=== PATIENT | female | born 1965 | race Caucasian/White ===

== ENCOUNTER 2023-11-13 17:59 | Emergency (ER) | payer BC, SELFPAY ==
[2023-11-13 18:06] VITALS: BP 172/100
[2023-11-13 20:20] VITALS: BP 166/78
--- NOTE | 2023-11-13 20:30 | ED.GENMED ---
History of Present Illness
General
Chief Complaint: Abdominal Pain
Source: patient
Exam Limitations: none
Time Seen by Provider: 11/13/23 20:21
Travel History
Have you had any contact with someone who has COVID-19?: No
Do you have any symptoms of coronavirus? Fever > 100 degrees, chills, cough, shortness of breath, sore throat, loss of taste or smell, muscle aches, or headache?: No
History of Present Illness
History of Present Illness:
See MDM
Past History
Past History
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
ED Past Surgical History: Other (PD catheter)
Social History
Tobacco: Non-smoker
Alcohol: None
Personal: Single (engaged)
Living: with family
Phy Exam
Physical Exam
Physical Exam:
See MDM
Course
Orders/Labs/Results
Orders:
Orders
11/13/23 20:30
CT Abd/pel (oral only)-[facility] Only Urgent
Comment:
Reason For Exam: RLQ, peritoneal dialysis
Iohexol [Omnipaque] See Protocol PO NOW STA
11/13/23 20:44
CMP [Comprehensive Metabolic Panel] Urgent
Complete Blood Count/With Diff Urgent
Abnormal Lab Results
11/13/23
20:44
RBC 4.03 L 10^6/uL
(4.20-5.40)
MPV 10.8 H fL
(7.4-10.4)
Absolute Monos (auto) 0.7 H 10^3/uL
(0.1-0.6)
BUN 72 H mg/dl
(7-17)
Creatinine 11.7 H* mg/dL
(0.6-1.0)
Glucose 118 H mg/dl
(70-99)
Total Protein 5.7 L g/dl
(6.3-8.2)
Albumin 3.4 L g/dl
(3.5-5.0)
11/13/23 20:44
11/13/23 20:44
Vital Signs
Initial and Last Documented VS:
Initial Vital Signs
Temp Pulse Resp BP Pulse Ox
97.6 F 94 18 172/100 97
11/13/23 18:06 11/13/23 18:06 11/13/23 18:06 11/13/23 18:06 11/13/23 18:06
Last Documented Vital Signs
Temp Pulse Resp BP Pulse Ox
97.6 F 84 18 151/70 99
11/13/23 18:06 11/13/23 22:02 11/13/23 22:02 11/13/23 22:02 11/13/23 22:02
MDM/Problems Addressed
Differential Diagnosis Includes:
HPI and MDM Narrative:
58-year-old female presenting for evaluation of right lower quadrant pain. This has been ongoing for the past 2 days. She went to urgent care and was sent to the emergency department to rule out acute appendicitis. Patient is on peritoneal
dialysis. She denies fevers or urinary symptoms. Urinalysis performed at urgent care and shows no signs of infection. Will have patient drink for CT
Physical exam
General: Well appearing and non-toxic
HEENT: protecting airway
Neck: appears supple
CV: No evidence of cyanosis
Resp: No accessory muscle use
Abd: Non-distended. Point tenderness to right lower quadrant
Extremities: No deformities
Neuro: alert
Psych: Normal affect
Skin: Intact
Problems Addressed including Acute and Chronic Conditions affecting care:
1. Abdominal pain
Acuity: acute
Prognosis: stable
Details: Will obtain CT with oral contrast to rule out acute appendicitis
Updates
11:30 PM I discussed with patient that the CT is otherwise negative. It references the possibility of early appendicitis but mentions that this is likely related to peritoneal dialysis fluid rather than acute appendicitis. Regardless, she has a
normal white blood cell count and looks well. We discussed return precautions and repeat CT if symptoms persist. Patient given printout of blood work and CT report and discussed with PCP
Differential Diagnosis (but not limited to): Acute appendicitis, colitis, kidney stone
Testing considered: CT with IV and oral contrast but will IV contrast given renal failure
Drug therapy (if applicable): OTC meds, please see d/c instruction regarding Rx drugs
Amount and/or Complexity of Data Reviewed
Clinical info obtained from: Patient
External data reviewed: N/A
Labs I independently reviewed (but not limited to): White blood cell count normal
Radiology: The CT scan was personally and independently reviewed. In addition, official CT report reviewed.
Pulse Ox: not hypoxic
EKG independently reviewed: N/A
Bond Underwriter: N/A
Critical Care: N/A
Risk of Complication:
Social Determinants of health: Good social support
Discussed with other providers: N/A
Escalation of Care includes Admit/Obs: After being observed in the Emergency Department, pt stable for discharge.
Occasional wrong word or 'sound a like' substitutions may have occurred due to the inherent limitations of voice recognition software. Read the chart carefully and recognize, using context, where substitutions have occurred.
*Critical Care Note
Total Time (30-74mins, 75-104mins- exclusive of procedures): Not Applicable
ED Attending Note
-
Portions of this chart may have been created with voice recognition software.� Occasional wrong word or��sound alike� substitutions may have occurred due to the inherent limitations of voice recognition software.
Discharge Plan
Departure
Patient Disposition: Home (Routine Discharge)
Date of Disposition: 11/13/23
Time of Disposition: 23:30
Patient with high blood pressure during this ER visit?: Yes
Discharge Problem:
Abdominal pain
Instructions: Abdominal Pain, BLOOD PRESSURE
Prescriptions:
No Action
levothyroxine 112 MCG tablet
112 mcg PO DAILY
rosuvastatin 20 MG tablet
20 mg PO HS
warfarin [Jantoven] 4 MG tablet
4 mg PO QPM 30 Days Qty: 30 0RF
losartan 50 mg tablet
50 mg PO DAILY
furosemide 40 mg tablet
40 mg PO DAILY
Rx Instructions:
taken w/ 80mg = 120mg
ropinirole 1 mg tablet
2 mg PO HS
furosemide 80 mg tablet
80 mg PO DAILY
Rx Instructions:
Taken w/ 40mg = 120mg
calcitriol 0.5 mcg Capsule
0.5 mcg PO MOWEFR
gabapentin 100 mg capsule
100 mg PO HS
cinacalcet 30 mg Tablet
30 mg PO MOWEFR
lanthanum 1,000 mg tablet,chewable
1,000 mg PO MEALS
docusate sodium [Colace] 100 mg Capsule
200 mg PO DAILY
Patient Comments:
per patient
insulin aspart U-100 [Novolog FlexPen U-100 Insulin] 100 unit/mL (3 mL) Insulin Pen
15 unit SC AC Qty: 5 0RF
Rx Instructions:
E11.65
(DME) pen needle, diabetic [BD Ultra-Fine Wendie Pen Needle] 32 gauge x 5/32' Needle
Qty: 200 0RF
Rx Instructions:
E11.65As Directed
(DME) Contour Next Test Strips Strip
Qty: 200 0RF
Rx Instructions:
Test before each meal and HS As Directed E 11.65
(DME) lancets [Color Lancets] 21 gauge Misc
Qty: 200 0RF
Rx Instructions:
Test glucose before each meal and HS As Directed Insulin requiring
E11.65
sodium bicarbonate 650 mg Tablet
650 mg PO TID Qty: 90 0RF
cephalexin 500 mg Capsule
500 mg PO Q12H Qty: 14 0RF
insulin lispro [Humalog KwikPen Insulin] 100 unit/mL Insulin Pen
15 unit SC AC Qty: 5 0RF
insulin degludec [Tresiba FlexTouch U-100] 100 unit/mL (3 mL) Insulin Pen
20 unit SC DAILY Qty: 5 0RF
benzonatate 150 mg capsule
150 mg PO BID PRN (Reason: Cough) Qty: 14 0RF
(DME) App[employer]uch Verio test strips Strip
Qty: 120 0RF
Rx Instructions:
testing 4 times a day
(DME) blood-glucose meter [[employer]Touch Verio Flex meter] Misc
Qty: 1 0RF
Rx Instructions:
PT TESTING 4 TIMES A DAY
(DME) lancets [[employer] Delica Safety Lancet] 30 gauge Misc
Qty: 120 0RF
Rx Instructions:
PT TESTING 4 TIMES A DAY
Referrals:
NONE,* [Family Provider] -
Activity Restrictions/Additional Instructions:
As we discussed, there is no clear reason for your belly pain
Please return for any worsening symptoms.
You may return at any time if you have further concerns.
Please follow up with your doctor at the first available appointment, preferably this week. Please bring a printout of your blood work and CT report. If symptoms persist or worsen, you may need another CT scan.
Thank you for choosing [facility].
Interventions
Interventions:
*Risk Screen - Suicide Last Done: 11/13/23 18:08
*General Assessment Last Done: 11/13/23 18:06
*Neglect/Abuse Screening Last Done: 11/13/23 18:06
ED- Fall Risk Assessment Last Done: 11/13/23 20:19
*ED COVID-19 Vaccine History Last Done: 11/13/23 20:19
HK-Xjujlm-Vwtxbamplk Assessment Last Done: 11/13/23 20:19
[2023-11-13] MEDS: OMNIPAQUE 50 ML PO (20:44)
[2023-11-13 20:58] LABS: % Basophils 0.6 % (0-2); % Immature Granulocytes 0.4 % (0-0.5); % Lymphocytes 21.7 % (20.5-51.1); % Monocytes 7.4 % (1.7-9.3); % Neutrophils 67.9 % (42.2-75.2); Absolute Basophils 0.1 10^3/uL (0-0.2); Absolute Eosinophils 0.2 10^3/uL (0-0.7); Absolute Monocytes 0.7 10^3/uL (0.1-0.6); Absolute Neutrophils 6.3 10^3/uL (1.4-6.5); Hematocrit 37.1 % (37.0-47.0); Hemoglobin 12.4 g/dL (12.0-16.0); Mean Corp Hgb Conc. 33.4 g/dL (33.0-37.0); Mean Corpuscular Hgb 30.8 pg (27.0-31.0); Mean Corpuscular Volume 92.1 fL (81.0-99.0); Mean Platelet Volume 10.8 fL (7.4-10.4); Nucleated Red Blood Cells % 0 %; Platelet Count 283 10^3/uL (130-400); Red Blood Cell Count 4.03 10^6/uL (4.20-5.40); Red Cell Dist. Width 12.9 % (11.5-14.5); White Blood Cell Count 9.4 10^3/uL (4.8-10.8)
[2023-11-13 21:18] LABS: ALT (SGPT) 11 U/L (0-35); AST (SGOT) 16 U/L (14-36); Albumin 3.4 g/dl (3.5-5.0); Alkaline Phosphatase 86 U/L (38-126); Blood Urea Nitrogen 72 mg/dl (7-17); Carbon Dioxide 23 mmol/L (22-30); Potassium 4.7 mmol/L (3.5-5.1); Sodium 135 mmol/L (135-145); Total Bilirubin 0.5 mg/dl (0.2-1.3); Total Protein 5.7 g/dl (6.3-8.2); eGFR 3.41
[2023-11-13 21:31] LABS: Calcium 9.9 mg/dl (8.4-10.2); Chloride 102 mmol/L (98-107); Glucose 118 mg/dl (70-99)
[2023-11-13 22:02] VITALS: BP 151/70
[2023-11-13 23:45] VITALS: BP 147/74
== END 2023-11-13 23:45 | disposition home or self-care (01) ==
LOC: EMR 17:59
PROVIDERS: Emergency Medicine; EMERGENCY PHYSICIAN Student in an Organized Health Care Education/Training Program
DX: R10.31 Right lower quadrant pain (principal); I12.0 Hypertensive chronic kidney disease with stage 5 chronic kidney disease or end stage renal disease; N18.6 End stage renal disease; Z99.2 Dependence on renal dialysis; Z88.1 Allergy status to other antibiotic agents; Z88.2 Allergy status to sulfonamides; Z88.8 Allergy status to other drugs, medicaments and biological substances
CPT/HCPCS: 99284; 74176; 80053; 85025

== ENCOUNTER → 2024-01-25 18:45 | Outpatient (REF) | payer MEDICARE, BC, SELFPAY | LOC: WDC 18:45 | PROVIDERS: ATTENDING PHYSICIAN Nurse Practitioner Family | DX: Z12.31 Encounter for screening mammogram for malignant neoplasm of breast (principal) | CPT/HCPCS: 77063; 77067 ==

== ENCOUNTER → 2024-08-17 09:43 | Outpatient (REF) | payer MEDICARE, BC, SELFPAY | LOC: RAD 09:43 | PROVIDERS: ATTENDING PHYSICIAN Nurse Practitioner Family; FAMILY PHYSICIAN Nurse Practitioner Family | DX: R10.32 Left lower quadrant pain (principal) | CPT/HCPCS: 72192; 76882 ==

== ENCOUNTER 2024-09-06 16:07 | Emergency (ER) | payer BC, MEDICARE, SELFPAY ==
--- NOTE | 2024-09-06 16:10 | ED.GENMED ---
ED Provider Triage
<Seng Hung PA-C - Last Filed: 09/06/24 16:12>
-
Patient seen by provider in Triage?: Seen in Triage
Attestation: A medical screening examination has been initiated by a qualified medical provider. Based on the assessment performed at this time, it has been determined that an emergent medical condition may exist and the patient has been informed
that further medical evaluation and possible additional diagnostic testing may be needed.
HPI: 59 year old female with right buttock pain radiating to right thigh. Increasingly worse, now difficulty ambulating 2/2 pain. Attempted muscle relaxer without relief. Saw ortho for previous pubic rami fx on left and given vicoden without relief.
Had CT scan done on August 17 around that time here. No new injuries since. Patient stable for waiting room.
GENERAL: Alert , in no apparent distress
EYE: No visual abnormalities.
NECK: Trachea midline
ENT: No visible abnormalities.
LUNGS: No acute respiratory distress
NEUROLOGICAL: Alert and oriented
SKIN: Skin intact. No visible changes.
MUSCULOSKELETAL: Moving extremities normally
PSYCH: Normal and appropriate interaction.
This is a medical evaluation conducted in person to initiate diagnostic evaluation and provide initial therapeutics. Please see further documentation by the treating clinician.
History of Present Illness
<Seng Hung PA-C - Last Filed: 09/06/24 16:12>
General
Chief Complaint: Musculo-Skeletal Complaint
Time Seen by Provider: 09/06/24 18:00
<SUZANNE Long - Last Filed: 09/06/24 20:53>
General
Source: patient
Exam Limitations: none
History of Present Illness
History of Present Illness:
This is a 59 year old female that come sin with c/o right hip/buttocks pain. State that they recently found that she has a nondisplaced pelvic fracture on the left. States that there was no injury or falls. States that now she has pain on the right
side that is in her buttocks and goes down her right leg States that the pain has gotten worse and know she can't walk or put pressure on the right leg. States that they tried Muscle relaxers and this did not help. State that she went to [facility] and
saw orthopedics. States that she was given Vicodin and this doesn't help except maker her feel that she is out of her body. State that the last 10 days the pain is worse. States that she has done 2 rounds o prednisone and at first this helped but
then it stopped. Denies any fever, chills, chest pain, SOB, abd pain, nausea, vomiting, diarrhea, headache, dizziness, urinary burning.
Past History
<Seng Hung PA-C - Last Filed: 09/06/24 16:12>
Past History
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
ED Past Surgical History: Other (PD catheter)
Social History
Tobacco: Non-smoker
Alcohol: None
Personal: Single (engaged)
Living: with family
<SUZANNE Long - Last Filed: 09/06/24 20:53>
Past History
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
ED Past Surgical History: Gynecological (Tubal, ) and Tonsilectomy
Social History
Alcohol: Occasional
Review of Systems
<SUZANNE Long - Last Filed: 09/06/24 20:53>
Review of Systems
All Other Systems: ROS reviewed and negative except as documented in HPI and ROS
Constitutional: Reports no symptoms; Denies fever or chills
EENT: Reports no symptoms
Respiratory: Reports no symptoms; Denies cough or trouble breathing
Cardiac: Reports no symptoms; Denies chest pain
ABD/GI: Reports no symptoms; Denies abdominal pain, nausea, vomiting or diarrhea
: Reports no symptoms
Musculoskeletal: Reports other (Pain right buttocks into right leg)
Skin: Reports no symptoms
Neurological: Reports no symptoms; Denies dizzy or headache
Psychiatric: Reports no symptoms
Phy Exam
<SUZANNE Long - Last Filed: 09/06/24 20:53>
General Physical Exam
General Presentation: no apparent distress
General age: appears stated age
General Skin: warm and dry
General Habitus: elderly
General Mental: alert
General Hydration: appears well hydrated
ENT Exam
ENT Exam: TM's normal, pharynx normal and neck supple
Eye Exam
Eye Exam: EOMI
Cardiovascular Exam
Cardiovascular Exam: regular rate/rhythm and normal peripheral pulses
Pulmonary Exam
Pulmonary Exam: lungs clear, no respiratory distress, no rales, chest non tender, no crackles, no rhonchi, no wheezing and no cough
Gastrointestinal Exam
Gastrointestinal Exam: normal bowel sounds, non tender, soft, no organomegaly, no pulsatile mass, non distended and other (Left lower abd peritoneal dialysis catheter)
Musculoskeletal Exam
Musculoskeletal Exam: edema (+1 pitting edema lower legs) and other (Pain with palpation right buttocks into right leg, limited ROM due to pain)
Skin Exam
Skin Exam: normal color, warm/dry, no rash and no petechia
Psychiatric Exam
Psychiatric Exam: normal mood/affect
Course
<Seng Hung PA-C - Last Filed: 09/06/24 16:12>
Orders/Labs/Results
Orders:
Orders
09/06/24 18:35
CT Lower Ext W/o Iv Cont Rt Urgent
Comment: Recent pelvic fracture on right without injury.
Reason For Exam: Right hip/buttocks pain
09/06/24 18:42
Acetaminophen [Tylenol] 1,000 mg PO NOW STA
Dexamethasone Sod Phosphate [Decadron] 20 mg IV NOW STA
Oxycodone [Roxicodone] 5 mg PO NOW STA
09/06/24 18:48
Complete Blood Count/With Diff Urgent
Comprehensive Metabolic Panel Urgent
Prothrombin Time Urgent
Abnormal Lab Results
09/06/24
18:48
WBC 11.6 H 10^3/uL
(4.8-10.8)
RBC 3.49 L 10^6/uL
(4.20-5.40)
Hgb 10.7 L g/dL
(12.0-16.0)
Hct 32.0 L %
(37.0-47.0)
Abs Immat Gran (auto) 0.2 H 10^3/uL
(0-0.05)
Absolute Neuts (auto) 9.9 H 10^3/uL
(1.4-6.5)
Absolute Lymphs (auto) 0.9 L 10^3/uL
(1.2-3.4)
Immature Gran % 1.9 H %
(0-0.5)
Neutrophils % 85.3 H %
(42.2-75.2)
Lymphocytes % 7.8 L %
(20.5-51.1)
Carbon Dioxide 19 L mmol/L
(22-30)
BUN 97 H mg/dl
(7-17)
Creatinine 12.5 H* mg/dL
(0.6-1.0)
Glucose 301 H mg/dl
(70-99)
Total Protein 5.7 L g/dl
(6.3-8.2)
09/06/24 18:48
09/06/24 18:48
Vital Signs
Initial and Last Documented VS:
Initial Vital Signs
Temp Pulse Resp BP Pulse Ox
97.6 F 86 18 163/77 99
09/06/24 16:11 09/06/24 16:11 09/06/24 16:11 09/06/24 16:11 09/06/24 16:11
Last Documented Vital Signs
Temp Pulse Resp BP Pulse Ox
97.6 F 72 20 163/77 20
09/06/24 16:11 09/06/24 19:00 09/06/24 19:00 09/06/24 16:11 09/06/24 19:00
<SUZANNE Long - Last Filed: 09/06/24 20:53>
Orders/Labs/Results
Orders:
Orders
09/06/24 18:35
CT Lower Ext W/o Iv Cont Rt Urgent
Comment: Recent pelvic fracture on right without injury.
Reason For Exam: Right hip/buttocks pain
09/06/24 18:42
Acetaminophen [Tylenol] 1,000 mg PO NOW STA
Dexamethasone Sod Phosphate [Decadron] 20 mg IV NOW STA
Oxycodone [Roxicodone] 5 mg PO NOW STA
09/06/24 18:48
Complete Blood Count/With Diff Urgent
Comprehensive Metabolic Panel Urgent
Prothrombin Time Urgent
Abnormal Lab Results
09/06/24
18:48
WBC 11.6 H 10^3/uL
(4.8-10.8)
RBC 3.49 L 10^6/uL
(4.20-5.40)
Hgb 10.7 L g/dL
(12.0-16.0)
Hct 32.0 L %
(37.0-47.0)
Abs Immat Gran (auto) 0.2 H 10^3/uL
(0-0.05)
Absolute Neuts (auto) 9.9 H 10^3/uL
(1.4-6.5)
Absolute Lymphs (auto) 0.9 L 10^3/uL
(1.2-3.4)
Immature Gran % 1.9 H %
(0-0.5)
Neutrophils % 85.3 H %
(42.2-75.2)
Lymphocytes % 7.8 L %
(20.5-51.1)
Carbon Dioxide 19 L mmol/L
(22-30)
BUN 97 H mg/dl
(7-17)
Creatinine 12.5 H* mg/dL
(0.6-1.0)
Glucose 301 H mg/dl
(70-99)
Total Protein 5.7 L g/dl
(6.3-8.2)
09/06/24 18:48
09/06/24 18:48
WBC very slightly elevated. H/H low but higher then some prior labs, Chronic renal failure, Hyperglycemia. Total protein low. PT 14.6 with INR 1.09
Vital Signs
Initial and Last Documented VS:
Initial Vital Signs
Temp Pulse Resp BP Pulse Ox
97.6 F 86 18 163/77 99
09/06/24 16:11 09/06/24 16:11 09/06/24 16:11 09/06/24 16:11 09/06/24 16:11
Last Documented Vital Signs
Temp Pulse Resp BP Pulse Ox
97.6 F 72 20 163/77 20
09/06/24 16:11 09/06/24 19:00 09/06/24 19:00 09/06/24 16:11 09/06/24 19:00
<SUZANNE Long - Last Filed: 09/06/24 20:53>
MDM/Problems Addressed
Differential Diagnosis Includes:
sciatic pain, Pelvic fracture,
MDM/Problems Addressed:
This is a 59 year old female that comes in with c/o right buttocks/hip pain. State that she recently was diagnosed with a left pelvic fracture that was without injury. Know she has right buttock pain that goes into the right leg. States that in the
past 10 days this pain has gotten worse and she can't walk on the right leg.
Well check labs, CT right lower extremity. Give a dose of steroids and pain medication.
back into see patient. Explained that the CT is negative for any new fractures. The Prior fracture is healing. Offered patient admission as she states that her pain is still a 8/10. States that she would rather go home and call [facility] tomorrow for
further evaluation. Patient has a disc of the CT. Will Place patient on Oxycodone and have patient use Tylenol 1000mg every ever 6 hours for pain. Explained that her INR is low and patient states that her PCP had reduced her Coumadin due to a
medication that she was taking. Patient has not had a Coumadin tonight and will take when she gets home. Patient to also notify her PCP of the INR level as she may wish to increase her dosage. Patient to return with any concerns.
Chronic conditions affecting care: Kidney disease
Acute Exacerbation and/or Progression of Chronic Illness:
NA
<SUZANNE Long - Last Filed: 09/06/24 20:53>
*Radiology
Radiology exam reviewed: radiology read reviewed (CT right lower extremity-NO acute fracture identified. Subacute healing left pubic bone fracture. Polycystic kidney disease. Stable. Diverticulosis. Stable. )
*Pulse Oximetry
Patient hypoxic: no
*EKG
Interpreted by ED Provider?: NA
Rate: EKG- N/A
*[employer] Interpretation
Rate: [employer]- N/A
*Critical Care Note
Total Time (30-74mins, 75-104mins- exclusive of procedures): Not Applicable
ED Attending Note
<Seng Hung PA-C - Last Filed: 09/06/24 16:12>
-
Portions of this chart may have been created with voice recognition software.� Occasional wrong word or��sound alike� substitutions may have occurred due to the inherent limitations of voice recognition software.
Discharge Plan
Departure
Patient Disposition: Home (Routine Discharge)
Date of Disposition: 09/06/24
Time of Disposition: 20:45
Patient with high blood pressure during this ER visit?: Yes
Condition: Good
Covid-19: Not Applicable
Discharge Problem:
Right sciatic nerve pain
Instructions: Sciatica (DC), BLOOD PRESSURE
Prescriptions:
New
oxycodone 10 mg tablet
10 mg PO Q6H PRN (Reason: Pain) Qty: 20 0RF
No Action
levothyroxine 112 MCG tablet
112 mcg PO DAILY
rosuvastatin 20 MG tablet
20 mg PO HS
warfarin [Jantoven] 4 MG tablet
4 mg PO QPM 30 Days Qty: 30 0RF
losartan 50 mg tablet
50 mg PO DAILY
furosemide 40 mg tablet
40 mg PO DAILY
Rx Instructions:
taken w/ 80mg = 120mg
ropinirole 1 mg tablet
2 mg PO HS
furosemide 80 mg tablet
80 mg PO DAILY
Rx Instructions:
Taken w/ 40mg = 120mg
calcitriol 0.5 mcg Capsule
0.5 mcg PO MOWEFR
gabapentin 100 mg capsule
100 mg PO HS
cinacalcet 30 mg Tablet
30 mg PO MOWEFR
lanthanum 1,000 mg tablet,chewable
1,000 mg PO MEALS
docusate sodium [Colace] 100 mg Capsule
200 mg PO DAILY
Patient Comments:
per patient
insulin aspart U-100 [Novolog FlexPen U-100 Insulin] 100 unit/mL (3 mL) Insulin Pen
15 unit SC AC Qty: 5 0RF
Rx Instructions:
E11.65
(DME) pen needle, diabetic [BD Ultra-Fine Wendie Pen Needle] 32 gauge x 5/32' Needle
Qty: 200 0RF
Rx Instructions:
E11.65As Directed
(DME) Contour Next Test Strips Strip
Qty: 200 0RF
Rx Instructions:
Test before each meal and HS As Directed E 11.65
(DME) lancets [Color Lancets] 21 gauge Misc
Qty: 200 0RF
Rx Instructions:
Test glucose before each meal and HS As Directed Insulin requiring
E11.65
sodium bicarbonate 650 mg Tablet
650 mg PO TID Qty: 90 0RF
cephalexin 500 mg Capsule
500 mg PO Q12H Qty: 14 0RF
insulin lispro [Humalog KwikPen Insulin] 100 unit/mL Insulin Pen
15 unit SC AC Qty: 5 0RF
insulin degludec [Tresiba FlexTouch U-100] 100 unit/mL (3 mL) Insulin Pen
20 unit SC DAILY Qty: 5 0RF
benzonatate 150 mg capsule
150 mg PO BID PRN (Reason: Cough) Qty: 14 0RF
(DME) OneTouch Verio test strips Strip
Qty: 120 0RF
Rx Instructions:
testing 4 times a day
(DME) blood-glucose meter [OneTouch Verio Flex meter] Misc
Qty: 1 0RF
Rx Instructions:
PT TESTING 4 TIMES A DAY
(DME) lancets [[employer] Safety Lancet] 30 gauge Misc
Qty: 120 0RF
Rx Instructions:
PT TESTING 4 TIMES A DAY
Referrals:
Solange De Santiago CRNP [Family Provider] -
Activity Restrictions/Additional Instructions:
As discussed,your blood work shows that your INR is low at 1.09. Your blood sugar is also elevated. This can be due to the steroids. Your CT scan is negative for any new fractures that the prior fracture is healing. You have had a prescription for
Oxycodone sent to your pharmacy. The dose was increased since the 5mg did not seem to help much. Please use Tylenol 1000mg every 6 hours and alternate with the Narcotic pain medication. Please call [facility] tomorrow for an appointment and further
evaluation. IF YOU HAVE ANY OTHER CONCERNS PLEASE RETURN TO THE EMERGENCY ROOM.
Interventions
Interventions:
*Risk Screen - Suicide Last Done: 09/06/24 19:00
*General Assessment Last Done: 09/06/24 16:16
*Neglect/Abuse Screening Last Done: 09/06/24 19:00
*ED COVID-19 Vaccine History Last Done: 09/06/24 19:00
ED-Musculoskeletal Assessment Last Done: 09/06/24 19:26
Discharge Date and Time
Print Language: ROMANIAN
[2024-09-06 16:11] VITALS: BP 163/77
[2024-09-06] MEDS: DECADRON 20 MG IV (18:59)
[2024-09-06] MEDS: ROXICODONE 5 MG PO (18:59)
[2024-09-06] MEDS: TYLENOL 1000 MG PO (18:59)
[2024-09-06 19:02] LABS: % Basophils 0.2 % (0-2); % Immature Granulocytes 1.9 % (0-0.5); % Lymphocytes 7.8 % (20.5-51.1); % Monocytes 4.8 % (1.7-9.3); % Neutrophils 85.3 % (42.2-75.2); Absolute Immature Granulocytes 0.2 10^3/uL (0-0.05); Absolute Lymphocytes 0.9 10^3/uL (1.2-3.4); Absolute Monocytes 0.6 10^3/uL (0.1-0.6); Absolute Neutrophils 9.9 10^3/uL (1.4-6.5); Hemoglobin 10.7 g/dL (12.0-16.0); Mean Corp Hgb Conc. 33.4 g/dL (33.0-37.0); Mean Corpuscular Hgb 30.7 pg (27.0-31.0); Mean Corpuscular Volume 91.7 fL (81.0-99.0); Mean Platelet Volume 10.4 fL (7.4-10.4); Nucleated Red Blood Cells % 0 %; Platelet Count 239 10^3/uL (130-400); Red Blood Cell Count 3.49 10^6/uL (4.20-5.40); Red Cell Dist. Width 13.5 % (11.5-14.5); White Blood Cell Count 11.6 10^3/uL (4.8-10.8)
[2024-09-06 19:13] LABS: INR 1.09; PT 14.6 Sec (11.4-14.6)
[2024-09-06 19:17] LABS: ALT (SGPT) 20 U/L (0-35); AST (SGOT) 17 U/L (14-36); Albumin 3.6 g/dl (3.5-5.0); Alkaline Phosphatase 90 U/L (38-126); Blood Urea Nitrogen 97 mg/dl (7-17); Calcium 9.3 mg/dl (8.4-10.2); Carbon Dioxide 19 mmol/L (22-30); Chloride 99 mmol/L (98-107); Glucose 301 mg/dl (70-99); Sodium 137 mmol/L (135-145); Total Protein 5.7 g/dl (6.3-8.2)
[2024-09-06 19:28] LABS: eGFR 3.13
[2024-09-06 21:02] VITALS: BP 143/71
== END 2024-09-06 21:06 | disposition home or self-care (01) ==
LOC: EMR 16:07
PROVIDERS: Clinical Nurse Specialist Family Health; EMERGENCY PHYSICIAN Emergency Medicine; FAMILY PHYSICIAN Nurse Practitioner Family
DX: M54.31 Sciatica, right side (principal); I12.9 Hypertensive chronic kidney disease with stage 1 through stage 4 chronic kidney disease, or unspecified chronic kidney disease; N18.9 Chronic kidney disease, unspecified; E03.9 Hypothyroidism, unspecified; Q61.3 Polycystic kidney, unspecified
CPT/HCPCS: 99284; 96374; 73700; 80053; 85025; 85610

== ENCOUNTER 2024-09-25 23:21 | Inpatient (IN) | payer BC, MEDICARE, SELFPAY ==
[2024-09-25 19:37] VITALS: BP 141/80
[2024-09-25 20:04] LABS: % Basophils 0.3 % (0-2); % Immature Granulocytes 1.3 % (0-0.5); % Lymphocytes 17.5 % (20.5-51.1); % Monocytes 7.1 % (1.7-9.3); % Neutrophils 73.8 % (42.2-75.2); Absolute Immature Granulocytes 0.1 10^3/uL (0-0.05); Absolute Lymphocytes 1.6 10^3/uL (1.2-3.4); Absolute Monocytes 0.6 10^3/uL (0.1-0.6); Absolute Neutrophils 6.6 10^3/uL (1.4-6.5); Hematocrit 24.5 % (37.0-47.0); Hemoglobin 7.9 g/dL (12.0-16.0); Mean Corp Hgb Conc. 32.2 g/dL (33.0-37.0); Mean Corpuscular Hgb 31.7 pg (27.0-31.0); Mean Corpuscular Volume 98.4 fL (81.0-99.0); Nucleated Red Blood Cells % 0 %; Platelet Count 327 10^3/uL (130-400); Red Blood Cell Count 2.49 10^6/uL (4.20-5.40); Red Cell Dist. Width 18.1 % (11.5-14.5)
[2024-09-25 20:28] LABS: ALT (SGPT) 15 U/L (0-35); AST (SGOT) 17 U/L (14-36); Albumin 3.4 g/dl (3.5-5.0); Alkaline Phosphatase 136 U/L (38-126); Blood Urea Nitrogen 101 mg/dl (7-17); Calcium 9.1 mg/dl (8.4-10.2); Carbon Dioxide 21 mmol/L (22-30); Chloride 96 mmol/L (98-107); Glucose 169 mg/dl (70-99); Potassium 5.1 mmol/L (3.5-5.1); Sodium 139 mmol/L (135-145); Total Bilirubin 0.4 mg/dl (0.2-1.3); Total Protein 5.6 g/dl (6.3-8.2)
[2024-09-25 20:40] LABS: Urine Albumin 1+ (Neg - Trace); Urine Bilirubin Negative (Negative); Urine Character Clear (Clear); Urine Color Yellow; Urine Glucose 2+ (Negative); Urine Ketone Negative (Negative); Urine Leukocyte Trace (Negative); Urine Nitrite Negative (Negative); Urine Occult Blood 1+ (Negative); Urine Specific Gravity 1.005 (<1.030); Urine Urobilinogen Negative (Neg - 1+)
[2024-09-25 20:47] VITALS: BMI 36.8
[2024-09-25 20:47] LABS: Urine Red Blood Cell 0-2 /HPF (0-2); Urine Squamous Cell 26-30 /LPF (Few)
[2024-09-25 20:48] LABS: eGFR 2.25
[2024-09-25 20:48] LABS: Urine Bacteria Many (Negative); Urine White Cell 0-2 /HPF (0-5)
[2024-09-25 20:50] VITALS: BP 123/59
[2024-09-25 21:00] VITALS: BP 120/64
--- NOTE | 2024-09-25 21:31 | ED.GENMED ---
History of Present Illness
General
Chief Complaint: Fatigue
Source: patient
Exam Limitations: none
Time Seen by Provider: 09/25/24 21:08
History of Present Illness
History of Present Illness:
59yoF with a history of ESRD on peritoneal dialysis, prior pulmonary embolism with factor V Leiden on Coumadin, and hypertension presenting with her [id number] for evaluation of fatigue. Patient has been feeling rundown with malaise over the
past 4 days. She checked her blood pressure today which was low at 98/43. Her heart rate was also elevated in the 110s. She called her PD nurse who advised her to come to the ED for evaluation. She reports that her bowel movement was dark
earlier today. She denies any fevers, chest pain, shortness of breath, abdominal pain, vomiting, diarrhea.
Past History
Past History
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
ED Past Surgical History: Gynecological (Tubal, ), Tonsilectomy and Other (PD catheter)
Social History
Tobacco: Non-smoker
Alcohol: Occasional
Personal: Single (engaged)
Living: with family
Phy Exam
General Physical Exam
General Presentation: well appearing and no apparent distress
General age: appears stated age
General Skin: warm and dry
General Habitus: normal
General Mental: alert
ENT Exam
ENT Exam: normocephalic
Cardiovascular Exam
Cardiovascular Exam: regular rate/rhythm and no murmur
Pulmonary Exam
Pulmonary Exam: lungs clear, no respiratory distress, no rales, no crackles and no rhonchi
Gastrointestinal Exam
Gastrointestinal Exam: non tender, soft, non distended and other (Abdomen soft, nontender. PD catheter in place without signs of surrounding cellulitis.)
Stool: other (Stool dark brown/black on rectal exam. Hemoccult positive.)
Guaiac Status: positive
Neurological Exam
Neurological Exam: alert
Taylor Coma Scale
Eye Opening: Spontaneous
Verbal Response: Oriented
Motor Response: Obeys Commands
GCS Total Score: 15
Skin Exam
Skin Exam: normal color and warm/dry
Psychiatric Exam
Psychiatric Exam: normal mood/affect
Course
Orders/Labs/Results
Orders:
Orders
09/25/24 19:52
COVID-19 Antigen Urgent
Source: Nasal Swab
Complete Blood Count/With Diff Urgent
Comprehensive Metabolic Panel Urgent
Ferritin Urgent
Comment: ADD ON
Folate Urgent
Glycohemoglobin (HgbA1c) Urgent
Iron Urgent
Comment: ADD ON
Total Iron Binding Urgent
Vitamin B12 Urgent
INF RAPID [Influenza A+B Rapid Molecular] Urgent
BEATRIZ Source: Nasal Swab
Specimen Description:
09/25/24 20:30
Urinalysis Reflex To Culture Urgent
Date Specimen was Collected: 09/25/24
Time Specimen was Collected: 20:04
Urine Microscopic Reflex Cult Urgent
Urine Culture Urgent
BEATRIZ Source: U
Specimen Description:
Date Specimen was Collected: 09/25/24
Time Specimen was Collected: 20:04
09/25/24 21:31
Electrocardiogram (*1) Urgent
Reason for Study: Palpitations
EKG- Treatment ONCE
09/25/24 21:46
Type+Screen Urgent
Prothrombin Time Urgent
09/25/24 22:17
Acetaminophen [Tylenol] 650 mg PO NOW STA
Pantoprazole [Protonix IV] 40 mg IV NOW STA
09/25/24 23:00
Flush (0.9% Sodium Chloride) [Flush (Nss)] See Dose Instructions IV PER PROTOCOL
Abnormal Lab Results
09/25/24 09/25/24 09/25/24
19:52 20:30 21:46
RBC 2.49 L 10^6/uL
(4.20-5.40)
Hgb 7.9 L g/dL
(12.0-16.0)
Hct 24.5 L %
(37.0-47.0)
MCH 31.7 H pg
(27.0-31.0)
MCHC 32.2 L g/dL
(33.0-37.0)
RDW 18.1 H %
(11.5-14.5)
Abs Immat Gran (auto) 0.1 H 10^3/uL
(0-0.05)
Absolute Neuts (auto) 6.6 H 10^3/uL
(1.4-6.5)
Immature Gran % 1.3 H %
(0-0.5)
Lymphocytes % 17.5 L %
(20.5-51.1)
PT 20.8 H Sec
(11.4-14.6)
Chloride 96 L mmol/L
(98-107)
Carbon Dioxide 21 L mmol/L
(22-30)
BUN 101 H* mg/dl
(7-17)
Creatinine 16.5 H* mg/dL
(0.6-1.0)
Glucose 169 H mg/dl
(70-99)
TIBC 235 L ug/dl
(265-497)
Alkaline Phosphatase 136 H U/L
(38-126)
Total Protein 5.6 L g/dl
(6.3-8.2)
Albumin 3.4 L g/dl
(3.5-5.0)
Ur Occult Blood Reflex 1+ A
(Negative)
Leukocyte Esterase Rfl Trace A
(Negative)
Urine Bacteria (Reflex) Many A
(Negative)
Urine Glucose 2+ A
(Negative)
Urine Albumin (Reflex) 1+ A
(Neg - Trace)
09/25/24 19:52
09/25/24 19:52
Vital Signs
Initial and Last Documented VS:
Initial Vital Signs
Temp Pulse Resp BP Pulse Ox
98.7 F 112 18 141/80 99
09/25/24 19:37 09/25/24 19:37 09/25/24 19:37 09/25/24 19:37 09/25/24 19:37
Last Documented Vital Signs
Temp Pulse Resp BP Pulse Ox
98.6 F 97 17 144/80 95
09/26/24 03:10 09/26/24 02:00 09/26/24 02:00 09/26/24 02:00 09/26/24 02:00
MDM/Problems Addressed
Differential Diagnosis Includes:
59yoF here with malaise and decreased appetite x 4 days. BP low and heart rate high at home today. Also noticed some dark stool today. Hx of ESRD on PD. Currently on Coumadin. Heart rate 112 in triage. Remainder of vitals stable. Patient is
nontoxic-appearing. Abdominal exam is benign. PD catheter noted without signs of surrounding cellulitis. Stool dark brown/black on rectal exam and Hemoccult is positive. Differential diagnosis includes but is not limited to: GI bleed,
symptomatic anemia, infectious process
Initial ED plan: Lab work obtained in triage. Hemoglobin is 7.9 (down from 10.7 on 09/06/2024). Will check EKG, INR, and type and screen. IV Protonix ordered. She will require hospitalization.
*EKG
Interpreted by ED Provider?: Yes
EKG Intrepretation Date: 09/25/24
Heart Rate: 101
Rate: tachycardiac
Rhythm: sinus
Crosby: normal axis
Interval: normal interval
QRS Pattern: normal QRS
Ischemia: no ischemia
*Critical Care Note
Total Time (30-74mins, 75-104mins- exclusive of procedures): Not Applicable
ED Attending Note
-
Portions of this chart may have been created with voice recognition software.� Occasional wrong word or��sound alike� substitutions may have occurred due to the inherent limitations of voice recognition software.
Discharge Plan
Departure
Patient Disposition: Admit
Date of Disposition: 09/25/24
Time of Disposition: 22:17
Presentation/result/management discussed w/ accepting MD/DO: Hospitalist
Discharge Problem:
GI bleed, Malaise, Anemia
Interventions
Interventions:
*Risk Screen - Suicide Last Done: 09/26/24 01:23
*General Assessment Last Done: 09/25/24 19:37
*Neglect/Abuse Screening Last Done: 09/25/24 19:37
ED- Fall Risk Assessment Last Done: 09/26/24 01:07
*ED COVID-19 Vaccine History Last Done: 09/26/24 01:23
*Nursing Disposition Last Done: 09/26/24 01:07
Discharge Date and Time
Discharge Date/Time: 09/26/24 01:07
[2024-09-25 22:05] VITALS: BP 118/64
[2024-09-25 22:08] LABS: INR 1.77; PT 20.8 Sec (11.4-14.6)
[2024-09-25] MEDS: TYLENOL 650 MG PO (22:20)
[2024-09-25] MEDS: PROTONIX IV 40 MG IV (22:20)
--- NOTE | 2024-09-25 22:47 | HPS.HSE ---
Family Physician
-
Family Physician: Fan Durham
Chief Complaint
-
Weakness
History of Present Illness
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 Patient reports feeling very run down particularly over the past 4 days. She
reports poor appetite, some mild nausea. Today she noted her stool be darker in color. She reports some intermittent dizziness, with low blood pressure and elevated heart rate. She denies prior history of GI Bleed. She denies prior upper
endoscopy. She denies NSAID use.
Medical History
Past Medical History
Past Medical History: Reports Other
Additional Past Medical History:
Pulmonary Embolism / Factor V Leiden
ESRD secondary Polycystic Kidney Disease on Peritoneal Dialysis
Anemia of Chronic Disease
Hypothyroidism
Restless Leg Syndrome
Past Surgical History: Reports Other
Additional Past Surgical History:
Tubal Ligation
Tonsillectomy
Peritoneal Dialysis Catheter
Social History
Tobacco: Non-smoker
Alcohol: None
Drug: None
Family History
Family History: Not pertinent
Allergies / Home Medications
Allergies reflects when Allergies were last updated in [facility].
Home Medications with original date entered in [facility]
Allergy/Medication List:
Allergies
Allergy/AdvReac Type Severity Reaction Status Date / Time
bupropion [From Wellbutrin] Allergy Rash Verified 09/25/24 19:37
sulfamethoxazole Allergy Itching Verified 09/25/24 19:37
[From Bactrim]
trimethoprim [From Bactrim] Allergy Itching Verified 09/25/24 19:37
Home Medications
levothyroxine 112 mcg tablet 112 mcg PO DAILY Thyroid 02/25/22
rosuvastatin 20 mg tablet 20 mg PO HS High cholesterol 02/25/22
calcitriol 0.5 mcg capsule 0.5 mcg PO DAILY Kidney Disease 07/13/23
cinacalcet 30 mg tablet 30 mg PO QPM Kidney Disease 07/13/23
furosemide 40 mg tablet 40 mg PO DAILY Fluid Retention/Swelling 07/13/23
furosemide 80 mg tablet 80 mg PO DAILY Fluid Retention/Swelling 07/13/23
gabapentin 100 mg capsule 200 mg PO HS Pain 07/13/23
ropinirole 1 mg tablet 2 mg PO HS Neurological Condition 07/13/23
sevelamer carbonate 800 mg tablet 2,400 mg PO AC 09/25/24
warfarin 4 mg tablet 2 mg PO SUTUTHSA 09/25/24
warfarin 4 mg tablet 4 mg PO MOWEFR 09/25/24
Review of Systems
-
A 12 point ROS was completed and negative except as noted: Yes
Constitutional: Denies Fever or Chills
Respiratory: Denies Cough or Trouble Breathing
Cardiac: Denies Chest Pain or Palpitations
Neurological: Reports Dizzy
Physical Exam
Vital Signs
Vital Signs
Temp Pulse Resp BP Pulse Ox
98.7 F 112 18 118/64 98
09/25/24 19:37 09/25/24 19:37 09/25/24 19:37 09/25/24 22:05 09/25/24 22:06
Physical Exam
General: Comfortable and Conversant
HEENT: Anicteric and Moist mucous membranes
Respiratory: Clear and Non Labored Respirations
Cardiac: S1/S2, Regular Rhythm and Tachycardia (Slightly)
GI: Soft, Non Tender and Other (PD catheter)
Rectal: Hem Positive (Per ED provider)
Musculoskeletal: No Clubbing and No Cyanosis
Skin: Warm and Dry
Neuro: Awake, Alert, Oriented and Nonfocal/grossly intact
Psych: Calm
Laboratory Results
-
09/25/24 19:52
09/25/24 19:52
Laboratory Results
PT 20.8 Sec (11.4-14.6) H 09/25/24 21:46
INR 1.77 09/25/24 21:46
Total Bilirubin 0.4 mg/dl (0.2-1.3) 09/25/24 19:52
AST 17 U/L (14-36) 09/25/24 19:52
ALT 15 U/L (0-35) 09/25/24 19:52
Alkaline Phosphatase 136 U/L (38-126) H 09/25/24 19:52
Data Reviewed
-
Lab Data: Labs Reviewed by me
Old Records: Reviewed
Impression/Plan
-
Symptomatic Anemia, suspect acute blood loss in setting of GI Bleed
-Monitor serial Hgb
-Check iron studies, vit b12 and folate
GI Bleed
-Consult GI
-Continue Protonix 40mg IV BID
-Continue NPO with sips/chips
hx Pulmonary Embolism / Factor V Leiden
-Coumadin on hold in setting of GI Bleed
-Monitor INR
ESRD secondary to Polycystic Kidney Disease on Peritoneal Dialysis
-Consult Nephrology
-Continue calcitriol, cinacalcet
-Hold furosemide
-Hold sevelamer
Hypothyroidism
-Continue levothyroxine
Hyperlipidemia
-Continue Crestor
Restless Leg Syndrome
-Continue Ropinirole
DVT proph: SCDs
Code Status: Full Code
[2024-09-25 23:00] VITALS: BP 121/70
--- NOTE | 2024-09-25 23:49 | W.PN.UPDATE ---
Update Note
Progress Note Update
Patient seen in conjunction with [facility]SE[facility]. I agree with the findings on history and physical as well as the assessment and plan.
This is a 59-year-old with history of polycystic kidney disease with end-stage kidney failure status post initiation of peritoneal dialysis, hypothyroid, hypertension, venous embolism with history of PE and DVT and inherited hypercoagulable state on
chronic Coumadin presents the emergency department with 3 days of of worsening fatigue and some dyspnea on exertion. Patient reports that she had a nondisplaced left-sided hip fracture recently and then had exacerbation of her chronic sciatica.
She has been treated with oxycodone. She denies any NSAIDs. She denies taking any aspirin. She has no prior history of peptic ulcer disease or GERD. She has had screening colonoscopies in the past without any abnormalities. Patient reported
that she felt dizzy and lightheaded today and had a bowel movement that was very dark. She did not see any dillon blood. She has been getting IV iron as well as erythroid stimulating agents renal clinic and the last hemoglobin was quite in
acceptable range. She has chronic lower extremity swelling but denies any history of congestive heart failure. She is on Lasix to augment PD dependence.
In the ED today she was afebrile, blood pressure was 118/64 with a pulse of 112, she was oxygen saturation was 98% on room air. She had a hemoglobin of 7.9 which is down from 10.7. Electrolytes were stable with a potassium of 5.1 and a bicarb of
21. INR was 1.7. ECG shows sinus tachycardia at 1 1.
She had a positive Hemoccult in the ED.
On my exam she appeared fatigued but not pale and not in any acute distress. No abdominal pain or distension. Denies constipation.
Assessment and plan
Anemia -rapid drop in hemoglobin with normal MCV suggest a recent blood loss anemia likely secondary to upper GI bleed. No dillon bleeding suspected at this time but cannot be ruled out.
admit to telemetry
- type and screen and conset
- trend h/h and transfuse for Hgb > 7
- npo for now except meds and ice chips
- ppi iv bid
- holding coumadin pending GI consult
- GI consultation
ESRD - On PD. Denies abdominal discomfort or constipation.
- nephrology consult
- continue mineral bone disease management per home with calcitriol cinacalcet and sevelamer(with meals)
- holding lasix while npo for now
- PD per nephrology
VTE - h/o inherited hypercoagulable state (says not Factor V leiden)
- holding coumadin for now
DVT PPX - SCDs
[2024-09-25 23:56] LABS: Iron 67 ug/dl (37-170); Percent Saturation 28 % (20-50); Total Iron Binding Capacity 235 ug/dl (265-497)
[2024-09-26] VITALS (20 sets, daily range): BP systolic 109–144; BP diastolic 54–80; BMI 36.6
[2024-09-26 01:38] LABS: COVID-19 Antigen Negative (Negative)
--- NOTE | 2024-09-26 02:13 | PTCARENOTE ---
Rec'd pt from ED via stretcher. Pt was not connected to monitoring equipment upon transfer. This RN connected pt to cardiac monitoring equipment and assisted pt to ambulate from stretcher to bed with use of rolling walker. Pt c/o chronic b/l hip
pain, which she states is worse with ambulation. PD cath present in L abdomen. SCDs placed. VSS, see worklist documentation. Call nava within reach.
[2024-09-26 03:23] LABS: Folate 11.9 ng/ml (2.76-20); Vitamin B12 686 pg/ml (239-931)
[2024-09-26] MEDS: SYNTHROID 112 MCG PO (05:21)
[2024-09-26 05:44] LABS: Hematocrit 20.9 % (37.0-47.0); Hemoglobin 6.7 g/dL (12.0-16.0); Mean Corp Hgb Conc. 32.1 g/dL (33.0-37.0); Mean Corpuscular Hgb 31.3 pg (27.0-31.0); Mean Corpuscular Volume 97.7 fL (81.0-99.0); Mean Platelet Volume 10.1 fL (7.4-10.4); Platelet Count 285 10^3/uL (130-400); Red Blood Cell Count 2.14 10^6/uL (4.20-5.40); Red Cell Dist. Width 17.9 % (11.5-14.5)
[2024-09-26] MEDS: TYLENOL 650 MG PO ×2 (05:50→20:07)
[2024-09-26 05:54] LABS: INR 1.84; PT 21.5 Sec (11.4-14.6)
[2024-09-26 06:05] LABS: Blood Urea Nitrogen 105 mg/dl (7-17); Carbon Dioxide 19 mmol/L (22-30); Chloride 99 mmol/L (98-107); Glucose 88 mg/dl (70-99); Potassium 5.2 mmol/L (3.5-5.1); Sodium 137 mmol/L (135-145)
--- NOTE | 2024-09-26 06:06 | PTCARENOTE ---
Critical low H&H received from hematology. Pt does report lightheadedness with ambulation. Results reported to SUZANNE Marina, awaiting orders.
[2024-09-26 06:32] LABS: Estimated Creatinine Clearance 4 ml/min; eGFR 2.33
[2024-09-26] MEDS: PROTONIX IV 40 MG IV ×2 (08:32→20:04)
[2024-09-26] MEDS: NSS (PRESERVATIVE FREE) 10 ML IV ×2 (08:32→20:04)
--- NOTE | 2024-09-26 08:57 | W.PN.HOSP.TC ---
Today's Communication/Plan
-
Patient to get a blood transfusion today. Patient to be seen by Nephrology and GI. Will get dialysis treatment here most likely. GI to determine if patient can resume anti-coagulation
Assessment / Plan
Assessment / Plan
Assessment:
59 year old female with a history of polycystic kidney disease with end-stage kidney failure s/p initiation of peritoneal dialysis, hypothyroidism, hypertension, venous embolism with history of PE and EVT and inherited hypercoagulable state on
chronic Coumadin presented to the ED with a 3 day history of worsening fatigue and shortness of breath. Patient had a positive hemooccult in ED and was found to have a rapid drop in hemoglobin most probably secondary to an upper GI bleed.
Plan:
#Symptomatic Anemia most probably secondary to acute blood loss in setting of upper GI Bleed
-Monitor serial Hgb
-Hgb dropped to 6.7 -> Transfusion needed
-Continue to trend H/H
-Continue NPO except meds and ice chips
-Continue IV PPI BID
-Increased Ferritin 1490
-Low TIBC 235
-Most likely due to Kidney disease
-GI consulted, input appreciated
-Holding Coumadin until seen by GI
#hx Pulmonary Embolism / Factor V Leiden
-Coumadin on hold in setting of GI Bleed
-Monitor INR (1.84 currently)
#ESRD secondary to Polycystic Kidney Disease on Peritoneal Dialysis
-Consult Nephrology, input appreciated
-Continue calcitriol, cinacalcet
-Hold furosemide
-Giving IVF for now
-Hold sevelamer
-Elevated Creatinine (16) and BUN (105), needs to continue dialysis treatment as per Nephrology
#Hypothyroidism
-Continue levothyroxine
#Hyperlipidemia
-Continue Crestor
#Restless Leg Syndrome
-Continue Ropinirole
#Sciatic Pain
-Pain medications as needed
DVT proph: SCDs
Code Status: Full Code
Anticipated Discharge: 24 - 48 hours
Subjective/Interval History
-
Date of Service: September 26, 2024
Patient says that she has been feeling weak and lightheaded. Says that she has been feeling tremors and twitches in her bilateral upper extremities since yesterday morning. She also
Objective Data
-
Labs:
Laboratory Results
09/25/24 09/26/24
21:46 05:29
WBC 8.0
Hgb 6.7 L*
Hct 20.9 L*
Plt Count 285
PT 20.8 H 21.5 H
INR 1.77 1.84
Sodium 137
Potassium 5.2 H
Chloride 99
Carbon Dioxide 19 L
BUN 105 H*
Creatinine 16.0 H*
Glucose 88
Calcium 9.0
Vital Signs:
Vital Signs
Temp Pulse Resp BP Pulse Ox
97.7 F 91 14 123/64 94
09/26/24 08:55 09/26/24 08:55 09/26/24 08:55 09/26/24 08:55 09/26/24 06:00
I&O
09/25/24 09/26/24 09/27/24
06:59 06:59 06:59
Intake Total 0 / 0
Balance 0 / 0
Review of Systems
-
History Source: Patient
Constitutional: Reports Fatigue and Weakness
EENT: Reports No Symptoms Reported
Respiratory: Denies Cough or Trouble Breathing
Cardiac: Denies Chest Pain, Diaphoresis, Palpitations or Syncope
Abdomen/GI: Denies Abdominal Pain, Nausea or Vomiting
Genitourinary: Reports No Symptoms
Musculoskeletal: Reports Other (Sciatic Pain right leg)
Neuro: Reports Weakness and Tremors
Endocrine: Reports No Symptoms
Hematologic / Lymphatic: Denies Bleeding or Bruising
Allergy / Immunology: Reports No Symptoms
Psych: Reports Anxious
Physical Exam
-
General: Well Developed, No Apparent Distress, Comfortable and Conversant
HEENT: Normocephalic and Atraumatic
Respiratory: Clear to Auscultation and Non Labored Respirations
Cardiac: Regular Rhythm and S1/S2
GI: Soft, Nontender, Nondistended and Other (PD Catheter in place)
Musculoskeletal: No Clubbing, No Cyanosis and No Edema
Skin: Warm
Neuro: Awake, Alert, Oriented and AO x 3
Psych: Calm and Anxious
Data Reviewed
-
Labs: Labs Reviewed by me, Discussed with Physician, Discussed with Nurse and Discussed with Patient
--- NOTE | 2024-09-26 10:01 | PTCARENOTE ---
first unit of PRBC's infusing as ordered, pt tolerating well.
[2024-09-26 10:23] LABS: Glycohemoglobin (HgbA1c) 6.5 % (4.0-5.6)
--- NOTE | 2024-09-26 10:33 | W.CON.NEPH ---
Consultation
-
Date/Time Consultation Requested: 09/26/24 0136
Date/Time Consultation Performed: 09/26/24 1000
Requesting Provider: Michele Chairez
Performing Provider: Jeannette Rocha
Reason for Consultation: ESRD on PD
Medical History
-
Chief Complaint: Weakness
History of Present Illness:
59-year-old with history of polycystic kidney disease with end-stage kidney failure on peritoneal dialysis for last 2yrs, residual UOP on lasix, SHPTH on calcitriol, sepsipar, hyperphosphatemia on Renvela, hypothyroid on levothyroxine, hypertension,
venous embolism with history of PE and DVT and inherited hypercoagulable state on chronic Coumadin presents the emergency department with 3 days of of worsening fatigue and some dyspnea on exertion. reportedly she had a nondisplaced left-sided hip
fracture recently and then had exacerbation of her chronic sciatica which has been treated with oxycodone. She denies any NSAIDs. Patient reported that she felt dizzy and lightheaded today and had a bowel movement that was very dark. She has had
screening colonoscopies in the past without any abnormalities. She has been getting IV iron as well as Micera through PD unit and reports hb was in acceptable range. Her hb was 7.9 last night and repeat this am was low at 6.7, plan to get 2 unit
PRBC. Her cr was 16 and BUN of 105. Reports no issues with PD and her adequacies were in the range. She missed PD last night.
She denies any fever, cp or sob. No abd pain. mild nausea and decreased appetite for few days.
Past Medical History
Pulmonary Embolism / Factor V Leiden
ESRD secondary Polycystic Kidney Disease on Peritoneal Dialysis
Anemia of Chronic Disease
Hypothyroidism
Restless Leg Syndrome
SHPTH
Hyperphospahtemia
Past Surgical History: Other (Tubal Ligation Tonsillectomy Peritoneal Dialysis Catheter)
Social History
Tobacco: Non-Smoker
Alcohol: None
Drug: None
Employment: Other
Family History
Notable for polycystic kidney disease in both her mother and sibling.
Allergies / Home Medications
Allergy/AdvReac Type Severity Reaction Status Date / Time
bupropion [From Wellbutrin] Allergy Rash Verified 09/25/24 19:37
sulfamethoxazole Allergy Itching Verified 09/25/24 19:37
[From Bactrim]
trimethoprim [From Bactrim] Allergy Itching Verified 09/25/24 19:37
�Medication �Instructions �Recorded �Confirmed �Type
levothyroxine 112 mcg tablet 112 mcg PO DAILY Thyroid 02/25/22 09/25/24 History
rosuvastatin 20 mg tablet 20 mg PO HS High cholesterol 02/25/22 09/25/24 History
calcitriol 0.5 mcg capsule 0.5 mcg PO DAILY Kidney Disease 07/13/23 09/25/24 History
cinacalcet 30 mg tablet 30 mg PO QPM Kidney Disease 07/13/23 09/25/24 History
furosemide 40 mg tablet 40 mg PO DAILY Fluid 07/13/23 09/25/24 History
Retention/Swelling
furosemide 80 mg tablet 80 mg PO DAILY Fluid 07/13/23 09/25/24 History
Retention/Swelling
gabapentin 100 mg capsule 200 mg PO HS Pain 07/13/23 09/25/24 History
ropinirole 1 mg tablet 2 mg PO HS Neurological Condition 07/13/23 09/25/24 History
sevelamer carbonate 800 mg tablet 2,400 mg PO AC 09/25/24 09/25/24 History
warfarin 4 mg tablet 2 mg PO SUTUTHSA 09/25/24 09/25/24 History
warfarin 4 mg tablet 4 mg PO MOWEFR 09/25/24 09/25/24 History
Review of Systems
-
All complete 12 poit ROS have been inquired and found negative other than stated in HPI
Physical Exam
Vital Signs
Vital Signs
Temp Pulse Resp BP Pulse Ox
97.7 F 91 14 123/64 93
09/26/24 08:55 09/26/24 08:55 09/26/24 08:55 09/26/24 08:55 09/26/24 09:14
Lab Results
Sodium 137 mmol/L (135-145) 09/26/24 05:29
Potassium 5.2 mmol/L (3.5-5.1) H 09/26/24 05:29
Chloride 99 mmol/L (98-107) 09/26/24 05:29
Carbon Dioxide 19 mmol/L (22-30) L 09/26/24 05:29
BUN 105 mg/dl (7-17) H* 09/26/24 05:29
Creatinine 16.0 mg/dL (0.6-1.0) H* 09/26/24 05:29
eGFR 2.33 09/26/24 05:29
Glucose 88 mg/dl (70-99) 09/26/24 05:29
Calcium 9.0 mg/dl (8.4-10.2) 09/26/24 05:29
Albumin 3.4 g/dl (3.5-5.0) L 09/25/24 19:52
Abnormal Lab Results
09/25/24 09/25/24 09/25/24
19:52 20:30 21:46
RBC 2.49 L
Hgb 7.9 L
Hct 24.5 L
MCH 31.7 H
MCHC 32.2 L
RDW 18.1 H
Abs Immat Gran (auto) 0.1 H
Absolute Neuts (auto) 6.6 H
Immature Gran % 1.3 H
Lymphocytes % 17.5 L
PT 20.8 H
Potassium
Chloride 96 L
Carbon Dioxide 21 L
BUN 101 H*
Creatinine 16.5 H*
Glucose 169 H
Hemoglobin A1c 6.5 H
TIBC 235 L
Ferritin 1490.0 H
Alkaline Phosphatase 136 H
Total Protein 5.6 L
Albumin 3.4 L
Ur Occult Blood Reflex 1+ A
Leukocyte Esterase Rfl Trace A
Urine Bacteria (Reflex) Many A
Urine Glucose 2+ A
Urine Albumin (Reflex) 1+ A
Crossmatch IS Only See Detail
09/26/24
05:29
RBC 2.14 L
Hgb 6.7 L*
Hct 20.9 L*
MCH 31.3 H
MCHC 32.1 L
RDW 17.9 H
Abs Immat Gran (auto)
Absolute Neuts (auto)
Immature Gran %
Lymphocytes %
PT 21.5 H
Potassium 5.2 H
Chloride
Carbon Dioxide 19 L
BUN 105 H*
Creatinine 16.0 H*
Glucose
Hemoglobin A1c
TIBC
Ferritin
Alkaline Phosphatase
Total Protein
Albumin
Ur Occult Blood Reflex
Leukocyte Esterase Rfl
Urine Bacteria (Reflex)
Urine Glucose
Urine Albumin (Reflex)
Crossmatch IS Only
Physical Exam
General: Awake, Alert, Oriented, AOx3, No Distress and Nontoxic
HEENT: EOMI, Anicteric, Conjunctivae Clear and Facial Symmetry
Respiratory: Clear, Normal Excursion and Nonlabored Respirations
Cardiac: S1/S2 and Regular Rate/Rhythm (tachy)
Breast: Deferred by me
Abdomen: Soft, Nontender and Nondistended
Musculoskeletal: No Cyanosis and No Edema (trace)
Skin: No Rash
Neuro: Nonfocal/Grossly Intact
Psych: Mood/afflect pleasant, Insight/judgement good and Appropriate
Vascular Access: Other (PD catheter site is clean -left abd )
Data Reviewed
-
Labs: Labs Reviewed by me, Discussed with Nurse and Discussed with Patient
Assessment/Plan
-
Assessment:
Acute blood loss anemia
GIB/judy
ESRD PD-for last 2yrs
Metabolic acidosis
mild hyperkalemia
Secondary PTH
History factor 5 Leyden mutation/PE: on OAT
Hypothyroidism on replacement
History hypertension
PKD
Hyperphosphatemia
Plan:
A/w weakness, noted GIB and anemia
start PD 2.5/1.5 alternate, FV 2lit and q4h exchanges
(home majority 2.5 and small portion of 1.5%, does not remember FV, cycler 8hrs, 5-6exchanges?)
cr significantly high , azotemia could be from GI -she reports adequacies were good recently
agree with transfusion and follow h/h, await GI eval
resume home meds when enteral route establishes
renal diet and FR
adequate fe stores and high ferritin hence no iron replacement
Bp stable
d/w pt and nursing
--- NOTE | 2024-09-26 15:30 | CON.GI ---
Consultation
-
Date/Time Consultation Requested: 09/26/24
Date/Time Consultation Performed: 09/26/24
Requesting Provider: Dr. Correa
Performing Provider: Dr. Martinez
Reason for Consultation: Anemia
Medical History
Chief Complaint / HPI
Chief Complaint: Anemia, melena
History of Present Illness:
Nataly is a 59-year-old female with past medical history of end-stage renal disease secondary to PKD on peritoneal dialysis, hx of factor V leiden mutation/PE on coumadin, hypothyroidism, anemia of chronic disease admitted with lethargy and reports of
dark-colored stools. Hemoglobin on arrival was 7.9, decreased to 6.7, getting transfused for 2 units of PRBC. Reports prior colonoscopies have been normal, last performed about 4 to 5 years ago. No records of prior procedures. She has never had
an endoscopy in the past. Denies history of GI bleeding. She does receive IV iron as an outpatient.
She was admitted to in July 2023 for ecoli bacteremia due to infected PD catheter, at which time her hemoglobin was 8.5 - 9.5, no GI consult during that admission. Her hgb was then noted to be normal in 11/2023 at 12.4. On 09/05/24 her
hemoglobin was 10.7, then down to 7.9 on arrival, repeat was 6.7 this morning. Her BUN is chronically elevated in setting of ESRD, but slightly higher than baseline, 97 --> 101 --> 105.
Past Medical History
Past Medical History: Other (end-stage renal disease secondary to PKD on peritoneal dialysis, hx of factor V leiden mutation/PE on coumadin, hypothyroidism, anemia of chronic disease)
Past Surgical History: Other (tubal ligation, tonsillectomy, PD catheter)
Social History
Tobacco: Non-Smoker
Alcohol: None
Drug: None
Family History
Family History: Other (Polycystic kidney disease)
Allergies / Home Medications
Allergy/AdvReac Type Severity Reaction Status Date / Time
bupropion [From Wellbutrin] Allergy Rash Verified 09/25/24 19:37
sulfamethoxazole Allergy Itching Verified 09/25/24 19:37
[From Bactrim]
trimethoprim [From Bactrim] Allergy Itching Verified 09/25/24 19:37
�Medication �Instructions �Recorded
levothyroxine 112 mcg tablet 112 mcg PO DAILY Thyroid 02/25/22
rosuvastatin 20 mg tablet 20 mg PO HS High cholesterol 02/25/22
calcitriol 0.5 mcg capsule 0.5 mcg PO DAILY Kidney Disease 07/13/23
cinacalcet 30 mg tablet 30 mg PO QPM Kidney Disease 07/13/23
furosemide 40 mg tablet 40 mg PO DAILY Fluid 07/13/23
Retention/Swelling
furosemide 80 mg tablet 80 mg PO DAILY Fluid 07/13/23
Retention/Swelling
gabapentin 100 mg capsule 200 mg PO HS Pain 07/13/23
ropinirole 1 mg tablet 2 mg PO HS Neurological Condition 07/13/23
sevelamer carbonate 800 mg tablet 2,400 mg PO AC 09/25/24
warfarin 4 mg tablet 2 mg PO SUTUTHSA 09/25/24
warfarin 4 mg tablet 4 mg PO MOWEFR 09/25/24
Review of Systems
-
History Source: Patient
All other systems: A 12 pt ROS was Negative except as stated above in HPI
Vital Signs
Temp Pulse Resp BP Pulse Ox
97.5 F 89 14 109/54 95
09/26/24 11:05 09/26/24 12:00 09/26/24 12:00 09/26/24 12:00 09/26/24 12:00
Physical Exam
Exam
GI: Soft, Non Tender, Non Distended and Normal Bowel Sounds
Results
WBC Cancelled 09/26/24 17:07
Hgb Cancelled 09/26/24 20:45
Hct Cancelled 09/26/24 20:45
MCV Cancelled 09/26/24 17:07
Plt Count Cancelled 09/26/24 17:07
Absolute Neuts (auto) 6.6 10^3/uL (1.4-6.5) H 09/25/24 19:52
PT 21.5 Sec (11.4-14.6) H 09/26/24 05:29
INR 1.84 09/26/24 05:29
Sodium 137 mmol/L (135-145) 09/26/24 05:29
Potassium 5.2 mmol/L (3.5-5.1) H 09/26/24 05:29
Chloride 99 mmol/L (98-107) 09/26/24 05:29
Carbon Dioxide 19 mmol/L (22-30) L 09/26/24 05:29
BUN 105 mg/dl (7-17) H* 09/26/24 05:29
Creatinine 16.0 mg/dL (0.6-1.0) H* 09/26/24 05:29
Calcium 9.0 mg/dl (8.4-10.2) 09/26/24 05:29
Total Bilirubin 0.4 mg/dl (0.2-1.3) 09/25/24 19:52
AST 17 U/L (14-36) 09/25/24 19:52
ALT 15 U/L (0-35) 09/25/24 19:52
Alkaline Phosphatase 136 U/L (38-126) H 09/25/24 19:52
Diagnostic Image Results:
Prior GI Procedures:
EGD:
Colonoscopy:
Assessment / Plan
-
59-year-old female with past medical history of end-stage renal disease secondary to PKD on peritoneal dialysis, hx of factor V leiden mutation/PE on coumadin, hypothyroidism, anemia of chronic disease admitted with lethargy and melena found to be
anemic on admission.
Hgb (10.7 on 09/06) --> 7.9 on arrival --> 6.7, transfused with 2 units PRBC
INR 1.77 --> 1.84
Plan:
Acute on Chronic anemia with melenic stools c/f UGIB
Clear liquid diet, NPO PMN for EGD in AM
Coumadin on hold, last dose 09/25
INR 1.84, okay for heparin gtt if necessary, as long as INR <2 okay for EGD
2 large peripheral gauge IVs
Trend H&H q 8 hours, transfuse for Hgb <7
Active T&C
PPI IV BID
No prophylactic abx needed for EGD in setting of peritoneal dialysis
-
-
Thank you for consultation and allowing me to participate in the patient's care. Please call the [facility] physician during the after hours with any questions or concerns.
--- NOTE | 2024-09-26 17:33 | PTCARENOTE ---
Assumed care of patient at approximately 16:00 following PD infusion. Patient received 1unit PRBCs today for previous RN; attempting to obtain repeat H&H but having difficulty d/t poor access. See worklist for full assessment.
[2024-09-26 18:20] LABS: Hematocrit 25.4 % (37.0-47.0); Hemoglobin 8.3 g/dL (12.0-16.0); Mean Corp Hgb Conc. 32.7 g/dL (33.0-37.0); Mean Corpuscular Hgb 31.3 pg (27.0-31.0); Mean Corpuscular Volume 95.8 fL (81.0-99.0); Mean Platelet Volume 9.8 fL (7.4-10.4); Platelet Count 301 10^3/uL (130-400); Red Blood Cell Count 2.65 10^6/uL (4.20-5.40); Red Cell Dist. Width 18.1 % (11.5-14.5); White Blood Cell Count 7.9 10^3/uL (4.8-10.8)
[2024-09-26] MEDS: ROCALTROL 0.5 MCG PO (18:29)
[2024-09-26] MEDS: SENSIPAR 30 MG PO (18:29)
[2024-09-26] MEDS: ROXICODONE 5 MG PO (20:08)
[2024-09-26] MEDS: REQUIP 2 MG PO (22:00)
[2024-09-26] MEDS: CRESTOR 20 MG PO (22:01)
[2024-09-26] MEDS: NEURONTIN 200 MG PO (22:01)
[2024-09-26 22:16] LABS: Hematocrit 25.5 % (37.0-47.0); Hemoglobin 8.2 g/dL (12.0-16.0)
[2024-09-27] VITALS (9 sets, daily range): BP systolic 107–134; BP diastolic 51–76
[2024-09-27] MEDS: TYLENOL 650 MG PO ×4 (03:24→21:25)
[2024-09-27] MEDS: ROXICODONE 5 MG PO ×4 (03:25→21:26)
[2024-09-27] MEDS: SYNTHROID 112 MCG PO (03:25)
[2024-09-27 06:34] LABS: Hematocrit 25.3 % (37.0-47.0)
[2024-09-27 06:45] LABS: INR 1.64; PT 19.9 Sec (11.4-14.6)
[2024-09-27] MEDS: ROCALTROL PO (07:59)
--- NOTE | 2024-09-27 08:37 | W.PN.HOSP.TC ---
Addendum entered and electronically signed by Marcio Israel MD, Resident 09/28/24 09:43:
#hx Pulmonary Embolism / Factor V Leiden
-Coumadin on hold in setting of GI Bleed. Anticoagulation therapy could be associated with possible GI bleed.
Original Note:
Today's Communication/Plan
-
Patient to undergo EGD today. NPO until procedure. Continue monitoring for any worsening fatigue or pain.
Assessment / Plan
Assessment / Plan
Assessment:
59 year old female with a history of polycystic kidney disease with end-stage kidney failure s/p initiation of peritoneal dialysis, hypothyroidism, hypertension, venous embolism with history of PE and EVT and inherited hypercoagulable state on
chronic Coumadin presented to the ED with a 3 day history of worsening fatigue and shortness of breath. Patient had a positive hemooccult in ED and was found to have a rapid drop in hemoglobin most probably secondary to an upper GI bleed. Patient is
undergoing dialysis treatment and is scheduled for an EGD this morning.
Plan:
#Symptomatic Anemia most probably secondary to acute blood loss in setting of upper GI Bleed
-Monitor serial Hgb
-Hgb dropped to 6.7 -> Transfusion needed
-Hgb stable now -> 8.0 latest level
-Continue to trend H/H
-Was on clear liquids, switched to NPO for EGD this morning
-Continue IV PPI BID
-Increased Ferritin 1490
-Low TIBC 235
-Most likely due to Kidney disease
-GI consulted, input appreciated
-Patient scheduled for EGD this morning
#hx Pulmonary Embolism / Factor V Leiden
-Coumadin on hold in setting of GI Bleed
-Monitor INR (1.64)
-Resume anti-coagulation according to EGD results
#ESRD secondary to Polycystic Kidney Disease on Peritoneal Dialysis
-Consult Nephrology, input appreciated
-Continue calcitriol, cinacalcet
-Hold furosemide
-Giving IVF for now
-Hold sevelamer
-Elevated Creatinine (16) and BUN (105), underwent dialysis treatment as per Nephrology yesterday (2.5/1.5 alternate)
-Continue with Dialysis today
#Hypothyroidism
-Continue levothyroxine
#Hyperlipidemia
-Continue Crestor
#Restless Leg Syndrome
-Continue Ropinirole
#Sciatic Pain
-Pain medications as needed
DVT proph: SCDs
Code Status: Full Code
Anticipated Discharge: 24 - 48 hours
Subjective/Interval History
-
Date of Service: September 27, 2024
Patient says that she is feeling a bit better from yesterday. Says she still has some tremors but her sciatic pain has much improved from before after taking Flexeril.
Objective Data
-
Labs:
Laboratory Results
09/26/24 09/27/24 09/27/24
22:02 05:52 07:14
Hgb 8.2 L 8.0 L
Hct 25.5 L 25.3 L
PT 19.9 H
INR 1.64
Sodium Pending
Potassium Pending
Chloride Pending
Carbon Dioxide Pending
BUN Pending
Creatinine Pending
Glucose Pending
Calcium Pending
Total Bilirubin Pending
AST Pending
ALT Pending
Alkaline Phosphatase Pending
Vital Signs:
Vital Signs
Temp Pulse Resp BP Pulse Ox
98.1 F 90 17 119/51 95
09/26/24 23:23 09/27/24 06:00 09/27/24 06:00 09/27/24 06:00 09/27/24 06:00
I&O
09/26/24 09/27/24 09/28/24
06:59 06:59 06:59
Intake Total 250 / 250 240 / 240
Output Total 300 / 300 200 / 200
Balance -50 / -50 40 / 40
Review of Systems
-
History Source: Patient
Constitutional: Denies Fatigue, Chills or Weakness
EENT: Reports No Symptoms Reported
Respiratory: Denies Cough, Trouble Breathing or Wheezing
Cardiac: Denies Chest Pain, Diaphoresis or Palpitations
Abdomen/GI: Denies Abdominal Pain, Nausea, Vomiting, Diarrhea, Constipated or Bloody Stools
Musculoskeletal: Reports Other (Sciatic pain)
Skin: Reports No Symptoms
Neuro: Reports Tremors
Endocrine: Reports No Symptoms
Hematologic / Lymphatic: Denies Bleeding or Bruising
Allergy / Immunology: Reports No Symptoms
Physical Exam
-
General: No Apparent Distress, Comfortable and Conversant
HEENT: Normocephalic and Atraumatic
Respiratory: Clear to Auscultation and Non Labored Respirations
Cardiac: Regular Rhythm and S1/S2
GI: Soft, Nontender and Nondistended
Musculoskeletal: No Clubbing, No Cyanosis and No Edema
Skin: Warm
Neuro: Awake, Alert, Oriented and AO x 3
Psych: Calm
Data Reviewed
-
Labs: Labs Reviewed by me, Discussed with Physician, Discussed with Nurse and Discussed with Patient
[2024-09-27] MEDS: PROTONIX IV 40 MG IV ×2 (09:06→21:19)
[2024-09-27] MEDS: NSS (PRESERVATIVE FREE) 10 ML IV ×2 (09:06→21:18)
[2024-09-27 09:48] LABS: ALT (SGPT) 13 U/L (0-35); AST (SGOT) 16 U/L (14-36); Albumin 3.2 g/dl (3.5-5.0); Alkaline Phosphatase 111 U/L (38-126); Blood Urea Nitrogen 90 mg/dl (7-17); Carbon Dioxide 20 mmol/L (22-30); Chloride 94 mmol/L (98-107); Glucose 107 mg/dl (70-99); Potassium 4.7 mmol/L (3.5-5.1); Sodium 134 mmol/L (135-145); Total Bilirubin 0.4 mg/dl (0.2-1.3); Total Protein 5.4 g/dl (6.3-8.2)
[2024-09-27 09:57] LABS: Estimated Creatinine Clearance 5 ml/min; eGFR 2.58
--- NOTE | 2024-09-27 12:03 | W.PN.NEPH.PH ---
Today's Communication / Plan
-
Continued peritoneal dialysis manual exchanges
Assessment/Plan
-
Assessment:
Acute blood loss anemia
GIB/judy
ESRD PD-for last 2yrs
Metabolic acidosis
mild hyperkalemia
Secondary PTH
History factor 5 Leyden mutation/PE: on OAT
Hypothyroidism on replacement
History hypertension
PKD
Hyperphosphatemia
Plan:
A/w weakness, noted GIB and anemia
start PD 2.5/1.5 alternate, FV 2lit and q4h exchanges
(home majority 2.5 and small portion of 1.5%, does not remember FV, cycler 8hrs, 5-6exchanges?)
cr significantly high , azotemia could be from GI -she reports adequacies were good recently
resume home meds when enteral route establishes
renal diet and FR
Bp stable
Patient is showing signs of uremia and asterixis
Fully manual exchanges will get better clearance
Will continue to monitor this I discussed this at length with patient and her fianc�
d/w pt and nursing
-
-
Date of Service: September 27, 2024
CC / HPI / ROS
-
Chief Complaint:
GI bleed
History of Present Illness:
Stable peritoneal dialysis training well although showing some mild signs of asterixis as her clearance does not appear to be adequate
Pending EGD today
Hemoglobin stable
Review of Systems:
No chest pain or shortness of breath
No bright red blood per rectum
Labs
-
Labs:
WBC 7.9 10^3/uL (4.8-10.8) 09/26/24 17:47
RBC 2.65 10^6/uL (4.20-5.40) L 09/26/24 17:47
Hgb 8.0 g/dL (12.0-16.0) L 09/27/24 05:52
Hct 25.3 % (37.0-47.0) L 09/27/24 05:52
Plt Count 301 10^3/uL (130-400) 09/26/24 17:47
Sodium 134 mmol/L (135-145) L 09/27/24 09:08
Potassium 4.7 mmol/L (3.5-5.1) 09/27/24 09:08
Chloride 94 mmol/L (98-107) L 09/27/24 09:08
Carbon Dioxide 20 mmol/L (22-30) L 09/27/24 09:08
BUN 90 mg/dl (7-17) H 09/27/24 09:08
Creatinine 14.7 mg/dL (0.6-1.0) H* 09/27/24 09:08
eGFR 2.58 09/27/24 09:08
Glucose 107 mg/dl (70-99) H 09/27/24 09:08
Calcium 9.0 mg/dl (8.4-10.2) 09/27/24 09:08
Albumin 3.2 g/dl (3.5-5.0) L 09/27/24 09:08
Physical Exam
-
Vital Signs:
Vital Signs
Temp Pulse Resp BP Pulse Ox
98.1 F 89 17 125/68 97
09/26/24 23:23 09/27/24 10:59 09/27/24 10:59 09/27/24 10:59 09/27/24 10:59
Respiratory:: Bilateral: CTA
Lung Excursion:: Normal
Abdomen:: Soft
Bowel Sounds:: Normal
Extremity Edema:: None: Bilateral:
Steven Catheter: No
Other Findings::
Asterixis on exam
--- NOTE | 2024-09-27 13:01 | CM ---
Patient with Hx ESRD on PD, sciatica. Room air. NPO. Plan EGD today. Receiving IV Protonix, Roxicodone.
Met with patient and her SO Matt;
the patient resides with her SO and his mother in a 2 story raised ranch style home including finished basement, on a hill with 13 outside stairs.
The patient says she sustained a pelvic fracture about 6 wks ago and was seen at [facility] and sent home without VN for PT/OT, and told to see a pain management doctor before beginning therapy.
Patient and SO state that she has had difficulty walking since the pelvic Fx and her mobility has been worsening as she then developed sciatica.
The patient has been assisted with ADLs such as bathing/dressing by SO and his mother.
She was ambulating with a SPC and is now using a RW.
Patient uses commode at night when PD is being done.
DME- RW,SPC, commode, PD supplies.
She is affiliated with [facility] [address], [place]
No prior VN or SNF.
PCP - Nilsa Rubi
Pharmacy - [facility]
Message to Dr Correa and Resident Hay Israel requesting PT/OT Evals.
Plan follow up after seen by PT/OT.
--- NOTE | 2024-09-27 14:43 | W.PN.UPDATE ---
Update Note
Progress Note Update
EGD with small clean based gastric ulcers and erosive esophagitis. All areas clean based
plan:
f/u biopsies to r/o Hpylori
PPI bid for 8 weeks
avoid nsaids
since clean based ok to restart coumadin if needed
will sign off call with questions.
[2024-09-27] MEDS: HEPARIN 25000 UNITS/250 ML IV (16:11)
[2024-09-27 16:18] LABS: Hematocrit 26.9 % (37.0-47.0); Hemoglobin 8.7 g/dL (12.0-16.0); Mean Corp Hgb Conc. 32.3 g/dL (33.0-37.0); Mean Corpuscular Hgb 31.6 pg (27.0-31.0); Mean Corpuscular Volume 97.8 fL (81.0-99.0); Mean Platelet Volume 10.1 fL (7.4-10.4); Platelet Count 336 10^3/uL (130-400); Red Blood Cell Count 2.75 10^6/uL (4.20-5.40); Red Cell Dist. Width 18.4 % (11.5-14.5); White Blood Cell Count 7.5 10^3/uL (4.8-10.8)
[2024-09-27 16:28] LABS: APTT 33.9 Sec (23.4-35.0)
[2024-09-27] MEDS: COUMADIN 4 MG PO (17:50)
[2024-09-27] MEDS: SENSIPAR 30 MG PO (17:50)
--- NOTE | 2024-09-27 17:56 | PTCARENOTE ---
Rec'd pt this AM. Pt had EGD today. PD completed as ordered. Pain meds given for sciatic nerve pain. RN educated pt and significant other regarding pain management, reason for Heparin/Coumadin bridge etc.
[2024-09-27] MEDS: REQUIP 2 MG PO (21:19)
[2024-09-27] MEDS: CRESTOR 20 MG PO (21:19)
[2024-09-27] MEDS: NEURONTIN 200 MG PO (21:25)
[2024-09-27 23:00] LABS: APTT 90.8 Sec (23.4-35.0)
[2024-09-28] VITALS (11 sets, daily range): BP systolic 104–126; BP diastolic 52–72; PULSE 99–106; BMI 36.1
[2024-09-28 03:45] LABS: INR 1.87
[2024-09-28 03:59] LABS: ALT (SGPT) 12 U/L (0-35); AST (SGOT) 16 U/L (14-36); Albumin 2.8 g/dl (3.5-5.0); Alkaline Phosphatase 114 U/L (38-126); Blood Urea Nitrogen 87 mg/dl (7-17); Calcium 8.4 mg/dl (8.4-10.2); Carbon Dioxide 20 mmol/L (22-30); Chloride 95 mmol/L (98-107); Glucose 114 mg/dl (70-99); Potassium 4.5 mmol/L (3.5-5.1); Sodium 132 mmol/L (135-145); Total Bilirubin 0.4 mg/dl (0.2-1.3); Total Protein 4.8 g/dl (6.3-8.2)
--- NOTE | 2024-09-28 03:59 | PTCARENOTE ---
Addendum entered by Dede Baer RN 09/28/24 05:14:
Pt labs mistakenly gotten early, night WATER SANDER made aware of PTT resulting and Pt not wanting another stick. PTT 115.1 since above goal WATER SANDER ok with following protocol. See work list for time and results.
Original Note:
Received Pt from day shift RN. Pt currently on heparin gtt, appears to be tolerating well no signs of active bleeding. Pt continues to tolerate manual PD. Pt able to make small amount of urine on bsc. Pt having pain at HS, see MAR for pain
medication admin. Call nava within reach. Assessment care and vitals as charted.
[2024-09-28 04:10] LABS: Estimated Creatinine Clearance 5 ml/min; eGFR 2.88
[2024-09-28 04:19] LABS: APTT 115.1 Sec (23.4-35.0)
[2024-09-28] MEDS: SYNTHROID 112 MCG PO (06:42)
--- NOTE | 2024-09-28 08:46 | W.PN.HOSP.TC ---
Addendum entered and electronically signed by Jose R Correa, DO 09/28/24 14:54:
CDI: Upper GI bleed from peptic ulcer disease, likely related to Coumadin which is an anticoagulant
Addendum entered and electronically signed by Jose R Correa, DO 09/28/24 14:43:
patient requires bedside commode due to no bathroom on the floor they are staying on at home
Original Note:
Today's Communication/Plan
-
Patient to continue heparin bridge to warfarin. Continue dialysis treatment. Resume Sevelamer and other PO medications.
Assessment / Plan
Assessment / Plan
Assessment:
59 year old female with a history of polycystic kidney disease with end-stage kidney failure s/p initiation of peritoneal dialysis, hypothyroidism, hypertension, venous embolism with history of PE and EVT and inherited hypercoagulable state on
chronic Coumadin presented to the ED with a 3 day history of worsening fatigue and shortness of breath. Patient had a positive hemooccult in ED and was found to have a rapid drop in hemoglobin most probably secondary to an upper GI bleed. Patient is
undergoing dialysis treatment and underwent EGD yesterday. Currently is feeling much better and was started on heparin bridge for her warfarin.
Plan:
#Symptomatic Anemia most probable secondary to acute blood loss in setting of upper GI Bleed
-Monitor serial Hgb
-Hgb dropped to 6.7 -> Transfusion needed
-Hgb stable now -> 8.8 latest level
-Was on clear liquids, switched to NPO for EGD, then switched to renal diet as per nephrology
-Continue IV PPI BID
-Coumadin was originally stopped as GI bleed could have been exacerbated by anti-coagulation
-Increased Ferritin 1490
-Low TIBC 235
-Most likely due to Kidney disease
-GI consulted, input appreciated
-Patient underwent EGD on 09/27/2024
- LA Grade C reflux esophagitis with no bleeding.
- Gastritis. Biopsied.
- Non-bleeding gastric ulcers with no stigmata of
bleeding.
- Normal examined duodenum.
-Was cleared to start anticoagulation yesterday and was started on heparin bridge to Warfarin
#hx Pulmonary Embolism / Factor V Leiden
-Anti-coagulation was stopped due to thinking there was a possible GI bleed.
-Coumadin Resumed after clearance from GI
-Monitor INR 1.87 last night
-Aim for Therapeutic range 2.5-3
#ESRD secondary to Polycystic Kidney Disease on Peritoneal Dialysis
-Consult Nephrology, input appreciated
-Continue calcitriol, cinacalcet
-Hold furosemide
-Giving IVF for now
-Resume Sevelamer 800mg with food
-Elevated Creatinine (13.4) and BUN (87), underwent dialysis treatment as per Nephrology yesterday (2.5/1.5 alternate)
-Continue with Dialysis today
#Hypothyroidism
-Continue levothyroxine
#Hyperlipidemia
-Continue Crestor
#Restless Leg Syndrome
-Continue Ropinirole
#Sciatic Pain
-Pain medications as needed
-Will follow up outpatient with pain medicine
DVT proph: Heparin -> Warfarin
Code Status: Full Code
Anticipated Discharge: Within 24 hours
Subjective/Interval History
-
Date of Service: September 28, 2024
Patient says that she is feeling better from yesterday. Says her tremors have been resolving and that her weakness has mostly resolved.
Objective Data
-
Labs:
Laboratory Results
09/27/24 09/28/24 09/28/24
22:42 02:53 10:30
PT 22.0 H
INR 1.87
APTT 90.8 H 115.1 H Pending
Sodium 132 L
Potassium 4.5
Chloride 95 L
Carbon Dioxide 20 L
BUN 87 H
Creatinine 13.4 H*
Glucose 114 H
Calcium 8.4
Total Bilirubin 0.4
AST 16
ALT 12
Alkaline Phosphatase 114
Vital Signs:
Vital Signs
Temp Pulse Resp BP Pulse Ox
97.7 F 89 17 104/59 94
09/28/24 07:31 09/28/24 06:00 09/28/24 06:00 09/28/24 06:00 09/28/24 02:45
I&O
09/27/24 09/28/24 09/29/24
06:59 06:59 06:59
Intake Total 250 / 250 440 / 440
Output Total 300 / 300 550 / 550 0 / 0
Balance -50 / -50 -110 / -110 0 / 0
Review of Systems
-
History Source: Patient
Constitutional: Denies Fatigue or Sleep Disturbance
EENT: Reports No Symptoms Reported
Respiratory: Denies Cough, Trouble Breathing or Wheezing
Cardiac: Denies Chest Pain, Palpitations or Syncope
Abdomen/GI: Denies Abdominal Pain, Nausea, Vomiting, Diarrhea, Constipated, Bloody Stools or Black Stools
Genitourinary: Reports No Symptoms
Musculoskeletal: Reports Other (Sciatic nerve pain)
Skin: Reports No Symptoms
Neuro: Denies Headache or Weakness
Endocrine: Reports No Symptoms
Hematologic / Lymphatic: Reports No Symptoms
Allergy / Immunology: Reports No Symptoms
Physical Exam
-
General: Well Developed, Well Nourished, No Apparent Distress, Comfortable and Conversant
HEENT: Normocephalic and Atraumatic
Respiratory: Clear to Auscultation and Non Labored Respirations
Cardiac: Regular Rhythm and S1/S2
GI: Soft, Nontender and Nondistended
Musculoskeletal: No Clubbing, No Cyanosis and No Edema
Skin: Warm
Neuro: Awake, Alert, Oriented, AO x 3 and No Motor Deficits
Psych: Calm
Data Reviewed
-
Medical Tests (Nuc Med, Echo etc): Report Reviewed by me, Discussed with Physician, Discussed with Nurse and Discussed with Patient
Labs: Labs Reviewed by me, Discussed with Physician, Discussed with Nurse and Discussed with Patient
--- NOTE | 2024-09-28 08:49 | PN.CDI ---
CDI
- -
CDI:
Physician Documentation Request
Admit Date: 09/25/24 23:21
Dear Doctor,
Please review the following and provide your response in the progress notes.
Clinical Indicators:
- 09/27 PN 'Symptomatic Anemia most probably secondary to acute blood loss in setting of upper GI Bleed'
- 'Coumadin on hold in setting of GI Bleed'
Please clarify the relationship between these conditions:
Yes, _GI bleed__ is related to/associated with/exacerbated by _Coumadin__.
No, _GI bleed__ is not related to/associated with/exacerbated by _Coumadin__ but it is due to ___. (Please specify)
Unable to determine
Use of terms such as suspected, likely, concern for, or probable (associated with a specific diagnosis that is being evaluated, monitored, or treated as if it exists) are acceptable and can be coded in the inpatient setting, when documented at the
time of discharge.
Thank you,
Pierce Tijerina RN
CDI Specialist
Please use your independent medical judgment in providing your response.
[2024-09-28] MEDS: NSS (PRESERVATIVE FREE) 10 ML IV (08:51)
[2024-09-28] MEDS: PROTONIX IV 40 MG IV (08:51)
[2024-09-28] MEDS: ROCALTROL 0.5 MCG PO (08:51)
[2024-09-28] MEDS: RENVELA 800 MG PO ×2 (09:08→11:06)
--- NOTE | 2024-09-28 10:09 | W.PN.NEPH.PH ---
Today's Communication / Plan
-
PD ordered
Assessment/Plan
-
Assessment:
Acute blood loss anemia
GIB/judy
ESRD PD-for last 2yrs
Metabolic acidosis
mild hyperkalemia
Secondary PTH
History factor 5 Leyden mutation/PE: on OAT
Hypothyroidism on replacement
History hypertension
PKD
Hyperphosphatemia
Plan:
PD continues
q4h, 2L, alternate 1.5/2.5%
follow BMP
-
-
Date of Service: September 28, 2024
CC / HPI / ROS
-
Chief Complaint:
GI bleed
History of Present Illness:
peritoneal dialysis in progress
BP stable
Hemoglobin stable 8.7
Review of Systems:
No chest pain or shortness of breath
No bright red blood per rectum
Labs
-
Labs:
WBC 7.5 10^3/uL (4.8-10.8) 09/27/24 15:57
RBC 2.75 10^6/uL (4.20-5.40) L 09/27/24 15:57
Hgb 8.7 g/dL (12.0-16.0) L 09/27/24 15:57
Hct 26.9 % (37.0-47.0) L 09/27/24 15:57
Plt Count 336 10^3/uL (130-400) 09/27/24 15:57
Sodium 132 mmol/L (135-145) L 09/28/24 02:53
Potassium 4.5 mmol/L (3.5-5.1) 09/28/24 02:53
Chloride 95 mmol/L (98-107) L 09/28/24 02:53
Carbon Dioxide 20 mmol/L (22-30) L 09/28/24 02:53
BUN 87 mg/dl (7-17) H 09/28/24 02:53
Creatinine 13.4 mg/dL (0.6-1.0) H* 09/28/24 02:53
eGFR 2.88 09/28/24 02:53
Glucose 114 mg/dl (70-99) H 09/28/24 02:53
Calcium 8.4 mg/dl (8.4-10.2) 09/28/24 02:53
Albumin 2.8 g/dl (3.5-5.0) L 09/28/24 02:53
Physical Exam
-
Vital Signs:
Vital Signs
Temp Pulse Resp BP Pulse Ox
97.7 F 89 17 104/59 94
09/28/24 07:31 09/28/24 06:00 09/28/24 06:00 09/28/24 06:00 09/28/24 02:45
Cardiovascular:: Regular rate and rhythm
Respiratory:: Bilateral: Coarse
Lung Excursion:: Normal
Abdomen:: Nontender and Soft
Bowel Sounds:: Normal
Extremity Edema:: None: Bilateral:
[2024-09-28] MEDS: TYLENOL 650 MG PO ×2 (11:06→15:37)
[2024-09-28] MEDS: ROXICODONE 5 MG PO ×2 (11:06→15:38)
[2024-09-28 11:23] LABS: APTT 116.6 Sec (23.4-35.0)
--- NOTE | 2024-09-28 13:24 | W.DCSUMMARY ---
Documented by User: Marcio Israel MD, Resident 09/28/24 15:34
Discharge Summary
Discharge Data
Date of Admission: 09/25/24
Date of Discharge: 09/28/24
-
Pending Results: Yes
Additional Pending Results:
Gastric Biopsy taken during Endoscopy
Hospital Course
Discharging Physician : Dr. Jose R Correa, Dr. Marcio Israel
Disposition : Home
Primary care physician : SUZANNE Villeda
Principal Discharge diagnosis : Symptomatic Anemia most probable secondary to acute blood loss in setting of upper GI Bleed
Chronic Discharge diagnosis : ESRD secondary to Polycystic Kidney Disease on Peritoneal Dialysis, Factor V Leiden, Pulmonary Embolism, Hypothyroidism, Hyperlipidemia, Right Sciatic Nerve Pain, Restless Leg Syndrome
Hospital Course : 59-year-old female with a past medical history of end-stage renal disease secondary to polycystic kidney disease, anemia, hypercoagulable state, hypothyroidism, hyperlipidemia came to the [facility] on 09/25/2024 complaining of
weakness and fatigue that began around 4 days ago. She reported poor appetite mild nausea and noted her stool was darker in color. She also reported some intermittent dizziness with low blood pressure and elevated heart rate. Patient was admitted
with suspected acute blood loss in the setting of GI bleed. Her anticoagulation was put on hold and her hemoglobin was monitored. Patient's hemoglobin dropped to 6.7 and she required 1 unit of blood. Patient continued to be on IV Protonix and
continue to get peritoneal dialysis for her kidney disease. Patient underwent an upper GI endoscopy on 09/27/2024 which found some reflux esophagitis and nonbleeding gastric ulcers. A biopsy of the gastric mucosa was also taken at this time.
Patient was recommended to continue on PPIs twice a day for at least 8 weeks. Patient continued to feel better throughout her stay however her sciatic pain continued to cause her distress. Patient was cleared to restart her anticoagulation and was
bridged with heparin for her warfarin. Patient was discharged with instructions to continue her warfarin and get an INR early next week. She will also be following up with pain medicine for her sciatic pain.
Important imaging findings :
Electrocardiogram
SINUS TACHYCARDIA
CANNOT RULE OUT INFERIOR INFARCT (CITED ON OR BEFORE 14-JUL-2023)
ABNORMAL ECG
WHEN COMPARED WITH ECG OF 14-JUL-2023 14:32,
NO SIGNIFICANT CHANGE WAS FOUND
Procedure findings :
Upper GI endoscopy
- LA Grade C reflux esophagitis with no bleeding.
- Gastritis. Biopsied.
- Non-bleeding gastric ulcers with no stigmata of bleeding.
- Normal examined duodenum.
Discharge Plan
-
Patient Disposition: Home (Routine Discharge)
Discharge Diagnosis/Procedures: Symptomatic Anemia most probable secondary to acute blood loss in setting of upper GI Bleed
Diet: 2 Gram Sodium and Restrict fluids to 48 oz
Additional Diets: Renal Diet
Activity: As tolerated
Driving Restrictions: As prior to admission
Blood Work: Repeat INR on Tuesday
Referrals:
Nilsa Mota CRNP [Specified Professional Personl] -
Additional Discharge Medication Instructions: Starting tomorrow, Go back to alternating between 2mg and 4mg as before.
Take 1 Tablet Protonix 40mg Twice a day for 8 weeks
Prescriptions:
New
pantoprazole [Protonix] 40 mg tablet,delayed release (DR/EC)
40 mg PO BID 30 Days Qty: 60 1RF
oxycodone 5 mg tablet
5 mg PO Q8H PRN (Reason: Sciatic Pain) Qty: 10 0RF
Continued
levothyroxine 112 MCG tablet
112 mcg PO DAILY
rosuvastatin 20 MG tablet
20 mg PO HS
furosemide 40 mg tablet
40 mg PO DAILY
Rx Instructions:
taken w/ 80mg = 120mg
ropinirole 1 mg tablet
2 mg PO HS
furosemide 80 mg tablet
80 mg PO DAILY
Rx Instructions:
Taken w/ 40mg = 120mg
calcitriol 0.5 mcg Capsule
0.5 mcg PO DAILY
gabapentin 100 mg capsule
200 mg PO HS
cinacalcet 30 mg Tablet
30 mg PO QPM
warfarin 4 mg Tablet
4 mg PO MOWEFR
warfarin 4 mg Tablet
2 mg PO SUTUTHSA
sevelamer carbonate 800 mg Tablet
2,400 mg PO AC
Discharge Orders:
Discharge Patient (As Directed); Ordered 09/28/24
Ordered By: Marcio Israel
Discharge Date and Time
Print Language: POLISH

Documented by User: Jose R Correa DO 09/28/24 16:28
Discharge Summary
Discharge Data
Date of Admission: 09/25/24
Date of Discharge: 09/28/24
Discharge Plan
-
Patient Disposition: Home (Routine Discharge)
Discharge Diagnosis/Procedures: Symptomatic Anemia most probable secondary to acute blood loss in setting of upper GI Bleed
Diet: 2 Gram Sodium and Restrict fluids to 48 oz
Additional Diets: Renal Diet
Activity: As tolerated
Driving Restrictions: As prior to admission
Blood Work: Repeat INR on Tuesday
Referrals:
Nilsa Mota CRNP [Specified Professional Personl] -
Additional Discharge Medication Instructions: Starting tomorrow, Go back to alternating between 2mg and 4mg as before.
Take 1 Tablet Protonix 40mg Twice a day for 8 weeks
Prescriptions:
New
pantoprazole [Protonix] 40 mg tablet,delayed release (DR/EC)
40 mg PO BID 30 Days Qty: 60 1RF
oxycodone 5 mg tablet
5 mg PO Q8H PRN (Reason: Sciatic Pain) Qty: 10 0RF
Continued
levothyroxine 112 MCG tablet
112 mcg PO DAILY
rosuvastatin 20 MG tablet
20 mg PO HS
furosemide 40 mg tablet
40 mg PO DAILY
Rx Instructions:
taken w/ 80mg = 120mg
ropinirole 1 mg tablet
2 mg PO HS
furosemide 80 mg tablet
80 mg PO DAILY
Rx Instructions:
Taken w/ 40mg = 120mg
calcitriol 0.5 mcg Capsule
0.5 mcg PO DAILY
gabapentin 100 mg capsule
200 mg PO HS
cinacalcet 30 mg Tablet
30 mg PO QPM
warfarin 4 mg Tablet
4 mg PO MOWEFR
warfarin 4 mg Tablet
2 mg PO SUTUTHSA
sevelamer carbonate 800 mg Tablet
2,400 mg PO AC
Discharge Orders:
Discharge Patient (As Directed); Ordered 09/28/24
Ordered By: Marcio Israel
Discharge Date and Time
Print Language: POLISH
[2024-09-28] MEDS: LASIX 80 MG PO (13:37)
--- NOTE | 2024-09-28 14:37 | VNURNOTE ---
Home Health Liaison met with patient to discuss [facility] nurse/therapy, visits, schedule and homebound status. Patient is agreeable and understands that visits at home will be 2-3 x per week to assess and teach medical management. Requested raised
toilet seat, aware not covered by insurance. She would like PT/OT to eval home and make recommendations when [facility] starts home services. [facility] brochure provided with contact information. Patient is aware that [facility] will contact them for start of care
in 1-2 days after discharge from .
[facility] referral completed in [facility].
--- NOTE | 2024-09-28 14:53 | VNURNOTE ---
bedside commode rx faxed to [facility]
[2024-09-28 15:13] LABS: Hematocrit 27.7 % (37.0-47.0); Hemoglobin 9.3 g/dL (12.0-16.0); Mean Corp Hgb Conc. 33.6 g/dL (33.0-37.0); Mean Corpuscular Hgb 32.2 pg (27.0-31.0); Mean Corpuscular Volume 95.8 fL (81.0-99.0); Mean Platelet Volume 10.1 fL (7.4-10.4); Platelet Count 397 10^3/uL (130-400); Red Blood Cell Count 2.89 10^6/uL (4.20-5.40); Red Cell Dist. Width 17.7 % (11.5-14.5); White Blood Cell Count 9.3 10^3/uL (4.8-10.8)
--- NOTE | 2024-09-28 15:16 | PTCARENOTE ---
Rec'd pt this AM. less anxious today. able to ambulate with walker with minimal 1 assist to bathroom and bedside chair. vital signs stable. PD as ordered. labs sent. possible d.c. to home today
[2024-09-28 15:19] LABS: INR 1.81; PT 21.5 Sec (11.4-14.6)
[2024-09-28] MEDS: COUMADIN 4 MG PO (16:08)
--- NOTE | 2024-09-28 16:32 | CM ---
Patient with Hx ESRD on PD, sciatica.
Spoke with patient who was preparing for discharge. IMM completed. Patient given phone # for [facility] to follow up with them about raised toilet seat ordered by [facility] Liaison. Patient aware [facility] setup for her. Her SO was at the bedside to
provide a ride home.
Plan home today with [facility] and raised toilet seat.
--- NOTE | 2024-09-28 16:51 | PTCARENOTE ---
Pt d.c. with significant other via wheelchair to car. all education and d.c. instructions given plus paper prescription for narcotic meds
== END 2024-09-28 17:06 | disposition home health service (06) | DRG 377 ==
LOC: IMU 23:21
PROVIDERS: Internal Medicine; Physician Assistant; Physician Assistant Medical; ADMITTING PHYSICIAN Internal Medicine; ATTENDING PHYSICIAN Internal Medicine; CONSULT PHYSICIAN Internal Medicine; EMERGENCY PHYSICIAN Emergency Medicine; FAMILY PHYSICIAN Family Medicine; OTHER PHYSICIAN Internal Medicine
PROC: 30233N1 Transfusion of Nonautologous Red Blood Cells into Peripheral Vein, Percutaneous Approach (ICD-10-PCS; 2024-09-26)
PROC: 0DB68ZX Excision of Stomach, Via Natural or Artificial Opening Endoscopic, Diagnostic (ICD-10-PCS; 2024-09-27)
DX: K25.4 Chronic or unspecified gastric ulcer with hemorrhage (principal); N18.6 End stage renal disease; Q61.3 Polycystic kidney, unspecified; D62 Acute posthemorrhagic anemia; N25.81 Secondary hyperparathyroidism of renal origin; E87.20 Acidosis, unspecified; D68.32 Hemorrhagic disorder due to extrinsic circulating anticoagulants; D68.51 Activated protein C resistance; I10 Essential (primary) hypertension; D63.1 Anemia in chronic kidney disease; E03.9 Hypothyroidism, unspecified; E83.39 Other disorders of phosphorus metabolism; E78.00 Pure hypercholesterolemia, unspecified; E87.5 Hyperkalemia; T45.515A Adverse effect of anticoagulants, initial encounter; K21.00 Gastro-esophageal reflux disease with esophagitis, without bleeding; K29.71 Gastritis, unspecified, with bleeding; M54.30 Sciatica, unspecified side; G25.81 Restless legs syndrome; Z88.2 Allergy status to sulfonamides; Z88.1 Allergy status to other antibiotic agents; Z99.2 Dependence on renal dialysis; Z79.01 Long term (current) use of anticoagulants; Z79.890 Hormone replacement therapy; Z79.899 Other long term (current) drug therapy; Z86.718 Personal history of other venous thrombosis and embolism; Z86.711 Personal history of pulmonary embolism; Z11.52 Encounter for screening for COVID-19
CPT/HCPCS: 88305; 80048; 80053; 81003; 81015; 82607; 82728; 82746; 83036; 83540; 83550; 85014; 85018; 85025; 85027; 85610; 85730; 86850; 86900; 86901; 86920; 87086; 87502; 87811; 88342; 93005; 96374; 97116; 97162; 97167; 99285; P9016

== ENCOUNTER → 2024-11-26 08:58 | Outpatient (REF) | payer MEDICARE, SELFPAY | LOC: RAD 08:58 | PROVIDERS: ATTENDING PHYSICIAN Nurse Practitioner; FAMILY PHYSICIAN Nurse Practitioner Family; REFERRING PHYSICIAN Surgery | DX: N25.81 Secondary hyperparathyroidism of renal origin (principal); N18.6 End stage renal disease | CPT/HCPCS: 78071; A9500 ==

== ENCOUNTER → 2025-01-14 11:33 | Outpatient (REF) | payer MEDICARE, SELFPAY ==
[2025-01-14 12:13] LABS: Ionized Calcium 1.18 mMOL/L (1.15-1.33)
[2025-01-14 12:42] LABS: Albumin 3.4 g/dl (3.5-5.0); Blood Urea Nitrogen 61 mg/dl (7-17); Calcium 9.4 mg/dl (8.4-10.2); Carbon Dioxide 25 mmol/L (22-30); Chloride 98 mmol/L (98-107); Glucose 123 mg/dl (70-99); Magnesium 2.2 mg/dl (1.6-2.3); Phosphorus 5.9 mg/dl (2.5-4.5); Potassium 4.5 mmol/L (3.5-5.1); Sodium 138 mmol/L (135-145)
[2025-01-14 14:59] LABS: eGFR 3.13
== END ==
LOC: REG 11:33
PROVIDERS: ATTENDING PHYSICIAN Nurse Practitioner Acute Care; FAMILY PHYSICIAN Surgery; REFERRING PHYSICIAN Nurse Practitioner Family
DX: N25.81 Secondary hyperparathyroidism of renal origin (principal)
CPT/HCPCS: 36415; 80048; 82040; 82330; 83735; 84100

== ENCOUNTER → 2025-01-24 12:28 | Outpatient (REF) | payer MEDICARE, SELFPAY ==
[2025-01-24 12:55] LABS: Ionized Calcium 1.24 mMOL/L (1.15-1.33)
[2025-01-24 13:08] LABS: Albumin 3.8 g/dl (3.5-5.0); Blood Urea Nitrogen 58 mg/dl (7-17); Calcium 10.2 mg/dl (8.4-10.2); Carbon Dioxide 24 mmol/L (22-30); Chloride 100 mmol/L (98-107); Glucose 112 mg/dl (70-99); Phosphorus 7.1 mg/dl (2.5-4.5); Potassium 4.4 mmol/L (3.5-5.1); Sodium 139 mmol/L (135-145)
[2025-01-24 13:37] LABS: eGFR 2.99
[2025-01-26 09:41] LABS: Intact PTH 4.3 pg/ml (13.6-85.8)
== END ==
LOC: REG 12:28
PROVIDERS: ATTENDING PHYSICIAN Specialist; FAMILY PHYSICIAN Nurse Practitioner Family
DX: N18.6 End stage renal disease (principal)
CPT/HCPCS: 36415; 80069; 82330; 83970

== ENCOUNTER → 2025-02-19 17:32 | Outpatient (REF) | payer MEDICARE, BC, SELFPAY | LOC: WDC 17:32 | PROVIDERS: ATTENDING PHYSICIAN Nurse Practitioner Family | DX: Z12.31 Encounter for screening mammogram for malignant neoplasm of breast (principal) | CPT/HCPCS: 77063; 77067 ==

== ENCOUNTER → 2025-03-22 12:37 | Outpatient (REF) | payer MEDICARE, BC, SELFPAY ==
[2025-03-22 13:24] LABS: % Basophils 0.6 % (0-2); % Eosinophils 2.4 % (0-6); % Immature Granulocytes 0.5 % (0-0.5); % Lymphocytes 22.7 % (20.5-51.1); % Monocytes 5.7 % (1.7-9.3); % Neutrophils 68.1 % (42.2-75.2); Absolute Basophils 0.1 10^3/uL (0-0.2); Absolute Eosinophils 0.3 10^3/uL (0-0.7); Absolute Immature Granulocytes 0.1 10^3/uL (0-0.05); Absolute Lymphocytes 2.4 10^3/uL (1.2-3.4); Absolute Monocytes 0.6 10^3/uL (0.1-0.6); Absolute Neutrophils 7.1 10^3/uL (1.4-6.5); Hematocrit 31.6 % (37.0-47.0); Hemoglobin 10.5 g/dL (12.0-16.0); Mean Corp Hgb Conc. 33.2 g/dL (33.0-37.0); Mean Corpuscular Hgb 32.2 pg (27.0-31.0); Mean Corpuscular Volume 96.9 fL (81.0-99.0); Nucleated Red Blood Cells % 0 %; Platelet Count 260 10^3/uL (130-400); Red Blood Cell Count 3.26 10^6/uL (4.20-5.40); Red Cell Dist. Width 13.7 % (11.5-14.5); White Blood Cell Count 10.4 10^3/uL (4.8-10.8)
[2025-03-22 13:28] LABS: INR 1.37; PT 17.1 Sec (11.4-14.6)
[2025-03-22 13:29] LABS: APTT 27.5 Sec (23.4-35.0)
[2025-03-22 13:46] LABS: Blood Urea Nitrogen 59 mg/dl (7-17); Calcium 10.1 mg/dl (8.4-10.2); Carbon Dioxide 24 mmol/L (22-30); Chloride 100 mmol/L (98-107); Glucose 136 mg/dl (70-99); Sodium 137 mmol/L (135-145); eGFR 3.34
== END ==
LOC: REG 12:37
PROVIDERS: ATTENDING PHYSICIAN Nurse Practitioner; FAMILY PHYSICIAN Nurse Practitioner Family; OTHER PHYSICIAN Internal Medicine Nephrology
DX: K21.00 Gastro-esophageal reflux disease with esophagitis, without bleeding (principal); K25.9 Gastric ulcer, unspecified as acute or chronic, without hemorrhage or perforation; D64.9 Anemia, unspecified; Z79.01 Long term (current) use of anticoagulants; N18.6 End stage renal disease
CPT/HCPCS: 36415; 80048; 85025; 85610; 85730

== ENCOUNTER 2025-03-26 06:21 | Day surgery (SDC) | payer MEDICARE, BC, SELFPAY ==
[2025-03-26 09:15] VITALS: BMI 32.8
[2025-03-26 09:28] VITALS: BP 108/58
[2025-03-26 10:52] VITALS: BP 107/62
[2025-03-26 11:00] VITALS: BP 118/61
[2025-03-26 11:15] VITALS: BP 132/70
[2025-03-26 11:30] VITALS: BP 125/67
== END 2025-03-26 11:30 | disposition home or self-care (01) ==
LOC: SDS 06:21
PROVIDERS: ATTENDING PHYSICIAN Internal Medicine
DX: K29.70 Gastritis, unspecified, without bleeding (principal); K20.90 Esophagitis, unspecified without bleeding; K22.89 Other specified disease of esophagus; K44.9 Diaphragmatic hernia without obstruction or gangrene; K31.89 Other diseases of stomach and duodenum; Z87.11 Personal history of peptic ulcer disease
CPT/HCPCS: 43239; 88305; 88342

== ENCOUNTER 2025-07-06 18:36 | Inpatient (IN) | payer MEDICARE, BC, SELFPAY ==
[2025-07-06 13:07] VITALS: BP 146/78
--- NOTE | 2025-07-06 13:48 | ED.GENMED ---
History of Present Illness
<Evens Fischer PA-C - Last Filed: 07/06/25 19:54>
General
Chief Complaint: Abdominal Pain
Time Seen by Provider: 07/06/25 13:34
History of Present Illness
History of Present Illness:
60-year-old female with history of end-stage renal disease on peritoneal dialysis presents to the emergency department for evaluation of mid and upper abdominal pain for the past 2 days. Reports still having bowel movements and passing flatus. She
has a known umbilical hernia and is scheduled to see general surgery for consultation next week. Denies fevers, chills, sweats, nausea, or vomiting. Only prior abdominal surgery is PD catheter placement and tubal ligation
Past History
<Evens Fischer PA-C - Last Filed: 07/06/25 19:54>
Past History
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
ED Past Surgical History: Gynecological (Tubal, ), Tonsilectomy and Other (PD catheter)
Social History
Tobacco: Non-smoker
Alcohol: Occasional
Personal: Single (engaged)
Living: with family
Review of Systems
<Evens Fischer PA-C - Last Filed: 07/06/25 19:54>
Review of Systems
Allergies reviewed?: Yes
All Other Systems: ROS reviewed and negative except as documented in HPI and ROS
Phy Exam
<Evens Fischer PA-C - Last Filed: 07/06/25 19:54>
Physical Exam
Physical Exam:
GEN: Well appearing, NAD, WDWN
HEENT: Oral mucosa moist, no scleral icterus
Cardiac: Regular rate
Lung: No respiratory distress, no tachypnea
Abdomen: Generally soft, palpable umbilical hernia that appears to be reducible, no rigidity, tender in the epigastrium and right upper quadrant, negative Germain sign
MSK: No gross deformity or injuries
Skin: Good color, no pallor or jaundice, no rashes
Neuro: AO x3, moves all extremities freely
Psych: Calm, cooperative
Course
<Evens Fischer PA-C - Last Filed: 07/06/25 19:54>
Orders/Labs/Results
Orders:
Orders
07/06/25 13:47
Iohexol [Omnipaque] See Protocol PO NOW STA
US Abdomen Complete/Upper Urgent
Comment:
Reason For Exam: epigastric pain
07/06/25 13:59
Complete Blood Count/With Diff Urgent
Comprehensive Metabolic Panel Urgent
Lipase Urgent
Comment: ADD ON
07/06/25 15:47
CT Abd/pel (oral only)-[facility] Only Urgent
Comment:
Reason For Exam: abd pain
07/06/25 17:02
Add On- LAB Urgent
Tests Added?: lipase
07/06/25 17:16
Lactated Ringers [Lr] 1,000 ml IV BOLUS
Piperacillin/Tazo 3.375 Gram [Zosyn] 3.375 gram in 50 ml IV NOW
07/06/25 17:21
HYDROmorphone [Dilaudid] 1 mg IV NOW STA
07/06/25 18:01
INR [Prothrombin Time] Urgent
07/06/25 18:15
Admit/Transfer Patient As Directed
Co-Sign Provider:
Level of Care: Inpatient admission
Assign to:: IMU- Intermediate Care
Physician / Group: Davi
Diagnosis: Diverticulitis with pneumoperitoneum; end-stage renal disease on peritoneal
Reason for Hospitalization: See progress note
Expected length of stay greater than two midnights?: Yes
ELOS- Estimated Length of Stay in days: 5
I certify the patient meets the requirements for IP care: Yes
07/06/25 18:16
PRN Pain Medication Management As Directed
May give lesser potent ordered pain med per pt: Yes
preference::
Protocol:: Medication orders for pain may be administered in a
manner that supports deferring to patient preference
when the pt is:
- Requesting an ordered lesser potent pain medication.
Least to most potent pain medications are defined
as: acetaminophen < NSAID < tramadol < opioids
(morphine, oxycodone, hydromorphone).
- Requesting a lesser dose of the same medication IF
ORDERED.
- Requesting a less intrusive route of administration
if both routes are prescribed by the provider (PO <
IV).
07/06/25 18:17
Code Status As Directed
Resuscitation Status: Full Code
07/06/25 19:33
Blood Culture Q30M
BEATRIZ Source: Blood/Venous
Specimen Description:
07/06/25 19:39
Blood Culture Q30M
BEATRIZ Source: Blood/Venous
Specimen Description:
Abnormal Lab Results
07/06/25 07/06/25
13:59 18:01
RBC 2.90 L 10^6/uL
(4.20-5.40)
Hgb 9.5 L g/dL
(12.0-16.0)
Hct 26.9 L %
(37.0-47.0)
MCH 32.8 H pg
(27.0-31.0)
Absolute Neuts (auto) 7.8 H 10^3/uL
(1.4-6.5)
Neutrophils % 75.9 H %
(42.2-75.2)
Lymphocytes % 15.9 L %
(20.5-51.1)
PT 20.3 H Sec
(11.4-14.6)
Sodium 131 L mmol/L
(135-145)
Potassium 3.4 L mmol/L
(3.5-5.1)
Chloride 96 L mmol/L
(98-107)
BUN 34 H mg/dl
(7-17)
Creatinine 9.1 H* mg/dL
(0.6-1.0)
Glucose 113 H mg/dl
(70-99)
Total Protein 4.8 L g/dl
(6.3-8.2)
Albumin 2.8 L g/dl
(3.5-5.0)
07/06/25 13:59
07/06/25 13:59
Vital Signs
Initial and Last Documented VS:
Initial Vital Signs
Temp Pulse Resp BP Pulse Ox
97.5 F 94 18 146/78 100
07/06/25 13:07 07/06/25 13:07 07/06/25 13:07 07/06/25 13:07 07/06/25 13:07
Last Documented Vital Signs
Temp Pulse Resp BP Pulse Ox
97.5 F 89 22 158/61 97
07/06/25 13:07 07/06/25 19:17 07/06/25 19:17 07/06/25 19:17 07/06/25 19:17
<Jennifer Steven MD - Last Filed: 07/06/25 20:03>
Orders/Labs/Results
Orders:
Orders
07/06/25 13:47
Iohexol [Omnipaque] See Protocol PO NOW STA
US Abdomen Complete/Upper Urgent
Comment:
Reason For Exam: epigastric pain
07/06/25 13:59
Complete Blood Count/With Diff Urgent
Comprehensive Metabolic Panel Urgent
Lipase Urgent
Comment: ADD ON
07/06/25 15:47
CT Abd/pel (oral only)-[facility] Only Urgent
Comment:
Reason For Exam: abd pain
07/06/25 17:02
Add On- LAB Urgent
Tests Added?: lipase
07/06/25 17:16
Lactated Ringers [Lr] 1,000 ml IV BOLUS
Piperacillin/Tazo 3.375 Gram [Zosyn] 3.375 gram in 50 ml IV NOW
07/06/25 17:21
HYDROmorphone [Dilaudid] 1 mg IV NOW STA
07/06/25 18:01
INR [Prothrombin Time] Urgent
07/06/25 18:15
Admit/Transfer Patient As Directed
Co-Sign Provider:
Level of Care: Inpatient admission
Assign to:: IMU- Intermediate Care
Physician / Group: Davi
Diagnosis: Diverticulitis with pneumoperitoneum; end-stage renal disease on peritoneal
Reason for Hospitalization: See progress note
Expected length of stay greater than two midnights?: Yes
ELOS- Estimated Length of Stay in days: 5
I certify the patient meets the requirements for IP care: Yes
07/06/25 18:16
PRN Pain Medication Management As Directed
May give lesser potent ordered pain med per pt: Yes
preference::
Protocol:: Medication orders for pain may be administered in a
manner that supports deferring to patient preference
when the pt is:
- Requesting an ordered lesser potent pain medication.
Least to most potent pain medications are defined
as: acetaminophen < NSAID < tramadol < opioids
(morphine, oxycodone, hydromorphone).
- Requesting a lesser dose of the same medication IF
ORDERED.
- Requesting a less intrusive route of administration
if both routes are prescribed by the provider (PO <
IV).
07/06/25 18:17
Code Status As Directed
Resuscitation Status: Full Code
07/06/25 19:33
Blood Culture Q30M
BEATRIZ Source: Blood/Venous
Specimen Description:
07/06/25 19:39
Blood Culture Q30M
BEATRIZ Source: Blood/Venous
Specimen Description:
Abnormal Lab Results
07/06/25 07/06/25
13:59 18:01
RBC 2.90 L 10^6/uL
(4.20-5.40)
Hgb 9.5 L g/dL
(12.0-16.0)
Hct 26.9 L %
(37.0-47.0)
MCH 32.8 H pg
(27.0-31.0)
Absolute Neuts (auto) 7.8 H 10^3/uL
(1.4-6.5)
Neutrophils % 75.9 H %
(42.2-75.2)
Lymphocytes % 15.9 L %
(20.5-51.1)
PT 20.3 H Sec
(11.4-14.6)
Sodium 131 L mmol/L
(135-145)
Potassium 3.4 L mmol/L
(3.5-5.1)
Chloride 96 L mmol/L
(98-107)
BUN 34 H mg/dl
(7-17)
Creatinine 9.1 H* mg/dL
(0.6-1.0)
Glucose 113 H mg/dl
(70-99)
Total Protein 4.8 L g/dl
(6.3-8.2)
Albumin 2.8 L g/dl
(3.5-5.0)
07/06/25 13:59
07/06/25 13:59
Vital Signs
Initial and Last Documented VS:
Initial Vital Signs
Temp Pulse Resp BP Pulse Ox
97.5 F 94 18 146/78 100
07/06/25 13:07 07/06/25 13:07 07/06/25 13:07 07/06/25 13:07 07/06/25 13:07
Last Documented Vital Signs
Temp Pulse Resp BP Pulse Ox
97.5 F 89 22 158/61 97
07/06/25 13:07 07/06/25 19:17 07/06/25 19:17 07/06/25 19:17 07/06/25 19:17
<Evens Fischer PA-C - Last Filed: 07/06/25 19:54>
MDM/Problems Addressed
MDM/Problems Addressed:
Patient is unfortunate identified to have pneumoperitoneum most likely secondary to perforated diverticulitis. Started promptly on IV antibiotic and IV fluids, case was discussed with colorectal surgery unfortunately surgery is, operating and they
will be a delay in assessing the patient. She is clinically stable at this time with a nonperitoneal exam, will be admitted to the hospitalist service while awaiting colorectal surgery evaluation
<Evens Fischer PA-C - Last Filed: 07/06/25 19:54>
*Pulse Oximetry
SaO2: 100
Oxygen Mode of Delivery: Room air
Patient hypoxic: no
*Critical Care Note
Total Time (30-74mins, 75-104mins- exclusive of procedures): 40 minutes
comment:
Critical care time: 40 minutes
Critical care time was exclusive of: Separately billable procedures, treating other patients, and teaching time
Critical care was necessary to treat or prevent imminent or life-threatening deterioration of the following conditions: Perforated viscous
Critical care time spent personally by me on the following activities:
[x] Review of old charts
[x] Obtaining history from patient or surrogate
[x] Ordering and review of the laboratory studies
[x] Ordering and review of radiographic studies
[x] Ordering and performing treatments and interventions
[x] Patient patient's response to treatment
[x] Development of treatment plan with patient or surrogate
ED Attending Note
<Evens Fischer PA-C - Last Filed: 07/06/25 19:54>
-
Portions of this chart may have been created with voice recognition software.� Occasional wrong word or��sound alike� substitutions may have occurred due to the inherent limitations of voice recognition software.
<Jennifer Steven MD - Last Filed: 07/06/25 20:03>
ED Attending Note
Patient seen and examined by attending physician: Yes
I performed the substantive portion of visit, reviewed & personally made and approve the management plan that is documented in note by myself or GAL.: Yes
ED Attending Note:
60-year-old female presents emergency room complaints of abdominal discomfort that started earlier in the week and is getting progressively worse. Patient denies fever, nausea, vomiting. Patient has a history of PAD with catheter in place. On
exam, patient has lower abdominal tenderness to palpation, no rebound or guarding, overall well-appearing and nontoxic. CT reviewed with patient including bowel perforation, possible abscess, diverticulitis. Vern CARSON discussed with colorectal
surgery who will see patient in evaluation today. Antibiotics started.
Discharge Plan
Departure
Patient Disposition: Admit
Date of Disposition: 07/06/25
Time of Disposition: 17:32
Admit to: ICU
Presentation/result/management discussed w/ accepting MD/DO: Hospitalist
Discharge Problem:
Bowel perforation, Sigmoid diverticulitis
Interventions
Interventions:
*Risk Screen - Suicide Last Done: 07/06/25 13:07
*General Assessment Last Done: 07/06/25 13:07
*Neglect/Abuse Screening Last Done: 07/06/25 13:07
*ED- Fall Risk Assessment Last Done: 07/06/25 17:57
ER-Peefhe-Sllfuteqjt Assessment Last Done: 07/06/25 14:02
[2025-07-06] MEDS: OMNIPAQUE 50 ML PO (13:55)
[2025-07-06 14:01] VITALS: BMI 33.2
[2025-07-06 14:12] LABS: Hematocrit 26.9 % (37.0-47.0); Hemoglobin 9.5 g/dL (12.0-16.0); Mean Corp Hgb Conc. 35.3 g/dL (33.0-37.0); Mean Corpuscular Volume 92.8 fL (81.0-99.0); Nucleated Red Blood Cells % 0 %; Platelet Count 270 10^3/uL (130-400); Red Cell Dist. Width 12.8 % (11.5-14.5)
[2025-07-06 14:34] LABS: ALT (SGPT) 13 U/L (0-35); AST (SGOT) 17 U/L (14-36); Albumin 2.8 g/dl (3.5-5.0); Alkaline Phosphatase 72 U/L (38-126); Blood Urea Nitrogen 34 mg/dl (7-17); Calcium 8.5 mg/dl (8.4-10.2); Carbon Dioxide 29 mmol/L (22-30); Chloride 96 mmol/L (98-107); Estimated Creatinine Clearance 7 ml/min; Glucose 113 mg/dl (70-99); Potassium 3.4 mmol/L (3.5-5.1); Sodium 131 mmol/L (135-145); Total Protein 4.8 g/dl (6.3-8.2); eGFR 4.56
[2025-07-06] MEDS: DILAUDID 1 MG IV (17:24)
[2025-07-06] MEDS: ZOSYN 50 IV (17:27)
[2025-07-06] MEDS: LR 1000 IV (17:27)
[2025-07-06 17:34] VITALS: BP 133/68
--- NOTE | 2025-07-06 18:24 | HPS.HSE ---
Family Physician
-
Family Physician: NOT KNOW UNKNOWN - PT DOES
Chief Complaint
-
Abdominal pain
History of Present Illness
Patient has polycystic kidney disease and secondary end-stage renal disease on peritoneal dialysis for the last 2 years. There was a scenario of culture-negative peritonitis 2 months ago for which she got antibiotics apart from that no other PD
related complications.
On Tuesday she started noticed abdominal pain and it was right on her umbilical hernia area and then radiated to the right side to the lower quadrant. Her PD doctor referred to Dr. Lynn and she was going to see him for the hernia repair
plans.
She continued to have pain and tenderness in the bellybutton area and it got worse since yesterday. This morning she could not even bend forward to do laundry because of abdominal pain.
Yesterday she started to suddenly feel bloated sensation in her upper abdomen and she felt as though she is 6 months . She continues to feel the bloating sensation. Brief nausea today. No diarrhea. Denies any blood in the stools.
No fever or chills.
Denies any shortness of breath.
She had colonoscopy 3 years ago. Denies any prior history of diverticulitis or colitis.
She is on Coumadin and checks her INR at home and last it was 2.8.
Medical History
Past Medical History
Past Medical History: Reports Other
Additional Past Medical History:
Pulmonary Embolism / Factor V Leiden
ESRD secondary Polycystic Kidney Disease on Peritoneal Dialysis
Anemia of Chronic Disease
Hypothyroidism
Restless Leg Syndrome
Past Surgical History: Reports Other
Additional Past Surgical History:
Tubal Ligation
Tonsillectomy
Peritoneal Dialysis Catheter
Social History
Tobacco: Non-smoker
Alcohol: None
Drug: None
Family History
Family History: Not pertinent
Allergies / Home Medications
Allergies reflects when Allergies were last updated in [facility].
Home Medications with original date entered in [facility]
Allergy/Medication List:
Allergies
Allergy/AdvReac Type Severity Reaction Status Date / Time
bupropion [From Wellbutrin] Allergy Rash Verified 09/25/24 19:37
sulfamethoxazole Allergy Itching Verified 09/25/24 19:37
[From Bactrim]
trimethoprim [From Bactrim] Allergy Itching Verified 09/25/24 19:37
Home Medications
levothyroxine 112 mcg tablet 112 mcg PO DAILY Thyroid 02/25/22
rosuvastatin 20 mg tablet 20 mg PO HS High cholesterol 02/25/22
calcitriol 0.5 mcg capsule 0.5 mcg PO DAILY Kidney Disease 07/13/23
cinacalcet 30 mg tablet 30 mg PO QPM Kidney Disease 07/13/23
furosemide 40 mg tablet 40 mg PO DAILY Fluid Retention/Swelling 07/13/23
furosemide 80 mg tablet 80 mg PO DAILY Fluid Retention/Swelling 07/13/23
gabapentin 100 mg capsule 200 mg PO HS Pain 07/13/23
ropinirole 1 mg tablet 2 mg PO HS Neurological Condition 07/13/23
sevelamer carbonate 800 mg tablet 2,400 mg PO AC 09/25/24
warfarin 4 mg tablet 2 mg PO SUTUTHSA 09/25/24
warfarin 4 mg tablet 4 mg PO MOWEFR 09/25/24
Review of Systems
-
A 12 point ROS was completed and negative except as noted: Yes
Physical Exam
Vital Signs
Vital Signs
Temp Pulse Resp BP Pulse Ox
97.5 F 89 17 133/68 98
07/06/25 13:07 07/06/25 16:53 07/06/25 16:53 07/06/25 17:34 07/06/25 16:53
Physical Exam
General: No Apparent Distress
Respiratory: Crackles (few bibasal) and Non Labored Respirations; No Wheezes or Accessory Resp Muscle Use
Cardiac: S1/S2, Regular Rhythm and Murmur; No Tachycardia
GI: Soft, Tender (in all abdominal quadrants with no rebound or guarding. Tenderness over the umbilical hernia site as well noted) and Distended (mild)
Neuro: AO x 3
Psych: Calm
Laboratory Results
-
07/06/25 13:59
07/06/25 13:59
Laboratory Results
Total Bilirubin 0.4 mg/dl (0.2-1.3) 07/06/25 13:59
AST 17 U/L (14-36) 07/06/25 13:59
ALT 13 U/L (0-35) 07/06/25 13:59
Alkaline Phosphatase 72 U/L (38-126) 07/06/25 13:59
Data Reviewed
-
CT Scan: Report Reviewed by me (CT abdo/pelvis)
Lab Data: Labs Reviewed by me
Impression/Plan
-
Acute abdominal pain with abnormal CT of the abdomen pelvis
Acute sigmoid diverticulitis -patient presents with a abdominal pain more focused on the bellybutton and then became generalized. She is tender in all the quadrants hard to say sigmoid diverticulitis driving all the symptomatology. Her pain
started in the bellybutton and its she is very tender there as well. She is nontoxic looking. Her white count is normal. She is afebrile. And she is not tachycardic.
Sigmoid diverticulitis without any focal signs of perforation or any focal abscess.
Will keep her NPO. Start on empirical Zosyn. Obtain blood cultures.
Morphine for pain for now.
Consult colorectal surgery
Pneumoperitoneum-patient has been is symptomatic with sudden bloating sensation for 2 days now. Suspect perforated viscus. Will check with nephrology if there is chances of pneumoperitoneum which is secondary to PD.
Polycystic kidney disease leading on to end-stage renal disease-currently on PD which we will hold.
Prothrombin deficiency-not a factor V Leiden deficiency per patient]-with associated DVT and PE in 2008-on Coumadin. Check INR levels. Once less than 2 will start bridging heparin.
Chronic normocytic anemia-hemoglobin 9.5 and stable.
History of recent GI bleed/gastric ulcer-continue PPI
Hyperlipidemia-hold statins
Hypothyroidism-switch levothyroxine to IV
Full code
[2025-07-06 18:26] VITALS: BP 117/73
[2025-07-06 18:28] LABS: INR 1.71; PT 20.3 Sec (11.4-14.6)
[2025-07-06 18:38] LABS: Lipase 178 U/L (23-300)
[2025-07-06 19:17] VITALS: BP 158/61
[2025-07-06 21:00] VITALS: BMI 32.3
[2025-07-06] MEDS: MORPHINE SULFATE 4 MG IV (21:30)
[2025-07-06 21:33] VITALS: BP 138/72
--- NOTE | 2025-07-06 22:47 | CON.CRS ---
Consultation
-
Date/Time Consultation Performed: 07/06/2025
Performing Provider: Omar Montemayor MD
Medical History
-
History of Present Illness:
Patient is a 60-year-old female with PMH of polycystic kidney disease associated with ESRD on PD x 2 years, prothrombin deficiency complicated by DVT/PE in 2008 on Coumadin, RLS who presents with 1 week of gradually worsening abdominal pain. On
Tuesday, she noticed some pain near her bellybutton and somewhat towards the right. On Tuesday, she noticed significant bloating. Tuesday, the bloating improved and she had diarrhea. On , the pain became more concentrated in her lower
abdomen. She had some nausea, but no vomiting. Since then, the pain continued to get worse as well as the bloating. She last had a BM this morning and it was normal. She denies any fevers, CP/SOB or urinary symptoms (she still does urinate about
4 times a day). In the ED, her WBC was 10.[address] scan was done which showed diffuse flecks of free air associated with sigmoid diverticulitis concerning for perforated sigmoid diverticulitis. Additionally, there was a 6 cm subQ collection near
her bellybutton, which likely represents hernia.
Past Medical History
Past Medical History: Other (As above)
Past Surgical History: Other (PD catheter placed by Dr. Jason at [facility], BTL, tonsils, subtotal parathyroidectomy)
Social History
Tobacco: Non-Smoker
Alcohol: None
Drug: Marijuana (Occasional MJ gummy use for sleep)
Family History
Family History: Other (Dad esophageal cancer, grandfather colon cancer)
Allergies / Home Medications
Allergy/AdvReac Type Severity Reaction Status Date / Time
bupropion (From Wellbutrin) Allergy Rash Verified 07/06/25 22:07
sulfamethoxazole (From Allergy Itching Verified 07/06/25 22:07
Bactrim)
trimethoprim (From Bactrim) Allergy Itching Verified 07/06/25 22:07
�Medication �Instructions �Recorded �Confirmed �Type
calcitriol 0.5 mcg capsule 0.5 mcg PO DAILY Kidney Disease 07/13/23 07/06/25 History
sevelamer carbonate 800 mg tablet 2,400 mg PO AC Kidney Disease 09/25/24 07/06/25 History
warfarin 4 mg tablet 4 mg PO DAILY 09/25/24 07/06/25 History
acetaminophen 500 mg tablet 1,000 mg PO DAILYPRN PRN mild pain 07/06/25 07/06/25 History
docusate sodium 100 mg tablet 200 mg PO DAILY 07/06/25 07/06/25 History
furosemide 80 mg tablet 80 mg PO DAILY 07/06/25 07/06/25 History
levothyroxine 125 mcg tablet 125 mcg PO DAILY 07/06/25 07/06/25 History
magnesium glycinate 100 mg (as 100 mg PO HS 07/06/25 07/06/25 History
glycinate) tablet
pantoprazole 40 mg tablet,delayed 40 mg PO DAILY 07/06/25 07/06/25 History
release (Protonix)
peg 400-propylene glycol 0.4 %-0.3 1 drp ophthalmic (eye) DAILY PRN 07/06/25 07/06/25 History
% eye drops (Systane Ultra) dry eyes
ropinirole 1 mg tablet 2 mg PO HS 07/06/25 07/06/25 History
rosuvastatin 10 mg tablet 10 mg PO QPM 07/06/25 07/06/25 History
sodium chloride 0.65 % nasal spray 1 spray intranasal HSPRN PRN dry 07/06/25 07/06/25 History
aerosol (Saline Nasal) sinuses
vitamin B complex-vitamin C-folic 1 tab PO DAILY 07/06/25 07/06/25 History
acid 0.8 mg tablet
Review of Systems
-
A 10 point review of systems was completed, and was negative except as per HPI.
Physical Exam
Vital Signs
Temp 98.2 F 07/06/25 21:00
Pulse 87 07/06/25 21:33
Resp Rate 20 07/06/25 21:33
Blood pressure 138/72 07/06/25 21:33
SaO2 96 07/06/25 21:33
07/05/25 07/06/25 07/07/25
06:59 06:59 06:59
Actual Weight 88.1 kg
Body Mass Index (BMI) 32.3
Lab Results / Allergies
07/06/25 13:59
07/06/25 13:59
WBC 10.2 10^3/uL (4.8-10.8) 07/06/25 13:59
Hgb 9.5 g/dL (12.0-16.0) L 07/06/25 13:59
Hct 26.9 % (37.0-47.0) L 07/06/25 13:59
Plt Count 270 10^3/uL (130-400) 07/06/25 13:59
Abs Immat Gran (auto) 0.0 10^3/uL (0-0.05) 07/06/25 13:59
Neutrophils % 75.9 % (42.2-75.2) H 07/06/25 13:59
Allergy/AdvReac Type Severity Reaction Status Date / Time
bupropion (From Wellbutrin) Allergy Rash Verified 07/06/25 22:07
sulfamethoxazole (From Allergy Itching Verified 07/06/25 22:07
Bactrim)
trimethoprim (From Bactrim) Allergy Itching Verified 07/06/25 22:07
Physical Exam
General: Well Developed, Well Nourished and No Apparent Distress
HEENT: Normocephalic and Atraumatic
Respiratory: Non Labored Respirations
Cardiac: S1/S2
GI: Soft, Tender (Tender in the RUQ, umbilical region and suprapubic to RLQ, no rebound or guarding) and Distended (Mildly distended in the mid to upper abdomen, minimal tympany, )
Skin: Warm and Dry
Neuro: AO x 3
Data Reviewed
-
CT Scan: Image Personally Visualized and interpreted, Discussed with Physician (Hospitalist) and Discussed with Patient
Labs: Labs Reviewed by me and Discussed with Patient
Assessment / Plan
-
60-year-old female with PMH of polycystic kidney disease associated with ESRD on PD x 2 years, prothrombin deficiency complicated by DVT/PE in 2008 on Coumadin, RLS who presents with 1 week of gradually worsening abdominal pain. On Tuesday, she
noticed some pain near her bellybutton and somewhat towards the right. On Tuesday, she noticed significant bloating. Tuesday, the bloating improved and she had diarrhea. On , the pain became more concentrated in her lower abdomen. She
had some nausea, but no vomiting. Since then, the pain continued to get worse as well as the bloating. She last had a BM this morning and it was normal. She denies any fevers, CP/SOB or urinary symptoms (she still does urinate about 4 times a
day). In the ED, her WBC was 10.[address] scan was done which showed diffuse flecks of free air associated with sigmoid diverticulitis concerning for perforated sigmoid diverticulitis. Additionally, there was a 6 cm subQ collection near her
bellybutton, which likely represents hernia.
AFVSS
�Perforated diverticulitis in setting of PD cath for dialysis
�Scattered flecks of free air possibly due to incidental instillation of air with dialysis, but less likely; in the setting of acute diverticulitis, more likely represents perforated diverticulitis
�Patient without peritoneal signs and hemodynamically stable; explained the treatment options in the setting, including urgent surgery, which would more likely require removal of the PD catheter, midline incision and possible ostomy; alternatively,
we could attempt nonoperative measures with IV antibiotics and monitor closely; there is the risk of clinical decompensation requiring emergent surgery, as well as infection of her PD catheter
�After lengthy discussion of the risks and benefits of her options, she would like to proceed with nonoperative measures; if she does not require urgent surgery this admission, if she would like to eventually get back to peritoneal dialysis,
elective sigmoidectomy down the road would be a consideration to minimize the risk of recurrent diverticulitis
�I will discuss with her transplant team at [facility] in the a.m. in case they would prefer to transfer her for higher level care; I do not see any need for urgent transfer tonight due to her stability
�Appreciate nephrology; recommend placing Shiley for temporary hemodialysis
� Recommend IV Zosyn
�Recommend n.p.o. with IVF for bowel rest
� Pain control with morphine
�Patient with known umbilical hernia, pending outpatient consult with Dr. Lynn to consider repair
�Appreciate hospitalist, discussed with Dr. Tomlinson
[2025-07-07] VITALS (7 sets, daily range): BP systolic 108–143; BP diastolic 58–96; BMI 32.5
[2025-07-07] MEDS: HEPARIN 25000 UNITS/250 ML IV (00:30)
[2025-07-07 00:43] LABS: APTT 30.5 Sec (23.4-35.0)
[2025-07-07 00:54] LABS: Hematocrit 25.2 % (37.0-47.0); Hemoglobin 9.0 g/dL (12.0-16.0); Mean Corp Hgb Conc. 35.7 g/dL (33.0-37.0); Mean Corpuscular Volume 89.7 fL (81.0-99.0); Platelet Count 273 10^3/uL (130-400); Red Cell Dist. Width 12.9 % (11.5-14.5)
[2025-07-07] MEDS: ZOSYN 50 IV ×3 (01:56→17:35)
[2025-07-07] MEDS: MORPHINE SULFATE 4 MG IV (05:17)
--- NOTE | 2025-07-07 05:44 | PTCARENOTE ---
pt afebrile and normotensive throughout the night; sinus rhythm with rates 70-80's. Ambulated to the bathroom x 2 with contact guard; steady gait. Medicated with morphine 4 mg IV x 2 for generalized abdominal pain. Heparin drip initiated at 0030 as
chronic coumadin is held. PTT monitoring per protocol. Continuing to monitor
[2025-07-07 07:11] LABS: Hematocrit 25.4 % (37.0-47.0); Hemoglobin 8.9 g/dL (12.0-16.0); Mean Corp Hgb Conc. 35.0 g/dL (33.0-37.0); Mean Corpuscular Volume 91.0 fL (81.0-99.0); Platelet Count 254 10^3/uL (130-400); Red Cell Dist. Width 13.0 % (11.5-14.5)
[2025-07-07 07:31] LABS: Blood Urea Nitrogen 39 mg/dl (7-17); Calcium 8.3 mg/dl (8.4-10.2); Carbon Dioxide 28 mmol/L (22-30); Chloride 97 mmol/L (98-107); Estimated Creatinine Clearance 7 ml/min; Glucose 68 mg/dl (70-99); Potassium 3.7 mmol/L (3.5-5.1); Sodium 130 mmol/L (135-145); eGFR 4.33
[2025-07-07 07:55] LABS: INR 2.79; PT 29.4 Sec (11.4-14.6)
[2025-07-07] MEDS: NSS (PRESERVATIVE FREE) 10 ML IV (08:37)
[2025-07-07] MEDS: PROTONIX IV 40 MG IV (08:37)
[2025-07-07 09:15] LABS: C-Reactive Protein 47.90 mg/L (0.0-10.00)
--- NOTE | 2025-07-07 10:02 | W.CON.NEPH ---
Consultation
-
Date/Time Consultation Requested: 07/06/252114
Date/Time Consultation Performed: 07/07/25 1000
Requesting Provider: Jonn Conti
Performing Provider: Jeannette Navarrete
Reason for Consultation: ESRD-PD
Medical History
-
Chief Complaint: Abd pain
History of Present Illness:
60-year-old with history of polycystic kidney disease with end-stage kidney failure on peritoneal dialysis for last 3yrs, residual UOP on lasix, SHPTH on calcitriol, hyperphosphatemia on Renvela, hypothyroid on levothyroxine, hypertension, venous
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
anymore at home. SHe was supposed to see her PD doctor Dr. Lynn at [facility] this coming for the hernia repair plans. She continues to feel the bloating sensation, had brief nausea. No diarrhea. NO issues with P, fluid is clear and no
blood. There was a scenario of culture-negative peritonitis 2 months ago for which she got antibiotics apart from that no other PD related complications. Last PD was 2days ago. No fever or chills. Denies any shortness of breath.
CT abd shows mild pneumoperitoneum and mild acute diverticulitis of sigmoid colon. Gen surg saw her and have no interventions planned. Nephrology was asked to manage ESRD and likely switching to HD temporarly.
Past Medical History
Pulmonary Embolism / Factor V Leiden
ESRD secondary Polycystic Kidney Disease on Peritoneal Dialysis
Anemia of Chronic Disease
Hypothyroidism
Restless Leg Syndrome
SHPTH
Hyperphospahtemia
Past Surgical History: Other (Tubal Ligation Tonsillectomy Peritoneal Dialysis Catheter)
Social History
Tobacco: Non-Smoker
Alcohol: None
Drug: None
Employment: Other
Family History
Notable for polycystic kidney disease in both her mother and sibling.
Allergies / Home Medications
Allergy/AdvReac Type Severity Reaction Status Date / Time
bupropion (From Wellbutrin) Allergy Rash Verified 07/06/25 22:07
sulfamethoxazole (From Allergy Itching Verified 07/06/25 22:07
Bactrim)
trimethoprim (From Bactrim) Allergy Itching Verified 07/06/25 22:07
�Medication �Instructions �Recorded �Confirmed �Type
calcitriol 0.5 mcg capsule 0.5 mcg PO DAILY Kidney Disease 07/13/23 07/06/25 History
sevelamer carbonate 800 mg tablet 2,400 mg PO AC Kidney Disease 09/25/24 07/06/25 History
warfarin 4 mg tablet 4 mg PO DAILY Blood Clot 09/25/24 07/06/25 History
Prevention/Tx
acetaminophen 500 mg tablet 1,000 mg PO DAILYPRN PRN mild pain 07/06/25 07/06/25 History
docusate sodium 100 mg tablet 200 mg PO DAILY STOOL SOFTENER 07/06/25 07/06/25 History
furosemide 80 mg tablet 80 mg PO DAILY Fluid 07/06/25 07/06/25 History
Retention/Swelling
levothyroxine 125 mcg tablet 125 mcg PO DAILY Thyroid 07/06/25 07/06/25 History
magnesium glycinate 100 mg (as 100 mg PO HS Supplement 07/06/25 07/06/25 History
glycinate) tablet
pantoprazole 40 mg tablet,delayed 40 mg PO DAILY GERD 07/06/25 07/06/25 History
release (Protonix)
peg 400-propylene glycol 0.4 %-0.3 1 drp ophthalmic (eye) DAILY PRN 07/06/25 07/06/25 History
% eye drops (Systane Ultra) dry eyes
ropinirole 1 mg tablet 2 mg PO HS RESTLESS LEG 07/06/25 07/06/25 History
rosuvastatin 10 mg tablet 10 mg PO QPM High Cholesterol 07/06/25 07/06/25 History
sodium chloride 0.65 % nasal spray 1 spray intranasal HSPRN PRN dry 10/04/25 10/04/25 History
aerosol (Saline Nasal) sinuses
vitamin B complex-vitamin C-folic 1 tab PO DAILY Supplement 07/06/25 07/06/25 History
acid 0.8 mg tablet
Review of Systems
-
All other systems: Negative unless noted
Physical Exam
Vital Signs
Vital Signs
Temp Pulse Resp BP Pulse Ox
97.5 F 81 15 123/68 99
07/07/25 08:00 07/07/25 08:15 07/07/25 08:15 07/07/25 04:00 07/07/25 08:15
Lab Results
WBC 8.9 10^3/uL (4.8-10.8) 07/07/25 06:48
RBC 2.79 10^6/uL (4.20-5.40) L 07/07/25 06:48
Hgb 8.9 g/dL (12.0-16.0) L 07/07/25 06:48
Hct 25.4 % (37.0-47.0) L 07/07/25 06:48
Plt Count 254 10^3/uL (130-400) 07/07/25 06:48
Sodium 130 mmol/L (135-145) L 07/07/25 06:48
Potassium 3.7 mmol/L (3.5-5.1) 07/07/25 06:48
Chloride 97 mmol/L (98-107) L 07/07/25 06:48
Carbon Dioxide 28 mmol/L (22-30) 07/07/25 06:48
BUN 39 mg/dl (7-17) H 07/07/25 06:48
Creatinine 9.5 mg/dL (0.6-1.0) H* 07/07/25 06:48
eGFR 4.33 07/07/25 06:48
Glucose 68 mg/dl (70-99) L 07/07/25 06:48
Calcium 8.3 mg/dl (8.4-10.2) L 07/07/25 06:48
Albumin 2.8 g/dl (3.5-5.0) L 07/06/25 13:59
Physical Exam
General: Awake, Alert, Oriented, AOx3 and No Distress
HEENT: EOMI, Anicteric, Conjunctivae Clear and Facial Symmetry
Respiratory: Clear, Normal Excursion and Nonlabored Respirations
Cardiac: S1/S2 and Regular Rate/Rhythm
Breast: Deferred by me
Abdomen: Soft and Other (mild distended and mild TTP upper abd)
Musculoskeletal: No Cyanosis and No Edema
Skin: No Rash and Normal Turgor
Neuro: Nonfocal/Grossly Intact
Psych: Mood/afflect pleasant, Insight/judgement good and Appropriate
Vascular Access: Other (PD catheter site clean )
Data Reviewed
-
Radiology: Report Reviewed by me and Discussed with Patient
Labs: Labs Reviewed by me and Discussed with Patient
Assessment/Plan
-
Assessment:
Perforated diverticulitis in setting of PD cath for dialysis
ESRD on PD since 2021
Polycystic kidney disease leading on to end-stage renal disease
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
History of recent GI bleed/gastric ulcer
Chr anemia
Hyperlipidemia
Hypothyroidism
Secondary PTH
History hypertension
Hyperphosphatemia
mild hyponatremia
Plan:
A/w progressive abd pain for last week, CT shows mild acute diverticulitis with perf
agree with surg usually PD catheter should not result free air in abd specially with abd pain
no surg intervention planned
will likely transition to HD while abd issues taken care of
Surg to contact her PD surgeon at [facility] for further plan of PD
to have tunneled catheter tomorrow and then HD
hemodynamically stable
holding binders for NPO
ok for gentle hydration while NPO
pain control with Dilaudid
d/w pt, nursing and primary
--- NOTE | 2025-07-07 10:46 | PTCARENOTE ---
Pt is AAAOx3 ambulated to BR . now sitting in chair . NSR . Heparin infusing as ordered. For HD cath tomorrow. Remains NPO
[2025-07-07] MEDS: NSS 1000 IV (12:40)
--- NOTE | 2025-07-07 12:41 | W.PN.HOSP.TC ---
Today's Communication/Plan
-
Consult IR for temporary hemodialysis catheter placement. Hemodialysis planned for tomorrow.
Continue with IV Zosyn. Keep NPO. Consult ID.
Follow INR. Hold IV heparin for today.
Assessment / Plan
Assessment / Plan
Acute abdominal pain with abnormal CT of the abdomen pelvis
Acute sigmoid diverticulitis - She is nontoxic looking. Her white count is normal. She is afebrile. And she is not tachycardic.
Sigmoid diverticulitis without any focal signs of perforation or any focal abscess.
Colorectal surgery input noted-plan is for nonoperative approach for now.
Continue to keep NPO. Continue with IV Zosyn. Consult ID.
Switch to Dilaudid for pain.
Pneumoperitoneum-patient has been is symptomatic with sudden bloating sensation for 2 days now. Suspect perforated viscus. Continue with treatments as above.
Polycystic kidney disease leading on to end-stage renal disease-currently on PD which we will hold. Consult IR for hemodialysis catheter placement. Discussed with nephrology-hemodialysis tomorrow
Prothrombin deficiency-not a factor V Leiden deficiency per patient]-with associated DVT and PE in 2008-on Coumadin. INR 2.79 this morning. Hold further IV heparin for now and check Coumadin level tomorrow
Chronic normocytic anemia-hemoglobin stable.
History of recent GI bleed/gastric ulcer-continue PPI
Hyperlipidemia-hold statins
Hypothyroidism-switch levothyroxine to IV
Full code
Discussed with nephrology today
Total time spent on today's encounter was 52 minutes which included time spent in counseling the patient/family regarding diagnosis and treatment plan as listed above, goals of care, and symptom management. Case was discussed with nursing staff,
specialists, and care coordinators/case management. All labs and imaging personally reviewed by me. Remainder the time spent in detailed review of previous records, lab data, imaging, and other medical provider documentation.
Portions of this chart may have been created with voice recognition software. Occasional wrong word or 'sound alike' substitutions may have occurred due to the inherent limitations of voice recognition software.
Anticipated Discharge: > 48 hours
Subjective/Interval History
-
Date of Service: July 07, 2025
Continues to have abdominal pain. Continues to feel bloated.
No fever or chills.
Objective Data
-
Labs:
Laboratory Results
07/07/25 07/07/25 07/07/25
00:27 06:48 14:00
WBC 8.7 8.9
Hgb 9.0 L 8.9 L
Hct 25.2 L 25.4 L
Plt Count 273 254
PT 29.4 H
INR 2.79
APTT 30.5 Pending
Sodium 130 L
Potassium 3.7
Chloride 97 L
Carbon Dioxide 28
BUN 39 H
Creatinine 9.5 H*
Glucose 68 L
Calcium 8.3 L
Vital Signs:
Vital Signs
Temp Pulse Resp BP Pulse Ox
98.4 F 81 15 123/68 99
07/07/25 11:00 07/07/25 08:15 07/07/25 08:15 07/07/25 04:00 07/07/25 10:40
I&O
07/06/25 07/07/25 07/08/25
06:59 06:59 06:59
Intake Total 50 / 50
Balance 50 / 50
Physical Exam
-
General: No Apparent Distress
Respiratory: Non Labored Respirations; Negative Accessory Resp Muscle Use
Cardiac: Regular Rhythm and S1/S2; Negative Tachycardic
GI: Soft, Normal Bowel Sounds and Tender (No rebound guarding rigidity)
Neuro: AO x 3
Psych: Calm
Data Reviewed
-
Labs: Labs Reviewed by me
--- NOTE | 2025-07-07 14:47 | W.PN.CRS1 ---
Addendum entered and electronically signed by Omar Montemayor MD 07/07/25 20:17:
I saw and examined the patient.
The CLAIM CLERK's note was reviewed and I agree with the note.
No overnight events. No worsening in symptoms, but no significant improvement. Denies N/V. Passed a little bit of flatus, no BMs today, still remains bloated
WBC 8.9, CRP 47, Hb 8.9
�Continue n.p.o. with IVF; okay for sips/chips
� Continue IV Zosyn
� Continue pain control with morphine/Dilaudid as needed
� Appreciate nephrology; will need Shiley and HD while recovering from intra-abdominal infection
� Appreciate hospitalist
� Called Dr. Jason from [facility]; I discovered he's not a transplant surgery, he is general/GI surgery; spoke with certified surgical technologist and [facility] not on-call this weekend; spoke with patient, who provided number for transplant center; will call
tomorrow to discuss with transplant regarding patient's clinical status
Original Note:
Today's Communication / Plan
-
npo/iv abx
Assessment/Plan
-
60-year-old female with PMH of polycystic kidney disease associated with ESRD on PD x 2 years (on transplant list), prothrombin deficiency complicated by DVT/PE in 2008 on Coumadin, RLS who presents with 1 week of gradually worsening abdominal pain.
In the ED, her WBC was 10.[address] scan was done which showed diffuse flecks of free air associated with sigmoid diverticulitis concerning for perforated sigmoid diverticulitis. Additionally, there was a 6 cm subQ collection near her
bellybutton, which likely represents hernia.
AFVSS
No leukocytosis, elevated crp
Hemodynamically stable without peritoneal signs
Plan:
Continue npo status/IVF
Ok for heparin gtt
Analgesics as needed
Continue IV Zosyn
Appreciate nephrology; recommend placing Shiley for temporary hemodialysis
Continue nonoperative measures and followed for improvement. Please continue with PO coumadin on hold in case emergency surgery is warranted this admission. Phone call placed to her [facility] transplant team to determine if they would prefer her
transferred to a tertiary care center/[facility].
Subjective Data
Subjective Data
Date of Service: July 07, 2025
Pt seen and examined at bedside. OOB to chair. Notes that pain is about the same today as yesterday but definitely not worse. Denies n/v. Passing a little flatus.
Objective Data
-
Vital Signs
Temp Pulse Resp BP Pulse Ox
98.4 F 90 20 143/71 98
07/07/25 11:00 07/07/25 12:45 07/07/25 12:45 07/07/25 10:25 07/07/25 12:45
Intake & Output
07/06/25 07/07/25 07/08/25
06:59 06:59 06:59
Intake Total 50 / 50
Balance 50 / 50
Intake:
IV piggybacks 50 / 50
Other:
Number of approximated SMALL 1
amounts of urine
Lab Results
07/07/25 06:48
07/07/25 06:48
Physical Exam
-
General: No Acute Distress and AOx3
HEENT: Grossly Normal
Abdomen: Distended (mid to upper abd) and Tender (Tender in the RUQ, umbilical region and suprapubic to RLQ, no rebound or guarding)
Skin: Other (PD cath in place to mid abdomen)
--- NOTE | 2025-07-07 15:28 | CM ---
Initial Assessment Completed By ENEDINA Worley
Patient lives with her Fiance and mother [facility] [address] [facility], uses no DME, has a CPAP at home (do not use often) via Smart [employer] Backpack, and had [facility] for PT in the past, had Outpatient, but no Inpatient Rehab.
PCP: Dr. Nilsa Rubi
Pharmacy: [facility] on [address] in [place]
Patient has transportation home when she is ready.
PLAN: Anticipate Home No Needs vs. VN
--- NOTE | 2025-07-07 17:56 | PTCARENOTE ---
Pt states she is passing gas
[2025-07-07] MEDS: DILAUDID 0.5 MG IV (19:59)
[2025-07-08] VITALS (11 sets, daily range): BP systolic 92–155; BP diastolic 56–78
[2025-07-08] MEDS: ZOSYN 50 IV ×3 (01:38→21:42)
[2025-07-08 05:10] LABS: Hematocrit 24.9 % (37.0-47.0); Hemoglobin 8.7 g/dL (12.0-16.0); Mean Corp Hgb Conc. 34.9 g/dL (33.0-37.0); Mean Corpuscular Volume 92.9 fL (81.0-99.0); Platelet Count 270 10^3/uL (130-400); Red Cell Dist. Width 13.0 % (11.5-14.5)
[2025-07-08 05:19] LABS: INR 1.83; PT 21.3 Sec (11.4-14.6)
[2025-07-08 05:30] LABS: Blood Urea Nitrogen 43 mg/dl (7-17); Calcium 8.1 mg/dl (8.4-10.2); Carbon Dioxide 26 mmol/L (22-30); Chloride 99 mmol/L (98-107); Glucose 58 mg/dl (70-99); Potassium 4.0 mmol/L (3.5-5.1); Sodium 132 mmol/L (135-145)
[2025-07-08 05:48] LABS: C-Reactive Protein 123.10 mg/L (0.0-10.00)
[2025-07-08 05:58] LABS: Estimated Creatinine Clearance 6 ml/min; eGFR 3.63
--- NOTE | 2025-07-08 06:33 | W.PN.UPDATE ---
Update Note
Progress Note Update
Patient is hypoglycemic this am with bs 58, patient is NPO, on NSS 50cc/hr for hydration will change to D5 in normal saline and add dextrose 12.5g as needed for hypoglycemia.
[2025-07-08] MEDS: D5/0.9% SODIUM CHLORIDE 1000 IV (06:41)
[2025-07-08] MEDS: DEXTROSE 50% SYRINGE 12.5 GRAMS IV (06:45)
[2025-07-08 07:32] LABS: Glucose - Point of Care 111 mg/dl (70-99)
[2025-07-08 10:30] LABS: Glucose - Point of Care 77 mg/dl (70-99)
[2025-07-08] MEDS: NSS (PRESERVATIVE FREE) 10 ML IV (11:11)
[2025-07-08] MEDS: PROTONIX IV 40 MG IV (11:11)
--- NOTE | 2025-07-08 11:20 | W.PN.CRS1 ---
Today's Communication / Plan
-
npo
continue abx
Assessment/Plan
-
60-year-old female with PMH of polycystic kidney disease associated with ESRD on PD x 2 years (on transplant list), prothrombin deficiency complicated by DVT/PE in 2008 on Coumadin, RLS who presents with 1 week of gradually worsening abdominal pain.
In the ED, her WBC was 10.[address] scan was done which showed diffuse flecks of free air associated with sigmoid diverticulitis concerning for perforated sigmoid diverticulitis. Additionally, there was a 6 cm subQ collection near her
bellybutton, which likely represents hernia.
AFVSS
WBC 7.8 (8.9), Hgb 8.7 (8.9, 9.0), CRP 123.10 (47)
Hemodynamically stable without peritoneal signs
Plan:
-Continue npo status/IVF
-Ok for heparin gtt
-Analgesics as needed
-Continue IV Zosyn
-Appreciate nephrology; recommend placing Shiley for temporary hemodialysis
-Continue nonoperative measures and followed for improvement. Please continue with PO coumadin on hold in case emergency surgery is warranted this admission. Phone call placed to her [facility] transplant team to determine if they would prefer her
transferred to a tertiary care center/[facility].
Subjective Data
Subjective Data
Date of Service: July 08, 2025
Patient states she has less LLQ pain. She is passing gas. Denies nausea or vomiting. She is urinating. She has not had a bowel movement yet.
Objective Data
-
Vital Signs
Temp Pulse Resp BP Pulse Ox
97.9 F 82 15 130/62 96
07/08/25 05:46 07/08/25 06:15 07/08/25 06:15 07/08/25 04:48 07/08/25 06:15
Intake & Output
07/07/25 07/08/25 07/09/25
06:59 06:59 06:59
Intake Total 100 / 100
Balance 100 / 100
Intake:
IV piggybacks 100 / 100
Other:
Number of approximated SMALL 2
amounts of urine
Number of approximated MODERATE 1
amounts of urine
Lab Results
07/08/25 04:52
Physical Exam
-
General: No Acute Distress and AOx3
Abdomen: Soft, Non Distended and Tender (mild LLQ)
Skin: Warm and Dry
--- NOTE | 2025-07-08 13:27 | CON.ID ---
Addendum entered and electronically signed by Omar Dyson DO 07/08/25 17:27:
I personally performed a history and physical exam of the patient and discussed management with the resident. I reviewed the resident's note and agree with the documented findings and plan of care HPI/CC except as noted.
#Acute sigmoid diverticulitis
#Pneumoperitoneum
#Polycystic kidney disease with end-stage renal disease
Plan:
- Continue zosyn; dose adjust for renal failure.
- Follow final blood cultures
- Follow for clinical improvement.
Original Note:
Consultation
-
Date/Time Consultation Requested: 07/07/2025 21:01
Date/Time Consultation Performed: 07/08/2025 13:00
Requesting Provider: Dr. Sanjeev Tomlinson
Performing Provider: Dr. Omar Dyson, Dr. Marcio Israel
Reason for Consultation: Diverticulitis and possible perforated viscus
Chief Complaint / Past History
Chief Complaint
Abdominal Pain
History of Present Illness
60-year-old female with a past medical history of polycystic kidney disease with secondary end-stage renal disease on peritoneal dialysis (diagnosed in 2021), pulmonary embolism with prothrombin deficiency, anemia of chronic disease presented to the ""hospital due to increased abdominal pain that began last Tuesday. The pain progressively got worse and and she ended up coming to the hospital on 07/06/2025 due to the increased amount of pain. She had brief nausea and bloating sensation however
did not have any diarrhea, fever or chills or any blood in the stools.
In the ED, she had white blood cell count of 10.[address] scan with oral only contrast showed diffuse flecks of free air which raise concern for perforated sigmoid diverticulitis. Also seen was a 6cm subcutaneous collection near her bellybutton
representing possible hernia. She was seen by colorectal surgery over the weekend who recommended nonsurgical approach at this time. Patient was started on renally dosed Zosyn and is currently on day 3 of treatment. She has not had any fevers,
chills or leukocytosis and only thing it is bothering her right now is the abdominal pain. Following treatment, patient symptoms seem to improve and currently had a bowel movement today which was loose, but without blood or mucus. Infectious
disease were consulted to comment upon patient's further antibiotic therapy.
Past History
Additional Past Medical History:
Pulmonary Embolism / Prothrombin Deficiency (Not Factor V as per patient)
ESRD secondary Polycystic Kidney Disease on Peritoneal Dialysis
Anemia of Chronic Disease
Hypothyroidism
Restless Leg Syndrome
Additional Past Surgical History:
Tubal Ligation
Tonsillectomy
Peritoneal Dialysis Catheter
Allergy History:
bupropion (From Wellbutrin) Allergy (Verified 07/06/25 22:07)
Rash
sulfamethoxazole (From Bactrim) Allergy (Verified 07/06/25 22:07)
Itching
trimethoprim (From Bactrim) Allergy (Verified 07/06/25 22:07)
Itching
Medications Reviewed: Yes
Current Antibiotics:
Zosyn 2.25gm Q8
Social History
Tobacco: Non-Smoker
Alcohol: None
Drug: None
Personal: Other (Fiance)
Living: With Family
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
Family History
Family History: Not Pertinent
Review of Systems
Review of Systems
General: Negative Fever or Chills
HEENT: Negative Headache
Cardiovascular: Negative Chest Pain or Dyspnea
Respiratory: Negative Dyspnea or Cough
Gasteroenterology: Other (Abdominal pain diffusely in the lower abdomen); Negative Nausea, Vomiting or Diarrhea
Genital / Urological: Negative Dysuria
Neurological: Negative Headache, Dizziness or Fainting
Vital Signs
Temp Pulse Resp BP Pulse Ox
97.8 F 92 12 148/77 99
07/08/25 13:15 07/08/25 13:15 07/08/25 13:15 07/08/25 13:15 07/08/25 13:15
Physical Exam
Physical Exam
Constitutional: No Acute Distress, Comfortable and Non-toxic
Head: Normocephalic
Eyes: Sclera Anicteric
Cardiovascular: Regular Rate and S1/S2; Negative Murmur
Pulmonary: Clear, Symmetric and Non Labored
Gastrointestinal: Soft, Tender (Tender diffusely in the lower abdomen) and Non Distended
Skin: Warm and Dry
Neurological: Awake, Alert, Oriented and AO x 3
Psychological: Calm
.
Lab / Diagnostic Study Results
07/08/25 04:52
Abs Immat Gran (auto) 0.0 10^3/uL (0-0.05) 07/06/25 13:59
Absolute Neuts (auto) 7.8 10^3/uL (1.4-6.5) H 07/06/25 13:59
Absolute Lymphs (auto) 1.6 10^3/uL (1.2-3.4) 07/06/25 13:59
Absolute Monos (auto) 0.6 10^3/uL (0.1-0.6) 07/06/25 13:59
Absolute Basos (auto) 0.0 10^3/uL (0-0.2) 07/06/25 13:59
Immature Gran % 0.4 % (0-0.5) 07/06/25 13:59
Neutrophils % 75.9 % (42.2-75.2) H 07/06/25 13:59
Lymphocytes % 15.9 % (20.5-51.1) L 07/06/25 13:59
Monocytes % 6.3 % (1.7-9.3) 07/06/25 13:59
Eosinophils % 1.1 % (0-6) 07/06/25 13:59
Basophils % 0.4 % (0-2) 07/06/25 13:59
PT 21.3 Sec (11.4-14.6) H 07/08/25 04:52
INR 1.83 07/08/25 04:52
C-Reactive Protein 123.10 mg/L (0.0-10.00) H 07/08/25 04:52
Microbiology Results
Micro:
07/06/25 19:33 Blood Culture - Preliminary
Blood/Venous No Growth in 24 hours- Final report to follow
07/06/25 19:39 Blood Culture - Preliminary
Blood/Venous No Growth in 24 hours- Final report to follow
Imaging:
07/06/2025 CT Abd/pel (oral only)- MILD PNEUMOPERITONEUM in the upper abdomen which is likely secondary to bowel perforation. MILD ACUTE DIVERTICULITIS in the SIGMOID COLON which is likely the etiology of the pneumoperitoneum given the history of
lower abdominal pain (although there is no focal extraluminal air around the sigmoid colon or pericolonic abscess). Minimal peritoneal fluid adjacent to the gallbladder. SEVERE AUTOSOMAL DOMINANT POLYCYSTIC KIDNEY DISEASE with innumerable bilateral
renal cysts. 6.2 cm multiseptated fluid collection in the midline anterior subcutaneous fat of the abdominal wall. Diagnostic possibilities are (1) a complex cyst or (2) an abscess (if there are signs/symptoms of infection). Peritoneal dialysis
catheter in place. Subacute healing fractures of the left pubic bones (possibly insufficiency fractures). Mild osteoporotic insufficiency fractures in the sacrum. Bilateral avascular necrosis of the femoral heads. Moderate scarring in the lower
lungs.
07/06/2025 US Abdomen Complete/Upper- AUTOSOMAL DOMINANT POLYCYSTIC KIDNEY DISEASE with severely enlarged kidneys containing innumerable renal cysts. Mild diffuse liver disease. No sonographic evidence for cholelithiasis or biliary obstruction.
Assessment / Plan
#Acute abdominal pain with abnormal findings on CT
#Acute sigmoid diverticulitis
#Pneumoperitoneum
#Polycystic kidney disease with end-stage renal disease
Prothrombin Deficiency
Chronic normocytic anemia
Hypothyroidism
Hyperlipidemia
Recent GI bleeds/Gastric Ulcer
Plan:
- Currently on renally dosed Zosyn 2.25gm Q8 (day 3) due to creatinine clearance <10
- No leukocytosis, blood cultures have been negative so far, nontoxic-appearing with no fevers
- Due to acute diverticulitis and pneumoperitoneum seen, was concern for possible bowel perforation
- Continue Zosyn empirically for total of 5 days
- Plan for chronic tunneled catheter today
- Follow final blood cultures
--- NOTE | 2025-07-08 14:25 | W.PN.HOSP.TC ---
Today's Communication/Plan
-
Monitor vital signs see plan
IR tunneled catheter
HD per nephrology
Start IV heparin
Continue antibiotic
Diet per colorectal
Assessment / Plan
Assessment / Plan
Acute abdominal pain with abnormal CT of the abdomen pelvis
Acute sigmoid diverticulitis - Her white count is normal. She is afebrile. And she is not tachycardic.
Sigmoid diverticulitis without any focal signs of perforation or any focal abscess.
Colorectal surgery input noted-plan is for nonoperative approach for now.
Continue to keep NPO. Continue with IV Zosyn. ID following
Diet per colorectal
Pain control
Pneumoperitoneum-patient has been is symptomatic with sudden bloating sensation for 2 days TIMBER [employer]. Suspect perforated viscus. Continue with treatments as above.
Polycystic kidney disease leading on to end-stage renal disease-currently on PD which we will hold. Status post IR tunneled catheter. Nephrology for hemodialysis
Prothrombin deficiency-not a factor V Leiden deficiency per patient]-with associated DVT and PE in 2008-on Coumadin. INR 1.8 this morning. Start IV heparin after tunneled catheter. Discussed with colorectal, IR.
Chronic normocytic anemia-hemoglobin stable.
History of recent GI bleed/gastric ulcer-continue PPI
Hyperlipidemia-hold statins
Hypothyroidism-switched levothyroxine to IV
History of restless leg
Full code
General: No Apparent Distress
Respiratory: Non Labored Respirations; Negative Accessory Resp Muscle Use
Cardiac: Regular Rhythm and S1/S2; Negative Tachycardic
GI: Soft, Normal Bowel Sounds and Tender (No rebound guarding rigidity)
Neuro: AO x 3
Psych: Calm
Total time spent on today's encounter was 53 minutes which included time spent in counseling the patient/family regarding diagnosis and treatment plan as listed above, goals of care, and symptom management. Case was discussed with nursing staff,
specialists, and care coordinators/case management. All labs and imaging personally reviewed by me. Remainder the time spent in detailed review of previous records, lab data, imaging, and other medical provider documentation.
Anticipated Discharge: > 48 hours
Subjective/Interval History
-
Date of Service: July 08, 2025
Has some pain
Objective Data
-
Labs:
Laboratory Results
07/08/25 07/08/25 07/08/25
04:52 04:53 11:00
WBC 7.8
Hgb 8.7 L Pending
Hct 24.9 L Pending
Plt Count 270
PT 21.3 H
INR 1.83
Sodium 132 L
Potassium 4.0
Chloride 99
Carbon Dioxide 26
BUN 43 H
Creatinine 11.0 H*
Glucose 58 L
Calcium 8.1 L
07/08/25 07/08/25
17:00 23:00
WBC
Hgb Pending Pending
Hct Pending Pending
Plt Count
PT
INR
Sodium
Potassium
Chloride
Carbon Dioxide
BUN
Creatinine
Glucose
Calcium
Vital Signs:
Vital Signs
Temp Pulse Resp BP Pulse Ox
97.8 F 92 12 148/77 99
07/08/25 13:15 07/08/25 13:15 07/08/25 13:15 07/08/25 13:15 07/08/25 13:15
I&O
07/07/25 07/08/25 07/09/25
06:59 06:59 06:59
Intake Total 100 / 100
Balance 100 / 100
--- NOTE | 2025-07-08 14:47 | W.PN.NEPH.PH ---
Today's Communication / Plan
-
HD tomorrow
Assessment/Plan
-
Assessment:
Perforated diverticulitis in setting of PD cath for dialysis
ESRD on PD since 2021
Polycystic kidney disease leading on to end-stage renal disease
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
History of recent GI bleed/gastric ulcer
Chr anemia
Hyperlipidemia
Hypothyroidism
Secondary PTH
History hypertension
Hyperphosphatemia
mild hyponatremia
Plan:
A/w progressive abd pain for last week, CT shows mild acute diverticulitis with perf
no surg intervention planned
to have tunneled catheter today and then HD tomorrow
hemodynamically stable
holding binders for NPO
ok for gentle hydration while NPO
pain control with Dilaudid
-
-
Date of Service: July 08, 2025
CC / HPI / ROS
-
Chief Complaint:
ESRD
History of Present Illness:
off PD due to perf bowel/diverticulitis, on Abx
BP stable
hgb drifting down 8.7
Review of Systems:
no CP/SOB
Labs
-
Labs:
WBC 7.8 10^3/uL (4.8-10.8) 07/08/25 04:53
RBC 2.68 10^6/uL (4.20-5.40) L 07/08/25 04:53
Plt Count 270 10^3/uL (130-400) 07/08/25 04:53
Sodium 132 mmol/L (135-145) L 07/08/25 04:52
Potassium 4.0 mmol/L (3.5-5.1) 07/08/25 04:52
Chloride 99 mmol/L (98-107) 07/08/25 04:52
Carbon Dioxide 26 mmol/L (22-30) 07/08/25 04:52
BUN 43 mg/dl (7-17) H 07/08/25 04:52
Creatinine 11.0 mg/dL (0.6-1.0) H* 07/08/25 04:52
eGFR 3.63 07/08/25 04:52
Glucose 58 mg/dl (70-99) L 07/08/25 04:52
Calcium 8.1 mg/dl (8.4-10.2) L 07/08/25 04:52
Albumin 2.8 g/dl (3.5-5.0) L 07/06/25 13:59
Physical Exam
-
Vital Signs:
Vital Signs
Temp Pulse Resp BP Pulse Ox
97.8 F 89 12 127/57 99
07/08/25 13:15 07/08/25 14:40 07/08/25 14:40 07/08/25 14:40 07/08/25 13:15
Cardiovascular:: Regular rate and rhythm
Respiratory:: Bilateral: Coarse
Lung Excursion:: Normal
Abdomen:: Soft and Tender
Bowel Sounds:: Decreased
Extremity Edema:: None: Bilateral:
[2025-07-08 16:15] LABS: Hematocrit 27.4 % (37.0-47.0); Hemoglobin 9.9 g/dL (12.0-16.0); Mean Corp Hgb Conc. 36.1 g/dL (33.0-37.0); Mean Corpuscular Volume 92.3 fL (81.0-99.0); Platelet Count 251 10^3/uL (130-400); Red Cell Dist. Width 13.0 % (11.5-14.5)
[2025-07-08 16:28] LABS: APTT 26.8 Sec (23.4-35.0)
[2025-07-08] MEDS: HEPARIN 25000 UNITS/250 ML IV (18:04)
[2025-07-08 18:58] LABS: Hepatitis B Surface Antigen Negative (Negative)
[2025-07-08 19:16] LABS: Hepatitis C Antibody Negative (Negative)
--- NOTE | 2025-07-08 19:53 | PTCARENOTE ---
day shift note. see nursing flowsheet. pt npo with iv fluids infusing. glucose rechecked per protocol and above 70. pt went to [facility] and had right chest tunneled cath inserted. dressing over site c,d,i. pt reports slihght discomfort at site. pt had
one loose bmand passed some flatus. she reports abdominal tenderness but states it is less tender today than yesterday. iv heparin infusion initiated per order at 1600 units/hr initial rate.
[2025-07-08] MEDS: OFIRMEV 100 IV (20:34)
[2025-07-08] MEDS: DILAUDID 0.5 MG IV (21:42)
[2025-07-09] VITALS (25 sets, daily range): BP systolic 115–154; BP diastolic 58–72; BMI 32.3
--- NOTE | 2025-07-09 00:45 | PTCARENOTE ---
assumed care of patient. pt is AAOx3- able to make needs known. able to walk to the bathroom x1 assist to help with IV poles. 95% RA. NPO, pt with some tenderness to abdomen. IV dilaudid given with adequate relief. pt did have a BOYD at start of the
shift. 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 heparin gtt infusing at 16ml/hr. pt for HD in the morning. care ongoing.
[2025-07-09 01:08] LABS: APTT > 200 Sec (23.4-35.0)
[2025-07-09] MEDS: D5/0.9% SODIUM CHLORIDE 1000 IV ×2 (03:07→23:21)
[2025-07-09 03:27] LABS: Glucose - Point of Care 89 mg/dl (70-99)
[2025-07-09] MEDS: NSS (PRESERVATIVE FREE) 10 ML IV (07:29)
[2025-07-09] MEDS: PROTONIX IV 40 MG IV (07:29)
--- NOTE | 2025-07-09 08:12 | PTCARENOTE ---
Patient received from fast food shift lead. Patient resting comfortably in bed. AAO, VSS. No events noted overnight. No complaints of pain at this time. Currently on Room Air. Continuing ABX. Heparin gtt at 1200 units, PTT due at 0900. HD scheduled
for this AM, no other testing scheduled at this time. Call nava in reach.
--- NOTE | 2025-07-09 08:32 | W.PN.ID1 ---
Date of Service
Date of Service: July 09, 2025
Today's Communication
Continue antibiotics.
Assessment / Plan
# Acute abdominal pain
# Acute sigmoid diverticulitis
# Pneumoperitoneum
# Polycystic kidney disease
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
Prothrombin Deficiency
Chronic normocytic anemia
Hypothyroidism
Hyperlipidemia
Recent GI bleeds/Gastric Ulcer
Plan:
Continue Zosyn 2.25 gm q12 (d#3)
Follow white count & temperature curve.
Follow blood cultures; NGTD
����������������������������������������������������������
Chief Complaint
-: Other (Diverticulitis with perforation)
Subjective / Review of Systems
Patient seen and examined. Reports slightly improved abdominal discomfort today. Denies fevers or chills. Abdominal remains feeling bloated.
Vital Signs / Physical Exam
Vital Signs
Vital Signs
Temp Pulse Resp BP Pulse Ox
97.6 F 77 10 145/69 93
07/09/25 08:00 07/09/25 04:00 07/09/25 04:00 07/09/25 03:09 07/08/25 23:45
Physical Exam
Constitutional: No Acute Distress, Comfortable and Non-toxic
Eyes: Sclera Anicteric
Cardiovascular: S1/S2; Negative S3/S4
Pulmonary: Non Labored
Gastrointestinal: Soft, Distended, Normal Bowel Sounds, No Rebound and No Guarding
Extremities: Edema; Negative Cyanosis or Erythema
Neurological: Awake and Alert
Psychological: Calm
Lines: HD Cath (Right ACW)
Objective Data
Lab Data
PT 21.3 Sec (11.4-14.6) H 07/08/25 04:52
INR 1.83 07/08/25 04:52
APTT > 200 Sec (23.4-35.0) H* 07/09/25 00:18
Estimated Creat Clear 6 ml/min 07/08/25 04:52
Total Bilirubin 0.4 mg/dl (0.2-1.3) 07/06/25 13:59
AST 17 U/L (14-36) 07/06/25 13:59
ALT 13 U/L (0-35) 07/06/25 13:59
Alkaline Phosphatase 72 U/L (38-126) 07/06/25 13:59
C-Reactive Protein 123.10 mg/L (0.0-10.00) H 07/08/25 04:52
Most recent labs reviewed.
Micro Results:
07/06/25 19:39 Blood Culture - Preliminary
Blood/Venous No Growth in 48 hours- Final report to follow
07/06/25 19:33 Blood Culture - Preliminary
Blood/Venous No Growth in 48 hours- Final report to follow
Imaging:
07/06/2025 CT Abd/pel (oral only)- MILD PNEUMOPERITONEUM in the upper abdomen which is likely secondary to bowel perforation. MILD ACUTE DIVERTICULITIS in the SIGMOID COLON which is likely the etiology of the pneumoperitoneum given the history of
lower abdominal pain (although there is no focal extraluminal air around the sigmoid colon or pericolonic abscess). Minimal peritoneal fluid adjacent to the gallbladder. SEVERE AUTOSOMAL DOMINANT POLYCYSTIC KIDNEY DISEASE with innumerable bilateral
renal cysts. 6.2 cm multiseptated fluid collection in the midline anterior subcutaneous fat of the abdominal wall. Diagnostic possibilities are (1) a complex cyst or (2) an abscess (if there are signs/symptoms of infection). Peritoneal dialysis
catheter in place. Subacute healing fractures of the left pubic bones (possibly insufficiency fractures). Mild osteoporotic insufficiency fractures in the sacrum. Bilateral avascular necrosis of the femoral heads. Moderate scarring in the lower
lungs.
07/06/2025 US Abdomen Complete/Upper- AUTOSOMAL DOMINANT POLYCYSTIC KIDNEY DISEASE with severely enlarged kidneys containing innumerable renal cysts. Mild diffuse liver disease. No sonographic evidence for cholelithiasis or biliary obstruction.
[2025-07-09 08:48] LABS: Hematocrit 24.8 % (37.0-47.0); Hemoglobin 8.7 g/dL (12.0-16.0); Mean Corp Hgb Conc. 35.1 g/dL (33.0-37.0); Mean Corpuscular Volume 92.9 fL (81.0-99.0); Nucleated Red Blood Cells % 0 %; Platelet Count 266 10^3/uL (130-400); Red Cell Dist. Width 13.0 % (11.5-14.5)
[2025-07-09 09:25] LABS: Blood Urea Nitrogen 46 mg/dl (7-17); Calcium 8.1 mg/dl (8.4-10.2); Carbon Dioxide 23 mmol/L (22-30); Chloride 101 mmol/L (98-107); Glucose 77 mg/dl (70-99); Potassium 3.6 mmol/L (3.5-5.1); Sodium 133 mmol/L (135-145)
[2025-07-09] MEDS: RETACRIT 8000 UNITS IV (09:37)
[2025-07-09 09:44] LABS: Estimated Creatinine Clearance 5 ml/min; eGFR 3.03
--- NOTE | 2025-07-09 10:08 | W.PN.CRS1 ---
Today's Communication / Plan
-
clears
continue zosyn
trend crp/wbc
Assessment/Plan
-
60-year-old female with PMH of polycystic kidney disease associated with ESRD on PD x 2 years (on transplant list), prothrombin deficiency complicated by DVT/PE in 2008 on Coumadin, RLS who presents with 1 week of gradually worsening abdominal pain.
In the ED, her WBC was 10.[address] scan was done which showed diffuse flecks of free air associated with sigmoid diverticulitis concerning for perforated sigmoid diverticulitis. Additionally, there was a 6 cm subQ collection near her
bellybutton, which likely represents hernia.
AFVSS
WBC 6.6 (7.8), Hgb 8.7 (8.7), CRP pending (123)
Hemodynamically stable without peritoneal signs
Plan:
-Advance diet to clears
-Ok for heparin gtt from our perspective
-Analgesics as needed
-Trend WBC/CRP (still pending this AM)
-Continue IV Zosyn
-Appreciate nephrology; currently undergonig HD
-Continue nonoperative measures and followed for improvement. Please continue with PO coumadin on hold in case emergency surgery is warranted this admission.
Subjective Data
Subjective Data
Date of Service: July 09, 2025
Patient states she 'doesn't feel too bad'. 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 Denies nausea or vomiting. Has flatus. She states she is 'starving'.
Objective Data
-
Vital Signs
Temp Pulse Resp BP Pulse Ox
97.6 F 77 10 145/69 93
07/09/25 08:00 07/09/25 04:00 07/09/25 04:00 07/09/25 03:09 07/08/25 23:45
Intake & Output
07/08/25 07/09/25 07/10/25
06:59 06:59 06:59
Intake Total 100 / 100 650 / 650
Balance 100 / 100 650 / 650
Intake:
IV fluids (Total) 550 / 550
NSS 50 / 50
IV piggybacks 100 / 100 100 / 100
Other:
How many times incontinent 1
MODERATE amount urine
Number of approximated SMALL 2 2
amounts of urine
Number of approximated MODERATE 1
amounts of urine
Lab Results
07/09/25 07:59
07/09/25 07:59
Physical Exam
-
General: No Acute Distress and AOx3
Abdomen: Soft, Non Distended and Tender (mild LLQ)
Skin: Warm and Dry
[2025-07-09 10:16] LABS: APTT > 200 Sec (23.4-35.0)
[2025-07-09] MEDS: ZOSYN 50 IV ×2 (10:29→21:21)
--- NOTE | 2025-07-09 11:25 | W.PN.NEPH.HD ---
Assessment
-
Seen on HD. no complaints. VSS, access ok
advanced to clears
Progress Note - Hemodialysis
-
Date of Service: July 09, 2025
Duration: 30 minutes and 3 hours
Potassium Bath: 3
Calcium Bath: 2.5
Opti-Dialyzer: 160
Ultrafiltration: Other (2kg)
Blood Flow: 350
Dialysate Flow: 600
Heparin: 0
EPO: 8000 units
[2025-07-09] MEDS: HEPARIN 3900 UNITS INTRACATH (11:30)
[2025-07-09 12:29] LABS: C-Reactive Protein 113.50 mg/L (0.0-10.00)
--- NOTE | 2025-07-09 13:44 | W.PN.HOSP.TC ---
Today's Communication/Plan
-
Monitor vitals
See plan
HD today
Continue with Zosyn
Clears started by colorectal
Continue with IV heparin
Continue to hold Coumadin
Assessment / Plan
Assessment / Plan
Acute abdominal pain with abnormal CT of the abdomen pelvis
Acute sigmoid diverticulitis - Her white count is normal. She is afebrile. And she is not tachycardic.
Sigmoid diverticulitis without any focal signs of perforation or any focal abscess.
Colorectal surgery input noted-plan is for nonoperative approach for now.
Now started on clears. Continue with IV Zosyn. ID following
Diet per colorectal
Pain control
Pneumoperitoneum-patient has been is symptomatic with sudden bloating sensation for 2 days [employer]. Suspect perforated viscus. Continue with treatments as above.
Polycystic kidney disease leading on to end-stage renal disease-currently on PD which we will hold. Status post IR tunneled catheter. Nephrology for hemodialysis. HD 07/09
Prothrombin deficiency-not a factor V Leiden deficiency per patient]-with associated DVT and PE in 2008-on Coumadin. Now on heparin drip. Continue to hold Coumadin.
Chronic normocytic anemia-hemoglobin stable.
History of recent GI bleed/gastric ulcer-continue PPI
Hyperlipidemia-hold statins
Hypothyroidism-switched levothyroxine to IV. If eventually tolerates p.o. and no further decompensation then can change to p.o.
History of restless leg
Full code
General: No Apparent Distress
Respiratory: Non Labored Respirations; Negative Accessory Resp Muscle Use
Cardiac: Regular Rhythm and S1/S2; Negative Tachycardic
GI: Soft, Normal Bowel Sounds and Tender (No rebound guarding rigidity)
Neuro: AO x 3
Psych: Calm
Total time spent on today's encounter was 52 minutes which included time spent in counseling the patient/family regarding diagnosis and treatment plan as listed above, goals of care, and symptom management. Case was discussed with nursing staff,
specialists, and care coordinators/case management. All labs and imaging personally reviewed by me. Remainder the time spent in detailed review of previous records, lab data, imaging, and other medical provider documentation.
Anticipated Discharge: > 48 hours
Subjective/Interval History
-
Date of Service: July 09, 2025
HD today
Objective Data
-
Labs:
Laboratory Results
07/09/25 07/09/25 07/09/25
07:59 08:57 18:45
WBC 6.6
Hgb 8.7 L
Hct 24.8 L
Plt Count 266
APTT > 200 H* Pending
Sodium 133 L
Potassium 3.6
Chloride 101
Carbon Dioxide 23
BUN 46 H
Creatinine 12.8 H*
Glucose 77
Calcium 8.1 L
Vital Signs:
Vital Signs
Temp Pulse Resp BP Pulse Ox
97.6 F 77 10 145/69 95
07/09/25 08:00 07/09/25 04:00 07/09/25 04:00 07/09/25 03:09 07/09/25 08:53
I&O
07/08/25 07/09/25 07/10/25
06:59 06:59 06:59
Intake Total 100 / 100 650 / 650
Balance 100 / 100 650 / 650
--- NOTE | 2025-07-09 15:09 | CM ---
Following up on Patient. ENEDINA Worley spoke to Hospitalist about next steps for this patient. Told that there will be HD today, patient is on penitential dialysis at home, so unsure if she will need HD set up overall, and Hospitalist will be waiting
for Nephrology to decide.
Other than that, patient is on Zosyn, on IV heparin, and holding Coumadin. Patient is otherwise independent with all ADL's.
PLAN: Home No Needs or HD set up.
[2025-07-09] MEDS: HEPARIN 25000 UNITS/250 ML IV (16:31)
[2025-07-09] MEDS: LEVOTHROID 100 MCG IV (17:04)
[2025-07-09 17:59] LABS: Body Fluid Second Tech HB
[2025-07-09 20:00] LABS: APTT 91.0 Sec (23.4-35.0)
[2025-07-09] MEDS: DILAUDID 0.25 MG IV (21:21)
[2025-07-10] VITALS (7 sets, daily range): BP systolic 113–150; BP diastolic 58–75; BMI 32.2
--- NOTE | 2025-07-10 00:48 | PTCARENOTE ---
Patient AAOx3. Pt c/o pain to upper abdomen, PRN Dilaudid administered. Abdomen is round and distended, tender to palpation. Bowel sounds present. Pt ambulatory to the bathroom, pt having diarrhea. IVF cont. IV abx cont. IV Heparin gtt cont. PTT
therapeutic. NSR on the monitor. Pt remains on room air. Pt able to make needs known, call nava within reach.
[2025-07-10] MEDS: DILAUDID 0.5 MG IV ×2 (01:50→22:53)
[2025-07-10 03:19] LABS: Hematocrit 24.5 % (37.0-47.0); Hemoglobin 8.5 g/dL (12.0-16.0); Mean Corp Hgb Conc. 34.7 g/dL (33.0-37.0); Mean Corpuscular Volume 93.5 fL (81.0-99.0); Nucleated Red Blood Cells % 0 %; Platelet Count 279 10^3/uL (130-400); Red Cell Dist. Width 13.2 % (11.5-14.5)
[2025-07-10 03:36] LABS: APTT 94.7 Sec (23.4-35.0)
[2025-07-10 04:02] LABS: Blood Urea Nitrogen 20 mg/dl (7-17); Calcium 8.5 mg/dl (8.4-10.2); Carbon Dioxide 26 mmol/L (22-30); Chloride 104 mmol/L (98-107); Estimated Creatinine Clearance 10 ml/min; Glucose 114 mg/dl (70-99); Potassium 3.8 mmol/L (3.5-5.1); Sodium 134 mmol/L (135-145); eGFR 6.82
[2025-07-10] MEDS: NSS (PRESERVATIVE FREE) 10 ML IV (08:23)
[2025-07-10] MEDS: PROTONIX IV 40 MG IV (08:24)
--- NOTE | 2025-07-10 09:06 | VATNOTE ---
VAT rounds: patient requested HD catheter dressing be changed during routine rounds, pt c/o itching under dressing at this time. Redressed per policy using sterile skin prep prior to redressing. Pt verbalized relief from itching.
--- NOTE | 2025-07-10 09:33 | W.PN.ID1 ---
Date of Service
Date of Service: July 10, 2025
Today's Communication
Continue antibiotics.
Assessment / Plan
# Acute abdominal pain
- improved
# Acute sigmoid diverticulitis
# Pneumoperitoneum
# Polycystic kidney disease
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
Prothrombin Deficiency
Chronic normocytic anemia
Hypothyroidism
Hyperlipidemia
Recent GI bleeds/Gastric Ulcer
Plan:
Continue Zosyn 2.25 gm q12 (d#5)
Follow white count & temperature curve.
Peritoneal fluid obtained yesterday from PD catheter. Cultures pending. Will follow.
Follow blood cultures; NGTD
For diet advancement today.
����������������������������������������������������������
Chief Complaint
-: Other (Diverticulitis with perforation)
Subjective / Review of Systems
Patient seen and examined. Reports some right lower quadrant abdominal discomfort last evening, but improved today. No fevers or chills.
Review of Systems: No Fever and No Chills
Vital Signs / Physical Exam
Vital Signs
Vital Signs
Temp Pulse Resp BP Pulse Ox
97.9 F 80 16 113/58 98
07/10/25 03:00 07/10/25 06:00 07/09/25 20:00 07/10/25 02:00 07/10/25 06:00
Physical Exam
Constitutional: No Acute Distress, Comfortable and Non-toxic
Eyes: Sclera Anicteric
Cardiovascular: S1/S2; Negative S3/S4
Pulmonary: Non Labored
Gastrointestinal: Soft, Distended, Normal Bowel Sounds, No Rebound and No Guarding
Extremities: Edema and Other (PD catheter in place without exit site erythema.); Negative Cyanosis or Erythema
Neurological: Awake and Alert
Psychological: Calm
Lines: HD Cath (Right ACW)
Objective Data
Lab Data
Lab Results
07/10/25 03:11
07/10/25 03:11
PT 21.3 Sec (11.4-14.6) H 07/08/25 04:52
INR 1.83 07/08/25 04:52
APTT 94.7 Sec (23.4-35.0) H 07/10/25 03:11
Estimated Creat Clear 10 ml/min 07/10/25 03:11
Total Bilirubin 0.4 mg/dl (0.2-1.3) 07/06/25 13:59
AST 17 U/L (14-36) 07/06/25 13:59
ALT 13 U/L (0-35) 07/06/25 13:59
Alkaline Phosphatase 72 U/L (38-126) 07/06/25 13:59
C-Reactive Protein 113.50 mg/L (0.0-10.00) H 07/09/25 07:59
Most recent labs reviewed.
Micro Results:
07/06/25 19:33 Blood Culture - Preliminary
Blood/Venous No Growth in 72 hours- Final report to follow
07/06/25 19:39 Blood Culture - Preliminary
Blood/Venous No Growth in 72 hours- Final report to follow
07/09/25 17:13 Body Fluid Culture - Pending
Peritoneal Fluid Gram Stain - Preliminary
Imaging:
07/06/2025 CT Abd/pel (oral only)- MILD PNEUMOPERITONEUM in the upper abdomen which is likely secondary to bowel perforation. MILD ACUTE DIVERTICULITIS in the SIGMOID COLON which is likely the etiology of the pneumoperitoneum given the history of
lower abdominal pain (although there is no focal extraluminal air around the sigmoid colon or pericolonic abscess). Minimal peritoneal fluid adjacent to the gallbladder. SEVERE AUTOSOMAL DOMINANT POLYCYSTIC KIDNEY DISEASE with innumerable bilateral
renal cysts. 6.2 cm multiseptated fluid collection in the midline anterior subcutaneous fat of the abdominal wall. Diagnostic possibilities are (1) a complex cyst or (2) an abscess (if there are signs/symptoms of infection). Peritoneal dialysis
catheter in place. Subacute healing fractures of the left pubic bones (possibly insufficiency fractures). Mild osteoporotic insufficiency fractures in the sacrum. Bilateral avascular necrosis of the femoral heads. Moderate scarring in the lower
lungs.
07/06/2025 US Abdomen Complete/Upper- AUTOSOMAL DOMINANT POLYCYSTIC KIDNEY DISEASE with severely enlarged kidneys containing innumerable renal cysts. Mild diffuse liver disease. No sonographic evidence for cholelithiasis or biliary obstruction.
[2025-07-10] MEDS: ZOSYN 50 IV ×2 (10:14→21:25)
--- NOTE | 2025-07-10 10:15 | PTCARENOTE ---
Patient received from shift manager. Patient resting comfortably in bed. AAO, VSS. No events noted overnight. No complaints of pain at this time although needed pain medication overnight. Currently on Room Air. Advanced to Regular diet,
discontinue fluids? Continuing ABX. Heparin gtt at 800 units and therapeutic. No HD, possible removal of temp cath and restart PD? No further testing scheduled at this time. Call nava in reach.
--- NOTE | 2025-07-10 12:34 | W.PN.NEPH.PH ---
Today's Communication / Plan
-
HD tomorrow
Assessment/Plan
-
Assessment:
Perforated diverticulitis in setting of PD cath for dialysis
ESRD on PD since 2021
Polycystic kidney disease leading on to end-stage renal disease
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
History of recent GI bleed/gastric ulcer
Chr anemia
Hyperlipidemia
Hypothyroidism
Secondary PTH
History hypertension
Hyperphosphatemia
mild hyponatremia
Plan:
A/w progressive abd pain for week, CT shows mild acute diverticulitis with perf
no surg intervention
s/p tunneled catheter on 07/08
hemodynamically stable
resume binders for phos
abx per surg -await PD fluid culture
would wait to resume back PD once infection clears out and when surg is ok
d/w pt
-
-
Date of Service: July 10, 2025
CC / HPI / ROS
-
Chief Complaint:
ESRD
History of Present Illness:
off PD due to perf bowel/diverticulitis, on Abx
BP stable
hgb drifting down 8.5
Review of Systems:
no CP/SOB
tolerating diet
Labs
-
Labs:
WBC 8.3 10^3/uL (4.8-10.8) 07/10/25 03:11
RBC 2.62 10^6/uL (4.20-5.40) L 07/10/25 03:11
Hgb 8.5 g/dL (12.0-16.0) L 07/10/25 03:11
Hct 24.5 % (37.0-47.0) L 07/10/25 03:11
Plt Count 279 10^3/uL (130-400) 07/10/25 03:11
Sodium 134 mmol/L (135-145) L 07/10/25 03:11
Potassium 3.8 mmol/L (3.5-5.1) 07/10/25 03:11
Chloride 104 mmol/L (98-107) 07/10/25 03:11
Carbon Dioxide 26 mmol/L (22-30) 07/10/25 03:11
BUN 20 mg/dl (7-17) H 07/10/25 03:11
Creatinine 6.5 mg/dL (0.6-1.0) H* 07/10/25 03:11
eGFR 6.82 07/10/25 03:11
Glucose 114 mg/dl (70-99) H 07/10/25 03:11
Calcium 8.5 mg/dl (8.4-10.2) 07/10/25 03:11
Albumin 2.8 g/dl (3.5-5.0) L 07/06/25 13:59
Physical Exam
-
Vital Signs:
Vital Signs
Temp Pulse Resp BP Pulse Ox
97.9 F 80 16 113/58 95
07/10/25 03:00 07/10/25 06:00 07/09/25 20:00 07/10/25 02:00 07/10/25 09:53
Cardiovascular:: Regular rate and rhythm
Respiratory:: Bilateral: CTA
Lung Excursion:: Normal
Abdomen:: Nontender and Soft
Bowel Sounds:: Decreased
Extremity Edema:: None: Bilateral:
Steven Catheter: No
--- NOTE | 2025-07-10 12:51 | W.PN.CRS1 ---
Today's Communication / Plan
-
as below
Assessment/Plan
-
60-year-old female with PMH of polycystic kidney disease associated with ESRD on PD x 2 years, prothrombin deficiency complicated by DVT/PE in 2008 on Coumadin, RLS, GERD/PUD, MACRINA, HTN, HLD who presented with 1 week of gradually worsening abdominal
pain. 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 The following day, she noticed significant bloating. 4 days FIRST ASSISTANT MANAGER, the bloating improved and she had diarrhea. 3 days FIRST ASSISTANT MANAGER, the pain became more
concentrated in her lower abdomen. She had some nausea, but no vomiting. Since then, the pain continued to get worse as well as the bloating. She last had a BM that morning and it was normal. She denied any fevers, CP/SOB or urinary symptoms
(she still does urinate about 4 times a day). In the ED, her WBC was 10.[address] scan was done which showed diffuse flecks of free air associated with sigmoid diverticulitis concerning for perforated sigmoid diverticulitis. Additionally, there
was a 6 cm subQ collection near her bellybutton, which likely represents hernia.
AFVSS
WBC 8.3 from 6.6, Hb stable, Hb 8.7 from 8.9, CRP from today pending, yesterday trended down to 113
�Perforated diverticulitis in setting of PD cath for dialysis
�Continue IV Zosyn; appreciate ID, pending PD cath culture
�Recommend switching to HD while recovering
- Spoke with Dr. Jason (GI Surgeon at [facility] who placed her PD cath) who recommended restarting PD catheter once patient stabilizes to prevent clogging/future failure
� Okay to advance to regular diet
� Continue hep drip
�Appreciate nephrology; s/p Shiley and HD
� Pain control; recommend switching to Dilaudid as needed
�Patient with known umbilical hernia, pending outpatient consult with Dr. Lynn to consider repair
�Appreciate hospitalist
Subjective Data
Subjective Data
Date of Service: July 10, 2025
Had some discomfort overnight, but overall feeling better.
Denies any N/V and pain has improved. She has passed more flatus.
Patient is OOB.
Objective Data
-
Vital Signs
Temp Pulse Resp BP Pulse Ox
97.9 F 100 16 145/66 95
07/10/25 03:00 07/10/25 12:00 07/09/25 20:00 07/10/25 08:14 07/10/25 09:53
Intake & Output
07/09/25 07/10/25 07/11/25
06:59 06:59 06:59
Intake Total 650 / 650 1830 / 1830
Balance 650 / 650 1830 / 1830
Intake:
Oral fluids 480 / 480
IV fluids (Total) 550 / 550 1200 / 1200
NSS 50 / 50
IV piggybacks 100 / 100 150 / 150
Other:
How many times incontinent 1
MODERATE amount urine
Number of approximated SMALL 2
amounts of urine
Number of approximated MODERATE 3
amounts of urine
Number of unmeasured liquid
stools
Rectum 3
Lab Results
07/10/25 03:11
07/10/25 03:11
Physical Exam
-
General: No Acute Distress and AOx3
HEENT: Grossly Normal
Abdomen: Soft, Distended (Minimally distended, no tympany), Tender (Mildly tender in the LLQ), No Guarding and No Rebound
Skin: Warm and Dry
--- NOTE | 2025-07-10 13:43 | W.PN.HOSP.TC ---
Today's Communication/Plan
-
monitor vitals
see plan
diet per CRS
cw HD
cvw abx
Assessment / Plan
Assessment / Plan
Acute abdominal pain with abnormal CT of the abdomen pelvis
Acute sigmoid diverticulitis - Her white count is normal. She is afebrile. And she is not tachycardic.
Sigmoid diverticulitis without any focal signs of perforation or any focal abscess.
Colorectal surgery input noted-plan is for nonoperative approach for now.
Colorectal surgery advancing diet. Continue with IV Zosyn. ID following
Diet per colorectal
Pain control
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 Suspect perforated viscus. Continue with treatments as above.
Polycystic kidney disease leading on to end-stage renal disease-currently on PD which we will hold. Status post IR tunneled catheter. Nephrology for hemodialysis. HD 07/09.
Prothrombin deficiency-not a factor V Leiden deficiency per patient]-with associated DVT and PE in 2008-on Coumadin. Now on heparin drip. Continue to hold Coumadin.
Chronic normocytic anemia-hemoglobin stable.
History of recent GI bleed/gastric ulcer-continue PPI
Hyperlipidemia-hold statins
Hypothyroidism-start Po thyroid
History of restless leg
Full code
General: No Apparent Distress
Respiratory: Non Labored Respirations; Negative Accessory Resp Muscle Use
Cardiac: Regular Rhythm and S1/S2; Negative Tachycardic
GI: Soft, Normal Bowel Sounds and Tender (No rebound guarding rigidity)
Neuro: AO x 3
Psych: Calm
Total time spent on today's encounter was 51 minutes which included time spent in counseling the patient/family regarding diagnosis and treatment plan as listed above, goals of care, and symptom management. Case was discussed with nursing staff,
specialists, and care coordinators/case management. All labs and imaging personally reviewed by me. Remainder the time spent in detailed review of previous records, lab data, imaging, and other medical provider documentation.
Anticipated Discharge: > 48 hours
Subjective/Interval History
-
Date of Service: July 10, 2025
denies nausea
Objective Data
-
Labs:
Laboratory Results
07/10/25
03:11
WBC 8.3
Hgb 8.5 L
Hct 24.5 L
Plt Count 279
APTT 94.7 H
Sodium 134 L
Potassium 3.8
Chloride 104
Carbon Dioxide 26
BUN 20 H
Creatinine 6.5 H*
Glucose 114 H
Calcium 8.5
Vital Signs:
Vital Signs
Temp Pulse Resp BP Pulse Ox
97.9 F 100 16 145/66 95
07/10/25 03:00 07/10/25 12:00 07/09/25 20:00 07/10/25 08:14 07/10/25 09:53
I&O
07/09/25 07/10/25 07/11/25
06:59 06:59 06:59
Intake Total 650 / 650 1829
Balance 650 / 650 1829
[2025-07-10] MEDS: RENVELA 2400 MG PO (16:26)
[2025-07-10] MEDS: DILAUDID 0.25 MG IV (16:27)
[2025-07-10] MEDS: REQUIP 2 MG PO (19:19)
[2025-07-10] MEDS: D5/0.9% SODIUM CHLORIDE IV (20:28)
[2025-07-10 21:35] LABS: C-Reactive Protein 83.40 mg/L (0.0-10.00)
--- NOTE | 2025-07-10 23:50 | PTCARENOTE ---
Pt AAOx3. Pt tolerating regular diet. Pt is c/o abdominal pain requiring pain medication, see MAR. Pt had one loose BM. Abdomen is round and distended, bowel sounds present. Pt ambulating to the bathroom with standby assistance. Heparin gtt cont.
PTT in AM. IV abx cont. NSR on the monitor. VSS. Pt able to make needs known, call nava within reach.
[2025-07-11] VITALS (24 sets, daily range): BP systolic 114–153; BP diastolic 62–109; BMI 32.6
[2025-07-11] MEDS: HEPARIN 25000 UNITS/250 ML IV (00:01)
[2025-07-11 06:01] LABS: APTT 63.9 Sec (23.4-35.0)
[2025-07-11 06:02] LABS: Hematocrit 23.9 % (37.0-47.0); Hemoglobin 8.0 g/dL (12.0-16.0); Mean Corp Hgb Conc. 33.5 g/dL (33.0-37.0); Mean Corpuscular Volume 94.1 fL (81.0-99.0); Nucleated Red Blood Cells % 0 %; Platelet Count 272 10^3/uL (130-400); Red Cell Dist. Width 13.4 % (11.5-14.5)
[2025-07-11 06:20] LABS: C-Reactive Protein 55.00 mg/L (0.0-10.00)
[2025-07-11] MEDS: HEPARIN 7000 UNITS IV (06:20)
[2025-07-11 06:43] LABS: Blood Urea Nitrogen 25 mg/dl (7-17); Calcium 8.6 mg/dl (8.4-10.2); Carbon Dioxide 25 mmol/L (22-30); Chloride 106 mmol/L (98-107); Estimated Creatinine Clearance 8 ml/min; Glucose 104 mg/dl (70-99); Potassium 3.6 mmol/L (3.5-5.1); Sodium 136 mmol/L (135-145); eGFR 4.81
--- NOTE | 2025-07-11 08:33 | PN.CDI ---
CDI
- -
CDI:
Physician Documentation Request
Admit Date: 07/06/25 18:36
Dear Doctor Markos,
Please review the following and provide your response in the progress notes.
Clinical Indicators:
Pt admitted with Acute sigmoid diverticulitis.
07/06 Abd/pelvis CT scan:
1. MILD PNEUMOPERITONEUM in the upper abdomen which is likely secondary to bowel perforation.
2. MILD ACUTE DIVERTICULITIS in the SIGMOID COLON which is likely the etiology of the pneumoperitoneum given the history of lower abdominal pain (although there is no focal extraluminal air around the sigmoid colon or pericolonic abscess).....
07/10 Colorectal Note: ' �Perforated diverticulitis in setting of PD cath for dialysis...'�Recommend switching to HD while recovering'
07/06 '�Scattered flecks of free air possibly due to incidental instillation of air with dialysis, but less likely; in the setting of acute diverticulitis, more likely represents perforated diverticulitis'
07/10 Hosp PN: ' Acute sigmoid diverticulitis - Her white count is normal. She is afebrile. And she is not tachycardic.
Sigmoid diverticulitis without any focal signs of perforation or any focal abscess.'
07/10 Peritoneal fluid results: Enterococcus species
Do to potentially conflicting documentation, could you please clarify in the progress notes, the appropriate diagnosis, if significant, that supports the above abnormalities and additional evaluation, monitoring and/or treatment rendered:
Diverticulitis with perforation
Diverticulitis without perforation
Other
Use of terms such as suspected, likely, concern for, or probable (associated with a specific diagnosis that is being evaluated, monitored, or treated as if it exists) are acceptable and can be coded in the inpatient setting, when documented at the
time of discharge.
Thank you,
Sabrina Desir RN, BSN
CDI Specialist
[facility]
Please use your independent medical judgment in providing your response.
[2025-07-11] MEDS: PROTONIX IV 40 MG IV (08:41)
[2025-07-11] MEDS: NSS (PRESERVATIVE FREE) 10 ML IV (08:41)
[2025-07-11] MEDS: RENVELA 2400 MG PO ×3 (08:41→20:02)
--- NOTE | 2025-07-11 09:40 | W.PN.ID1 ---
Addendum entered and electronically signed by Omar Dyson DO 07/11/25 11:26:
I saw and evaluated the patient. I reviewed the resident�s note and agree with findings and plan as documented in the resident�s note.
Original Note:
Date of Service
Date of Service: July 11, 2025
Today's Communication
- Continue Antibiotics
Assessment / Plan
# Acute abdominal pain
- improved
# Acute sigmoid diverticulitis
# Pneumoperitoneum
# Polycystic kidney disease
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
Prothrombin Deficiency
Chronic normocytic anemia
Hypothyroidism
Hyperlipidemia
Recent GI bleeds/Gastric Ulcer
Plan:
- Continue Zosyn 2.25 gm q12 (d#6)
- Follow white count & temperature curve
- Peritoneal fluid obtained from PD catheter. Cultures grew enterococcus species
- Follow sensitivites
- Follow blood cultures; NGTD
- Tolerating diet advancement
����������������������������������������������������������
Chief Complaint
-: Other (Diverticulitis with perforation)
Subjective / Review of Systems
Patient seen today, reports feeling a bit better. Had some itchiness around her tunneled catheter, mostly related to the adhesive part of the Band-Aid. Otherwise reports that her abdominal pain is much improved from before. Had bowel movement
yesterday which was a bit looser but otherwise has not had any nausea or vomiting. Does not report any fevers or any chills at this time.
Review of Systems: No Fever, No Chills, No Cough, Abdominal Pain (Improved from before), No Nausea, No Vomiting and No Diarrhea
Vital Signs / Physical Exam
Vital Signs
Vital Signs
Temp Pulse Resp BP Pulse Ox
97.6 F 93 16 130/109 98
07/11/25 07:37 07/11/25 06:00 07/09/25 20:00 07/11/25 06:00 07/11/25 05:03
Physical Exam
Constitutional: No Acute Distress, Comfortable and Non-toxic
Eyes: Sclera Anicteric
Cardiovascular: Regular Rate and S1/S2; Negative S3/S4
Pulmonary: Clear and Non Labored
Gastrointestinal: Soft, Tender (Mild diffuse tenderness), Distended and Normal Bowel Sounds
Extremities: Edema and Other (PD catheter in place without exit site erythema.); Negative Cyanosis or Erythema
Neurological: Awake and Alert
Psychological: Calm
Lines: HD Cath (Right ACW)
Objective Data
Lab Data
Lab Results
07/11/25 05:38
07/11/25 05:38
PT 21.3 Sec (11.4-14.6) H 07/08/25 04:52
INR 1.83 07/08/25 04:52
APTT 63.9 Sec (23.4-35.0) H 07/11/25 05:38
Estimated Creat Clear 8 ml/min 07/11/25 05:38
Total Bilirubin 0.4 mg/dl (0.2-1.3) 07/06/25 13:59
AST 17 U/L (14-36) 07/06/25 13:59
ALT 13 U/L (0-35) 07/06/25 13:59
Alkaline Phosphatase 72 U/L (38-126) 07/06/25 13:59
C-Reactive Protein 55.00 mg/L (0.0-10.00) H 07/11/25 05:38
Most recent labs reviewed.
Microbiology: Report Reviewed
Micro Results:
07/06/25 19:33 Blood Culture - Preliminary
Blood/Venous No Growth in 4 days- Final report to follow
07/06/25 19:39 Blood Culture - Preliminary
Blood/Venous No Growth in 4 days- Final report to follow
07/09/25 17:13 Body Fluid Culture - Preliminary
Peritoneal Fluid Enterococcus species
Gram Stain - Preliminary
Imaging:
07/06/2025 CT Abd/pel (oral only)- MILD PNEUMOPERITONEUM in the upper abdomen which is likely secondary to bowel perforation. MILD ACUTE DIVERTICULITIS in the SIGMOID COLON which is likely the etiology of the pneumoperitoneum given the history of
lower abdominal pain (although there is no focal extraluminal air around the sigmoid colon or pericolonic abscess). Minimal peritoneal fluid adjacent to the gallbladder. SEVERE AUTOSOMAL DOMINANT POLYCYSTIC KIDNEY DISEASE with innumerable bilateral
renal cysts. 6.2 cm multiseptated fluid collection in the midline anterior subcutaneous fat of the abdominal wall. Diagnostic possibilities are (1) a complex cyst or (2) an abscess (if there are signs/symptoms of infection). Peritoneal dialysis
catheter in place. Subacute healing fractures of the left pubic bones (possibly insufficiency fractures). Mild osteoporotic insufficiency fractures in the sacrum. Bilateral avascular necrosis of the femoral heads. Moderate scarring in the lower
lungs.
07/06/2025 US Abdomen Complete/Upper- AUTOSOMAL DOMINANT POLYCYSTIC KIDNEY DISEASE with severely enlarged kidneys containing innumerable renal cysts. Mild diffuse liver disease. No sonographic evidence for cholelithiasis or biliary obstruction.
[2025-07-11] MEDS: SYNTHROID 125 MCG PO (10:40)
[2025-07-11] MEDS: ZOSYN 50 IV ×2 (10:40→21:49)
--- NOTE | 2025-07-11 11:17 | W.PN.CRS1 ---
Today's Communication / Plan
-
clinically improving
continue regular diet
will discuss with nephrology regarding restarting PD
Assessment/Plan
-
60-year-old female with PMH of polycystic kidney disease associated with ESRD on PD x 2 years, prothrombin deficiency complicated by DVT/PE in 2008 on Coumadin, RLS, GERD/PUD, MACRINA, HTN, HLD who presented with 1 week of gradually worsening abdominal
pain. 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 The following day, she noticed significant bloating. 4 days INFRASTRUCTURE SECURITY ARCHITECT, the bloating improved and she had diarrhea. 3 days INFRASTRUCTURE SECURITY ARCHITECT, the pain became more
concentrated in her lower abdomen. She had some nausea, but no vomiting. Since then, the pain continued to get worse as well as the bloating. She last had a BM that morning and it was normal. She denied any fevers, CP/SOB or urinary symptoms
(she still does urinate about 4 times a day). In the ED, her WBC was 10.[address] scan was done which showed diffuse flecks of free air associated with sigmoid diverticulitis concerning for perforated sigmoid diverticulitis. Additionally, there
was a 6 cm subQ collection near her bellybutton, which likely represents hernia.
AFVSS
WBC 7.0, Hb 8.0 (8.5), crp
�Perforated diverticulitis in setting of PD cath for dialysis
�Continue IV Zosyn; appreciate ID, pending PD cath culture
�Recommend switching to HD while recovering
-Dr. Montemayor spoke with Dr. Jason (GI Surgeon at [facility] who placed her PD cath) who recommended restarting PD catheter once patient stabilizes to prevent clogging/future failure
� Okay to advance to regular diet
� Continue hep drip
�Appreciate nephrology; s/p Shiley and HD
� Pain control; recommend switching to Dilaudid as needed
�Patient with known umbilical hernia, pending outpatient consult with Dr. Lynn to consider repair
�Appreciate hospitalist
Subjective Data
Subjective Data
Date of Service: July 11, 2025
Patient states she had a bowel movement yesterday. Denies nausea or vomiting. She is feeling better. Her pain is mostly at night.
Objective Data
-
Vital Signs
Temp Pulse Resp BP Pulse Ox
97.6 F 93 16 130/109 98
07/11/25 07:37 07/11/25 06:00 07/09/25 20:00 07/11/25 06:00 07/11/25 05:03
Intake & Output
07/10/25 07/11/25 07/12/25
06:59 06:59 06:59
Intake Total 1830 / 1830 1590 / 1590
Balance 1830 / 1830 1590 / 1590
Intake:
Oral fluids 480 / 480 1140 / 1140
IV fluids (Total) 1200 / 1200 400 / 400
IV piggybacks 150 / 150 50 / 50
Other:
Number of approximated SMALL 2
amounts of urine
Number of approximated MODERATE 3
amounts of urine
Number of unmeasured liquid
stools
Rectum 3 3
Lab Results
07/11/25 05:38
07/11/25 05:38
Physical Exam
-
General: No Acute Distress and AOx3
Abdomen: Soft, Non Distended and Non Tender
Skin: Warm and Dry
--- NOTE | 2025-07-11 11:30 | W.PN.HOSP.TC ---
Today's Communication/Plan
-
montior vitals
see plan
cw HD per nephrology
appears growing enterococcus from PD catheter
cw abx per ID
cw hep gtt for now
Assessment / Plan
Assessment / Plan
Acute abdominal pain with abnormal CT of the abdomen pelvis
Acute sigmoid diverticulitis
Sigmoid diverticulitis with perforated viscus
Colorectal surgery input noted-plan is for nonoperative approach for now.
Colorectal surgery advancing diet. Continue with IV Zosyn. ID following
Diet per colorectal
Pain control
Appears growing Enterococcus, peritoneal fluid was ordered by nephrology from PD catheter
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 Suspect perforated viscus. Continue with treatments as above.
Polycystic kidney disease leading on to end-stage renal disease-currently on PD which we will hold. Status post IR tunneled catheter. Nephrology for hemodialysis. HD 07/09.
Prothrombin deficiency-not a factor V Leiden deficiency per patient]-with associated DVT and PE in 2008-on Coumadin. Now on heparin drip. Continue to hold Coumadin.
Chronic normocytic anemia-hemoglobin stable.
History of recent GI bleed/gastric ulcer-continue PPI
Hyperlipidemia-hold statins
Hypothyroidism-started Po thyroid
History of restless leg
Full code
General: No Apparent Distress
Respiratory: Non Labored Respirations; Negative Accessory Resp Muscle Use
Cardiac: Regular Rhythm and S1/S2; Negative Tachycardic
GI: Soft, Normal Bowel Sounds and mildly tender
Neuro: AO x 3
Psych: Calm
Total time spent on today's encounter was 52 minutes which included time spent in counseling the patient/family regarding diagnosis and treatment plan as listed above, goals of care, and symptom management. Case was discussed with nursing staff,
specialists, and care coordinators/case management. All labs and imaging personally reviewed by me. Remainder the time spent in detailed review of previous records, lab data, imaging, and other medical provider documentation.
Anticipated Discharge: > 48 hours
Subjective/Interval History
-
Date of Service: July 11, 2025
denies nausea
Objective Data
-
Labs:
Laboratory Results
07/11/25 07/11/25
05:38 12:25
WBC 7.0
Hgb 8.0 L
Hct 23.9 L
Plt Count 272
APTT 63.9 H Pending
Sodium 136
Potassium 3.6
Chloride 106
Carbon Dioxide 25
BUN 25 H
Creatinine 8.7 H*
Glucose 104 H
Calcium 8.6
Vital Signs:
Vital Signs
Temp Pulse Resp BP Pulse Ox
97.6 F 93 16 130/109 98
07/11/25 07:37 07/11/25 06:00 07/09/25 20:00 07/11/25 06:00 07/11/25 05:03
I&O
07/10/25 07/11/25 07/12/25
06:59 06:59 06:59
Intake Total 1829 1590 / 1590
Balance 1829 1590 / 1590
[2025-07-11] MEDS: BENADRYL ELIXIR 12.5 MG PO (12:26)
[2025-07-11 13:46] LABS: APTT 199.8 Sec (23.4-35.0)
--- NOTE | 2025-07-11 14:48 | CM ---
Following up on Patient. ENEDINA Worley is aware that Nephrology is following to determine if this patient will go on HD or back on peritenial. Hospitalist Notes today say continue HD, waiting on Nephrology. Otherwise, patient is independent with ADL's.
PLAN: Home No Needs vs. HD set up.
[2025-07-11] MEDS: RETACRIT 10000 UNITS IV (16:41)
--- NOTE | 2025-07-11 16:56 | W.PN.NEPH.HD ---
Assessment
-
pt seen during HD
vitals stable
UF as tolerates
pain control
tolerating diet
abx per iD
cont HD while she is stabilized interms of infection
may need HD unit set up for shortterm post d/c
d/w pt
Progress Note - Hemodialysis
-
Date of Service: July 11, 2025
Duration: 30 minutes and 3 hours
Potassium Bath: 3
Calcium Bath: 2.5
Opti-Dialyzer: 160
Ultrafiltration: Other (1.5-2kg)
Blood Flow: 400
Dialysate Flow: 600
Heparin: no
EPO: [id number]
--- NOTE | 2025-07-11 18:30 | PTCARENOTE ---
Patient out of bed to chair today, hemodialysis at this time. CHG bath completed, patient has good appetite. Compliant with plan if care. Heparin drip as per doctors orders.
[2025-07-11] MEDS: HEPARIN 3900 UNITS INTRACATH (19:19)
[2025-07-11] MEDS: REQUIP 2 MG PO (20:03)
[2025-07-11] MEDS: DILAUDID 0.25 MG IV (21:50)
[2025-07-11 22:11] LABS: APTT 97.2 Sec (23.4-35.0)
[2025-07-12] VITALS (13 sets, daily range): BP systolic 116–150; BP diastolic 62–85
--- NOTE | 2025-07-12 01:46 | PTCARENOTE ---
Patient receiving dialysis at change of shift. Pt c/o abdominal pain 5/10 and unable to get comfortable while lying. PRN Dilaudid administered, see DEC. Heparin gtt cont. PTT in therapeutic range, due for PTT at 0400. IV abx cont. Pt appears to be
resting comfortably in bed, call nava within reach.
[2025-07-12 04:57] LABS: Hematocrit 26.1 % (37.0-47.0); Hemoglobin 9.0 g/dL (12.0-16.0); Mean Corp Hgb Conc. 34.5 g/dL (33.0-37.0); Mean Corpuscular Volume 93.9 fL (81.0-99.0); Nucleated Red Blood Cells % 0.5 %; Platelet Count 284 10^3/uL (130-400); Red Cell Dist. Width 13.2 % (11.5-14.5)
[2025-07-12 05:02] LABS: APTT 62.3 Sec (23.4-35.0)
[2025-07-12] MEDS: HEPARIN 7000 UNITS IV (05:23)
[2025-07-12] MEDS: HEPARIN 25000 UNITS/250 ML IV (05:25)
[2025-07-12 05:36] LABS: Blood Urea Nitrogen 11 mg/dl (7-17); Calcium 8.8 mg/dl (8.4-10.2); Carbon Dioxide 31 mmol/L (22-30); Chloride 101 mmol/L (98-107); Estimated Creatinine Clearance 13 ml/min; Glucose 97 mg/dl (70-99); Potassium 3.7 mmol/L (3.5-5.1); Sodium 134 mmol/L (135-145); eGFR 9.35
--- NOTE | 2025-07-12 07:50 | W.PN.CRS1 ---
Today's Communication / Plan
-
continue regular diet
abx per ID
will s/o, please contact if any surgical issues arise
Assessment/Plan
-
60-year-old female with PMH of polycystic kidney disease associated with ESRD on PD x 2 years, prothrombin deficiency complicated by DVT/PE in 2008 on Coumadin, RLS, GERD/PUD, MACRINA, HTN, HLD who presented with 1 week of gradually worsening abdominal
pain. 6 days BOLT HEADER, she noticed some pain near her bellybutton and somewhat towards the right. The following day, she noticed significant bloating. 4 days BOLT HEADER, the bloating improved and she had diarrhea. 3 days BOLT HEADER, the pain became more
concentrated in her lower abdomen. She had some nausea, but no vomiting. Since then, the pain continued to get worse as well as the bloating. She last had a BM that morning and it was normal. She denied any fevers, CP/SOB or urinary symptoms
(she still does urinate about 4 times a day). In the ED, her WBC was 10.[address] scan was done which showed diffuse flecks of free air associated with sigmoid diverticulitis concerning for perforated sigmoid diverticulitis. Additionally, there
was a 6 cm subQ collection near her bellybutton, which likely represents hernia.
AFVSS
WBC 8.5, Hb 9.0 (8.5)
�Perforated diverticulitis in setting of PD cath for dialysis
�Continue IV Zosyn; appreciate ID, pending PD cath culture
�Recommend switching to HD while recovering
-Dr. Montemayor spoke with Dr. Jason (GI Surgeon at [facility] who placed her PD cath) who recommended restarting PD catheter once patient stabilizes to prevent clogging/future failure
-Dr. Montemayor spoke with nephrology regarding PD, will hold off for duration of IV abx
� Continue regular diet
� Continue hep drip
�Appreciate nephrology; s/p [facility] and HD
�Patient with known umbilical hernia, pending outpatient consult with Dr. Lynn to consider repair
�Appreciate hospitalist
-Will sign off, follow up in office in 2-[address] Montemayor, Antibiotics per ID as an outpatient.
Subjective Data
Subjective Data
Date of Service: July 12, 2025
Feeling a little better today. No nausea or vomiting. Mild LLQ pain. She had some discomfort overnight which resolved. She has loose stools.
Objective Data
-
Vital Signs
Temp Pulse Resp BP Pulse Ox
97.9 F 83 16 116/62 97
07/11/25 23:17 07/12/25 06:00 07/09/25 20:00 07/12/25 05:30 07/12/25 02:00
Intake & Output
07/11/25 07/12/25 07/13/25
06:59 06:59 06:59
Intake Total 1590 / 1590 270 / 270
Output Total 225 / 225
Balance 1590 / 1590 45 / 45
Intake:
Oral fluids 1140 / 1140 220 / 220
IV fluids (Total) 400 / 400
IV piggybacks 50 / 50 50 / 50
Output:
Urine, Voided 225 / 225
Other:
Number of approximated SMALL 2
amounts of urine
Number of approximated MODERATE 2
amounts of urine
Number of unmeasured liquid
stools
Rectum 3 1
Lab Results
07/12/25 04:37
07/12/25 04:37
Physical Exam
-
General: No Acute Distress and AOx3
Abdomen: Soft, Non Distended and Tender (mild LLQ)
Skin: Warm
[2025-07-12] MEDS: PROTONIX 40 MG PO (09:11)
[2025-07-12] MEDS: RENVELA 2400 MG PO ×3 (09:11→17:38)
[2025-07-12] MEDS: SYNTHROID 125 MCG PO (09:11)
[2025-07-12] MEDS: ZYRTEC 10 MG PO (09:11)
--- NOTE | 2025-07-12 09:55 | W.PN.NEPH.PH ---
Today's Communication / Plan
-
HD tomorrow
Assessment/Plan
-
Assessment:
Perforated diverticulitis in setting of PD cath for dialysis
ESRD on PD since 2021
Polycystic kidney disease leading on to end-stage renal disease
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
History of recent GI bleed/gastric ulcer
Chr anemia
Hyperlipidemia
Hypothyroidism
Secondary PTH
History hypertension
Hyperphosphatemia
mild hyponatremia
Plan:
need final date of Abx so can transition back to PD, starting with lower volumes ~1800ml
HD tomorrow
Abx course
-
-
Date of Service: July 12, 2025
CC / HPI / ROS
-
Chief Complaint:
ESRD
History of Present Illness:
off PD due to perf bowel/diverticulitis, on Abx
BP stable
hgb stable 9
tolerated HD yesterday
Review of Systems:
no CP/SOB
tolerating diet
Labs
-
Labs:
WBC 8.5 10^3/uL (4.8-10.8) 07/12/25 04:37
RBC 2.78 10^6/uL (4.20-5.40) L 07/12/25 04:37
Hgb 9.0 g/dL (12.0-16.0) L 07/12/25 04:37
Hct 26.1 % (37.0-47.0) L 07/12/25 04:37
Plt Count 284 10^3/uL (130-400) 07/12/25 04:37
Sodium 134 mmol/L (135-145) L 07/12/25 04:37
Potassium 3.7 mmol/L (3.5-5.1) 07/12/25 04:37
Chloride 101 mmol/L (98-107) 07/12/25 04:37
Carbon Dioxide 31 mmol/L (22-30) H 07/12/25 04:37
BUN 11 mg/dl (7-17) 07/12/25 04:37
Creatinine 5.0 mg/dL (0.6-1.0) H* 07/12/25 04:37
eGFR 9.35 07/12/25 04:37
Glucose 97 mg/dl (70-99) 07/12/25 04:37
Calcium 8.8 mg/dl (8.4-10.2) 07/12/25 04:37
Albumin 2.8 g/dl (3.5-5.0) L 07/06/25 13:59
Physical Exam
-
Vital Signs:
Vital Signs
Temp Pulse Resp BP Pulse Ox
98.3 F 83 16 116/62 97
07/12/25 08:01 07/12/25 06:00 07/09/25 20:00 07/12/25 05:30 07/12/25 02:00
Cardiovascular:: Regular rate and rhythm
Respiratory:: Bilateral: Coarse
Lung Excursion:: Normal
Abdomen:: Nontender and Soft
Bowel Sounds:: Normal
Extremity Edema:: None: Bilateral:
[2025-07-12] MEDS: ZOSYN 50 IV (11:44)
--- NOTE | 2025-07-12 12:15 | W.PN.ID1 ---
Date of Service
Date of Service: July 12, 2025
Today's Communication
Transition to oral Augmentin.
Assessment / Plan
# Acute abdominal pain
- improved
# Acute sigmoid diverticulitis
# Pneumoperitoneum
# Polycystic kidney disease
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
Prothrombin Deficiency
Chronic normocytic anemia
Hypothyroidism
Hyperlipidemia
Recent GI bleeds/Gastric Ulcer
Plan:
- Zosyn 2.25 gm q12 (d#7)
White count normal. Patient overall clinically improved.
Transition to oral Augmentin 875 mg q.24 hours X 7 days
May consider intra-PD vanco thereafter
����������������������������������������������������������
Chief Complaint
-: Other (Diverticulitis with perforation)
Subjective / Review of Systems
Review of Systems: No Fever, No Chills and Abdominal Pain (Minimal)
Vital Signs / Physical Exam
Vital Signs
Vital Signs
Temp Pulse Resp BP Pulse Ox
98.0 F 83 16 116/62 97
07/12/25 11:26 07/12/25 06:00 07/09/25 20:00 07/12/25 05:30 07/12/25 02:00
Physical Exam
Constitutional: No Acute Distress, Comfortable and Non-toxic
Eyes: Sclera Anicteric
Cardiovascular: Regular Rate and S1/S2; Negative S3/S4
Pulmonary: Clear and Non Labored
Gastrointestinal: Soft, Tender (Mild diffuse tenderness), Distended and Normal Bowel Sounds
Extremities: Edema and Other (PD catheter in place without exit site erythema.); Negative Cyanosis or Erythema
Neurological: Awake and Alert
Psychological: Calm
Lines: HD Cath (Right ACW)
Objective Data
Lab Data
Lab Results
07/12/25 04:37
07/12/25 04:37
PT 21.3 Sec (11.4-14.6) H 07/08/25 04:52
INR 1.83 07/08/25 04:52
APTT 62.3 Sec (23.4-35.0) H 07/12/25 04:37
Estimated Creat Clear 13 ml/min 07/12/25 04:37
Total Bilirubin 0.4 mg/dl (0.2-1.3) 07/06/25 13:59
AST 17 U/L (14-36) 07/06/25 13:59
ALT 13 U/L (0-35) 07/06/25 13:59
Alkaline Phosphatase 72 U/L (38-126) 07/06/25 13:59
C-Reactive Protein 55.00 mg/L (0.0-10.00) H 07/11/25 05:38
Most recent labs reviewed.
Micro Results:
07/06/25 19:39 Blood Culture - Final
Blood/Venous No Growth - Final Report
07/06/25 19:33 Blood Culture - Final
Blood/Venous No Growth - Final Report
07/09/25 17:13 Body Fluid Culture - Final
Peritoneal Fluid Enterococcus faecalis
Gram Stain - Final
Imaging:
07/06/2025 CT Abd/pel (oral only)- MILD PNEUMOPERITONEUM in the upper abdomen which is likely secondary to bowel perforation. MILD ACUTE DIVERTICULITIS in the SIGMOID COLON which is likely the etiology of the pneumoperitoneum given the history of
lower abdominal pain (although there is no focal extraluminal air around the sigmoid colon or pericolonic abscess). Minimal peritoneal fluid adjacent to the gallbladder. SEVERE AUTOSOMAL DOMINANT POLYCYSTIC KIDNEY DISEASE with innumerable bilateral
renal cysts. 6.2 cm multiseptated fluid collection in the midline anterior subcutaneous fat of the abdominal wall. Diagnostic possibilities are (1) a complex cyst or (2) an abscess (if there are signs/symptoms of infection). Peritoneal dialysis
catheter in place. Subacute healing fractures of the left pubic bones (possibly insufficiency fractures). Mild osteoporotic insufficiency fractures in the sacrum. Bilateral avascular necrosis of the femoral heads. Moderate scarring in the lower
lungs.
07/06/2025 US Abdomen Complete/Upper- AUTOSOMAL DOMINANT POLYCYSTIC KIDNEY DISEASE with severely enlarged kidneys containing innumerable renal cysts. Mild diffuse liver disease. No sonographic evidence for cholelithiasis or biliary obstruction.
Care Review
Plan reviewed with: Physician (Nephrology)
--- NOTE | 2025-07-12 12:15 | W.PN.HOSP.TC ---
Today's Communication/Plan
-
start bridging to Coumadin pending final ID reccs
Zyrtec
Assessment / Plan
Assessment / Plan
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 CT showed umbilical hernia described as 6.2 cm multiseptated fluid collection in the midline
anterior subcutaneous fat of the abdominal wall (as discussed with ColorectalSx, and mild diverticulitis with pneumoperitoneum. Improved on IV Abx. Switched to HD with R tunneled catheter.
A/P:
#Acute mild diverticulitits with pneumoperitoneum
ColorectalSx followed: follow up in office in 2-[address] Montemayor
IV Abx as per ID
improving
advance diet
Peritoneal fluid with Enterococcus faecalis sensitive to ampicillin
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
#Anemia 2/2 ESRD
Epo as per Record Changer Tester
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
#Pruritus
mostly to L shoulder
no visible rash
Zyrtec
#Hx of DVT with prothrombin deficiency
Since ColorectalSx signed off - start bridging to Coumadin, target INR 2.0-3.0
#Mild osteoporotic insufficiency Fx of the sacrum
#Subacute L pubic bone Fx
#b/l avascular necrosis of femoral heads
2/2 osteoporosis and ESRD
outpatient mgmt
#Hypothyroidism
#HLD
#GERD
cont home meds
DVT ppx hep
Full code
I have spent at least 55 min reviewing chart, test results, communication with consultants and providing direct patient care
Anticipated Discharge: 24 - 48 hours
Subjective/Interval History
-
Date of Service: July 12, 2025
Objective Data
-
Labs:
Laboratory Results
07/12/25 07/12/25
04:37 12:07
WBC 8.5
Hgb 9.0 L
Hct 26.1 L
Plt Count 284
APTT 62.3 H Pending
Sodium 134 L
Potassium 3.7
Chloride 101
Carbon Dioxide 31 H
BUN 11
Creatinine 5.0 H*
Glucose 97
Calcium 8.8
Vital Signs:
Vital Signs
Temp Pulse Resp BP Pulse Ox
98.0 F 83 16 116/62 97
07/12/25 11:26 07/12/25 06:00 07/09/25 20:00 07/12/25 05:30 07/12/25 02:00
I&O
07/11/25 07/12/25 07/13/25
06:59 06:59 06:59
Intake Total 1590 / 1590 270 / 270
Output Total 225 / 225
Balance 1590 / 1590 45 / 45
Review of Systems
-
History Source: Patient
All other systems: Reviewed and negative
Physical Exam
-
General: No Apparent Distress
HEENT: Normocephalic
Respiratory: Clear to Auscultation
GI: Soft, Nontender and Nondistended
Neuro: Awake, Alert and Oriented
Psych: Calm
[2025-07-12 13:12] LABS: APTT 194.9 Sec (23.4-35.0)
[2025-07-12] MEDS: AUGMENTIN 250 MG/125 MG 1 TABLET PO ×2 (14:12→20:13)
--- NOTE | 2025-07-12 16:02 | PTCARENOTE ---
Pt's assessment as documented. Aox3. NSR on tele monitor. VSS. OOB to chair. Heparin gtt infusing as ordered, see intervention. Ringing appropriately, call nava within reach.
[2025-07-12] MEDS: DILAUDID 0.25 MG IV ×2 (16:16→22:39)
--- NOTE | 2025-07-12 17:03 | CM ---
Following up on Patient. Hospitalist Notes & RN are saying that patient is still on HD, will get HD tomorrow, will eventually transition back to PD, and not trying to have surgery re: her perforated bowel. PLAN: TBD, Home PT vs. SNF or Home No Needs
[2025-07-12] MEDS: COUMADIN 4 MG PO (17:37)
[2025-07-12] MEDS: REQUIP 2 MG PO (17:38)
[2025-07-12 21:01] LABS: APTT 66.6 Sec (23.4-35.0)
[2025-07-12] MEDS: BENADRYL 25 MG PO (21:01)
[2025-07-12] MEDS: HEPARIN 3500 UNITS IV (21:22)
--- NOTE | 2025-07-12 22:56 | PTCARENOTE ---
patient aaox3. Patient complaining of itching on skin from adhesives. 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 Patient also complaining of 6/10 pain in lower back and abdomen, prn pain meds given, see mar. assessment and vitals as charted. call nava in
reach.
[2025-07-13] VITALS (26 sets, daily range): BP systolic 124–185; BP diastolic 58–84
[2025-07-13 03:37] LABS: INR 1.13; PT 14.8 Sec (11.4-14.6)
[2025-07-13 03:39] LABS: APTT 138.8 Sec (23.4-35.0)
[2025-07-13] MEDS: DILAUDID 0.25 MG IV ×3 (03:51→21:37)
[2025-07-13 04:13] LABS: Carbon Dioxide 25 mmol/L (22-30); Chloride 106 mmol/L (98-107); Potassium 3.9 mmol/L (3.5-5.1); Sodium 135 mmol/L (135-145)
[2025-07-13] MEDS: HEPARIN 25000 UNITS/250 ML IV (05:46)
--- NOTE | 2025-07-13 08:55 | W.PN.HOSP.TC ---
Today's Communication/Plan
-
cont heparin bridging
Assessment / Plan
Assessment / Plan
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 CT showed umbilical hernia described as 6.2 cm multiseptated fluid collection in the midline
anterior subcutaneous fat of the abdominal wall (as discussed with ColorectalSx, and mild diverticulitis with pneumoperitoneum. Improved on IV Abx. Switched to HD with R tunneled catheter. Peritoneal culture grew E.faecalis. ID recommended to
complete Augmentin on 07/19/25. Tolerated food. Was started on Coumadin bridging since no concern for the surgical intervention from Colorectal Sx
A/P:
#Acute mild diverticulitis with pneumoperitoneum and possible peritonitis
ColorectalSx followed: follow up in office in 2-[address] Montemayor
IV Abx as per ID
improving
advance diet
Peritoneal fluid with Enterococcus faecalis sensitive to ampicillin
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
#Anemia 2/2 ESRD
Epo as per Biostatistician
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
#Pruritus
mostly to L shoulder
no visible rash
Zyrtec
#Hx of DVT with prothrombin deficiency
Since ColorectalSx signed off - start bridging to Coumadin, target INR 2.0-3.0
#Mild osteoporotic insufficiency Fx of the sacrum
#Subacute L pubic bone Fx
#b/l avascular necrosis of femoral heads
2/2 osteoporosis and ESRD
outpatient mgmt
#Hypothyroidism
#HLD
#GERD
cont home meds
DVT ppx hep
Full code
I have spent at least 55 min reviewing chart, test results, communication with consultants and providing direct patient care
Anticipated Discharge: > 48 hours
Subjective/Interval History
-
Date of Service: July 13, 2025
Objective Data
-
Labs:
Laboratory Results
07/12/25 07/13/25 07/13/25
20:38 03:10 11:00
PT 14.8 H
INR 1.13
APTT 66.6 H 138.8 H Pending
Sodium 135
Potassium 3.9
Chloride 106
Carbon Dioxide 25
Vital Signs:
Vital Signs
Temp Pulse Resp BP Pulse Ox
97.7 F 78 16 139/73 97
07/13/25 07:50 07/13/25 01:00 07/09/25 20:00 07/13/25 00:39 07/13/25 01:00
I&O
07/12/25 07/13/25 07/14/25
06:59 06:59 06:59
Intake Total 270 / 270
Output Total 225 / 225 75 / 75
Balance 45 / 45 -75 / -75
Review of Systems
-
History Source: Patient
All other systems: Reviewed and negative
Abdomen/GI: Reports Abdominal Pain (RLQ)
Physical Exam
-
General: No Apparent Distress
Respiratory: Clear to Auscultation
Cardiac: Regular Rhythm
GI: Soft, Nondistended and Tender (RLQ)
Neuro: Awake, Alert, Oriented and AO x 3
Psych: Calm
[2025-07-13] MEDS: RETACRIT 10000 UNITS IV (09:35)
--- NOTE | 2025-07-13 09:50 | W.PN.ID1 ---
Date of Service
Date of Service: July 13, 2025
Today's Communication
Continue Augmentin.
Assessment / Plan
# Acute abdominal pain
- improved
# Acute sigmoid diverticulitis
# Pneumoperitoneum
# Polycystic kidney disease
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
Prothrombin Deficiency
Chronic normocytic anemia
Hypothyroidism
Hyperlipidemia
Recent GI bleeds/Gastric Ulcer
Plan:
- Peritoneal fluid cx E. faecalis
- White count normal. Patient overall clinically improved.
- s/p Zosyn 2.25 gm q12 (7d)
- Continue oral Augmentin 875 mg q.24 hours X 7 days through 07/18/25.
- May consider intra-PD vanco thereafter
����������������������������������������������������������
Chief Complaint
-: Other (Diverticulitis with perforation)
Subjective / Review of Systems
Mild r lower abd pain. Tolerating Augmentin.
Vital Signs / Physical Exam
Vital Signs
Vital Signs
Temp Pulse Resp BP Pulse Ox
97.7 F 78 16 139/73 97
07/13/25 07:50 07/13/25 01:00 07/09/25 20:00 07/13/25 00:39 07/13/25 01:00
Physical Exam
Constitutional: No Acute Distress and Comfortable
Eyes: Sclera Anicteric
Cardiovascular: Regular Rate and S1/S2
Pulmonary: Clear and Non Labored
Gastrointestinal: Soft, Tender (Mild right abdomen), Distended and Normal Bowel Sounds
Extremities: Edema and Other (PD catheter in place without exit site erythema.)
Neurological: AO x 3
Lines: HD Cath (Right ACW)
Objective Data
Lab Data
Lab Results
07/12/25 04:37
07/13/25 03:10
PT 14.8 Sec (11.4-14.6) H 07/13/25 03:10
INR 1.13 07/13/25 03:10
APTT 138.8 Sec (23.4-35.0) H 07/13/25 03:10
Estimated Creat Clear 13 ml/min 07/12/25 04:37
Total Bilirubin 0.4 mg/dl (0.2-1.3) 07/06/25 13:59
AST 17 U/L (14-36) 07/06/25 13:59
ALT 13 U/L (0-35) 07/06/25 13:59
Alkaline Phosphatase 72 U/L (38-126) 07/06/25 13:59
C-Reactive Protein 55.00 mg/L (0.0-10.00) H 07/11/25 05:38
Most recent labs reviewed.
Micro Results:
07/06/25 19:39 Blood Culture - Final
Blood/Venous No Growth - Final Report
07/06/25 19:33 Blood Culture - Final
Blood/Venous No Growth - Final Report
07/09/25 17:13 Body Fluid Culture - Final
Peritoneal Fluid Enterococcus faecalis
Gram Stain - Final
Imaging:
07/06/2025 CT Abd/pel (oral only)- MILD PNEUMOPERITONEUM in the upper abdomen which is likely secondary to bowel perforation. MILD ACUTE DIVERTICULITIS in the SIGMOID COLON which is likely the etiology of the pneumoperitoneum given the history of
lower abdominal pain (although there is no focal extraluminal air around the sigmoid colon or pericolonic abscess). Minimal peritoneal fluid adjacent to the gallbladder. SEVERE AUTOSOMAL DOMINANT POLYCYSTIC KIDNEY DISEASE with innumerable bilateral
renal cysts. 6.2 cm multiseptated fluid collection in the midline anterior subcutaneous fat of the abdominal wall. Diagnostic possibilities are (1) a complex cyst or (2) an abscess (if there are signs/symptoms of infection). Peritoneal dialysis
catheter in place. Subacute healing fractures of the left pubic bones (possibly insufficiency fractures). Mild osteoporotic insufficiency fractures in the sacrum. Bilateral avascular necrosis of the femoral heads. Moderate scarring in the lower
lungs.
07/06/2025 US Abdomen Complete/Upper- AUTOSOMAL DOMINANT POLYCYSTIC KIDNEY DISEASE with severely enlarged kidneys containing innumerable renal cysts. Mild diffuse liver disease. No sonographic evidence for cholelithiasis or biliary obstruction.
--- NOTE | 2025-07-13 10:14 | W.PN.NEPH.HD ---
Assessment
-
Seen on HD. no complaints. VSS< access ok. await INR
complete abx
Progress Note - Hemodialysis
-
Date of Service: July 13, 2025
Duration: 30 minutes and 3 hours
Potassium Bath: 3
Calcium Bath: 2.5
Opti-Dialyzer: 160
Ultrafiltration: Other (2kg)
Blood Flow: 400
Dialysate Flow: 600
Heparin: 0
EPO: [id number] UNits
[2025-07-13] MEDS: HEPARIN 4200 UNITS INTRACATH (11:11)
[2025-07-13 11:24] LABS: APTT 57.0 Sec (23.4-35.0)
[2025-07-13] MEDS: SYNTHROID 125 MCG PO (11:36)
[2025-07-13] MEDS: RENVELA 2400 MG PO ×2 (11:36→17:05)
[2025-07-13] MEDS: PROTONIX 40 MG PO (11:36)
[2025-07-13] MEDS: ZYRTEC 10 MG PO (11:36)
[2025-07-13] MEDS: AUGMENTIN 250 MG/125 MG 1 TABLET PO ×2 (11:54→19:58)
[2025-07-13] MEDS: HEPARIN 7000 UNITS IV (11:54)
[2025-07-13] MEDS: RENVELA PO (13:02)
[2025-07-13] MEDS: REQUIP 2 MG PO (17:04)
[2025-07-13] MEDS: COUMADIN 4 MG PO (17:04)
[2025-07-13 18:42] LABS: APTT 171.5 Sec (23.4-35.0)
[2025-07-14] VITALS (9 sets, daily range): BP systolic 127–144; BP diastolic 61–81; BMI 31.9
[2025-07-14 02:53] LABS: Hematocrit 26.8 % (37.0-47.0); Hemoglobin 9.2 g/dL (12.0-16.0); Mean Corp Hgb Conc. 34.3 g/dL (33.0-37.0); Mean Corpuscular Volume 93.7 fL (81.0-99.0); Platelet Count 265 10^3/uL (130-400); Red Cell Dist. Width 13.6 % (11.5-14.5)
[2025-07-14 03:03] LABS: INR 1.02; PT 13.7 Sec (11.4-14.6)
[2025-07-14 03:05] LABS: APTT 62.4 Sec (23.4-35.0)
[2025-07-14] MEDS: HEPARIN 7000 UNITS IV (03:17)
[2025-07-14 04:05] LABS: Blood Urea Nitrogen 10 mg/dl (7-17); Calcium 8.9 mg/dl (8.4-10.2); Carbon Dioxide 28 mmol/L (22-30); Chloride 102 mmol/L (98-107); Estimated Creatinine Clearance 15 ml/min; Glucose 92 mg/dl (70-99); Potassium 4.1 mmol/L (3.5-5.1); Sodium 133 mmol/L (135-145); eGFR 10.61
[2025-07-14] MEDS: HEPARIN 25000 UNITS/250 ML IV (05:58)
[2025-07-14] MEDS: SYNTHROID 125 MCG PO (07:18)
[2025-07-14] MEDS: ZYRTEC 10 MG PO (07:18)
[2025-07-14] MEDS: AUGMENTIN 250 MG/125 MG 1 TABLET PO ×2 (07:18→20:17)
[2025-07-14] MEDS: PROTONIX 40 MG PO (07:18)
[2025-07-14] MEDS: RENVELA 2400 MG PO ×3 (07:18→17:16)
[2025-07-14 09:57] LABS: APTT > 200.0 Sec (23.4-35.0)
--- NOTE | 2025-07-14 13:24 | W.PN.HOSP.TC ---
Today's Communication/Plan
-
cont hEparin bridging
Assessment / Plan
Assessment / Plan
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 CT showed umbilical hernia described as 6.2 cm multiseptated fluid collection in the midline
anterior subcutaneous fat of the abdominal wall (as discussed with ColorectalSx, and mild diverticulitis with pneumoperitoneum. Improved on IV Abx. Switched to HD with R tunneled catheter. Peritoneal culture grew E.faecalis. ID recommended to
complete Augmentin on 07/19/25. Tolerated food. Was started on Coumadin bridging since no concern for the surgical intervention from Colorectal Sx
A/P:
#Acute mild diverticulitis with pneumoperitoneum and possible peritonitis
ColorectalSx followed: follow up in office in 2-[address] Montemayor
IV Abx as per ID: on renally dosed Augmentin till 07/19/25, then can consider intraperitoneal Vanco - defer to supervisor mold construction
improving
advance diet
Peritoneal fluid with Enterococcus faecalis sensitive to ampicillin
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
#Anemia 2/2 ESRD
Epo as per Vegetable Loader
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
#Pruritus
mostly to L shoulder
no visible rash
Zyrtec
#Hx of DVT with prothrombin deficiency
Since ColorectalSx signed off - start bridging to Coumadin, target INR 2.0-3.0
#Mild osteoporotic insufficiency Fx of the sacrum
#Subacute L pubic bone Fx
#b/l avascular necrosis of femoral heads
2/2 osteoporosis and ESRD
outpatient mgmt
#Hypothyroidism
#HLD
#GERD
cont home meds
DVT ppx hep
Full code
I have spent at least 35min reviewing chart, test results, communication with consultants and providing direct patient care
Anticipated Discharge: > 48 hours
Subjective/Interval History
-
Date of Service: July 14, 2025
Objective Data
-
Labs:
Laboratory Results
07/14/25 07/14/25 07/14/25
02:42 02:42 02:42
WBC 10.3
Hgb 9.2 L
Hct 26.8 L
Plt Count 265
PT 13.7 Cancelled
INR 1.02 Cancelled
APTT 62.4 H
Sodium
Potassium
Chloride
Carbon Dioxide
BUN
Creatinine
Glucose
Calcium
07/14/25 07/14/25 07/14/25
03:24 09:21 18:00
WBC
Hgb
Hct
Plt Count
PT
INR
APTT > 200.0 H* Pending
Sodium 133 L
Potassium 4.1
Chloride 102
Carbon Dioxide 28
BUN 10
Creatinine 4.5 H*
Glucose 92
Calcium 8.9
Vital Signs:
Vital Signs
Temp Pulse Resp BP Pulse Ox
98.2 F 94 18 134/61 99
07/14/25 11:18 07/14/25 12:27 07/14/25 12:26 07/14/25 12:27 07/14/25 12:00
I&O
07/13/25 07/14/25 07/15/25
06:59 06:59 06:59
Output Total 75 / 75
Balance -75 / -75
Review of Systems
-
History Source: Patient
All other systems: Reviewed and negative
Physical Exam
-
General: Comfortable
HEENT: Normocephalic
Cardiac: Regular Rhythm
GI: Soft, Nontender and Nondistended
Neuro: Awake, Alert, Oriented and AO x 3
Psych: Calm
--- NOTE | 2025-07-14 14:11 | W.PN.NEPH.PH ---
Today's Communication / Plan
-
HD tomorrow
Assessment/Plan
-
Assessment:
Perforated diverticulitis in setting of PD cath for dialysis
ESRD on PD since 2021
Polycystic kidney disease leading on to end-stage renal disease
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
History of recent GI bleed/gastric ulcer
Chr anemia
Hyperlipidemia
Hypothyroidism
Secondary PTH
History hypertension
Hyperphosphatemia
mild hyponatremia
Plan:
need final date of Abx so can transition back to PD, starting with lower volumes ~1800ml
HD tomorrow
Abx course
-
-
Date of Service: July 14, 2025
CC / HPI / ROS
-
Chief Complaint:
ESRD
History of Present Illness:
off PD due to perf bowel/diverticulitis, on Abx
BP stable
hgb stable 9.2
tolerated HD
on heparin gtt
Review of Systems:
no CP/SOB
tolerating diet
Labs
-
Labs:
WBC 10.3 10^3/uL (4.8-10.8) 07/14/25 02:42
RBC 2.86 10^6/uL (4.20-5.40) L 07/14/25 02:42
Hgb 9.2 g/dL (12.0-16.0) L 07/14/25 02:42
Hct 26.8 % (37.0-47.0) L 07/14/25 02:42
Plt Count 265 10^3/uL (130-400) 07/14/25 02:42
Sodium 133 mmol/L (135-145) L 07/14/25 03:24
Potassium 4.1 mmol/L (3.5-5.1) 07/14/25 03:24
Chloride 102 mmol/L (98-107) 07/14/25 03:24
Carbon Dioxide 28 mmol/L (22-30) 07/14/25 03:24
BUN 10 mg/dl (7-17) 07/14/25 03:24
Creatinine 4.5 mg/dL (0.6-1.0) H* 07/14/25 03:24
eGFR 10.61 07/14/25 03:24
Glucose 92 mg/dl (70-99) 07/14/25 03:24
Calcium 8.9 mg/dl (8.4-10.2) 07/14/25 03:24
Albumin 2.8 g/dl (3.5-5.0) L 07/06/25 13:59
Physical Exam
-
Vital Signs:
Vital Signs
Temp Pulse Resp BP Pulse Ox
98.2 F 94 18 134/61 99
07/14/25 11:18 07/14/25 12:27 07/14/25 12:26 07/14/25 12:27 07/14/25 12:00
Cardiovascular:: Regular rate and rhythm
Respiratory:: Bilateral: CTA
Lung Excursion:: Normal
Abdomen:: Nontender and Soft
Bowel Sounds:: Normal
Extremity Edema:: None: Bilateral:
[2025-07-14] MEDS: REQUIP 2 MG PO (17:16)
[2025-07-14] MEDS: COUMADIN 5 MG PO (17:16)
[2025-07-14 18:39] LABS: APTT 69.1 Sec (23.4-35.0)
--- NOTE | 2025-07-14 19:13 | PTCARENOTE ---
Pt refused heparin re-bolus per protocol following PTT assessment. Heparin rate increased to 1300 units/hr per protocol. Next PTT assessment due at 0115. Report given to kirk PEREYRA.
[2025-07-14] MEDS: DILAUDID 0.5 MG IV (20:24)
--- NOTE | 2025-07-15 00:21 | PTCARENOTE ---
assumed care of patient. pt is AAOx3, able to make needs known. 99% RA. heparin gtt infusing at 13ml/hr. pt medicated with IV dilaudid for lower back pain with positive result. pt able to walk into bathroom without issues. care ongoing.
[2025-07-15 01:49] LABS: INR 1.07; PT 14.2 Sec (11.4-14.6)
[2025-07-15 01:50] LABS: APTT 70.6 Sec (23.4-35.0)
--- NOTE | 2025-07-15 02:13 | PTCARENOTE ---
PTT assessment, heparin gtt increased by 2ml/hr, pt to be rebolused, but patient refusing to be rebolused at this time.
[2025-07-15 02:14] VITALS: BP 148/73
[2025-07-15] MEDS: TYLENOL 650 MG PO ×2 (03:18→14:35)
[2025-07-15] MEDS: HEPARIN 25000 UNITS/250 ML IV ×2 (03:20→20:19)
[2025-07-15 06:00] VITALS: BMI 32.4
[2025-07-15 06:23] VITALS: BP 155/73
[2025-07-15] MEDS: DILAUDID 0.25 MG IV (06:26)
[2025-07-15 08:39] VITALS: BP 117/68
[2025-07-15] MEDS: RENVELA 2400 MG PO ×2 (08:39→17:33)
[2025-07-15] MEDS: AUGMENTIN 250 MG/125 MG 1 TABLET PO ×2 (08:39→20:13)
[2025-07-15] MEDS: ZYRTEC 10 MG PO (08:40)
[2025-07-15] MEDS: PROTONIX 40 MG PO (08:40)
[2025-07-15] MEDS: SYNTHROID 125 MCG PO (08:40)
[2025-07-15 08:47] LABS: APTT 120.2 Sec (23.4-35.0)
[2025-07-15 09:08] LABS: Carbon Dioxide 26 mmol/L (22-30); Chloride 103 mmol/L (98-107); Potassium 3.9 mmol/L (3.5-5.1); Sodium 135 mmol/L (135-145)
--- NOTE | 2025-07-15 09:44 | W.PN.HOSP.TC ---
Today's Communication/Plan
-
Abd much improved -tolerating diet
Warfarin increased to 5mg started on 07/14/25
cont bridging
Assessment / Plan
Assessment / Plan
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 CT showed umbilical hernia described as 6.2 cm multiseptated fluid collection in the midline
anterior subcutaneous fat of the abdominal wall (as discussed with ColorectalSx, and mild diverticulitis with pneumoperitoneum. Improved on IV Abx. Switched to HD with R tunneled catheter. Peritoneal culture grew E.faecalis. ID recommended to
complete Augmentin on 07/19/25. Tolerated food. Was started on Coumadin bridging since no concern for the surgical intervention from Colorectal Sx
A/P:
#Acute mild diverticulitis with pneumoperitoneum and possible peritonitis
ColorectalSx followed: follow up in office in 2-[address] Montemayor
IV Abx as per ID: on renally dosed Augmentin till 07/19/25, then can consider intraperitoneal Vanco - defer to food selector
improving
advance diet
Peritoneal fluid with Enterococcus faecalis sensitive to ampicillin
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
#Anemia 2/2 ESRD
Epo as per Technical Fellow
Now on HD as per food selector
#Pruritus
mostly to L shoulder
no visible rash
Zyrtec
#Hx of DVT with prothrombin deficiency
Since ColorectalSx signed off - start bridging to Coumadin, target INR 2.0-3.0
#Mild osteoporotic insufficiency Fx of the sacrum
#Subacute L pubic bone Fx
#b/l avascular necrosis of femoral heads
2/2 osteoporosis and ESRD
outpatient mgmt
#Hypothyroidism
#HLD
#GERD
cont home meds
DVT ppx hep
Full code
I have spent at least 35min reviewing chart, test results, communication with consultants and providing direct patient care
Anticipated Discharge: > 48 hours
Subjective/Interval History
-
Date of Service: July 15, 2025
Objective Data
-
Labs:
Laboratory Results
07/15/25 07/15/25 07/15/25
01:24 01:24 08:27
PT 14.2
INR 1.07
APTT 70.6 H Cancelled 120.2 H
Sodium 135
Potassium 3.9
Chloride 103
Carbon Dioxide 26
07/15/25
15:30
PT
INR
APTT Pending
Sodium
Potassium
Chloride
Carbon Dioxide
Vital Signs:
Vital Signs
Temp Pulse Resp BP Pulse Ox
97.8 F 73 20 117/68 99
07/15/25 07:55 07/15/25 09:00 07/14/25 21:02 07/15/25 08:39 07/14/25 20:03
I&O
07/14/25 07/15/25 07/16/25
06:59 06:59 06:59
Intake Total 90 / 90
Balance 90 / 90
Review of Systems
-
History Source: Patient
All other systems: Reviewed and negative
Physical Exam
-
General: No Apparent Distress
Neuro: Awake, Alert, Oriented and AO x 3
Psych: Calm
--- NOTE | 2025-07-15 10:12 | W.PN.ID1 ---
Addendum entered and electronically signed by Omar Dyson DO 07/15/25 13:39:
I saw and evaluated the patient. I reviewed the resident�s note and agree with findings and plan as documented in the resident�s note.
Patient overall feeling well. No significant issues with current abx.
Continue Augmentin for additional 3 days.
Case discussed with Nephrology. To thereafter consider PD vanco x 7-14 days.
Original Note:
Date of Service
Date of Service: July 15, 2025
Today's Communication
- Continue Augmentin
Assessment / Plan
# Acute abdominal pain
- improved
# Acute sigmoid diverticulitis
# Pneumoperitoneum
# Polycystic kidney disease
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
Prothrombin Deficiency
Chronic normocytic anemia
Hypothyroidism
Hyperlipidemia
Recent GI bleeds/Gastric Ulcer
Plan:
- Peritoneal fluid cx E. faecalis
- White count normal. Patient overall clinically improved.
- s/p Zosyn 2.25 gm q12 (7d)
- Oral Augmentin 875 mg q.24 hours X 7 days through 07/18/25.
- May consider intra-PD Vanco thereafter, will discuss with Nephro
����������������������������������������������������������
Chief Complaint
-: Other (Diverticulitis with perforation)
Subjective / Review of Systems
Patient seen this morning, resting comfortably in her bed. She complained of some abdominal fullness on the right side. Has been having regular bowel movements with her last one being yesterday. Does not report any fever or chills at this time.
Review of Systems: No Fever, No Chills, Abdominal Pain, No Nausea, No Vomiting and No Diarrhea
Vital Signs / Physical Exam
Vital Signs
Vital Signs
Temp Pulse Resp BP Pulse Ox
97.8 F 73 20 117/68 99
07/15/25 07:55 07/15/25 09:00 07/14/25 21:02 07/15/25 08:39 07/14/25 20:03
Physical Exam
Constitutional: No Acute Distress, Comfortable and Non-toxic
Eyes: Sclera Anicteric
Cardiovascular: Regular Rate and S1/S2; Negative S3/S4
Pulmonary: Clear and Non Labored
Gastrointestinal: Soft, Tender (Mild diffuse tenderness), Distended and Normal Bowel Sounds
Extremities: Edema and Other (PD catheter in place without exit site erythema.); Negative Cyanosis or Erythema
Neurological: Awake and Alert
Psychological: Calm
Lines: HD Cath (Right ACW)
Objective Data
Lab Data
Lab Results
07/14/25 02:42
07/15/25 08:27
PT 14.2 Sec (11.4-14.6) 07/15/25 01:24
INR 1.07 07/15/25 01:24
APTT 120.2 Sec (23.4-35.0) H 07/15/25 08:27
Estimated Creat Clear 15 ml/min 07/14/25 03:24
Total Bilirubin 0.4 mg/dl (0.2-1.3) 07/06/25 13:59
AST 17 U/L (14-36) 07/06/25 13:59
ALT 13 U/L (0-35) 07/06/25 13:59
Alkaline Phosphatase 72 U/L (38-126) 07/06/25 13:59
C-Reactive Protein 55.00 mg/L (0.0-10.00) H 07/11/25 05:38
Most recent labs reviewed.
Micro Results:
07/06/25 19:39 Blood Culture - Final
Blood/Venous No Growth - Final Report
07/06/25 19:33 Blood Culture - Final
Blood/Venous No Growth - Final Report
07/09/25 17:13 Body Fluid Culture - Final
Peritoneal Fluid Enterococcus faecalis
Gram Stain - Final
Imaging:
07/06/2025 CT Abd/pel (oral only)- MILD PNEUMOPERITONEUM in the upper abdomen which is likely secondary to bowel perforation. MILD ACUTE DIVERTICULITIS in the SIGMOID COLON which is likely the etiology of the pneumoperitoneum given the history of
lower abdominal pain (although there is no focal extraluminal air around the sigmoid colon or pericolonic abscess). Minimal peritoneal fluid adjacent to the gallbladder. SEVERE AUTOSOMAL DOMINANT POLYCYSTIC KIDNEY DISEASE with innumerable bilateral
renal cysts. 6.2 cm multiseptated fluid collection in the midline anterior subcutaneous fat of the abdominal wall. Diagnostic possibilities are (1) a complex cyst or (2) an abscess (if there are signs/symptoms of infection). Peritoneal dialysis
catheter in place. Subacute healing fractures of the left pubic bones (possibly insufficiency fractures). Mild osteoporotic insufficiency fractures in the sacrum. Bilateral avascular necrosis of the femoral heads. Moderate scarring in the lower
lungs.
07/06/2025 US Abdomen Complete/Upper- AUTOSOMAL DOMINANT POLYCYSTIC KIDNEY DISEASE with severely enlarged kidneys containing innumerable renal cysts. Mild diffuse liver disease. No sonographic evidence for cholelithiasis or biliary obstruction.
--- NOTE | 2025-07-15 11:47 | W.PN.NEPH.PH ---
Today's Communication / Plan
-
Hemodialysis today
Assessment/Plan
-
Assessment:
Perforated diverticulitis in setting of PD cath for dialysis
ESRD on PD since 2021
Polycystic kidney disease leading on to end-stage renal disease
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
History of recent GI bleed/gastric ulcer
Chr anemia
Hyperlipidemia
Hypothyroidism
Secondary PTH
History hypertension
Hyperphosphatemia
mild hyponatremia
Plan:
transition back to PD as an outpatient while on Augmentin, starting with lower volumes ~1800ml
Discussed with infectious disease about antibiotic
Continuing Augmentin through 07/18 until we start IP vancomycin as an outpatient
Discussed outpatient dialysis nurse
Discussed with the patient and agrees with the plan
Once established outpatient dialysis time would be okay for discharge from renal standpoint
Though awaiting Coumadin bridge
-
-
Date of Service: July 15, 2025
CC / HPI / ROS
-
Chief Complaint:
ESRD
History of Present Illness:
off PD due to perf bowel/diverticulitis, on Abx
BP stable
hgb stable 9.2
tolerated HD
on heparin gtt
Review of Systems:
no CP/SOB
tolerating diet
Labs
-
Labs:
WBC 10.3 10^3/uL (4.8-10.8) 07/14/25 02:42
RBC 2.86 10^6/uL (4.20-5.40) L 07/14/25 02:42
Hgb 9.2 g/dL (12.0-16.0) L 07/14/25 02:42
Hct 26.8 % (37.0-47.0) L 07/14/25 02:42
Plt Count 265 10^3/uL (130-400) 07/14/25 02:42
Sodium 135 mmol/L (135-145) 07/15/25 08:27
Potassium 3.9 mmol/L (3.5-5.1) 07/15/25 08:27
Chloride 103 mmol/L (98-107) 07/15/25 08:27
Carbon Dioxide 26 mmol/L (22-30) 07/15/25 08:27
BUN 10 mg/dl (7-17) 07/14/25 03:24
Creatinine 4.5 mg/dL (0.6-1.0) H* 07/14/25 03:24
eGFR 10.61 07/14/25 03:24
Glucose 92 mg/dl (70-99) 07/14/25 03:24
Calcium 8.9 mg/dl (8.4-10.2) 07/14/25 03:24
Albumin 2.8 g/dl (3.5-5.0) L 07/06/25 13:59
Physical Exam
-
Vital Signs:
Vital Signs
Temp Pulse Resp BP Pulse Ox
97.8 F 73 20 117/68 99
07/15/25 07:55 07/15/25 09:00 07/14/25 21:02 07/15/25 08:39 07/14/25 20:03
Cardiovascular:: Regular rate and rhythm
Respiratory:: Bilateral: CTA
Lung Excursion:: Normal
Abdomen:: Nontender and Soft
Bowel Sounds:: Normal
Extremity Edema:: None: Bilateral:
[2025-07-15] MEDS: RETACRIT 10000 UNITS IV (13:52)
[2025-07-15] MEDS: RENVELA PO (14:36)
[2025-07-15 15:50] LABS: APTT 106.9 Sec (23.4-35.0)
[2025-07-15 16:38] VITALS: BP 128/67
--- NOTE | 2025-07-15 16:49 | CM ---
F/U: Hospital Progress Notes state that the plan is to still transition to Peritoneal dialysis. Case Management to continue to follow. PLAN: Anticipate Home No Needs.
[2025-07-15] MEDS: COUMADIN 5 MG PO (17:32)
[2025-07-15] MEDS: REQUIP 2 MG PO (17:32)
[2025-07-15] MEDS: BENADRYL 25 MG PO (17:33)
[2025-07-15 20:00] VITALS: BP 118/62
[2025-07-15] MEDS: LIDOCAINE 4% PATCH 1 PATCH TOPICAL (20:57)
[2025-07-15] MEDS: DILAUDID 0.5 MG IV (21:01)
[2025-07-15 21:59] LABS: APTT 116.6 Sec (23.4-35.0)
[2025-07-16 02:27] VITALS: BP 130/67
[2025-07-16 04:38] LABS: Hematocrit 24.8 % (37.0-47.0); Hemoglobin 8.4 g/dL (12.0-16.0); Mean Corp Hgb Conc. 33.9 g/dL (33.0-37.0); Mean Corpuscular Volume 95.4 fL (81.0-99.0); Platelet Count 246 10^3/uL (130-400); Red Cell Dist. Width 15.2 % (11.5-14.5)
[2025-07-16 04:45] LABS: INR 1.16; PT 15.1 Sec (11.4-14.6)
[2025-07-16 04:46] LABS: APTT 90.1 Sec (23.4-35.0)
--- NOTE | 2025-07-16 08:42 | W.PN.ID1 ---
Date of Service
Date of Service: July 16, 2025
Today's Communication
Continue antibiotics.
Assessment / Plan
# Acute abdominal pain
- improved
# Acute sigmoid diverticulitis
# Pneumoperitoneum
# Polycystic kidney disease
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
Prothrombin Deficiency
Chronic normocytic anemia
Hypothyroidism
Hyperlipidemia
Recent GI bleeds/Gastric Ulcer
Plan:
- Peritoneal fluid cx E. faecalis
- White count normal. Patient overall clinically improved.
- s/p Zosyn 2.25 gm q12 (7d)
- Continue Augmentin 875 mg q.24 hours through 07/18/25 or reinitiation of PD (whichever is later), then begin approximately 2-week course of IV vancomycin
����������������������������������������������������������
Chief Complaint
-: Other (Diverticulitis with perforation, peritonitis)
Subjective / Review of Systems
Patient seen and examined. Denies fevers or chills. Reports ongoing 'fullness' on the right lateral abdomen area, without significant discomfort.
Review of Systems: No Fever and No Chills
Vital Signs / Physical Exam
Vital Signs
Vital Signs
Temp Pulse Resp BP Pulse Ox
97.9 F 74 20 130/67 98
07/16/25 03:01 07/16/25 02:30 07/16/25 02:30 07/16/25 02:27 07/15/25 20:40
Physical Exam
Constitutional: No Acute Distress, Comfortable and Non-toxic
Eyes: Sclera Anicteric
Cardiovascular: Regular Rate and S1/S2; Negative S3/S4
Pulmonary: Clear and Non Labored
Gastrointestinal: Soft, Tender (Mild diffuse tenderness), Distended, Normal Bowel Sounds, No Rebound, No Guarding and Other (LLQ PD cath)
Extremities: Edema and Other (PD catheter in place without exit site erythema.); Negative Cyanosis or Erythema
Neurological: Awake and Alert
Psychological: Calm
Lines: HD Cath (Right ACW)
Objective Data
Lab Data
Lab Results
07/16/25 04:20
07/15/25 08:27
PT 15.1 Sec (11.4-14.6) H 07/16/25 04:20
INR 1.16 07/16/25 04:20
APTT 90.1 Sec (23.4-35.0) H 07/16/25 04:20
APTT Cancelled 07/16/25 04:20
Estimated Creat Clear 15 ml/min 07/14/25 03:24
Total Bilirubin 0.4 mg/dl (0.2-1.3) 07/06/25 13:59
AST 17 U/L (14-36) 07/06/25 13:59
ALT 13 U/L (0-35) 07/06/25 13:59
Alkaline Phosphatase 72 U/L (38-126) 07/06/25 13:59
C-Reactive Protein 55.00 mg/L (0.0-10.00) H 07/11/25 05:38
Most recent labs reviewed.
Micro Results:
07/06/25 19:39 Blood Culture - Final
Blood/Venous No Growth - Final Report
07/06/25 19:33 Blood Culture - Final
Blood/Venous No Growth - Final Report
07/09/25 17:13 Body Fluid Culture - Final
Peritoneal Fluid Enterococcus faecalis
Gram Stain - Final
Fluid Cult/not urine Final 07/09/25
Few Enterococcus faecalis
CRITICAL VALUE [place] [id number]
on 07/10/25 at 1218 by CAROLYNE. COPY PRINTED to printer
#[id number]
Organism 1 Enterococcus faecalis
1. Enterococcus faecalis
M.I.C. RX
--------- ---
Ampicillin <=2 S
Gentamicin Synergy Screen <=500 S
Susceptible result indicates synergy is likely with a cell
wall active agent that is also susceptible
(e.g.ampicillin,penicillin,vancomycin)
Vancomycin 2 S
Imaging:
07/06/2025 CT Abd/pel (oral only)- MILD PNEUMOPERITONEUM in the upper abdomen which is likely secondary to bowel perforation. MILD ACUTE DIVERTICULITIS in the SIGMOID COLON which is likely the etiology of the pneumoperitoneum given the history of
lower abdominal pain (although there is no focal extraluminal air around the sigmoid colon or pericolonic abscess). Minimal peritoneal fluid adjacent to the gallbladder. SEVERE AUTOSOMAL DOMINANT POLYCYSTIC KIDNEY DISEASE with innumerable bilateral
renal cysts. 6.2 cm multiseptated fluid collection in the midline anterior subcutaneous fat of the abdominal wall. Diagnostic possibilities are (1) a complex cyst or (2) an abscess (if there are signs/symptoms of infection). Peritoneal dialysis
catheter in place. Subacute healing fractures of the left pubic bones (possibly insufficiency fractures). Mild osteoporotic insufficiency fractures in the sacrum. Bilateral avascular necrosis of the femoral heads. Moderate scarring in the lower
lungs.
07/06/2025 US Abdomen Complete/Upper- AUTOSOMAL DOMINANT POLYCYSTIC KIDNEY DISEASE with severely enlarged kidneys containing innumerable renal cysts. Mild diffuse liver disease. No sonographic evidence for cholelithiasis or biliary obstruction.
[2025-07-16] MEDS: PROTONIX 40 MG PO (08:44)
[2025-07-16] MEDS: SYNTHROID 125 MCG PO (08:44)
[2025-07-16] MEDS: RENVELA 2400 MG PO ×2 (08:44→14:08)
[2025-07-16] MEDS: AUGMENTIN 250 MG/125 MG 1 TABLET PO ×2 (08:44→19:47)
[2025-07-16] MEDS: ZYRTEC 10 MG PO (08:44)
[2025-07-16] MEDS: LIDOCAINE 4% PATCH 1 PATCH TOPICAL (08:48)
[2025-07-16] MEDS: REMOVE LIDOCAINE PATCH 1 PATCH REMOVE ×2 (09:13→19:53)
[2025-07-16 09:15] VITALS: BP 138/71
--- NOTE | 2025-07-16 11:35 | W.PN.HOSP.TC ---
Today's Communication/Plan
-
increase Coumadin and cont bridging
Assessment / Plan
Assessment / Plan
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 CT showed umbilical hernia described as 6.2 cm multiseptated fluid collection in the midline
anterior subcutaneous fat of the abdominal wall (as discussed with ColorectalSx, and mild diverticulitis with pneumoperitoneum. Improved on IV Abx. Switched to HD with R tunneled catheter. Peritoneal culture grew E.faecalis. ID recommended to
complete Augmentin on 07/19/25. Tolerated food. Was started on Coumadin bridging since no concern for the surgical intervention from Colorectal Sx
A/P:
#Acute mild diverticulitis with pneumoperitoneum and possible peritonitis
ColorectalSx followed: follow up in office in 2-[address] Montemayor
IV Abx as per ID: on renally dosed Augmentin till 07/19/25, then can consider intraperitoneal Vanco - defer to data governance analyst
improving
advance diet
Peritoneal fluid with Enterococcus faecalis sensitive to ampicillin
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
#Anemia 2/2 ESRD
Epo as per Project Administrative Assistant
Now on HD as per data governance analyst
#Pruritus
mostly to L shoulder
no visible rash
Zyrtec
#Hx of DVT with prothrombin deficiency
Since ColorectalSx signed off - start bridging to Coumadin, target INR 2.0-3.0
#Mild osteoporotic insufficiency Fx of the sacrum
#Subacute L pubic bone Fx
#b/l avascular necrosis of femoral heads
2/2 osteoporosis and ESRD
outpatient mgmt
#Hypothyroidism
#HLD
#GERD
cont home meds
DVT ppx hep
Full code
I have spent at least 35min reviewing chart, test results, communication with consultants and providing direct patient care
Anticipated Discharge: > 48 hours
Subjective/Interval History
-
Date of Service: July 16, 2025
Objective Data
-
Labs:
Laboratory Results
07/16/25 07/16/25 07/16/25
04:20 04:20 11:26
WBC 10.2
Hgb 8.4 L
Hct 24.8 L
Plt Count 246
PT 15.1 H
INR 1.16
APTT 90.1 H Cancelled Pending
Vital Signs:
Vital Signs
Temp Pulse Resp BP Pulse Ox
97.9 F 74 20 130/67 98
07/16/25 03:01 07/16/25 02:30 07/16/25 02:30 07/16/25 02:27 07/15/25 20:40
I&O
07/15/25 07/16/25 07/17/25
06:59 06:59 06:59
Intake Total 490 / 490
Balance 490 / 490
Review of Systems
-
History Source: Patient
All other systems: Reviewed and negative
Physical Exam
-
General: No Apparent Distress
Psych: Calm
[2025-07-16 11:46] LABS: APTT 83.9 Sec (23.4-35.0)
--- NOTE | 2025-07-16 11:49 | PTCARENOTE ---
Patient AAOx3, no complaints. RA, VSS. Heparin infusing per protocol. Patient making needs known. Continuing to closely monitor.
--- NOTE | 2025-07-16 12:21 | W.PN.NEPH.PH ---
Today's Communication / Plan
-
Hemodialysis tomorrow
Assessment/Plan
-
Assessment:
Perforated diverticulitis in setting of PD cath for dialysis
ESRD on PD since 2021
Polycystic kidney disease leading on to end-stage renal disease
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
History of recent GI bleed/gastric ulcer
Chr anemia
Hyperlipidemia
Hypothyroidism
Secondary PTH
History hypertension
Hyperphosphatemia
mild hyponatremia
Plan:
transition back to PD as an outpatient while on Augmentin, starting with lower volumes ~1800ml
Discussed with infectious disease about antibiotic
Continuing Augmentin through 07/18 until we start IP vancomycin as an outpatient
Discussed outpatient dialysis nurse
Discussed with the patient and agrees with the plan
Awaiting Coumadin bridge.
May be able to initiate PD inpatient prior to discharge if she remains here over the next 48 hours as discussed with her today
I will do a short of twelve 1 L of 1.5% dextrose and reculture
-
-
Date of Service: July 16, 2025
CC / HPI / ROS
-
Chief Complaint:
ESRD
History of Present Illness:
off PD due to perf bowel/diverticulitis, on Abx
BP stable
hgb stable 9.2
tolerated HD
on heparin gtt
Review of Systems:
no CP/SOB
tolerating diet
Labs
-
Labs:
WBC 10.2 10^3/uL (4.8-10.8) 07/16/25 04:20
RBC 2.60 10^6/uL (4.20-5.40) L 07/16/25 04:20
Hgb 8.4 g/dL (12.0-16.0) L 07/16/25 04:20
Hct 24.8 % (37.0-47.0) L 07/16/25 04:20
Plt Count 246 10^3/uL (130-400) 07/16/25 04:20
Sodium 135 mmol/L (135-145) 07/15/25 08:27
Potassium 3.9 mmol/L (3.5-5.1) 07/15/25 08:27
Chloride 103 mmol/L (98-107) 07/15/25 08:27
Carbon Dioxide 26 mmol/L (22-30) 07/15/25 08:27
BUN 10 mg/dl (7-17) 07/14/25 03:24
Creatinine 4.5 mg/dL (0.6-1.0) H* 07/14/25 03:24
eGFR 10.61 07/14/25 03:24
Glucose 92 mg/dl (70-99) 07/14/25 03:24
Calcium 8.9 mg/dl (8.4-10.2) 07/14/25 03:24
Albumin 2.8 g/dl (3.5-5.0) L 07/06/25 13:59
Physical Exam
-
Vital Signs:
Vital Signs
Temp Pulse Resp BP Pulse Ox
97.9 F 82 20 138/71 93
07/16/25 03:01 07/16/25 09:00 07/16/25 09:00 07/16/25 09:15 07/16/25 09:00
Cardiovascular:: Regular rate and rhythm
Respiratory:: Bilateral: CTA
Lung Excursion:: Normal
Abdomen:: Nontender and Soft
Bowel Sounds:: Normal
Extremity Edema:: None: Bilateral:
[2025-07-16 15:43] VITALS: BP 132/63
[2025-07-16] MEDS: HEPARIN 25000 UNITS/250 ML IV (17:01)
[2025-07-16 17:41] VITALS: BP 132/63
[2025-07-16] MEDS: COUMADIN 6 MG PO (18:06)
[2025-07-16] MEDS: RENVELA PO (18:06)
[2025-07-16] MEDS: REQUIP 2 MG PO (18:06)
[2025-07-16] MEDS: DILAUDID 0.25 MG IV (19:47)
[2025-07-16 22:13] VITALS: BP 114/62
[2025-07-16 22:48] VITALS: BP 114/62
[2025-07-17] MEDS: DILAUDID 0.25 MG IV (01:18)
[2025-07-17] MEDS: DILAUDID 0.5 MG IV ×5 (03:49→21:32)
--- NOTE | 2025-07-17 04:10 | PTCARENOTE ---
patient had PD order which was done per order. Patient experienced severe abdominal cramping after PD. SUZANNE murillo at bedside. PRN pain medication given, see MAR. Pain medication provided some relief. Continuing to monitor. call nava in reach.
[2025-07-17 05:19] LABS: INR 1.19; PT 15.4 Sec (11.4-14.6)
[2025-07-17 05:20] LABS: APTT 79.2 Sec (23.4-35.0)
[2025-07-17 07:35] VITALS: BP 107/91
[2025-07-17] MEDS: PROTONIX 40 MG PO (07:37)
[2025-07-17] MEDS: ZYRTEC 10 MG PO (07:37)
[2025-07-17] MEDS: LIDOCAINE 4% PATCH 1 PATCH TOPICAL (07:38)
[2025-07-17] MEDS: AUGMENTIN 250 MG/125 MG 1 TABLET PO (07:38)
[2025-07-17] MEDS: SYNTHROID 125 MCG PO (07:38)
--- NOTE | 2025-07-17 08:10 | W.PN.HOSP.TC ---
Today's Communication/Plan
-
CT abd/pelvis
COnt heparin drip
recheck labs, if worsening leukocytosis - might need to expannd Abx coverage
Assessment / Plan
Assessment / Plan
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 CT showed umbilical hernia described as 6.2 cm multiseptated fluid collection in the midline
anterior subcutaneous fat of the abdominal wall (as discussed with ColorectalSx, and mild diverticulitis with pneumoperitoneum. Improved on IV Abx. Switched to HD with R tunneled catheter. Peritoneal culture grew E.faecalis. ID recommended to
complete Augmentin on 07/19/25. Tolerated food. Was started on Coumadin bridging since no concern for the surgical intervention from Colorectal Sx
A/P:
#Acute mild diverticulitis with pneumoperitoneum and possible peritonitis
Re-developed severe abd pain after rial of short PD mick fluid sampling on 07/16/25. Repeating CT abd/pelvis with contrast (patient already on HD) due to high suspiscion for complication of previously seen peritonitis with pneumoperitoneum
ColorectalSx followed: follow up in office in 2-[address] Montemayor
IV Abx as per ID: on renally dosed Augmentin till 07/19/25, then can consider intraperitoneal Vanco - defer to wedger and gluer
improving
advance diet
Peritoneal fluid with Enterococcus faecalis sensitive to ampicillin
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
#Anemia 2/2 ESRD
Epo as per Roof Cement And Paint Maker
Now on HD as per wedger and gluer
#Pruritus
mostly to L shoulder
no visible rash
Zyrtec
#Hx of DVT with prothrombin deficiency
Since ColorectalSx signed off - start bridging to Coumadin, target INR 2.0-3.0
#Mild osteoporotic insufficiency Fx of the sacrum
#Subacute L pubic bone Fx
#b/l avascular necrosis of femoral heads
2/2 osteoporosis and ESRD
outpatient mgmt
#Hypothyroidism
#HLD
#GERD
cont home meds
DVT ppx hep
Full code
I have spent at least 55min reviewing chart, test results, communication with consultants and providing direct patient care
Anticipated Discharge: > 48 hours
Subjective/Interval History
-
Date of Service: July 17, 2025
Objective Data
-
Labs:
Laboratory Results
07/17/25
04:47
PT 15.4 H
INR 1.19
APTT 79.2 H
Vital Signs:
Vital Signs
Temp Pulse Resp BP Pulse Ox
98.0 F 93 16 107/91 100
07/16/25 22:48 07/17/25 07:35 07/17/25 07:35 07/17/25 07:35 07/17/25 07:35
I&O
07/16/25 07/17/25 07/18/25
06:59 06:59 06:59
Intake Total 490 / 490 1000 / 1000
Balance 490 / 490 1000 / 1000
Review of Systems
-
History Source: Patient
All other systems: Reviewed and negative
Abdomen/GI: Reports Abdominal Pain
Physical Exam
-
General: Appears in Distress and Pain
Respiratory: Clear to Auscultation
Cardiac: Regular Rhythm
GI: Tender and Distended; Negative Normal Bowel Sounds
Musculoskeletal: No Clubbing, No Cyanosis and No Edema
Neuro: Awake, Alert, Oriented and AO x 3
Psych: Calm
[2025-07-17] MEDS: RENVELA PO ×3 (08:35→14:41)
[2025-07-17] MEDS: OMNIPAQUE 50 ML PO (09:19)
[2025-07-17 09:43] LABS: Hematocrit 29.4 % (37.0-47.0); Hemoglobin 9.8 g/dL (12.0-16.0); Mean Corp Hgb Conc. 33.3 g/dL (33.0-37.0); Mean Corpuscular Volume 95.8 fL (81.0-99.0); Nucleated Red Blood Cells % 0 %; Platelet Count 259 10^3/uL (130-400); Red Cell Dist. Width 16.0 % (11.5-14.5)
--- NOTE | 2025-07-17 09:43 | W.PN.ID1 ---
Date of Service
Date of Service: July 17, 2025
Today's Communication
Await CT scan. Continue Augmentin for the present although may broaden to Zosyn.
Assessment / Plan
# Acute abdominal pain
- Worsened after reinitiation of PD last evening
# Leukocytosis
# Acute sigmoid diverticulitis
# Pneumoperitoneum
# Polycystic kidney disease
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
Prothrombin Deficiency
Chronic normocytic anemia
Hypothyroidism
Hyperlipidemia
Recent GI bleeds/Gastric Ulcer
Plan:
Prior peritoneal fluid cx E. faecalis
New abdominal pain last evening. CT scan of the abdomen pending.
White count noted to be up today.
S/p Zosyn 2.25 gm q12 (x7d. Finished 07/12/2025)
Continue Augmentin 875 mg q.24 hours for the present
- Prior plan was to continue through 07/18/25 or reinitiation of PD (whichever is later), then begin approximately 2-week course of IV vancomycin
- Await CT scan. Low threshold to resume Zosyn depending on results.
����������������������������������������������������������
Chief Complaint
-: Other (Diverticulitis with perforation, peritonitis)
Subjective / Review of Systems
Patient seen and examined. Began PD last evening, but noted increased abdominal discomfort approximately 2 AM. Currently prepping for CT scan of the abdomen.
Review of Systems: No Fever and No Chills
Vital Signs / Physical Exam
Vital Signs
Vital Signs
Temp Pulse Resp BP Pulse Ox
98.0 F 93 16 107/91 100
07/16/25 22:48 07/17/25 07:35 07/17/25 07:35 07/17/25 07:35 07/17/25 07:35
Physical Exam
Constitutional: No Acute Distress, Comfortable and Non-toxic
Eyes: Sclera Anicteric
Cardiovascular: S1/S2; Negative S3/S4
Pulmonary: Clear; Negative Wheezes or Rales
Gastrointestinal: Soft, Tender, Distended and Normal Bowel Sounds
Extremities: Negative Edema, Cyanosis or Erythema
Neurological: Awake and Alert
Psychological: Calm
Objective Data
Lab Data
Lab Results
07/17/25 09:32
PT 15.4 Sec (11.4-14.6) H 07/17/25 04:47
INR 1.19 07/17/25 04:47
APTT 79.2 Sec (23.4-35.0) H 07/17/25 04:47
Estimated Creat Clear 15 ml/min 07/14/25 03:24
Total Bilirubin 0.4 mg/dl (0.2-1.3) 07/06/25 13:59
AST 17 U/L (14-36) 07/06/25 13:59
ALT 13 U/L (0-35) 07/06/25 13:59
Alkaline Phosphatase 72 U/L (38-126) 07/06/25 13:59
C-Reactive Protein 55.00 mg/L (0.0-10.00) H 07/11/25 05:38
Most recent labs reviewed.
Micro Results:
07/06/25 19:39 Blood Culture - Final
Blood/Venous No Growth - Final Report
07/06/25 19:33 Blood Culture - Final
Blood/Venous No Growth - Final Report
07/09/25 17:13 Body Fluid Culture - Final
Peritoneal Fluid Enterococcus faecalis
Gram Stain - Final
Fluid Cult/not urine Final 07/09/25
Few Enterococcus faecalis
CRITICAL VALUE [place] [id number]
on 07/10/25 at 1218 by CAROLYNE. COPY PRINTED to printer
#[id number]
Organism 1 Enterococcus faecalis
1. Enterococcus faecalis
M.I.C. RX
--------- ---
Ampicillin <=2 S
Gentamicin Synergy Screen <=500 S
Susceptible result indicates synergy is likely with a cell
wall active agent that is also susceptible
(e.g.ampicillin,penicillin,vancomycin)
Vancomycin 2 S
Imaging:
07/06/2025 CT Abd/pel (oral only)- MILD PNEUMOPERITONEUM in the upper abdomen which is likely secondary to bowel perforation. MILD ACUTE DIVERTICULITIS in the SIGMOID COLON which is likely the etiology of the pneumoperitoneum given the history of
lower abdominal pain (although there is no focal extraluminal air around the sigmoid colon or pericolonic abscess). Minimal peritoneal fluid adjacent to the gallbladder. SEVERE AUTOSOMAL DOMINANT POLYCYSTIC KIDNEY DISEASE with innumerable bilateral
renal cysts. 6.2 cm multiseptated fluid collection in the midline anterior subcutaneous fat of the abdominal wall. Diagnostic possibilities are (1) a complex cyst or (2) an abscess (if there are signs/symptoms of infection). Peritoneal dialysis
catheter in place. Subacute healing fractures of the left pubic bones (possibly insufficiency fractures). Mild osteoporotic insufficiency fractures in the sacrum. Bilateral avascular necrosis of the femoral heads. Moderate scarring in the lower
lungs.
07/06/2025 US Abdomen Complete/Upper- AUTOSOMAL DOMINANT POLYCYSTIC KIDNEY DISEASE with severely enlarged kidneys containing innumerable renal cysts. Mild diffuse liver disease. No sonographic evidence for cholelithiasis or biliary obstruction.
Care Review
Plan reviewed with: Nurse
[2025-07-17 10:41] LABS: ALT (SGPT) 13 U/L (0-35); AST (SGOT) 14 U/L (14-36); Albumin 3.1 g/dl (3.5-5.0); Alkaline Phosphatase 92 U/L (38-126); Blood Urea Nitrogen 23 mg/dl (7-17); Calcium 9.2 mg/dl (8.4-10.2); Carbon Dioxide 25 mmol/L (22-30); Chloride 100 mmol/L (98-107); Estimated Creatinine Clearance 10 ml/min; Glucose 112 mg/dl (70-99); Potassium 4.6 mmol/L (3.5-5.1); Sodium 132 mmol/L (135-145); Total Protein 5.2 g/dl (6.3-8.2); eGFR 6.46
--- NOTE | 2025-07-17 11:57 | VATNOTE ---
VAT rounds: Pt with quickclot on HD site from 07/16 @ 7670, pt to have HD today at 1200, dsg to be changed by HD RN.
[2025-07-17 12:06] VITALS: BP 110/64
[2025-07-17 12:18] VITALS: BP 111/63
[2025-07-17 12:30] VITALS: BP 109/65
[2025-07-17] MEDS: RETACRIT 10000 UNITS IV (13:32)
--- NOTE | 2025-07-17 14:40 | W.PN.CRS1 ---
Today's Communication / Plan
-
npo
iv abx
stop PD
holding on surgery
Assessment/Plan
-
60-year-old female with PMH of polycystic kidney disease associated with ESRD on PD x 2 years, prothrombin deficiency complicated by DVT/PE in 2008 on Coumadin, RLS, GERD/PUD, MACRINA, HTN, HLD who presented with 1 week of gradually worsening abdominal
pain. 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 The following day, she noticed significant bloating. 4 days PHOTOVOLTAIC TECHNICIAN, the bloating improved and she had diarrhea. 3 days PHOTOVOLTAIC TECHNICIAN, the pain became more
concentrated in her lower abdomen. She had some nausea, but no vomiting. Since then, the pain continued to get worse as well as the bloating. She last had a BM that morning and it was normal. She denied any fevers, CP/SOB or urinary symptoms
(she still does urinate about 4 times a day). In the ED, her WBC was 10.[address] scan was done which showed diffuse flecks of free air associated with sigmoid diverticulitis concerning for perforated sigmoid diverticulitis. Additionally, there
was a 6 cm subQ collection near her bellybutton, which likely represents hernia.
AFVSS
WBC 12.7 (10.2, 10.3)
�Perforated diverticulitis in setting of PD cath for dialysis
�Switched to Zosyn IV
�Recommend stopping PD for now
� NPO
� Hold Coumadin for now
�Appreciate nephrology; s/p Shiley and HD
�Patient with known umbilical hernia, pending outpatient consult with Dr. Lynn to consider repair
�Appreciate hospitalist
- Holding on surgery for now. Will follow exam/wbc over the next few days.
Subjective Data
Subjective Data
Date of Service: July 17, 2025
Patient states she developed severe abdominal pain, 07/12, after her PD catheter flush at 3am. This was worse than when she came in. She is currently not passing gas. Pain has helped with dilaudid.
Objective Data
-
Vital Signs
Temp Pulse Resp BP Pulse Ox
97.9 F 93 16 107/91 100
07/17/25 07:42 07/17/25 07:35 07/17/25 07:35 07/17/25 07:35 07/17/25 07:35
Intake & Output
07/16/25 07/17/25 07/18/25
06:59 06:59 06:59
Intake Total 490 / 490 1000 / 1000
Balance 490 / 490 1000 / 1000
Intake:
Oral fluids 490 / 490
Fluid excess 1000 / 1000
Other:
Number of approximated MODERATE 3
amounts of urine
Lab Results
07/17/25 09:32
07/17/25 09:32
Physical Exam
-
General: No Acute Distress and AOx3
Abdomen: Soft, Distended and Tender (RLQ/RUQ - moderate, umbilical hernia noted, mild LLQ pain, PD catheter in place)
Skin: Warm and Dry
--- NOTE | 2025-07-17 14:54 | W.PN.NEPH.HD ---
Assessment
-
pt seen during HD
vitals stable
more pain post PD fluid of 1lit last night
CT noted, mildly increased peritoneal free air
will have nurse to drain any fluid from PD catheter for reculturing
if not may have to dwell another 1lit of fluid for sample collection
abx changed to IV
she is NPO so limited UF only
surg and ID follows
CVC functions well
she is aware that not going back to PD for a while now
Will need HD unit placement moving forward
Progress Note - Hemodialysis
-
Date of Service: July 17, 2025
Duration: 30 minutes and 3 hours
Potassium Bath: 3
Calcium Bath: 2.5
Opti-Dialyzer: 160
Ultrafiltration: Other (1-1.5kg)
Blood Flow: 400
Dialysate Flow: 600
Heparin: no
EPO: [id number]
--- NOTE | 2025-07-17 15:43 | CM ---
F/U: Hospitalist Notes suggest there might be surgery or they will still wait for this. Thus, the plan appears to be that they will transition the patient to PD from HD. PLAN: Anticipate Home No Needs vs. Home VN
[2025-07-17 15:51] LABS: C-Reactive Protein 12.30 mg/L (0.0-10.00)
[2025-07-17] MEDS: HEPARIN 25000 UNITS/250 ML IV (15:57)
[2025-07-17] MEDS: REQUIP PO (16:04)
[2025-07-17] MEDS: UNASYN IV (17:07)
--- NOTE | 2025-07-17 18:43 | PTCARENOTE ---
s/w nephro and attending r/t PD. attempted 1000ml instill and dwell- 500ml instilled, dwelled 1 hr. 0 was able to be drained, unable to obtain sample as ordered. attending and nephrology aware. Pt's pain is improved- exacerbated by movement.
[2025-07-17] MEDS: REMOVE LIDOCAINE PATCH 1 PATCH REMOVE (21:32)
[2025-07-17 22:15] VITALS: BP 116/67
[2025-07-17 22:35] VITALS: BP 116/67
[2025-07-18] MEDS: DILAUDID 0.5 MG IV ×2 (01:57→22:00)
[2025-07-18 05:46] VITALS: BMI 32.3
[2025-07-18 06:03] LABS: Hematocrit 27.7 % (37.0-47.0); Hemoglobin 8.8 g/dL (12.0-16.0); Mean Corp Hgb Conc. 31.8 g/dL (33.0-37.0); Mean Corpuscular Volume 99.6 fL (81.0-99.0); Nucleated Red Blood Cells % 0 %; Platelet Count 228 10^3/uL (130-400); Red Cell Dist. Width 16.3 % (11.5-14.5)
[2025-07-18 06:05] LABS: INR 1.50; PT 18.7 Sec (11.4-14.6)
[2025-07-18 06:08] LABS: APTT 112.0 Sec (23.4-35.0)
[2025-07-18 06:23] LABS: ALT (SGPT) 11 U/L (0-35); AST (SGOT) 14 U/L (14-36); Albumin 2.6 g/dl (3.5-5.0); Alkaline Phosphatase 67 U/L (38-126); Blood Urea Nitrogen 15 mg/dl (7-17); Calcium 8.5 mg/dl (8.4-10.2); Carbon Dioxide 29 mmol/L (22-30); Chloride 100 mmol/L (98-107); Estimated Creatinine Clearance 15 ml/min; Glucose 84 mg/dl (70-99); Potassium 4.3 mmol/L (3.5-5.1); Sodium 132 mmol/L (135-145); Total Protein 4.9 g/dl (6.3-8.2); eGFR 11.20
[2025-07-18] MEDS: LIDOCAINE 4% PATCH 1 PATCH TOPICAL (09:08)
[2025-07-18] MEDS: SYNTHROID 125 MCG PO (09:09)
[2025-07-18] MEDS: ZYRTEC 10 MG PO (09:09)
[2025-07-18] MEDS: PROTONIX 40 MG PO (09:09)
[2025-07-18] MEDS: DILAUDID 0.25 MG IV ×2 (09:12→17:53)
[2025-07-18] MEDS: RENVELA PO ×2 (09:13→16:21)
[2025-07-18 09:24] VITALS: BP 109/55
--- NOTE | 2025-07-18 09:30 | W.PN.CRS1 ---
Today's Communication / Plan
-
wbc improving
clears to fulls
Assessment/Plan
-
60-year-old female with PMH of polycystic kidney disease associated with ESRD on PD x 2 years, prothrombin deficiency complicated by DVT/PE in 2008 on Coumadin, RLS, GERD/PUD, MACRINA, HTN, HLD who presented with 1 week of gradually worsening abdominal
pain. 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 The following day, she noticed significant bloating. 4 days ELECTRICAL TESTS SUPERVISOR, the bloating improved and she had diarrhea. 3 days ELECTRICAL TESTS SUPERVISOR, the pain became more
concentrated in her lower abdomen. She had some nausea, but no vomiting. Since then, the pain continued to get worse as well as the bloating. She last had a BM that morning and it was normal. She denied any fevers, CP/SOB or urinary symptoms
(she still does urinate about 4 times a day). In the ED, her WBC was 10.[address] scan was done which showed diffuse flecks of free air associated with sigmoid diverticulitis concerning for perforated sigmoid diverticulitis. Additionally, there
was a 6 cm subQ collection near her bellybutton, which likely represents hernia.
AFVSS
WBC 10.7 (12.7, 10.2, 10.3)
�Perforated diverticulitis in setting of PD cath for dialysis
�Switched to Zosyn IV
�Recommend stopping PD for now
� Advance to clears and fulls if tolerates
� Hold Coumadin for now
�Appreciate nephrology; s/p Patricia and HD
�Patient with known umbilical hernia, pending outpatient consult with Dr. Lynn to consider repair
�Appreciate hospitalist
- Holding on surgery for now. Will follow exam/wbc over the next few days.
Subjective Data
Subjective Data
Date of Service: July 18, 2025
Patient states she feels much better today. She has not had a bowel movement but she has flatus. She is very hungry. Her pain is less.
Objective Data
-
Vital Signs
Temp Pulse Resp BP Pulse Ox
98.6 F 94 18 116/67 95
07/18/25 08:14 07/17/25 22:35 07/17/25 22:35 07/17/25 22:35 07/17/25 21:53
Intake & Output
07/17/25 07/18/25 07/19/25
06:59 06:59 06:59
Intake Total 1000 / 1000
Balance 1000 / 1000
Intake:
Fluid excess 1000 / 1000
Other:
Number of approximated MODERATE 3
amounts of urine
Number of approximated LARGE 1
amounts of urine
Lab Results
07/18/25 05:35
07/18/25 05:35
Physical Exam
-
General: No Acute Distress and AOx3
Abdomen: Soft, Distended (mild) and Tender (RUQ/RLQ, LLQ- mild)
Skin: Warm
--- NOTE | 2025-07-18 09:46 | W.PN.ID1 ---
Addendum entered and electronically signed by Omar Dyson DO 07/18/25 10:58:
I saw and evaluated the patient. I reviewed the resident�s note and agree with findings and plan as documented in the resident�s note.
Continue Unasyn.
Follow WBC and pain level.
Original Note:
Date of Service
Date of Service: July 18, 2025
Today's Communication
Continue Unasyn
Assessment / Plan
# Acute abdominal pain
- Improved
# Leukocytosis
# Acute sigmoid diverticulitis
# Pneumoperitoneum
# Polycystic kidney disease
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
Prothrombin Deficiency
Chronic normocytic anemia
Hypothyroidism
Hyperlipidemia
Recent GI bleeds/Gastric Ulcer
Plan:
Prior peritoneal fluid cx E. faecalis
CT scan shows persistent mild pneumoperitoneum with possible slight increase to volume
White count improved today
S/p Zosyn 2.25 gm q12 (x7d. Finished 07/12/2025)
S/p Augmentin 875 mg q.24 hours (Started 07/12/2025- 07/17/2025)
D/Cd Augmentin yesterday and started Unasyn 3gm q24 hours yesterday (07/17/2025)
Follow Temp Curve, WBC count
Continue Unasyn (day#2)
����������������������������������������������������������
Chief Complaint
-: Other (Diverticulitis with perforation, peritonitis)
Subjective / Review of Systems
Patient seen resting comfortably in her bed. Reports that she has been feeling a bit more constipated but otherwise has had no fevers or chills. Reports feeling a bit worse than before but overall not too much change.
Review of Systems: No Fever, No Chills, No Headache, No Cough, Abdominal Pain, No Nausea and No Vomiting
Vital Signs / Physical Exam
Vital Signs
Vital Signs
Temp Pulse Resp BP Pulse Ox
98.6 F 94 18 116/67 95
07/18/25 08:14 07/17/25 22:35 07/17/25 22:35 07/17/25 22:35 07/17/25 21:53
Physical Exam
Constitutional: No Acute Distress, Comfortable and Non-toxic
Eyes: Sclera Anicteric
Cardiovascular: Regular Rate and S1/S2; Negative S3/S4
Pulmonary: Clear and Non Labored
Gastrointestinal: Soft, Tender (Mild diffuse tenderness), Distended and Normal Bowel Sounds
Extremities: Edema and Other (PD catheter in place without exit site erythema.); Negative Cyanosis or Erythema
Neurological: Awake and Alert
Psychological: Calm
Lines: HD Cath (Right ACW)
Objective Data
Lab Data
Lab Results
07/18/25 05:35
07/18/25 05:35
PT 18.7 Sec (11.4-14.6) H 07/18/25 05:35
INR 1.50 07/18/25 05:35
APTT 112.0 Sec (23.4-35.0) H 07/18/25 05:35
Estimated Creat Clear 15 ml/min 07/18/25 05:35
Total Bilirubin 0.7 mg/dl (0.2-1.3) 07/18/25 05:35
AST 14 U/L (14-36) 07/18/25 05:35
ALT 11 U/L (0-35) 07/18/25 05:35
Alkaline Phosphatase 67 U/L (38-126) 07/18/25 05:35
C-Reactive Protein 12.30 mg/L (0.0-10.00) H 07/17/25 09:32
Most recent labs reviewed.
Micro Results:
07/06/25 19:39 Blood Culture - Final
Blood/Venous No Growth - Final Report
07/06/25 19:33 Blood Culture - Final
Blood/Venous No Growth - Final Report
07/09/25 17:13 Body Fluid Culture - Final
Peritoneal Fluid Enterococcus faecalis
Gram Stain - Final
Fluid Cult/not urine Final 07/09/25
Few Enterococcus faecalis
CRITICAL VALUE [place] [id number]
on 07/10/25 at 1218 by CAROLYNE. COPY PRINTED to printer
#[id number]
Organism 1 Enterococcus faecalis
1. Enterococcus faecalis
M.I.C. RX
--------- ---
Ampicillin <=2 S
Gentamicin Synergy Screen <=500 S
Susceptible result indicates synergy is likely with a cell
wall active agent that is also susceptible
(e.g.ampicillin,penicillin,vancomycin)
Vancomycin 2 S
Imaging:
07/17/2025 CT Abd/pel (IV and Oral)- Persistent mild pneumoperitoneum, which is similar to slightly increased in volume compared to the CT abdomen/pelvis from 07/06/2025 and remains concerning for a perforated viscus. Stable complex fluid collection
of the anterior abdominal wall at the level of the umbilicus. Severe autosomal dominant polycystic kidney disease.
07/06/2025 CT Abd/pel (oral only)- MILD PNEUMOPERITONEUM in the upper abdomen which is likely secondary to bowel perforation. MILD ACUTE DIVERTICULITIS in the SIGMOID COLON which is likely the etiology of the pneumoperitoneum given the history of
lower abdominal pain (although there is no focal extraluminal air around the sigmoid colon or pericolonic abscess). Minimal peritoneal fluid adjacent to the gallbladder. SEVERE AUTOSOMAL DOMINANT POLYCYSTIC KIDNEY DISEASE with innumerable bilateral
renal cysts. 6.2 cm multiseptated fluid collection in the midline anterior subcutaneous fat of the abdominal wall. Diagnostic possibilities are (1) a complex cyst or (2) an abscess (if there are signs/symptoms of infection). Peritoneal dialysis
catheter in place. Subacute healing fractures of the left pubic bones (possibly insufficiency fractures). Mild osteoporotic insufficiency fractures in the sacrum. Bilateral avascular necrosis of the femoral heads. Moderate scarring in the lower
lungs.
07/06/2025 US Abdomen Complete/Upper- AUTOSOMAL DOMINANT POLYCYSTIC KIDNEY DISEASE with severely enlarged kidneys containing innumerable renal cysts. Mild diffuse liver disease. No sonographic evidence for cholelithiasis or biliary obstruction.
CT Scan: Image Reviewed and Report Reviewed
--- NOTE | 2025-07-18 12:02 | W.PN.HOSP.TC ---
Today's Communication/Plan
-
since no plans for Sx - restarting warfarin bridge
Unasyn
cont Heparin
Assessment / Plan
Assessment / Plan
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 CT showed umbilical hernia described as 6.2 cm multiseptated fluid collection in the midline
anterior subcutaneous fat of the abdominal wall (as discussed with [facility], and mild diverticulitis with pneumoperitoneum. Improved on IV Abx. Switched to HD with R tunneled catheter. Peritoneal culture grew E.faecalis. ID recommended to
complete Augmentin on 07/19/25. Tolerated food. Was started on Coumadin bridging since no concern for the surgical intervention from Col[facility]
A/P:
#Acute mild diverticulitis with pneumoperitoneum and possible peritonitis
Re-developed severe abd pain after rial of short PD mick fluid sampling on 07/16/25. Repeating CT abd/pelvis with contrast showed previously with pneumoperitoneum, however colorectal Sx contributed that to PD. ALso cystic collection in abd wall -
most likely hernia. Switched back to Unasyn as per ID on 07/18/25. Attempting to get repeated peritoneal fluid for Cx, however no return as per RN - defer to [facility]. Recommended to hold PD as long as possible
[facility] followed: follow up in office in 2-[address] Montemayor
IV Abx as per ID
improving
advance diet
Peritoneal fluid with Enterococcus faecalis sensitive to ampicillin
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
#Anemia 2/2 ESRD
Epo as per [facility]
Now on HD as per laboratory aide
#Pruritus
mostly to L shoulder
no visible rash
Zyrtec
#Hx of DVT with prothrombin deficiency
Since [facility] signed off - start bridging to Coumadin, target INR 2.0-3.0
#Mild osteoporotic insufficiency Fx of the sacrum
#Subacute L pubic bone Fx
#b/l avascular necrosis of femoral heads
2/2 osteoporosis and ESRD
outpatient mgmt
#Hypothyroidism
#HLD
#GERD
cont home meds
DVT ppx hep
Full code
I have spent at least 55min reviewing chart, test results, communication with consultants and providing direct patient care
Anticipated Discharge: > 48 hours
Subjective/Interval History
-
Date of Service: July 18, 2025
Objective Data
-
Labs:
Laboratory Results
07/18/25 07/18/25
05:35 15:00
WBC 10.7
Hgb 8.8 L
Hct 27.7 L
Plt Count 228
PT 18.7 H
INR 1.50
APTT 112.0 H Pending
Sodium 132 L
Potassium 4.3
Chloride 100
Carbon Dioxide 29
BUN 15
Creatinine 4.3 H*
Glucose 84
Calcium 8.5
Total Bilirubin 0.7
AST 14
ALT 11
Alkaline Phosphatase 67
Vital Signs:
Vital Signs
Temp Pulse Resp BP Pulse Ox
98.6 F 84 16 109/55 95
07/18/25 08:14 07/18/25 08:55 07/18/25 08:55 07/18/25 09:24 07/17/25 21:53
I&O
07/17/25 07/18/25 07/19/25
06:59 06:59 06:59
Intake Total 1000 / 1000
Balance 1000 / 1000
Review of Systems
-
History Source: Patient
All other systems: Reviewed and negative
Physical Exam
-
General: Comfortable
HEENT: Normocephalic
GI: Soft, Nondistended and Tender (LLQ and RLQ)
Neuro: Awake, Alert, Oriented and AO x 3
Psych: Calm
--- NOTE | 2025-07-18 12:30 | W.PN.NEPH.PH ---
Today's Communication / Plan
-
HD tomorrow
Assessment/Plan
-
Assessment:
Perforated diverticulitis in setting of PD cath for dialysis
ESRD on PD since 2021
Polycystic kidney disease leading on to end-stage renal disease
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
History of recent GI bleed/gastric ulcer
Chr anemia
Hyperlipidemia
Hypothyroidism
Secondary PTH
History hypertension
Hyperphosphatemia
mild hyponatremia
Plan:
Trial of getting PD fluid sample not successful with no fluid drain after 500cc dwell
suspect PD catheter needs further eval prior returning PD
she will remain on HD for a while till infection completely resolved
cont IV abx per ID
Awaiting Coumadin bridge
hemodynamically stable
HD tomorrow
-
-
Date of Service: July 18, 2025
CC / HPI / ROS
-
Chief Complaint:
ESRD
History of Present Illness:
off PD due to perf bowel/diverticulitis, on Abx
BP stable
hgb low at 8.8
tolerated HD yesterday
on heparin gtt
Review of Systems:
no CP/SOB
tolerating diet today
Labs
-
Labs:
WBC 10.7 10^3/uL (4.8-10.8) 07/18/25 05:35
RBC 2.78 10^6/uL (4.20-5.40) L 07/18/25 05:35
Plt Count 228 10^3/uL (130-400) 07/18/25 05:35
Sodium 132 mmol/L (135-145) L 07/18/25 05:35
Potassium 4.3 mmol/L (3.5-5.1) 07/18/25 05:35
Chloride 100 mmol/L (98-107) 10/16/25 05:35
Carbon Dioxide 29 mmol/L (22-30) 07/18/25 05:35
BUN 15 mg/dl (7-17) 07/18/25 05:35
Creatinine 4.3 mg/dL (0.6-1.0) H* 07/18/25 05:35
eGFR 11.20 07/18/25 05:35
Glucose 84 mg/dl (70-99) 07/18/25 05:35
Calcium 8.5 mg/dl (8.4-10.2) 07/18/25 05:35
Albumin 2.6 g/dl (3.5-5.0) L 07/18/25 05:35
Physical Exam
-
Vital Signs:
Vital Signs
Temp Pulse Resp BP Pulse Ox
98.6 F 84 16 109/55 95
07/18/25 08:14 07/18/25 08:55 07/18/25 08:55 07/18/25 09:24 07/17/25 21:53
Cardiovascular:: Regular rate and rhythm
Respiratory:: Bilateral: CTA
Lung Excursion:: Normal
Abdomen:: Distended, Soft and Tender (right side mostly)
Bowel Sounds:: Normal
Extremity Edema:: None: Bilateral:
Steven Catheter: No
--- NOTE | 2025-07-18 14:29 | PTCARENOTE ---
Attempted to drain for peritoneal fluid specimen- nothing returned. TT to Dr. Dyson
[2025-07-18] MEDS: HEPARIN 25000 UNITS/250 ML IV (15:38)
[2025-07-18 15:47] LABS: Hematocrit 26.4 % (37.0-47.0); Hemoglobin 8.7 g/dL (12.0-16.0)
--- NOTE | 2025-07-18 16:08 | CM ---
F/U: RN stated that patient is going to be drained by RN today, that they are going to try 1/2 liquids to graduate to full, now on Cumadin again, so possible transition to PD soon (?). PT/OT will evaluate as patient has been here for sometime. PLAN:
Anticipate Home PT vs. No Needs.
[2025-07-18 16:21] LABS: APTT 71.6 Sec (23.4-35.0)
--- NOTE | 2025-07-18 16:38 | PTCARENOTE ---
PTT assessed - increased by 200unit/hr - pt refused bolus. Next ptt at 2230.
[2025-07-18] MEDS: COUMADIN 6 MG PO (17:52)
[2025-07-18] MEDS: RENVELA 2400 MG PO (17:52)
[2025-07-18] MEDS: REQUIP 2 MG PO (17:52)
[2025-07-18] MEDS: UNASYN IV (17:53)
[2025-07-18] MEDS: REMOVE LIDOCAINE PATCH REMOVE (21:52)
[2025-07-18 21:54] VITALS: BP 134/65
[2025-07-18 22:54] VITALS: BP 134/65
[2025-07-18 23:20] LABS: APTT 120.0 Sec (23.4-35.0)
--- NOTE | 2025-07-19 00:32 | PTCARENOTE ---
Pt AAOx3 able to make needs known. Pt having complaints of pain see mar for medication tech. Pt continues on Heparin gtt last PTT reading 120. Per order heparin gtt decreased to 900U/hr. Call nava with in reach bed in lowest position.
[2025-07-19] MEDS: DILAUDID 0.5 MG IV ×2 (05:02→22:31)
[2025-07-19 05:59] LABS: INR 1.59; PT 19.4 Sec (11.4-14.6)
[2025-07-19 06:00] VITALS: BMI 32.5
[2025-07-19 06:00] LABS: APTT 98.0 Sec (23.4-35.0)
[2025-07-19 07:16] VITALS: BP 130/65
--- NOTE | 2025-07-19 07:42 | W.PN.CRS1 ---
Today's Communication / Plan
-
low residue
Assessment/Plan
-
60-year-old female with PMH of polycystic kidney disease associated with ESRD on PD x 2 years, prothrombin deficiency complicated by DVT/PE in 2008 on Coumadin, RLS, GERD/PUD, MACRINA, HTN, HLD who presented with 1 week of gradually worsening abdominal
pain. 6 days STATISTICAL CLERK ADVERTISING, she noticed some pain near her bellybutton and somewhat towards the right. The following day, she noticed significant bloating. 4 days STATISTICAL CLERK ADVERTISING, the bloating improved and she had diarrhea. 3 days STATISTICAL CLERK ADVERTISING, the pain became more
concentrated in her lower abdomen. She had some nausea, but no vomiting. Since then, the pain continued to get worse as well as the bloating. She last had a BM that morning and it was normal. She denied any fevers, CP/SOB or urinary symptoms
(she still does urinate about 4 times a day). In the ED, her WBC was 10.[address] scan was done which showed diffuse flecks of free air associated with sigmoid diverticulitis concerning for perforated sigmoid diverticulitis. Additionally, there
was a 6 cm subQ collection near her bellybutton, which likely represents hernia.
AFVSS
WBC pending (10.7)
�Perforated diverticulitis in setting of PD cath for dialysis
�Switched to Zosyn IV
�Recommend stopping PD for now
� Advance to low residue.
� Okay for coumadin
�Appreciate nephrology; s/p Patricia and HD
�Patient with known umbilical hernia, pending outpatient consult with Dr. Lynn to consider repair
�Appreciate hospitalist
- Holding on surgery for now.Will sign off, call with any questions.
Subjective Data
Subjective Data
Date of Service: July 19, 2025
Jackson okay until 4am when she moved. She is hungry. Tolerated fulls. No nausea or vomiting. pain less.
Objective Data
-
Vital Signs
Temp Pulse Resp BP Pulse Ox
98.4 F 92 18 134/65 96
07/18/25 22:54 07/18/25 22:54 07/18/25 22:54 07/18/25 22:54 07/18/25 23:15
Intake & Output
07/18/25 07/19/25 07/20/25
06:59 06:59 06:59
Intake Total 120 / 120
Balance 120 / 120
Intake:
Oral fluids 120 / 120
Other:
Number of approximated SMALL 1
amounts of urine
Number of approximated MODERATE 1
amounts of urine
Number of approximated LARGE 1
amounts of urine
Physical Exam
-
General: No Acute Distress and AOx3
Abdomen: Soft, Non Distended and Tender (mild RUQ/RLQ, LLQ)
Skin: Warm and Dry
[2025-07-19] MEDS: RENVELA PO (08:00)
--- NOTE | 2025-07-19 08:38 | W.PN.HOSP.TC ---
Today's Communication/Plan
-
cont bridging
cont Unasyn
regular diet today
Assessment / Plan
Assessment / Plan
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 CT showed umbilical hernia described as 6.2 cm multiseptated fluid collection in the midline
anterior subcutaneous fat of the abdominal wall (as discussed with [facility], and mild diverticulitis with pneumoperitoneum. Improved on IV Abx. Switched to HD with R tunneled catheter. Peritoneal culture grew E.faecalis. ID recommended to
complete Augmentin on 07/19/25. Tolerated food. Was started on Coumadin bridging since no concern for the surgical intervention from [facility], then developed worsening abd pain after attempt to reinstate and collect peritoneal fluid for Cx.
[facility] opinion that pneumoperitoneum is due to peritoneal catheter and swanson can also be related to that so patient advised to continue on HD.
A/P:
#Acute mild diverticulitis with pneumoperitoneum and possible peritonitis
Re-developed severe abd pain after rial of short PD mick fluid sampling on 07/16/25. Repeating CT abd/pelvis with contrast showed previously with pneumoperitoneum, however colorectal Sx contributed that to PD. ALso cystic collection in abd wall -
most likely hernia. Switched back to Unasyn as per ID on 07/18/25. Attempting to get repeated peritoneal fluid for Cx, however no return as per RN - defer to Manager Hris. Recommended to hold PD as long as possible
[facility] followed: follow up in office in 2-[address] Montemayor
IV Abx as per ID
improving
advance diet
Peritoneal fluid with Enterococcus faecalis sensitive to ampicillin
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
#Anemia 2/2 ESRD
Epo as per Manager Hris
Now on HD as per maintenance supervisor 2nd shift
#Pruritus
mostly to L shoulder
no visible rash
Zyrtec
#Hx of DVT with prothrombin deficiency
Since [facility] signed off - start bridging to Coumadin, target INR 2.0-3.0
#Mild osteoporotic insufficiency Fx of the sacrum
#Subacute L pubic bone Fx
#b/l avascular necrosis of femoral heads
2/2 osteoporosis and ESRD
outpatient mgmt
#Hypothyroidism
#HLD
#GERD
cont home meds
DVT ppx hep
Full code
I have spent at least 51min reviewing chart, test results, communication with consultants and providing direct patient care
Anticipated Discharge: > 48 hours
Subjective/Interval History
-
Date of Service: July 19, 2025
Objective Data
-
Labs:
Laboratory Results
07/18/25 07/19/25 07/19/25
22:58 05:32 06:00
WBC Pending
Hgb Pending
Hct Pending
Plt Count Pending
PT 19.4 H Pending
INR 1.59 Pending
APTT 120.0 H 98.0 H
Sodium Pending
Potassium Pending
Chloride Pending
Carbon Dioxide Pending
BUN Pending
Creatinine Pending
Glucose Pending
Calcium Pending
Total Bilirubin Pending
AST Pending
ALT Pending
Alkaline Phosphatase Pending
07/19/25
11:45
WBC
Hgb
Hct
Plt Count
PT
INR
APTT Pending
Sodium
Potassium
Chloride
Carbon Dioxide
BUN
Creatinine
Glucose
Calcium
Total Bilirubin
AST
ALT
Alkaline Phosphatase
Vital Signs:
Vital Signs
Temp Pulse Resp BP Pulse Ox
98.2 F 76 16 130/65 98
07/19/25 07:16 07/19/25 07:16 07/19/25 07:16 07/19/25 07:16 07/19/25 07:16
I&O
07/18/25 07/19/25 07/20/25
06:59 06:59 06:59
Intake Total 120 / 120
Balance 120 / 120
Review of Systems
-
History Source: Patient
All other systems: Reviewed and negative
Physical Exam
-
General: No Apparent Distress
HEENT: Normocephalic
Respiratory: Clear to Auscultation
Cardiac: Regular Rhythm
GI: Soft, Nontender and Distended
Musculoskeletal: No Clubbing, No Cyanosis and No Edema
Neuro: Awake, Alert, Oriented and AO x 3
Psych: Calm
[2025-07-19] MEDS: RETACRIT 10000 UNITS IV (08:52)
[2025-07-19 09:35] LABS: Hematocrit 24.1 % (37.0-47.0); Hemoglobin 8.1 g/dL (12.0-16.0); Mean Corp Hgb Conc. 33.6 g/dL (33.0-37.0); Mean Corpuscular Volume 98.0 fL (81.0-99.0); Nucleated Red Blood Cells % 0 %; Platelet Count 242 10^3/uL (130-400); Red Cell Dist. Width 15.6 % (11.5-14.5)
[2025-07-19 09:40] LABS: INR 1.68; PT 20.0 Sec (11.4-14.6)
[2025-07-19 10:12] LABS: ALT (SGPT) < 10 U/L (0-35); AST (SGOT) 13 U/L (14-36); Albumin 2.4 g/dl (3.5-5.0); Alkaline Phosphatase 67 U/L (38-126); Blood Urea Nitrogen 26 mg/dl (7-17); Calcium 8.4 mg/dl (8.4-10.2); Carbon Dioxide 26 mmol/L (22-30); Chloride 100 mmol/L (98-107); Estimated Creatinine Clearance 10 ml/min; Glucose 58 mg/dl (70-99); Potassium 4.6 mmol/L (3.5-5.1); Sodium 132 mmol/L (135-145); Total Protein 4.6 g/dl (6.3-8.2); eGFR 6.82
--- NOTE | 2025-07-19 10:32 | W.PN.ID1 ---
Addendum entered and electronically signed by Omar Dyson, 07/19/25 13:42:
I saw and evaluated the patient. I reviewed the resident�s note and agree with findings and plan as documented in the resident�s note.
Continue Unasyn for now.
Follow abdominal discomfort.
If continued clinical stability/improvement, will transition back to oral Augmentin.
Original Note:
Date of Service
Date of Service: July 19, 2025
Today's Communication
Continue Unasyn
Assessment / Plan
# Acute abdominal pain
- Improved
# Leukocytosis
# Acute sigmoid diverticulitis
# Pneumoperitoneum
# Polycystic kidney disease
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
Prothrombin Deficiency
Chronic normocytic anemia
Hypothyroidism
Hyperlipidemia
Recent GI bleeds/Gastric Ulcer
Plan:
Prior peritoneal fluid cx E. faecalis
CT scan shows persistent mild pneumoperitoneum with possible slight increase to volume
White count improved today
S/p Zosyn 2.25 gm q12 (x7d. Finished 07/12/2025)
S/p Augmentin 875 mg q.24 hours (Started 07/12/2025- 07/17/2025)
Follow Temp Curve, WBC count
Continue Unasyn (day#3)
Follow for clinical improvement
����������������������������������������������������������
Chief Complaint
-: Other (Diverticulitis with perforation, peritonitis)
Subjective / Review of Systems
Patient seen this morning, resting in her bed while on hemodialysis treatment. Says that she had some increased abdominal pain last night when she turned her sleeping and laid on her bed. Continues to have tenderness in her abdomen since that.
Reports pain being around 6 out of 10 mainly on her right lower quadrant and middle lower quadrant of the abdomen. Overall not much change since yesterday, reports no fever or chills.
Review of Systems: No Fever, No Chills, No Headache, Abdominal Pain, Nausea, No Vomiting and No Diarrhea
Vital Signs / Physical Exam
Vital Signs
Vital Signs
Temp Pulse Resp BP Pulse Ox
98.2 F 76 16 130/65 98
07/19/25 07:16 07/19/25 07:16 07/19/25 07:16 07/19/25 07:16 07/19/25 07:16
Physical Exam
Constitutional: No Acute Distress, Comfortable and Non-toxic
Eyes: Sclera Anicteric
Cardiovascular: Regular Rate and S1/S2; Negative S3/S4
Pulmonary: Clear and Non Labored
Gastrointestinal: Soft, Tender (6 out of 10 pain upon palpation, most pain ion right lower quadrant), Distended and Normal Bowel Sounds
Extremities: Edema and Other (PD catheter in place without exit site erythema.); Negative Cyanosis or Erythema
Skin: Warm and Dry
Neurological: Awake and Alert
Psychological: Calm
Lines: HD Cath (Right ACW)
Objective Data
Lab Data
Lab Results
07/19/25 09:09
07/19/25 09:09
PT 20.0 Sec (11.4-14.6) H 07/19/25 09:09
INR 1.68 07/19/25 09:09
APTT 98.0 Sec (23.4-35.0) H 07/19/25 05:32
Estimated Creat Clear 10 ml/min 07/19/25 09:09
Total Bilirubin 0.7 mg/dl (0.2-1.3) 07/19/25 09:09
AST 13 U/L (14-36) L 07/19/25 09:09
ALT < 10 U/L (0-35) 07/19/25 09:09
Alkaline Phosphatase 67 U/L (38-126) 07/19/25 09:09
C-Reactive Protein 12.30 mg/L (0.0-10.00) H 07/17/25 09:32
Most recent labs reviewed.
Micro Results:
07/06/25 19:39 Blood Culture - Final
Blood/Venous No Growth - Final Report
07/06/25 19:33 Blood Culture - Final
Blood/Venous No Growth - Final Report
07/09/25 17:13 Body Fluid Culture - Final
Peritoneal Fluid Enterococcus faecalis
Gram Stain - Final
Fluid Cult/not urine Final 07/09/25
Few Enterococcus faecalis
CRITICAL VALUE [place] [id number]
on 07/10/25 at 1218 by CAROLYNE. COPY PRINTED to printer
#[id number]
Organism 1 Enterococcus faecalis
1. Enterococcus faecalis
M.I.C. RX
--------- ---
Ampicillin <=2 S
Gentamicin Synergy Screen <=500 S
Susceptible result indicates synergy is likely with a cell
wall active agent that is also susceptible
(e.g.ampicillin,penicillin,vancomycin)
Vancomycin 2 S
Imaging:
07/17/2025 CT Abd/pel (IV and Oral)- Persistent mild pneumoperitoneum, which is similar to slightly increased in volume compared to the CT abdomen/pelvis from 07/06/2025 and remains concerning for a perforated viscus. Stable complex fluid collection
of the anterior abdominal wall at the level of the umbilicus. Severe autosomal dominant polycystic kidney disease.
07/06/2025 CT Abd/pel (oral only)- MILD PNEUMOPERITONEUM in the upper abdomen which is likely secondary to bowel perforation. MILD ACUTE DIVERTICULITIS in the SIGMOID COLON which is likely the etiology of the pneumoperitoneum given the history of
lower abdominal pain (although there is no focal extraluminal air around the sigmoid colon or pericolonic abscess). Minimal peritoneal fluid adjacent to the gallbladder. SEVERE AUTOSOMAL DOMINANT POLYCYSTIC KIDNEY DISEASE with innumerable bilateral
renal cysts. 6.2 cm multiseptated fluid collection in the midline anterior subcutaneous fat of the abdominal wall. Diagnostic possibilities are (1) a complex cyst or (2) an abscess (if there are signs/symptoms of infection). Peritoneal dialysis
catheter in place. Subacute healing fractures of the left pubic bones (possibly insufficiency fractures). Mild osteoporotic insufficiency fractures in the sacrum. Bilateral avascular necrosis of the femoral heads. Moderate scarring in the lower
lungs.
07/06/2025 US Abdomen Complete/Upper- AUTOSOMAL DOMINANT POLYCYSTIC KIDNEY DISEASE with severely enlarged kidneys containing innumerable renal cysts. Mild diffuse liver disease. No sonographic evidence for cholelithiasis or biliary obstruction.
--- NOTE | 2025-07-19 12:04 | W.PN.NEPH.HD ---
Assessment
-
Seen on dialysis tolerating treatment
Progress Note - Hemodialysis
-
Date of Service: July 19, 2025
Duration: 30 minutes and 3 hours
Potassium Bath: 3
Calcium Bath: 2.5
Opti-Dialyzer: 160
Ultrafiltration: Other (1-1.5kg)
Blood Flow: 400
Dialysate Flow: 600
Heparin: no
EPO: [id number]
[2025-07-19] MEDS: RENVELA 2400 MG PO ×2 (12:44→17:42)
[2025-07-19] MEDS: LIDOCAINE 4% PATCH 1 PATCH TOPICAL (12:45)
[2025-07-19] MEDS: SYNTHROID 125 MCG PO (12:45)
[2025-07-19] MEDS: ZYRTEC 10 MG PO (12:45)
[2025-07-19] MEDS: PROTONIX 40 MG PO (12:45)
[2025-07-19 12:57] LABS: APTT 82.6 Sec (23.4-35.0)
[2025-07-19] MEDS: COLACE 100 MG PO ×2 (14:04→20:35)
--- NOTE | 2025-07-19 14:08 | CM ---
F/U: Hospitalist stated that patient will continuing Coumadin, on IV Abx hopefully oral soon according to I.D, and continue a regular diet. ENEDINA Worley has not seen notes that patient started PD yet. PLAN: Anticipate Home No Needs vs. Home PT.
[2025-07-19 15:14] VITALS: BP 116/68
[2025-07-19 15:38] VITALS: BP 116/68
[2025-07-19] MEDS: UNASYN IV (17:36)
[2025-07-19] MEDS: HEPARIN 25000 UNITS/250 ML IV (17:36)
[2025-07-19] MEDS: DILAUDID 0.25 MG IV (17:36)
[2025-07-19] MEDS: REQUIP 2 MG PO (17:42)
[2025-07-19] MEDS: COUMADIN 6 MG PO (17:42)
--- NOTE | 2025-07-19 18:26 | PTCARENOTE ---
Report given to Ruy for 321. Awaiting room clean.
Pt had HD today no difficulties. Remains on IV Heparin - therapeutic x 2 next PTT in am. IV Unasyn infused. LC/ RA, PD cath intact clamped. + BM today started colace. Oliguric. C/o abd. pain this pm- IV Dilaudid given as ordered.
[2025-07-19 20:06] VITALS: BP 131/74
[2025-07-19] MEDS: REMOVE LIDOCAINE PATCH 1 PATCH REMOVE (20:35)
[2025-07-19 23:00] VITALS: BP 117/81
--- NOTE | 2025-07-20 00:36 | PTCARENOTE ---
pt arrived via wheelchair and ambulated to bedside. Pt oriented to room, call nava within reach, bed set in lowest position. Will continue plan of care.
[2025-07-20] MEDS: DILAUDID 0.5 MG IV ×3 (03:01→20:40)
[2025-07-20 06:00] VITALS: BMI 32.1
[2025-07-20 06:59] LABS: Hematocrit 23.8 % (37.0-47.0); Hemoglobin 8.1 g/dL (12.0-16.0); Mean Corp Hgb Conc. 34.0 g/dL (33.0-37.0); Mean Corpuscular Volume 96.7 fL (81.0-99.0); Platelet Count 243 10^3/uL (130-400); Red Cell Dist. Width 15.0 % (11.5-14.5)
[2025-07-20 07:18] LABS: INR 1.79; PT 21.0 Sec (11.4-14.6)
[2025-07-20 07:20] LABS: APTT 97.3 Sec (23.4-35.0)
[2025-07-20 08:01] VITALS: BP 132/67
[2025-07-20] MEDS: LIDOCAINE 4% PATCH 1 PATCH TOPICAL (08:49)
[2025-07-20] MEDS: SYNTHROID 125 MCG PO (08:49)
[2025-07-20] MEDS: PROTONIX 40 MG PO (08:49)
[2025-07-20] MEDS: ZYRTEC 10 MG PO (08:49)
[2025-07-20] MEDS: RENVELA 2400 MG PO ×2 (08:49→17:09)
[2025-07-20] MEDS: COLACE 100 MG PO ×2 (08:50→19:53)
--- NOTE | 2025-07-20 10:30 | W.PN.HOSP.TC ---
Today's Communication/Plan
-
pain improved after BM
cont bridging
Assessment / Plan
Assessment / Plan
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 CT showed umbilical hernia described as 6.2 cm multiseptated fluid collection in the midline
anterior subcutaneous fat of the abdominal wall (as discussed with [facility], and mild diverticulitis with pneumoperitoneum. Improved on IV Abx. Switched to HD with R tunneled catheter. Peritoneal culture grew E.faecalis. ID recommended to
complete Augmentin on 07/19/25. Tolerated food. Was started on Coumadin bridging since no concern for the surgical intervention from Col[facility], then developed worsening abd pain after attempt to reinstate and collect peritoneal fluid for Cx.
[facility] opinion that pneumoperitoneum is due to peritoneal catheter and swanson can also be related to that so patient advised to continue on HD.
A/P:
#Acute mild diverticulitis with pneumoperitoneum and possible peritonitis
Re-developed severe abd pain after rial of short PD mick fluid sampling on 07/16/25. Repeating CT abd/pelvis with contrast showed previously with pneumoperitoneum, however colorectal Sx contributed that to PD. ALso cystic collection in abd wall -
most likely hernia. Switched back to Unasyn as per ID on 07/18/25. Attempting to get repeated peritoneal fluid for Cx, however no return as per RN - defer to Information Engineer. Recommended to hold PD as long as possible
[facility] followed: follow up in office in 2-[address] Montemayor
IV Abx as per ID
improving
advance diet
Peritoneal fluid with Enterococcus faecalis sensitive to ampicillin
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
#Anemia 2/2 ESRD
Epo as per Information Engineer
Now on HD as per enrollment services dean
#Pruritus
mostly to L shoulder
no visible rash
Zyrtec
#Hx of DVT with prothrombin deficiency
Since [facility] signed off - start bridging to Coumadin, target INR 2.0-3.0
#Mild osteoporotic insufficiency Fx of the sacrum
#Subacute L pubic bone Fx
#b/l avascular necrosis of femoral heads
2/2 osteoporosis and ESRD
outpatient mgmt
#Hypothyroidism
#HLD
#GERD
cont home meds
DVT ppx hep
Full code
I have spent at least 51min reviewing chart, test results, communication with consultants and providing direct patient care
Anticipated Discharge: 24 - 48 hours
Subjective/Interval History
-
Date of Service: July 20, 2025
Objective Data
-
Labs:
Laboratory Results
07/20/25
06:32
WBC 8.4
Hgb 8.1 L
Hct 23.8 L
Plt Count 243
PT 21.0 H
INR 1.79
APTT 97.3 H
Vital Signs:
Vital Signs
Temp Pulse Resp BP Pulse Ox
97.8 F 85 15 132/67 96
07/20/25 08:01 07/20/25 08:01 07/20/25 08:01 07/20/25 08:01 07/20/25 09:26
I&O
07/19/25 07/20/25 07/21/25
06:59 06:59 06:59
Intake Total 120 / 120
Balance 120 / 120
Review of Systems
-
History Source: Patient
All other systems: Reviewed and negative
Abdomen/GI: Reports Abdominal Pain
Physical Exam
-
General: No Apparent Distress
HEENT: Normocephalic
Cardiac: Regular Rhythm
GI: Tender (along the peritoneal catheter line)
Neuro: Awake, Alert, Oriented and AO x 3
Psych: Calm
--- NOTE | 2025-07-20 10:32 | W.PN.NEPH.PH ---
Today's Communication / Plan
-
Dialysis Tuesday
Assessment/Plan
-
Assessment:
Perforated diverticulitis in setting of PD cath for dialysis
ESRD on PD since 2021
Polycystic kidney disease leading on to end-stage renal disease
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
History of recent GI bleed/gastric ulcer
Chr anemia
Hyperlipidemia
Hypothyroidism
Secondary PTH
History hypertension
Hyperphosphatemia
mild hyponatremia
Plan:
Not using PD catheter as it did not drain with last flush
she will remain on HD for a while till infection completely resolved
cont IV abx with transition to Augmentin with ID lead
Awaiting Coumadin bridge
hemodynamically stable
HD continue Tuesday
-
-
Date of Service: July 20, 2025
CC / HPI / ROS
-
Chief Complaint:
ESRD
History of Present Illness:
off PD due to perf bowel/diverticulitis, on Abx
BP stable
hgb low at 8.8
Review of Systems:
no CP/SOB
Abdominal pain improved
tolerating diet today
Labs
-
Labs:
WBC 8.4 10^3/uL (4.8-10.8) 07/20/25 06:32
RBC 2.46 10^6/uL (4.20-5.40) L 07/20/25 06:32
Hgb 8.1 g/dL (12.0-16.0) L 07/20/25 06:32
Hct 23.8 % (37.0-47.0) L 07/20/25 06:32
Plt Count 243 10^3/uL (130-400) 07/20/25 06:32
Sodium 132 mmol/L (135-145) L 07/19/25 09:09
Potassium 4.6 mmol/L (3.5-5.1) 07/19/25 09:09
Chloride 100 mmol/L (98-107) 07/19/25 09:09
Carbon Dioxide 26 mmol/L (22-30) 07/19/25 09:09
BUN 26 mg/dl (7-17) H 07/19/25 09:09
Creatinine 6.5 mg/dL (0.6-1.0) H* 07/19/25 09:09
eGFR 6.82 07/19/25 09:09
Glucose 58 mg/dl (70-99) L 07/19/25 09:09
Calcium 8.4 mg/dl (8.4-10.2) 07/19/25 09:09
Albumin 2.4 g/dl (3.5-5.0) L 07/19/25 09:09
Physical Exam
-
Vital Signs:
Vital Signs
Temp Pulse Resp BP Pulse Ox
97.8 F 85 15 132/67 96
07/20/25 08:01 07/20/25 08:01 07/20/25 08:01 07/20/25 08:01 07/20/25 09:26
Cardiovascular:: Regular rate and rhythm
Respiratory:: Bilateral: CTA
Lung Excursion:: Normal
Abdomen:: Distended, Soft and Tender (right side mostly)
Bowel Sounds:: Normal
Extremity Edema:: None: Bilateral:
Steven Catheter: No
--- NOTE | 2025-07-20 11:39 | W.PN.UPDATE ---
Update Note
Progress Note Update
Patient with persistent positional abdominal tenderness, on palpation tenderness along peritoneal catheter site, however no rednes or exudate at the exit point. Discussed with Nephro in details. As previous note from [facility] stated that
pneumoperitoneum can be 2/2 PD and associated catheter -concern that paient with peritonitis and infected catheter, specially since catheter seems to be cloged. Nephrology will eval for need in catheter removal
[2025-07-20] MEDS: RENVELA PO (12:37)
[2025-07-20 15:29] VITALS: BP 133/68
[2025-07-20] MEDS: COUMADIN 7 MG PO (17:09)
[2025-07-20] MEDS: REQUIP 2 MG PO (17:09)
[2025-07-20] MEDS: UNASYN IV (17:10)
[2025-07-20] MEDS: REMOVE LIDOCAINE PATCH 1 PATCH REMOVE (19:53)
[2025-07-20] MEDS: HEPARIN 25000 UNITS/250 ML IV (20:28)
[2025-07-20 23:00] VITALS: BP 156/80
[2025-07-21] MEDS: MYLICON 80 MG PO ×2 (00:47→07:29)
[2025-07-21] MEDS: DILAUDID 0.5 MG IV ×2 (00:57→09:48)
[2025-07-21] MEDS: ZOFRAN 4 MG IV ×3 (01:19→20:56)
[2025-07-21 07:00] VITALS: BP 135/65
[2025-07-21] MEDS: PROTONIX 40 MG PO (07:19)
[2025-07-21] MEDS: COLACE PO (07:19)
[2025-07-21] MEDS: ZYRTEC 10 MG PO (07:19)
[2025-07-21] MEDS: SYNTHROID 125 MCG PO (07:20)
[2025-07-21] MEDS: LIDOCAINE 4% PATCH 1 PATCH TOPICAL (07:20)
[2025-07-21] MEDS: RENVELA 2400 MG PO ×2 (07:20→17:03)
[2025-07-21 07:33] LABS: INR 1.95; PT 22.4 Sec (11.4-14.6)
[2025-07-21 07:35] LABS: APTT 86.6 Sec (23.4-35.0)
--- NOTE | 2025-07-21 11:02 | W.PN.HOSP.TC ---
Today's Communication/Plan
-
mild nausea today - Zofran
cont to follow clinically
resolved constipation - hold laxatives
cont Heparin and coumadin, INR in AM
Assessment / Plan
Assessment / Plan
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 CT showed umbilical hernia described as 6.2 cm multiseptated fluid collection in the midline anterior subcutaneous fat of the
abdominal wall (as discussed with [facility]) and mild diverticulitis with pneumoperitoneum concerning for viscous perforation. Improved on IV Abx. Switched to HD with R tunneled catheter. Peritoneal culture grew E.faecalis. ID recommended to
complete Augmentin on 07/19/25. Tolerated food. Was started on Coumadin bridging since no concern for the surgical intervention from [facility], then developed worsening abd pain after attempt to reinstate and collect peritoneal fluid for Cx.
A/P:
#Acute mild diverticulitis with viscous perforation and peritonitis
Re-developed severe abd pain after rial of short PD mick fluid sampling on 07/16/25. Repeating CT abd/pelvis with contrast showed previously with pneumoperitoneum, however colorectal Sx contributed that to PD. ALso cystic collection in abd wall -
most likely hernia. Switched back to Unasyn as per ID on 07/18/25. Attempting to get repeated peritoneal fluid for Cx, however no return as per RN - defer to Word Processor Operator. Recommended to hold PD as long as possible
[facility] followed: follow up in office in 2-[address] Montemayor until then control infection with Abx as per ID
advance diet when able to eat
Peritoneal fluid with Enterococcus faecalis sensitive to ampicillin
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
#Anemia 2/2 ESRD
Epo as per Word Processor Operator
Now on HD as per printer helper
#Pruritus
mostly to L shoulder
no visible rash
Zyrtec
#Hx of DVT with prothrombin deficiency
Since [facility] signed off - start bridging to Coumadin, target INR 2.0-3.0
#Mild osteoporotic insufficiency Fx of the sacrum
#Subacute L pubic bone Fx
#b/l avascular necrosis of femoral heads
2/2 osteoporosis and ESRD
outpatient mgmt
#Hypothyroidism
#HLD
#GERD
cont home meds
DVT ppx hep
Full code
I have spent at least 55min reviewing chart, test results, communication with consultants and providing direct patient care
Anticipated Discharge: 24 - 48 hours
Subjective/Interval History
-
Date of Service: July 21, 2025
Objective Data
-
Labs:
Laboratory Results
07/21/25
06:33
PT 22.4 H
INR 1.95
APTT 86.6 H
Vital Signs:
Vital Signs
Temp Pulse Resp BP Pulse Ox
97.6 F 99 18 135/65 99
07/21/25 07:00 07/21/25 07:00 07/21/25 07:00 07/21/25 07:00 07/21/25 08:34
I&O
07/20/25 07/21/25 07/22/25
06:59 06:59 06:59
Intake Total 960 / 960
Balance 960 / 960
Review of Systems
-
History Source: Patient
All other systems: Reviewed and negative
Abdomen/GI: Reports Abdominal Pain and Nausea
Physical Exam
-
General: Comfortable
HEENT: Normocephalic
Respiratory: Clear to Auscultation
GI: Tender and Distended
Neuro: Awake, Alert, Oriented and AO x 3
Psych: Calm
[2025-07-21] MEDS: RENVELA PO (11:10)
--- NOTE | 2025-07-21 11:34 | W.PN.ID1 ---
Date of Service
Date of Service: July 21, 2025
Today's Communication
Transition to Augmentin.
Assessment / Plan
# Acute abdominal pain
- Improved
# Leukocytosis
# Acute sigmoid diverticulitis
# Pneumoperitoneum
# Polycystic kidney disease
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
Prothrombin Deficiency
Chronic normocytic anemia
Hypothyroidism
Hyperlipidemia
Recent GI bleeds/Gastric Ulcer
Plan:
Prior peritoneal fluid cx E. faecalis
White count remains normal.
Transition back to once daily Augmentin x 10 days.
Follow Temp Curve, WBC count, abdominal pain.
����������������������������������������������������������
Chief Complaint
-: Other (Diverticulitis with perforation, peritonitis)
Subjective / Review of Systems
Patient seen and examined. Reports some ongoing lower abdominal discomfort.
Review of Systems: No Fever and No Chills
Vital Signs / Physical Exam
Vital Signs
Vital Signs
Temp Pulse Resp BP Pulse Ox
97.6 F 99 18 135/65 99
07/21/25 07:00 07/21/25 07:00 07/21/25 07:00 07/21/25 07:00 07/21/25 08:34
Physical Exam
Constitutional: No Acute Distress and Comfortable
Eyes: Sclera Anicteric
Cardiovascular: Regular Rate and S1/S2; Negative S3/S4
Pulmonary: Clear and Non Labored
Gastrointestinal: Soft and Tender (Mild; diffuse)
Extremities: Edema and Other (PD catheter in place without exit site erythema.); Negative Cyanosis or Erythema
Skin: Warm and Dry
Neurological: Awake and Alert
Psychological: Calm
Lines: HD Cath (Right ACW)
Objective Data
Lab Data
Lab Results
07/20/25 06:32
07/19/25 09:09
PT 22.4 Sec (11.4-14.6) H 07/21/25 06:33
INR 1.95 07/21/25 06:33
APTT 86.6 Sec (23.4-35.0) H 07/21/25 06:33
Estimated Creat Clear 10 ml/min 07/19/25 09:09
Total Bilirubin 0.7 mg/dl (0.2-1.3) 07/19/25 09:09
AST 13 U/L (14-36) L 07/19/25 09:09
ALT < 10 U/L (0-35) 07/19/25 09:09
Alkaline Phosphatase 67 U/L (38-126) 07/19/25 09:09
C-Reactive Protein 12.30 mg/L (0.0-10.00) H 07/17/25 09:32
Most recent labs reviewed.
Micro Results:
07/06/25 19:39 Blood Culture - Final
Blood/Venous No Growth - Final Report
07/06/25 19:33 Blood Culture - Final
Blood/Venous No Growth - Final Report
07/09/25 17:13 Body Fluid Culture - Final
Peritoneal Fluid Enterococcus faecalis
Gram Stain - Final
Fluid Cult/not urine Final 07/09/25
Few Enterococcus faecalis
CRITICAL VALUE [place] [id number]
on 07/10/25 at 1218 by [facility]. COPY PRINTED to printer
#[id number]
Organism 1 Enterococcus faecalis
1. Enterococcus faecalis
M.I.C. RX
--------- ---
Ampicillin <=2 S
Gentamicin Synergy Screen <=500 S
Susceptible result indicates synergy is likely with a cell
wall active agent that is also susceptible
(e.g.ampicillin,penicillin,vancomycin)
Vancomycin 2 S
Imaging:
07/17/2025 CT Abd/pel (IV and Oral)- Persistent mild pneumoperitoneum, which is similar to slightly increased in volume compared to the CT abdomen/pelvis from 07/06/2025 and remains concerning for a perforated viscus. Stable complex fluid collection
of the anterior abdominal wall at the level of the umbilicus. Severe autosomal dominant polycystic kidney disease.
07/06/2025 CT Abd/pel (oral only)- MILD PNEUMOPERITONEUM in the upper abdomen which is likely secondary to bowel perforation. MILD ACUTE DIVERTICULITIS in the SIGMOID COLON which is likely the etiology of the pneumoperitoneum given the history of
lower abdominal pain (although there is no focal extraluminal air around the sigmoid colon or pericolonic abscess). Minimal peritoneal fluid adjacent to the gallbladder. SEVERE AUTOSOMAL DOMINANT POLYCYSTIC KIDNEY DISEASE with innumerable bilateral
renal cysts. 6.2 cm multiseptated fluid collection in the midline anterior subcutaneous fat of the abdominal wall. Diagnostic possibilities are (1) a complex cyst or (2) an abscess (if there are signs/symptoms of infection). Peritoneal dialysis
catheter in place. Subacute healing fractures of the left pubic bones (possibly insufficiency fractures). Mild osteoporotic insufficiency fractures in the sacrum. Bilateral avascular necrosis of the femoral heads. Moderate scarring in the lower
lungs.
07/06/2025 US Abdomen Complete/Upper- AUTOSOMAL DOMINANT POLYCYSTIC KIDNEY DISEASE with severely enlarged kidneys containing innumerable renal cysts. Mild diffuse liver disease. No sonographic evidence for cholelithiasis or biliary obstruction.
[2025-07-21 15:00] VITALS: BP 126/57
--- NOTE | 2025-07-21 15:10 | W.PN.NEPH.PH ---
Today's Communication / Plan
-
Continue antibiotics
Dialysis tomorrow hemo-
Will need Tenckhoff catheter removed by vascular or general surgery this admission unless pain subsides significantly in the next 24 hours
Assessment/Plan
-
Assessment:
Perforated diverticulitis in setting of PD cath for dialysis
ESRD on PD since 2021
Polycystic kidney disease leading on to end-stage renal disease
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
History of recent GI bleed/gastric ulcer
Chr anemia
Hyperlipidemia
Hypothyroidism
Secondary PTH
History hypertension
Hyperphosphatemia
mild hyponatremia
Plan:
Perforated viscus? Surgery not convinced and has signed off
she will remain on HD for a while till infection completely resolved although the concern is that her abdominal pain is not subsiding despite the biotics and with the most recent plus resulting in no drainage concerns catheter is infected and will
likely need to be removed.
Discussed this with the patient and she understands and agrees to removing the Tenckhoff catheter.
Vancomycin transition to Augmentin with ID lead= discussed
Current Coumadin bridge though may have to stop this if removing Tenckhoff catheter
Will need consultation with general surgery or vascular surgery to remove Tenckhoff catheter on Tuesday
HD continue Tuesday
-
-
Date of Service: July 21, 2025
CC / HPI / ROS
-
Chief Complaint:
ESRD
History of Present Illness:
off PD due to perf bowel/diverticulitis, on Abx
BP stable
hgb low at 8.8
Review of Systems:
no CP/SOB
Abdominal pain persistent
tolerating diet today but is having loose bowel movements now
Labs
-
Labs:
WBC 8.4 10^3/uL (4.8-10.8) 07/20/25 06:32
RBC 2.46 10^6/uL (4.20-5.40) L 07/20/25 06:32
Hgb 8.1 g/dL (12.0-16.0) L 07/20/25 06:32
Hct 23.8 % (37.0-47.0) L 07/20/25 06:32
Plt Count 243 10^3/uL (130-400) 07/20/25 06:32
Sodium 132 mmol/L (135-145) L 07/19/25 09:09
Potassium 4.6 mmol/L (3.5-5.1) 07/19/25 09:09
Chloride 100 mmol/L (98-107) 07/19/25 09:09
Carbon Dioxide 26 mmol/L (22-30) 07/19/25 09:09
BUN 26 mg/dl (7-17) H 07/19/25 09:09
Creatinine 6.5 mg/dL (0.6-1.0) H* 07/19/25 09:09
eGFR 6.82 07/19/25 09:09
Glucose 58 mg/dl (70-99) L 07/19/25 09:09
Calcium 8.4 mg/dl (8.4-10.2) 07/19/25 09:09
Albumin 2.4 g/dl (3.5-5.0) L 07/19/25 09:09
Physical Exam
-
Vital Signs:
Vital Signs
Temp Pulse Resp BP Pulse Ox
97.6 F 99 18 135/65 99
07/21/25 07:00 07/21/25 07:00 07/21/25 07:00 07/21/25 07:00 07/21/25 08:34
Cardiovascular:: Regular rate and rhythm
Respiratory:: Bilateral: CTA
Lung Excursion:: Normal
Abdomen:: Distended, Soft and Tender (right side mostly)
Bowel Sounds:: Normal
Extremity Edema:: None: Bilateral:
Steven Catheter: No
[2025-07-21] MEDS: DILAUDID 0.25 MG IV ×2 (15:45→20:48)
[2025-07-21] MEDS: COUMADIN 7 MG PO (17:03)
[2025-07-21] MEDS: REQUIP 2 MG PO (17:03)
[2025-07-21] MEDS: REMOVE LIDOCAINE PATCH REMOVE (19:37)
[2025-07-21 23:10] VITALS: BP 114/60
[2025-07-22] MEDS: DILAUDID 0.25 MG IV ×5 (00:46→20:59)
[2025-07-22] MEDS: HEPARIN 25000 UNITS/250 ML IV (03:36)
[2025-07-22 06:57] LABS: Hematocrit 25.1 % (37.0-47.0); Hemoglobin 7.7 g/dL (12.0-16.0); Mean Corp Hgb Conc. 30.7 g/dL (33.0-37.0); Mean Corpuscular Volume 102.9 fL (81.0-99.0); Platelet Count 286 10^3/uL (130-400); Red Cell Dist. Width 15.2 % (11.5-14.5)
[2025-07-22 07:01] LABS: INR 2.28; PT 25.2 Sec (11.4-14.6)
[2025-07-22 07:03] LABS: APTT 101.4 Sec (23.4-35.0)
[2025-07-22 07:24] LABS: Blood Urea Nitrogen 28 mg/dl (7-17); Calcium 8.8 mg/dl (8.4-10.2); Carbon Dioxide 26 mmol/L (22-30); Chloride 104 mmol/L (98-107); Estimated Creatinine Clearance 8 ml/min; Glucose 82 mg/dl (70-99); Potassium 4.5 mmol/L (3.5-5.1); Sodium 136 mmol/L (135-145); eGFR 5.32
[2025-07-22 07:38] VITALS: BP 128/68
[2025-07-22] MEDS: RETACRIT 10000 UNITS IV (08:16)
[2025-07-22] MEDS: LIDOCAINE 4% PATCH 1 PATCH TOPICAL (09:02)
--- NOTE | 2025-07-22 09:15 | W.PN.NEPH.HD ---
Assessment
-
Patient seen on dialysis
Systolic blood pressure 112 current UF
HD via tunneled catheter
Will consult general surgery to remove PD catheters patient has ongoing abdominal pain
Progress Note - Hemodialysis
-
Date of Service: July 22, 2025
Duration: 30 minutes and 3 hours
Potassium Bath: 2
Calcium Bath: 2.5
Opti-Dialyzer: 160
Ultrafiltration: Other (1.5 kg)
Blood Flow: 350
Dialysate Flow: 600
Heparin: Heparin drip
EPO: 10,000
--- NOTE | 2025-07-22 10:42 | W.PN.ID1 ---
Date of Service
Date of Service: July 22, 2025
Today's Communication
Continue augmentin
Assessment / Plan
# Acute abdominal pain
- Improved
# Leukocytosis
# Acute sigmoid diverticulitis
# Pneumoperitoneum
# Polycystic kidney disease
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
Prothrombin Deficiency
Chronic normocytic anemia
Hypothyroidism
Hyperlipidemia
Recent GI bleeds/Gastric Ulcer
Plan:
Prior peritoneal fluid cx E. faecalis
White count remains normal.
Continue Augmentin x 9 days.
Follow Temp Curve, WBC count, abdominal pain.
For possible PD cath removal.
����������������������������������������������������������
Chief Complaint
-: Other (Diverticulitis with perforation, peritonitis)
Subjective / Review of Systems
Review of Systems: No Fever, No Chills and No Abdominal Pain ('discomfort')
Vital Signs / Physical Exam
Vital Signs
Vital Signs
Temp Pulse Resp BP Pulse Ox
97.9 F 84 18 128/68 98
07/22/25 07:38 07/22/25 07:38 07/22/25 07:38 07/22/25 07:38 07/22/25 07:38
Physical Exam
Constitutional: No Acute Distress and Comfortable
Eyes: Sclera Anicteric
Pulmonary: Clear and Non Labored; Negative Wheezes
Gastrointestinal: Soft, Tender (Mild; diffuse) and Other (PD cath in place; exit site without erythema)
Extremities: Edema and Other (PD catheter in place without exit site erythema.); Negative Cyanosis or Erythema
Skin: Warm and Dry
Neurological: Awake and Alert
Psychological: Calm
Lines: HD Cath (Right ACW)
Objective Data
Lab Data
Lab Results
07/22/25 06:25
07/22/25 06:25
PT 25.2 Sec (11.4-14.6) H 07/22/25 06:25
INR 2.28 07/22/25 06:25
APTT 101.4 Sec (23.4-35.0) H 07/22/25 06:25
Estimated Creat Clear 8 ml/min 07/22/25 06:25
Total Bilirubin 0.7 mg/dl (0.2-1.3) 07/19/25 09:09
AST 13 U/L (14-36) L 07/19/25 09:09
ALT < 10 U/L (0-35) 07/19/25 09:09
Alkaline Phosphatase 67 U/L (38-126) 07/19/25 09:09
C-Reactive Protein 12.30 mg/L (0.0-10.00) H 07/17/25 09:32
Most recent labs reviewed.
Micro Results:
07/06/25 19:39 Blood Culture - Final
Blood/Venous No Growth - Final Report
07/06/25 19:33 Blood Culture - Final
Blood/Venous No Growth - Final Report
07/09/25 17:13 Body Fluid Culture - Final
Peritoneal Fluid Enterococcus faecalis
Gram Stain - Final
Fluid Cult/not urine Final 07/09/25
Few Enterococcus faecalis
CRITICAL VALUE [place] [id number]
on 07/10/25 at 1218 by [facility]. COPY PRINTED to printer
#[id number]
Organism 1 Enterococcus faecalis
1. Enterococcus faecalis
M.I.C. RX
--------- ---
Ampicillin <=2 S
Gentamicin Synergy Screen <=500 S
Susceptible result indicates synergy is likely with a cell
wall active agent that is also susceptible
(e.g.ampicillin,penicillin,vancomycin)
Vancomycin 2 S
Imaging:
07/17/2025 CT Abd/pel (IV and Oral)- Persistent mild pneumoperitoneum, which is similar to slightly increased in volume compared to the CT abdomen/pelvis from 07/06/2025 and remains concerning for a perforated viscus. Stable complex fluid collection
of the anterior abdominal wall at the level of the umbilicus. Severe autosomal dominant polycystic kidney disease.
07/06/2025 CT Abd/pel (oral only)- MILD PNEUMOPERITONEUM in the upper abdomen which is likely secondary to bowel perforation. MILD ACUTE DIVERTICULITIS in the SIGMOID COLON which is likely the etiology of the pneumoperitoneum given the history of
lower abdominal pain (although there is no focal extraluminal air around the sigmoid colon or pericolonic abscess). Minimal peritoneal fluid adjacent to the gallbladder. SEVERE AUTOSOMAL DOMINANT POLYCYSTIC KIDNEY DISEASE with innumerable bilateral
renal cysts. 6.2 cm multiseptated fluid collection in the midline anterior subcutaneous fat of the abdominal wall. Diagnostic possibilities are (1) a complex cyst or (2) an abscess (if there are signs/symptoms of infection). Peritoneal dialysis
catheter in place. Subacute healing fractures of the left pubic bones (possibly insufficiency fractures). Mild osteoporotic insufficiency fractures in the sacrum. Bilateral avascular necrosis of the femoral heads. Moderate scarring in the lower
lungs.
07/06/2025 US Abdomen Complete/Upper- AUTOSOMAL DOMINANT POLYCYSTIC KIDNEY DISEASE with severely enlarged kidneys containing innumerable renal cysts. Mild diffuse liver disease. No sonographic evidence for cholelithiasis or biliary obstruction.
Care Review
Plan reviewed with: Physician (Nephrology)
[2025-07-22] MEDS: AUGMENTIN 500 MG/125 MG 1 TABLET PO (12:10)
[2025-07-22] MEDS: PROTONIX 40 MG PO (12:10)
[2025-07-22] MEDS: SYNTHROID 125 MCG PO (12:11)
[2025-07-22] MEDS: ZYRTEC 10 MG PO (12:11)
[2025-07-22] MEDS: RENVELA PO (12:11)
[2025-07-22] MEDS: RENVELA 2400 MG PO ×2 (12:11→17:52)
--- NOTE | 2025-07-22 12:24 | W.PN.HOSP.TC ---
Today's Communication/Plan
-
Monitor vital signs see plan
Continue antibiotics
General Surgery consulted for PD catheter removal
HD per nephrology
DC further IV heparin and continue with Coumadin. If general surgery needs to hold anticoagulation then likely will need to restart IV heparin once INR is less than 2
Assessment / Plan
Assessment / Plan
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 CT showed umbilical hernia described as 6.2 cm multiseptated fluid collection in the midline anterior subcutaneous fat of the
abdominal wall (as discussed with ColorectalSx) and mild diverticulitis with pneumoperitoneum concerning for viscous perforation. Improved on IV Abx. Switched to HD with R tunneled catheter. Peritoneal culture grew E.faecalis. ID recommended to
complete Augmentin on 07/19/25. Tolerated food. Was started on Coumadin bridging since no concern for the surgical intervention from Colorectal Sx, then developed worsening abd pain after attempt to reinstate and collect peritoneal fluid for Cx.
General: Comfortable
HEENT: Normocephalic
Respiratory: Clear to Auscultation
GI: Tender and Distended
Neuro: Awake, Alert, Oriented and AO x 3
Psych: Calm
A/P:
#Acute mild diverticulitis with viscous perforation and peritonitis
Re-developed severe abd pain after rial of short PD mick fluid sampling on 07/16/25. Repeating CT abd/pelvis with contrast showed previously with pneumoperitoneum, however colorectal Sx contributed that to PD. ALso cystic collection in abd wall -
most likely hernia. Switched back to Unasyn as per ID on 07/18/25. Attempting to get repeated peritoneal fluid for Cx, however no return as per RN - defer to Publishing Agent. Recommended to hold PD as long as possible
ColorectalSx followed: follow up in office in 2-[address] Montemayor until then control infection with Abx as per ID
advance diet when able to eat
Peritoneal fluid with Enterococcus faecalis sensitive to ampicillin
Nephrology consulted surgery for PD catheter removal. Patient still with abdominal pain
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
#Anemia 2/2 ESRD
Epo as per Publishing Agent
Now on HD as per hr recruiter
#Pruritus
mostly to L shoulder
no visible rash
Zyrtec
#Hx of DVT with prothrombin deficiency
Was on heparin bridge to Coumadin. INR now greater than 2. DC further IV heparin. Continue with Coumadin for now. If surgery needs to hold Coumadin and INR is less than 2 then likely will need to restart IV heparin
INR goal 2-3
#Mild osteoporotic insufficiency Fx of the sacrum
#Subacute L pubic bone Fx
#b/l avascular necrosis of femoral heads
2/2 osteoporosis and ESRD
outpatient mgmt
#Hypothyroidism
#HLD
#GERD
cont home meds
DVT ppx hep
Full code
I have spent at least 52 min reviewing chart, test results, communication with consultants and providing direct patient care
Anticipated Discharge: > 48 hours
Subjective/Interval History
-
Date of Service: July 22, 2025
Still has some pain
Objective Data
-
Labs:
Laboratory Results
07/22/25
06:25
WBC 6.9
Hgb 7.7 L
Hct 25.1 L
Plt Count 286
PT 25.2 H
INR 2.28
APTT 101.4 H
Sodium 136
Potassium 4.5
Chloride 104
Carbon Dioxide 26
BUN 28 H
Creatinine 8.0 H*
Glucose 82
Calcium 8.8
Vital Signs:
Vital Signs
Temp Pulse Resp BP Pulse Ox
97.9 F 84 18 128/68 98
07/22/25 07:38 07/22/25 07:38 07/22/25 07:38 07/22/25 07:38 07/22/25 07:38
I&O
07/21/25 07/22/25 07/23/25
06:59 06:59 06:59
Intake Total 960 / 960
Balance 960 / 960
--- NOTE | 2025-07-22 14:15 | CON.GS ---
Addendum entered and electronically signed by Casey Ignacio MD 07/22/25 16:58:
I saw and examined the patient independently on 07/22/2025 at 4:15 PM
The Operations Controller's note was reviewed and I agree with the note, assessment and plan except where noted below.
Comment: This is a 60-year-old female with end-stage renal disease managed with PD catheter which she would like to keep, currently on the renal transplant list at [facility], history of DVT PE on Coumadin who presented with acute diverticulitis that is
being managed nonoperatively. General surgery consulted for recurrent abdominal pain which the patient feels is secondary to the change in antibiotics as opposed to a a catheter malfunction. Of note her exam is remarkable for some mild generalized
mostly left-sided abdominal pain. Her PD catheter appears intact with no erythema or tenderness along the tract. I did review her most recent CT scan which was fairly unremarkable. Pneumoperitoneum and periumbilical fluid collection are expected
findings in the setting of peritoneal dialysis.
Would begin by getting a repeat CT abdomen pelvis with p.o. and IV contrast to reassess her diverticulitis and look for any other possible collections or new inflammation along her abdominal wall tract from her PD catheter.
Recommend stopping the use of her PD catheter for now.
No emergent/urgent need to remove her PD catheter, this can likely be removed at the time of her colorectal surgery. We will coordinate with their team for this.
Okay to continue antibiotics.
Okay to continue therapeutic anticoagulation for now.
General surgery will follow peripherally, please call with any questions or concerns.
Original Note:
Medical History
-
Chief Complaint: abdominal pain
History of Present Illness:
60-year-old female with PMH of GERD/PUD, MACRINA, polycystic kidney disease associated with ESRD on PD x 2 years (on renal transplant list at [facility]) and prothrombin deficiency complicated by DVT/PE in 2008 on Coumadin who presented on 07/06/25 through the
ED for diverticulitis with perforation. Incidentally, she is noted to have a soft reducible umbilical hernia present. She has improved with nonoperative management and interval outpatient surgery is being planned with colorectal surgery (d/w crs
team) in the coming weeks for colon resection of the affected area of colon. She has been followed on antibiotics by infectious disease since presentation. Cx sent of peritoneal fluid on 07/09/25 did grow e. faecalis and she was transitioned to
hemodialysis during this admission in addition to IV antibiotics in management. She was transitioned to PO ABX last week and near that time PD cath was again utilized x2 instillations of fluid. She had subsequent increase in abdominal pain, new
leukocytosis, and PD fluid was noted to be incompletely draining. CT at that time with stable findings. HD was since been resumed and she has been transitioned once again to oral antibiotics. She notes persistent left sided abdominal pain with
tenderness in the LUQ. PD cath is intact without erythema, drainage or purulence noted.
Past Medical History
Past Medical History: GERD (PUD), Hypercholesterolemia, Hypothyroidism, Renal Failure ( polycystic kidney disease associated with ESRD on PD x 2 years) and Other ( prothrombin deficiency complicated by DVT/PE in 2008 on Coumadin, RLS, MACRINA)
Past Surgical History: Gynecological (BTL), Tonsilectomy and Other (PD catheter placed by Dr. Jason at [facility], subtotal parathyroidectomy)
Social History
Tobacco: Non-Smoker
Alcohol: None
Drug: Marijuana (Occasional MJ gummy use for sleep)
Family History
Family History: Cancer (Dad esophageal cancer, grandfather colon cancer)
Allergies / Home Medications
Allergy/AdvReac Type Severity Reaction Status Date / Time
bupropion (From Wellbutrin) Allergy Rash Verified 07/06/25 22:07
sulfamethoxazole (From Allergy Itching Verified 07/06/25 22:07
Bactrim)
trimethoprim (From Bactrim) Allergy Itching Verified 07/06/25 22:07
�Medication �Instructions �Recorded �Confirmed �Type
calcitriol 0.5 mcg capsule 0.5 mcg PO DAILY Kidney Disease 07/13/23 07/06/25 History
sevelamer carbonate 800 mg tablet 2,400 mg PO AC Kidney Disease 09/25/24 07/06/25 History
warfarin 4 mg tablet 4 mg PO DAILY Blood Clot 09/25/24 07/06/25 History
Prevention/Tx
acetaminophen 500 mg tablet 1,000 mg PO DAILYPRN PRN mild pain 07/06/25 07/06/25 History
docusate sodium 100 mg tablet 200 mg PO DAILY STOOL SOFTENER 07/06/25 07/06/25 History
furosemide 80 mg tablet 80 mg PO DAILY Fluid 07/06/25 07/06/25 History
Retention/Swelling
levothyroxine 125 mcg tablet 125 mcg PO DAILY Thyroid 07/06/25 07/06/25 History
magnesium glycinate 100 mg (as 100 mg PO HS Supplement 07/06/25 07/06/25 History
glycinate) tablet
pantoprazole 40 mg tablet,delayed 40 mg PO DAILY GERD 07/06/25 07/06/25 History
release (Protonix)
peg 400-propylene glycol 0.4 %-0.3 1 drp ophthalmic (eye) DAILY PRN 07/06/25 07/06/25 History
% eye drops (Systane Ultra) dry eyes
ropinirole 1 mg tablet 2 mg PO HS RESTLESS LEG 07/06/25 07/06/25 History
rosuvastatin 10 mg tablet 10 mg PO QPM High Cholesterol 07/06/25 07/06/25 History
sodium chloride 0.65 % nasal spray 1 spray intranasal HSPRN PRN dry 07/06/25 07/06/25 History
aerosol (Saline Nasal) sinuses
vitamin B complex-vitamin C-folic 1 tab PO DAILY Supplement 07/06/25 07/06/25 History
acid 0.8 mg tablet
Review of Systems
-
History Source: Patient
All other systems: Negative unless noted
A 10 point review of systems was completed, and was negative except as per HPI.
Physical Exam
Vital Signs
Temp Pulse Resp BP Pulse Ox
97.9 F 84 18 128/68 98
07/22/25 07:38 07/22/25 07:38 10/20/25 07:38 07/22/25 07:38 07/22/25 07:38
Body Mass Index (BMI) 32.1
Lab Results
07/22/25 06:25
07/22/25 06:25
WBC 6.9 10^3/uL (4.8-10.8) 07/22/25 06:25
Hgb 7.7 g/dL (12.0-16.0) L 07/22/25 06:25
Hct 25.1 % (37.0-47.0) L 07/22/25 06:25
Plt Count 286 10^3/uL (130-400) 07/22/25 06:25
Abs Immat Gran (auto) 0.1 10^3/uL (0-0.05) H 07/19/25 09:09
Neutrophils % 67.6 % (42.2-75.2) 07/19/25 09:09
Assessment / Plan
-
60-year-old female with PMH polycystic kidney disease associated with ESRD on PD x 2 years (on renal transplant list at [facility]) and prothrombin deficiency complicated by DVT/PE in 2008 on Coumadin (therapeutic INR today of 2.28) who presented on
07/06/25 through the ED for diverticulitis with perforation with diffuse flecks of free air noted in the setting of infected peritoneal fluid from PD catheter. CX from peritoneal fluid on 07/09/25 did grow e. faecalis and she was transitioned to
hemodialysis in addition to antibiotic management. She was transitioned to PO ABX last week and near that time PD cath was again utilized x2 instillations of fluid. She had subsequent increase in abdominal pain, new leukocytosis, and PD fluid was
noted to be incompletely draining. CT at that time with stable findings. HD was since been resumed and she has been transitioned once again to oral antibiotics.
Outpatient surgery is planned with colorectal surgery in the coming weeks for colon resection of the affected area after resolution/improvement of acute intraabdominal process. She notes persistent left sided abdominal pain with tenderness in the
LUQ.
PD cath is intact without erythema, drainage or purulence noted. She is now back on oral antibiotics without leukocytosis noted. Her INR is currently therapeutic on Coumadin and she is tolerating a low residue diet. No fevers, VSS.
Would recommend eventual PD catheter removal under anesthesia. An incision is required and this cannot be done while on anticoagulation. Would recommend nonemergent removal at time of upcoming CR surgery. She has discussed this with Dr Montemayor
previously. She would like to eventually transition back to PD dialysis after she has recovered from her current infection and upcoming surgery and another PD catheter can be placed at that time.
Plan:
Will coordinate removal of PD cath with CRS team to be done concurrently with her upcoming colon resection
Would recommend no further use of the PD catheter in the interim given risk of peritonitis
Given ongoing left sided abdominal pain, will recheck CT abd/pelvis to reevaluate diverticulitis. Will d/w CRS.
ABX as per ID
As regards to her umbilical hernia, primary repair can be underdone during upcoming surgery. Would hold off on mesh repair at this time given ongoing concerns for infection but would recommend continued outpatient follow up.
[2025-07-22 15:23] VITALS: BP 113/55
[2025-07-22] MEDS: COUMADIN 5 MG PO (17:52)
[2025-07-22] MEDS: REQUIP 2 MG PO (17:52)
[2025-07-22] MEDS: REMOVE LIDOCAINE PATCH 1 PATCH REMOVE (19:57)
[2025-07-22] MEDS: ROXICODONE 5 MG PO (22:16)
[2025-07-22 23:00] VITALS: BP 107/57
[2025-07-23] MEDS: ROXICODONE 5 MG PO ×3 (05:48→18:18)
[2025-07-23 05:49] VITALS: BP 130/64
[2025-07-23 06:26] LABS: Hematocrit 25.4 % (37.0-47.0); Hemoglobin 8.5 g/dL (12.0-16.0); Mean Corp Hgb Conc. 33.5 g/dL (33.0-37.0); Mean Corpuscular Volume 98.1 fL (81.0-99.0); Nucleated Red Blood Cells % 0 %; Platelet Count 309 10^3/uL (130-400); Red Cell Dist. Width 14.7 % (11.5-14.5)
[2025-07-23 06:49] LABS: INR 2.26; PT 25.0 Sec (11.4-14.6)
[2025-07-23 06:55] LABS: Blood Urea Nitrogen 17 mg/dl (7-17); Calcium 8.4 mg/dl (8.4-10.2); Carbon Dioxide 31 mmol/L (22-30); Chloride 98 mmol/L (98-107); Estimated Creatinine Clearance 12 ml/min; Glucose 79 mg/dl (70-99); Potassium 4.0 mmol/L (3.5-5.1); Sodium 134 mmol/L (135-145); eGFR 8.72
[2025-07-23 07:39] VITALS: BP 114/60
[2025-07-23] MEDS: OMNIPAQUE 50 ML PO (07:59)
[2025-07-23] MEDS: RENVELA 2400 MG PO ×2 (08:00→17:25)
[2025-07-23] MEDS: ZYRTEC 10 MG PO (08:00)
[2025-07-23] MEDS: SYNTHROID 125 MCG PO (08:00)
[2025-07-23] MEDS: LIDOCAINE 4% PATCH 1 PATCH TOPICAL (08:00)
[2025-07-23] MEDS: PROTONIX 40 MG PO (08:00)
--- NOTE | 2025-07-23 09:27 | W.PN.CRS1 ---
Today's Communication / Plan
-
As below
Assessment/Plan
-
60-year-old female with PMH of polycystic kidney disease associated with ESRD on PD x 2 years, prothrombin deficiency complicated by DVT/PE in 2008 on Coumadin, RLS, GERD/PUD, MACRINA, HTN, HLD who presented with 1 week of gradually worsening abdominal
pain. She denied any fevers, CP/SOB or urinary symptoms (she still does urinate about 4 times a day). In the ED, her WBC was 10.[address] scan was done which showed diffuse flecks of free air associated with sigmoid diverticulitis concerning for
perforated sigmoid diverticulitis. Additionally, there was a 6 cm subQ collection near her bellybutton, which likely represents hernia. She was admitted and grew E faecalis from a PD cath fluid. She had a repeat CT on 07/17 for worsening pain after
PD was restarted, which showed stable findings.
AFVSS
WBC 6.2 from 6.9, Hb stable, CRP pending
� Worsening abdominal pain yesterday after transition from IV to oral antibiotics
�Follow-up repeat CTAP; I suspect this is less likely related to the PD catheter; recommend ruling out worsening of the diverticulitis
�If no abscess or infection associated with the PD catheter seen, okay to leave in place from my standpoint
�Continue hemodialysis, do not use the PD catheter for dialysis for now (due to worsening of abdominal pain after trial of PD, would recommend HD until definitive colectomy)
�Continue antibiotics; appreciate ID
� Cont regular diet
� In case surgery or procedure is necessary, would recommend holding Coumadin and transitioning to hep drip pending results of CT scan
�Appreciate nephrology; s/p Shiley and HD
� Pain control with Tylenol, oxycodone and Dilaudid as needed
�Patient with known umbilical hernia, pending outpatient consult with Dr. Lynn to consider repair
�Appreciate hospitalist
Subjective Data
Subjective Data
Date of Service: July 23, 2025
Developed abdominal pain in the left upper to left flank region yesterday. Denies any N/V and tolerating diet. Passing a little flatus, but no BMs. Urinating without dysuria.
Objective Data
-
Vital Signs
Temp Pulse Resp BP Pulse Ox
97.9 F 82 16 114/60 97
07/23/25 07:39 07/23/25 07:39 07/23/25 07:39 07/23/25 07:39 07/23/25 08:05
Intake & Output
07/22/25 07/23/25 07/24/25
06:59 06:59 06:59
Intake Total 480 / 480
Balance 480 / 480
Intake:
Oral fluids 480 / 480
Other:
Number of approximated MODERATE 2 1
amounts of urine
Lab Results
07/23/25 06:05
07/23/25 06:05
Physical Exam
-
General: No Acute Distress and AOx3
HEENT: Grossly Normal
Abdomen: Soft, Distended (Mildly distended without tympany) and Tender (Tender in the left lateral to left upper quadrant and right upper, no rebound or guarding)
Skin: Warm and Dry
Wound: No Signs of Infection
[2025-07-23] MEDS: COLACE 100 MG PO ×2 (09:54→19:57)
[2025-07-23] MEDS: AUGMENTIN 500 MG/125 MG 1 TABLET PO (09:54)
[2025-07-23 11:36] LABS: C-Reactive Protein 40.10 mg/L (0.0-10.00)
--- NOTE | 2025-07-23 11:53 | W.PN.HOSP.TC ---
Today's Communication/Plan
-
Monitor vitals
See plan
CT abdomen today
HD per nephrology; will need HD moving forward for now
Continue with antibiotic
Add MiraLAX, continue Colace
Assessment / Plan
Assessment / Plan
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 CT showed umbilical hernia described as 6.2 cm multiseptated fluid collection in the midline anterior subcutaneous fat of the
abdominal wall (as discussed with ColorectalSx) and mild diverticulitis with pneumoperitoneum concerning for viscous perforation. Improved on IV Abx. Switched to HD with R tunneled catheter. Peritoneal culture grew E.faecalis. ID recommended to
complete Augmentin on 07/19/25. Tolerated food. Was started on Coumadin bridging since no concern for the surgical intervention from Colorectal Sx, then developed worsening abd pain after attempt to reinstate and collect peritoneal fluid for Cx.
General: Comfortable
HEENT: Normocephalic
Respiratory: Clear to Auscultation
GI: Tender and Distended
Neuro: Awake, Alert, Oriented and AO x 3
Psych: Calm
A/P:
#Acute mild diverticulitis with viscous perforation and peritonitis
Re-developed severe abd pain after rial of short PD mick fluid sampling on 07/16/25. Repeating CT abd/pelvis with contrast showed previously with pneumoperitoneum, however colorectal Sx contributed that to PD. ALso cystic collection in abd wall -
most likely hernia. Switched back to Unasyn as per ID on 07/18/25. Attempting to get repeated peritoneal fluid for Cx, however no return as per RN - defer to Chicken Picker. Recommended to hold PD as long as possible
ColorectalSx followed: follow up in office in 2-[address] Montemayor until then control infection with Abx as per ID
advance diet when able to eat
Peritoneal fluid with Enterococcus faecalis sensitive to ampicillin. now back on Augmentin per infectious disease
Nephrology consulted surgery for PD catheter removal. Patient still with abdominal pain. Colorectal surgery following. Repeat CT scan today. Per colorectal if no abscess or infection associated with PD catheter seen then okay to leave the PD
from their standpoint. Patient to not use PD catheter at this time and to pursue HD
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
#Anemia 2/2 ESRD
Epo as per Chicken Picker
Now on HD as per inspection and testing supervisor
#Pruritus
mostly to L shoulder
no visible rash
Zyrtec
Constipation
Continue with Colace
add MiraLAX
#Hx of DVT with prothrombin deficiency
Was on heparin bridge to Coumadin. INR now greater than 2. DC further IV heparin. Continue with Coumadin for now. If surgery needs to hold Coumadin and INR is less than 2 then likely will need to restart IV heparin
INR goal 2-3
#Mild osteoporotic insufficiency Fx of the sacrum
#Subacute L pubic bone Fx
#b/l avascular necrosis of femoral heads
2/2 osteoporosis and ESRD
outpatient mgmt
#Hypothyroidism
#HLD
#GERD
cont home meds
DVT ppx hep
Full code
I have spent at least 52 min reviewing chart, test results, communication with consultants and providing direct patient care
Anticipated Discharge: 24 - 48 hours
Subjective/Interval History
-
Date of Service: July 23, 2025
still has some discomfort
Objective Data
-
Labs:
Laboratory Results
07/23/25
06:05
WBC 6.2
Hgb 8.5 L
Hct 25.4 L
Plt Count 309
PT 25.0 H
INR 2.26
Sodium 134 L
Potassium 4.0
Chloride 98
Carbon Dioxide 31 H
BUN 17
Creatinine 5.3 H*
Glucose 79
Calcium 8.4
Vital Signs:
Vital Signs
Temp Pulse Resp BP Pulse Ox
97.9 F 82 16 114/60 97
07/23/25 07:39 07/23/25 07:39 07/23/25 07:39 07/23/25 07:39 07/23/25 08:05
I&O
07/22/25 07/23/25 07/24/25
06:59 06:59 06:59
Intake Total 480 / 480
Balance 480 / 480
--- NOTE | 2025-07-23 11:54 | CM ---
Patient seen at bedside
CT abd/pelvis today
[facility]
stated that patient is an established patient there and [facility]
there were HD chair times of M-W-F at 6:20am or T-TH-SAT at 10:30am
Patient prefers M-W-F at 6:20am - CM let Latonya know of patient choice
Latonya requested fax of last 3 HD dialysis flow sheets, Hep B lab, and dc instructions if there are any if the patient still has PD cath
CM faxed information to [phone]
tt hospitalist & Dr. Gamboa
PLAN: Home, with outpatient HD at [facility] Samia Gutierrez, [place] when stable
[facility]: [phone]
[2025-07-23] MEDS: RENVELA PO (12:08)
--- NOTE | 2025-07-23 12:09 | PTOTSP ---
Patient has been ambulating in her room independently and denies the need for PT at this time. Patient is aware our services are available if needed. Will sign off.
[2025-07-23] MEDS: MIRALAX 17 GRAMS PO (12:24)
--- NOTE | 2025-07-23 14:32 | W.PN.NEPH.PH ---
Today's Communication / Plan
-
Dialysis tomorrow orders provided
Patient with ongoing abdominal pain
Assessment/Plan
-
Assessment:
Perforated diverticulitis in setting of PD cath for dialysis
ESRD on PD since 2021
Polycystic kidney disease leading on to end-stage renal disease
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
History of recent GI bleed/gastric ulcer
Chr anemia
Hyperlipidemia
Hypothyroidism
Secondary PTH
History hypertension
Hyperphosphatemia
mild hyponatremia
Plan:
Patient with continued abdominal pain following transition of antibiotics IV to p.o.
CT scan from today reviewed appears to have no new acute findings
Surgery disinclined to remove PD catheter
she will remain on HD for a while untill infection completely resolved although the concern is that her abdominal pain is not subsiding despite the biotics and with the most recent plus resulting in no drainage concerns catheter is infected and will
likely need to be removed.
Vancomycin transition to Augmentin with ID lead= discussed
Current heparin Coumadin bridge
HD to be provided with tunneled hemodialysis catheter
-
-
Date of Service: July 23, 2025
CC / HPI / ROS
-
Chief Complaint:
ESRD
History of Present Illness:
off PD due to perf bowel/diverticulitis, on Abx
BP stable
hgb low at 8.5
Review of Systems:
no CP/SOB
Abdominal pain persistent
tolerating diet today but is having loose bowel movements now
Labs
-
Labs:
WBC 6.2 10^3/uL (4.8-10.8) 07/23/25 06:05
RBC 2.59 10^6/uL (4.20-5.40) L 07/23/25 06:05
Hgb 8.5 g/dL (12.0-16.0) L 07/23/25 06:05
Hct 25.4 % (37.0-47.0) L 07/23/25 06:05
Plt Count 309 10^3/uL (130-400) 07/23/25 06:05
Sodium 134 mmol/L (135-145) L 07/23/25 06:05
Potassium 4.0 mmol/L (3.5-5.1) 07/23/25 06:05
Chloride 98 mmol/L (98-107) 07/23/25 06:05
Carbon Dioxide 31 mmol/L (22-30) H 07/23/25 06:05
BUN 17 mg/dl (7-17) 07/23/25 06:05
Creatinine 5.3 mg/dL (0.6-1.0) H* 07/23/25 06:05
eGFR 8.72 07/23/25 06:05
Glucose 79 mg/dl (70-99) 07/23/25 06:05
Calcium 8.4 mg/dl (8.4-10.2) 07/23/25 06:05
Albumin 2.4 g/dl (3.5-5.0) L 07/19/25 09:09
Physical Exam
-
Vital Signs:
Vital Signs
Temp Pulse Resp BP Pulse Ox
97.9 F 82 16 114/60 97
07/23/25 07:39 07/23/25 07:39 07/23/25 07:39 07/23/25 07:39 07/23/25 08:05
Cardiovascular:: Regular rate and rhythm
Respiratory:: Bilateral: CTA
Lung Excursion:: Normal
Abdomen:: Distended, Soft and Tender (right side mostly)
Bowel Sounds:: Normal
Extremity Edema:: None: Bilateral:
Steven Catheter: No
Other Findings::
Tunneled IJ hemodialysis catheter
[2025-07-23 16:10] VITALS: BP 139/70
[2025-07-23] MEDS: REQUIP 2 MG PO (17:25)
[2025-07-23] MEDS: COUMADIN 5 MG PO (17:25)
[2025-07-23] MEDS: REMOVE LIDOCAINE PATCH 1 PATCH REMOVE (19:58)
[2025-07-23] MEDS: DILAUDID 0.25 MG IV (21:45)
[2025-07-23 23:05] VITALS: BP 122/70
[2025-07-24] MEDS: ROXICODONE 5 MG PO ×5 (00:55→23:36)
--- NOTE | 2025-07-24 02:40 | DOWNTIME ---
There was a [employer] Client [employer]er Downtime on 07/24/2025 from 0100 to 07/24/2025 at 0215. Downtime documentation of patient's care, including medication administrations, has been reconciled in the electronic record per guidelines. Refer to the
patient's paper chart under the miscellaneous tab to see printed paper medication records and downtime forms.
[2025-07-24 03:00] VITALS: BP 126/69
[2025-07-24 06:35] LABS: Hematocrit 28.5 % (37.0-47.0); Hemoglobin 9.0 g/dL (12.0-16.0); Mean Corp Hgb Conc. 31.6 g/dL (33.0-37.0); Mean Corpuscular Volume 100.0 fL (81.0-99.0); Nucleated Red Blood Cells % 0 %; Platelet Count 318 10^3/uL (130-400); Red Cell Dist. Width 14.9 % (11.5-14.5)
[2025-07-24 06:55] LABS: INR 2.38; PT 26.0 Sec (11.4-14.6)
[2025-07-24 07:01] LABS: C-Reactive Protein 28.30 mg/L (0.0-10.00)
[2025-07-24] MEDS: LIDOCAINE 4% PATCH 1 PATCH TOPICAL (07:15)
[2025-07-24] MEDS: RENVELA PO (07:20)
[2025-07-24 07:25] LABS: Blood Urea Nitrogen 23 mg/dl (7-17); Calcium 8.6 mg/dl (8.4-10.2); Carbon Dioxide 28 mmol/L (22-30); Chloride 99 mmol/L (98-107); Estimated Creatinine Clearance 9 ml/min; Glucose 71 mg/dl (70-99); Potassium 4.5 mmol/L (3.5-5.1); Sodium 129 mmol/L (135-145); eGFR 6.14
[2025-07-24] MEDS: RETACRIT 10000 UNITS IV (08:43)
--- NOTE | 2025-07-24 08:56 | W.PN.CRS1 ---
Today's Communication / Plan
-
as below
Assessment/Plan
-
60-year-old female with PMH of polycystic kidney disease associated with ESRD on PD x 2 years, prothrombin deficiency complicated by DVT/PE in 2008 on Coumadin, RLS, GERD/PUD, MACRINA, HTN, HLD who presented with 1 week of gradually worsening abdominal
pain. She denied any fevers, CP/SOB or urinary symptoms (she still does urinate about 4 times a day). In the ED, her WBC was 10.[address] scan was done which showed diffuse flecks of free air associated with sigmoid diverticulitis concerning for
perforated sigmoid diverticulitis. Additionally, there was a 6 cm subQ collection near her bellybutton, which likely represents hernia. She was admitted and grew E faecalis from a PD cath fluid. She had a repeat CT on 07/17 for worsening pain after
PD was restarted, which showed stable findings.
07/23 CT - resolution of pneumoperitoneum, resolution of diverticulitis
AFVSS
WBC 7.3 from 6.9, Hb stable, CRP 28.3 from 40
� Worsening abdominal pain in the left lateral abdomen
-No clear etiology on CT
-Pain appears associated with kidneys, would consider UA
-No abscess associated with PD catheter, afebrile/no leukocytosis/no SIRS criteria to suggest infection of PD cath; pain is not near PD cath insertion site
-No acute need to remove PD catheter
-D/w ID, I agree that the catheter is possibly colonized, but not 'infected' at this time; concern is if antibiotics are suppressing infection and if discontinuing abx will result in infection
�Continue hemodialysis, do not use the PD catheter for dialysis; will need sigmoidectomy; would continue HD until recovery from sigmoidectomy with replacement of PD cath
�Continue antibiotics; appreciate ID
� Cont regular diet
� Ok for coumadin from colorectal standpoint
�Appreciate nephrology; s/p Shiley and HD
� Pain control with Tylenol, oxycodone and Dilaudid as needed
�Patient with known umbilical hernia, pending outpatient consult with Dr. Lynn to consider repair
�Appreciate hospitalist
-Colorectal to sign off; please call for questions/concerns; patient will need follow-up in 2 weeks
-Will look for date for elective surgery in the next 3-4 weeks and plan to remove PD catheter at that time
Subjective Data
Subjective Data
Date of Service: July 24, 2025
No overnight events. On HD this a.m.
Still having left lateral pain as well as some right lateral pain, improved with pain medicine. Denies N/V and tolerating regular diet. No recent BM, but passing flatus.
Objective Data
-
Vital Signs
Temp Pulse Resp BP Pulse Ox
97.9 F 79 16 126/69 98
07/24/25 03:00 07/24/25 03:00 07/24/25 03:00 07/24/25 03:00 07/24/25 03:00
Intake & Output
07/23/25 07/24/25 07/25/25
06:59 06:59 06:59
Intake Total 480 / 480
Balance 480 / 480
Intake:
Oral fluids 480 / 480
Other:
Number of approximated MODERATE 1
amounts of urine
Lab Results
07/24/25 05:58
07/24/25 05:58
Physical Exam
-
General: No Acute Distress and AOx3
HEENT: Grossly Normal
Abdomen: Soft, Distended (Mildly distended in the upper abdomen with subtle tympany), Tender (Mildly to moderately tender in the left lateral abdomen, as well as right lateral to upper abdomen, no rebound or guarding) and Other (Palpable
incarcerated umbilical hernia, not reducible)
Skin: Warm and Dry
--- NOTE | 2025-07-24 10:28 | W.PN.ID1 ---
Date of Service
Date of Service: July 24, 2025
Today's Communication
Continue Augmentin.
Assessment / Plan
# Acute abdominal pain
- Improved
# Leukocytosis
# Acute sigmoid diverticulitis
# Pneumoperitoneum
# Polycystic kidney disease
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
Prothrombin Deficiency
Chronic normocytic anemia
Hypothyroidism
Hyperlipidemia
Recent GI bleeds/Gastric Ulcer
Plan:
Prior peritoneal fluid cx E. faecalis
White count remains normal.
Continue Augmentin through 07/31/25.
For possible PD cath removal.
����������������������������������������������������������
Chief Complaint
-: Other (Diverticulitis with perforation, peritonitis)
Subjective / Review of Systems
Review of Systems: No Fever, No Chills and Abdominal Pain (mild; diffuse)
Vital Signs / Physical Exam
Vital Signs
Vital Signs
Temp Pulse Resp BP Pulse Ox
97.9 F 79 16 126/69 100
07/24/25 03:00 07/24/25 03:00 07/24/25 03:00 07/24/25 03:00 07/24/25 08:45
Physical Exam
Constitutional: No Acute Distress and Comfortable
Eyes: Sclera Anicteric
Pulmonary: Non Labored
Gastrointestinal: Soft, Tender (minimal) and Other (PD cath in place; exit site without erythema)
Extremities: Edema and Other (PD catheter in place without exit site erythema.); Negative Cyanosis or Erythema
Skin: Warm and Dry
Neurological: Awake and Alert
Psychological: Calm
Lines: HD Cath (Right ACW)
Objective Data
Lab Data
Lab Results
07/24/25 05:58
07/24/25 05:58
PT 26.0 Sec (11.4-14.6) H 07/24/25 05:58
INR 2.38 07/24/25 05:58
APTT 101.4 Sec (23.4-35.0) H 07/22/25 06:25
Estimated Creat Clear 9 ml/min 07/24/25 05:58
Total Bilirubin 0.7 mg/dl (0.2-1.3) 07/19/25 09:09
AST 13 U/L (14-36) L 07/19/25 09:09
ALT < 10 U/L (0-35) 07/19/25 09:09
Alkaline Phosphatase 67 U/L (38-126) 07/19/25 09:09
C-Reactive Protein 28.30 mg/L (0.0-10.00) H 07/24/25 05:58
Most recent labs reviewed.
Micro Results:
07/06/25 19:39 Blood Culture - Final
Blood/Venous No Growth - Final Report
07/06/25 19:33 Blood Culture - Final
Blood/Venous No Growth - Final Report
07/09/25 17:13 Body Fluid Culture - Final
Peritoneal Fluid Enterococcus faecalis
Gram Stain - Final
Fluid Cult/not urine Final 07/09/25
Few Enterococcus faecalis
CRITICAL VALUE called to and read back verification by [id number]
on 07/10/25 at 1218 by [email or web address]. COPY PRINTED to printer
#[id number]
Organism 1 Enterococcus faecalis
1. Enterococcus faecalis
M.I.C. RX
--------- ---
Ampicillin <=2 S
Gentamicin Synergy Screen <=500 S
Susceptible result indicates synergy is likely with a cell
wall active agent that is also susceptible
(e.g.ampicillin,penicillin,vancomycin)
Vancomycin 2 S
Imaging:
07/17/2025 CT Abd/pel (IV and Oral)- Persistent mild pneumoperitoneum, which is similar to slightly increased in volume compared to the CT abdomen/pelvis from 07/06/2025 and remains concerning for a perforated viscus. Stable complex fluid collection
of the anterior abdominal wall at the level of the umbilicus. Severe autosomal dominant polycystic kidney disease.
07/06/2025 CT Abd/pel (oral only)- MILD PNEUMOPERITONEUM in the upper abdomen which is likely secondary to bowel perforation. MILD ACUTE DIVERTICULITIS in the SIGMOID COLON which is likely the etiology of the pneumoperitoneum given the history of
lower abdominal pain (although there is no focal extraluminal air around the sigmoid colon or pericolonic abscess). Minimal peritoneal fluid adjacent to the gallbladder. SEVERE AUTOSOMAL DOMINANT POLYCYSTIC KIDNEY DISEASE with innumerable bilateral
renal cysts. 6.2 cm multiseptated fluid collection in the midline anterior subcutaneous fat of the abdominal wall. Diagnostic possibilities are (1) a complex cyst or (2) an abscess (if there are signs/symptoms of infection). Peritoneal dialysis
catheter in place. Subacute healing fractures of the left pubic bones (possibly insufficiency fractures). Mild osteoporotic insufficiency fractures in the sacrum. Bilateral avascular necrosis of the femoral heads. Moderate scarring in the lower
lungs.
07/06/2025 US Abdomen Complete/Upper- AUTOSOMAL DOMINANT POLYCYSTIC KIDNEY DISEASE with severely enlarged kidneys containing innumerable renal cysts. Mild diffuse liver disease. No sonographic evidence for cholelithiasis or biliary obstruction.
Care Review
Plan reviewed with: Physician (Nephrology, CRS)
[2025-07-24] MEDS: HEPARIN 4000 UNITS INTRACATH (10:54)
[2025-07-24] MEDS: RENVELA 2400 MG PO ×2 (11:31→17:51)
[2025-07-24] MEDS: AUGMENTIN 500 MG/125 MG 1 TABLET PO (11:31)
[2025-07-24] MEDS: ZYRTEC 5 MG PO (11:32)
[2025-07-24] MEDS: PROTONIX 40 MG PO (11:32)
[2025-07-24] MEDS: COLACE 100 MG PO ×2 (11:32→20:24)
[2025-07-24] MEDS: SYNTHROID 125 MCG PO (11:32)
[2025-07-24] MEDS: MIRALAX 17 GRAMS PO ×2 (11:32→20:24)
[2025-07-24 11:44] VITALS: BP 148/75
--- NOTE | 2025-07-24 13:22 | W.PN.HOSP.TC ---
Addendum entered and electronically signed by Ruel Burrows MD 07/24/25 13:45:
Hold Coumadin. Restart IV heparin once INR is less than 2
Original Note:
Today's Communication/Plan
-
monitor vitals
see plan
nephrology spoke with surgery and appears plan for PD catheter removal tomorrow
HD today
cw abx
Assessment / Plan
Assessment / Plan
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 CT showed umbilical hernia described as 6.2 cm multiseptated fluid collection in the midline anterior subcutaneous fat of the
abdominal wall (as discussed with ColorectalSx) and mild diverticulitis with pneumoperitoneum concerning for viscous perforation. Improved on IV Abx. Switched to HD with R tunneled catheter. Peritoneal culture grew E.faecalis. ID recommended to
complete Augmentin on 07/19/25. Tolerated food. Was started on Coumadin bridging since no concern for the surgical intervention from Colorectal Sx, then developed worsening abd pain after attempt to reinstate and collect peritoneal fluid for Cx.
General: Comfortable
HEENT: Normocephalic
Respiratory: Clear to Auscultation
GI: Tender and Distended
Neuro: Awake, Alert, Oriented and AO x 3
Psych: Calm
A/P:
#Acute mild diverticulitis with viscous perforation and peritonitis
Re-developed severe abd pain after rial of short PD mick fluid sampling on 07/16/25. Repeating CT abd/pelvis with contrast showed previously with pneumoperitoneum, however colorectal Sx contributed that to PD. ALso cystic collection in abd wall -
most likely hernia. Switched back to Unasyn as per ID on 07/18/25. Attempting to get repeated peritoneal fluid for Cx, however no return as per RN - defer to Lumber Yard Worker. Recommended to hold PD as long as possible
ColorectalSx followed: follow up in office in 2-[address] Montemayor until then control infection with Abx as per ID
advance diet when able to eat
Peritoneal fluid with Enterococcus faecalis sensitive to ampicillin. now back on Augmentin per infectious disease
Nephrology consulted surgery for PD catheter removal. Patient still with abdominal pain. Colorectal surgery following. Repeat CT scan 07/23 without abscess. Per colorectal if no abscess or infection associated with PD catheter seen then okay to
leave the PD from their standpoint. Patient to not use PD catheter at this time and to pursue HD. ID also involved. Patient still with pain. Nephrology spoke with general surgery and plan is for PD catheter removal 07/[address] Lenz
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
#Anemia 2/2 ESRD
Epo as per Lumber Yard Worker
Now on HD as per tube wrapper
#Pruritus
mostly to L shoulder
no visible rash
Zyrtec
Constipation
Continue with Colace
add MiraLAX
#Hx of DVT with prothrombin deficiency
Was on heparin bridge to Coumadin. INR now greater than 2. DC further IV heparin. Continue with Coumadin for now. If surgery needs to hold Coumadin and INR is less than 2 then likely will need to restart IV heparin
INR goal 2-3
#Mild osteoporotic insufficiency Fx of the sacrum
#Subacute L pubic bone Fx
#b/l avascular necrosis of femoral heads
2/2 osteoporosis and ESRD
outpatient mgmt
#Hypothyroidism
#HLD
#GERD
cont home meds
DVT ppx hep
Full code
I have spent at least 52 min reviewing chart, test results, communication with consultants and providing direct patient care
Anticipated Discharge: 24 - 48 hours
Subjective/Interval History
-
Date of Service: July 24, 2025
still has some pain
Objective Data
-
Labs:
Laboratory Results
07/24/25
05:58
WBC 7.3
Hgb 9.0 L
Hct 28.5 L
Plt Count 318
PT 26.0 H
INR 2.38
Sodium 129 L
Potassium 4.5
Chloride 99
Carbon Dioxide 28
BUN 23 H
Creatinine 7.1 H*
Glucose 71
Calcium 8.6
Vital Signs:
Vital Signs
Temp Pulse Resp BP Pulse Ox
97.7 F 98 18 148/75 100
07/24/25 11:44 07/24/25 11:44 07/24/25 11:44 07/24/25 11:44 07/24/25 11:44
I&O
07/23/25 07/24/25 07/25/25
06:59 06:59 06:59
Intake Total 480 / 480
Balance 480 / 480
--- NOTE | 2025-07-24 13:22 | W.PN.NEPH.HD ---
Assessment
-
HD tolerant UF 1.6
For PD catheter removal patient still moderate abdominal pain
Surgery aware
Antibiotics per infectious disease
Progress Note - Hemodialysis
-
Date of Service: July 24, 2025
Duration: 30 minutes and 3 hours
Potassium Bath: 2
Calcium Bath: 2.5
Opti-Dialyzer: 160
Ultrafiltration: Other (1.5 kg)
Blood Flow: 350
Dialysate Flow: 600
Heparin: Heparin drip
EPO: 10,000
--- NOTE | 2025-07-24 13:33 | W.PN.NEPH.PH ---
Today's Communication / Plan
-
Tenckhoff catheter removal tomorrow
Assessment/Plan
-
Assessment:
Perforated diverticulitis in setting of PD cath for dialysis
ESRD on PD since 2021
Polycystic kidney disease leading on to end-stage renal disease
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
History of recent GI bleed/gastric ulcer
Chr anemia
Hyperlipidemia
Hypothyroidism
Secondary PTH
History hypertension
Hyperphosphatemia
mild hyponatremia
Plan:
Patient with continued abdominal pain following transition of antibiotics IV to p.o.
CT scan from today reviewed appears to have no new acute findings
Vancomycin transition to Augmentin with ID lead= discussed
Current heparin Coumadin bridge
HD to be provided with tunneled hemodialysis catheter
Patient continues to have pain despite antibiotics still unclear source. With that said, discussed with Dr. Lenz about removal of Tenckhoff catheter as we feel we need to rule out this is being the source of her ongoing pain. Certainly very
reasonable that there is bacterial biofilm around the catheter and without removal will not have any success in controlling infection. Tenckhoff catheter at the same time is not working with most recent flush consistent with biofilm.
Surgery aware and plan for removal on
-
-
Date of Service: July 24, 2025
CC / HPI / ROS
-
Chief Complaint:
ESRD
History of Present Illness:
off PD due to perf bowel/diverticulitis, on Abx
BP stable
hgb low at 8.5
Review of Systems:
no CP/SOB
Abdominal pain persistent
Labs
-
Labs:
WBC 7.3 10^3/uL (4.8-10.8) 07/24/25 05:58
RBC 2.85 10^6/uL (4.20-5.40) L 07/24/25 05:58
Hgb 9.0 g/dL (12.0-16.0) L 07/24/25 05:58
Hct 28.5 % (37.0-47.0) L 07/24/25 05:58
Plt Count 318 10^3/uL (130-400) 07/24/25 05:58
Sodium 129 mmol/L (135-145) L 07/24/25 05:58
Potassium 4.5 mmol/L (3.5-5.1) 07/24/25 05:58
Chloride 99 mmol/L (98-107) 07/24/25 05:58
Carbon Dioxide 28 mmol/L (22-30) 07/24/25 05:58
BUN 23 mg/dl (7-17) H 07/24/25 05:58
Creatinine 7.1 mg/dL (0.6-1.0) H* 07/24/25 05:58
eGFR 6.14 07/24/25 05:58
Glucose 71 mg/dl (70-99) 07/24/25 05:58
Calcium 8.6 mg/dl (8.4-10.2) 07/24/25 05:58
Albumin 2.4 g/dl (3.5-5.0) L 07/19/25 09:09
Physical Exam
-
Vital Signs:
Vital Signs
Temp Pulse Resp BP Pulse Ox
97.7 F 98 18 148/75 100
07/24/25 11:44 07/24/25 11:44 07/24/25 11:44 07/24/25 11:44 07/24/25 11:44
Cardiovascular:: Regular rate and rhythm
Respiratory:: Bilateral: CTA
Lung Excursion:: Normal
Abdomen:: Distended, Soft and Tender (right side mostly)
Bowel Sounds:: Normal
Extremity Edema:: None: Bilateral:
Steven Catheter: No
Other Findings::
Tunneled IJ hemodialysis catheter
[2025-07-24] MEDS: DULCOLAX 5 MG PO (13:40)
--- NOTE | 2025-07-24 15:02 | CM ---
Patient seen at bedside
Tenckhoff catheter removal tomorrow
outpatient HD set up with [facility] [address]
HD -- at 6:20am - Latonya aware
PLAN: Home, with outpatient HD at [facility] [address] when stable
[facility] fax #: [phone]
[2025-07-24 15:27] VITALS: BP 110/61
[2025-07-24] MEDS: REQUIP 2 MG PO (17:51)
[2025-07-24] MEDS: REMOVE LIDOCAINE PATCH 1 PATCH REMOVE (20:24)
[2025-07-24 22:55] VITALS: BP 115/63
[2025-07-25] VITALS (16 sets, daily range): BP systolic 108–137; BP diastolic 53–72
--- NOTE | 2025-07-25 05:15 | PTCARENOTE ---
FUNNEL COATER notified about possible surgery to remove PD cath. NPO order placed for 07/25 0000. Pt informed about order. Will pass on to dayshift to clarify if pt is going for surgery. Plan of care ongoing.
[2025-07-25 06:50] LABS: Hematocrit 27.9 % (37.0-47.0); Hemoglobin 9.0 g/dL (12.0-16.0); Mean Corp Hgb Conc. 32.3 g/dL (33.0-37.0); Mean Corpuscular Volume 97.9 fL (81.0-99.0); Nucleated Red Blood Cells % 0 %; Platelet Count 342 10^3/uL (130-400); Red Cell Dist. Width 14.9 % (11.5-14.5)
[2025-07-25 06:57] LABS: INR 2.25; PT 24.9 Sec (11.4-14.6)
[2025-07-25 07:17] LABS: C-Reactive Protein 32.00 mg/L (0.0-10.00)
[2025-07-25 07:18] LABS: Blood Urea Nitrogen 17 mg/dl (7-17); Calcium 8.8 mg/dl (8.4-10.2); Carbon Dioxide 31 mmol/L (22-30); Chloride 98 mmol/L (98-107); Estimated Creatinine Clearance 13 ml/min; Glucose 86 mg/dl (70-99); Potassium 4.2 mmol/L (3.5-5.1); Sodium 130 mmol/L (135-145); eGFR 9.58
[2025-07-25] MEDS: LIDOCAINE 4% PATCH 1 PATCH TOPICAL (08:51)
[2025-07-25] MEDS: PROTONIX 40 MG PO (08:52)
[2025-07-25] MEDS: ZYRTEC 5 MG PO (08:52)
[2025-07-25] MEDS: SYNTHROID 125 MCG PO (08:52)
[2025-07-25] MEDS: COLACE 100 MG PO ×2 (08:52→20:21)
[2025-07-25] MEDS: MIRALAX 17 GRAMS PO ×2 (08:52→20:21)
[2025-07-25] MEDS: RENVELA PO ×2 (09:05→13:04)
[2025-07-25] MEDS: AUGMENTIN 500 MG/125 MG 1 TABLET PO (09:13)
--- NOTE | 2025-07-25 10:03 | W.PN.GS2 ---
Addendum entered and electronically signed by Payam Lenz MD 07/25/25 14:58:
Patient seen and examined with surgical MANUAL WRITER earlier this a.m.
After discussions with hospitalist and nephrology service due to ongoing and persistent pain despite antibiotic therapy there is concern that there may be ongoing infection due to contaminated peritoneal dialysis catheter. Therefore we discussed
indications for consideration of removal which is the patient's preference as well.
She will be administered 2 units of FFP and is on the OR schedule today for catheter removal. Anticipated operative procedure was fully reviewed in detail with the patient including the operative technique, alternative treatment options, risks at
the particularly relates to bleeding or infection/wound healing complications. Catheter tip will be sent for culture as well.
Original Note:
Today's Communication / Plan
-
OR once INR <1.6
Assessment / Plan
-
This is a 60-year-old female with end-stage renal disease managed with PD dialysis, cath placed at [facility] 2 years ago with history of prothrombin deficiency complicated by DVT/PE in 2008 on Coumadin who presented with acute diverticulitis that is being
managed nonoperatively. She has had persistent LUQ pain. The PD cath to the lower abdomen appears intact with no erythema or tenderness along the tract.
Repeat CT scan was fairly unremarkable. Recovering well from diverticulitis. Pneumoperitoneum now resolved. Periumbilical fluid collection expected finding in the setting of recent peritoneal dialysis.
Prior peritoneal fluid cx E. faecalis on 07/09.
INR 2.25
AFVSS
PD cath initially planned to be removed at time of upcoming colorectal surgery for sigmoidectomy with plan to continue HD through her recovery at which point another PD can be placed. ID/Hospitalist team requesting it be removed sooner given concern
for colonization of the catheter. Pt agreeable for removal.
Plan:
If no plans for reversal will follow INR qday with Coumadin on hold and take to OR for removal once at/below 1.6
ABX as per ID
Medical management as per primary team
Subjective Data
-
Date of Service: July 25, 2025
Pt seen and examined at bedside with Dr. Lenz. Denies n/v. Pain persists to LUQ. Passing flatus, stools normally.
Objective Data
-
Intake and Output
07/24/25 07/25/25 07/26/25
06:59 06:59 06:59
Intake Total 1200 / 1200
Balance 1200 / 1200
Intake:
Oral fluids 1200 / 1200
Other:
Number of approximated MODERATE 3
amounts of urine
Vital Signs
Temp Pulse Resp BP Pulse Ox
97.6 F 83 16 108/54 97
07/25/25 07:39 07/25/25 07:39 07/25/25 07:39 07/25/25 07:39 07/25/25 07:39
Lab Results
07/25/25 06:26
07/25/25 06:26
Calcium 8.8 mg/dl (8.4-10.2) 07/25/25 06:26
Total Bilirubin 0.7 mg/dl (0.2-1.3) 07/19/25 09:09
AST 13 U/L (14-36) L 07/19/25 09:09
ALT < 10 U/L (0-35) 07/19/25 09:09
Alkaline Phosphatase 67 U/L (38-126) 07/19/25 09:09
Total Protein 4.6 g/dl (6.3-8.2) L 07/19/25 09:09
Albumin 2.4 g/dl (3.5-5.0) L 07/19/25 09:09
Physical Exam
-
NAD
ABD soft, rounded, ND, tender to LUQ
PD cath without erythema or purulence
Umbilical hernia soft, reducible
--- NOTE | 2025-07-25 12:13 | W.PN.HOSP.TC ---
Today's Communication/Plan
-
Monitor vitals
See plan
HD per nephrology
Discussed with Dr. Lenz 07/25, INR 2.25. Will give 2 units of FFP and plan for OR later today. Nephrology also aware
Check INR postop and if less than 2 then start IV heparin
Assessment / Plan
Assessment / Plan
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 CT showed umbilical hernia described as 6.2 cm multiseptated fluid collection in the midline anterior subcutaneous fat of the
abdominal wall (as discussed with ColorectalSx) and mild diverticulitis with pneumoperitoneum concerning for viscous perforation. Improved on IV Abx. Switched to HD with R tunneled catheter. Peritoneal culture grew E.faecalis. ID recommended to
complete Augmentin on 07/19/25. Tolerated food. Was started on Coumadin bridging since no concern for the surgical intervention from Colorectal Sx, then developed worsening abd pain after attempt to reinstate and collect peritoneal fluid for Cx.
General: Comfortable
HEENT: Normocephalic
Respiratory: Clear to Auscultation
GI: Tender and Distended
Neuro: Awake, Alert, Oriented and AO x 3
Psych: Calm
A/P:
#Acute mild diverticulitis with viscous perforation and peritonitis
Re-developed severe abd pain after rial of short PD mick fluid sampling on 07/16/25. Repeating CT abd/pelvis with contrast showed previously with pneumoperitoneum, however colorectal Sx contributed that to PD. ALso cystic collection in abd wall -
most likely hernia. Switched back to Unasyn as per ID on 07/18/25. Attempting to get repeated peritoneal fluid for Cx, however no return as per RN - defer to Sales Producer. Recommended to hold PD as long as possible
ColorectalSx followed: follow up in office in 2-[address] Montemayor until then control infection with Abx as per ID
advance diet when able to eat
Peritoneal fluid with Enterococcus faecalis sensitive to ampicillin. now back on Augmentin per infectious disease
Nephrology consulted surgery for PD catheter removal. Patient still with abdominal pain. Colorectal surgery following. Repeat CT scan 07/23 without abscess. Per colorectal if no abscess or infection associated with PD catheter seen then okay to
leave the PD from their standpoint. Patient to not use PD catheter at this time and to pursue HD. ID also involved. Patient still with pain. Nephrology spoke with general surgery and plan is for PD catheter removal 07/[address] Lenz
Discussed with Dr. Lenz 07/25, INR 2.25. Will give 2 units of FFP and plan for OR later today. Nephrology also aware
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
#Anemia 2/2 ESRD
Epo as per Sales Producer
Now on HD as per food production associate
#Pruritus
mostly to L shoulder
no visible rash
Zyrtec
Constipation
Continue with Colace
add MiraLAX
#Hx of DVT with prothrombin deficiency
Was on heparin bridge to Coumadin. INR now greater than 2. Will check INR postprocedure and if less than 2 then will start IV heparin
INR goal 2-3
#Mild osteoporotic insufficiency Fx of the sacrum
#Subacute L pubic bone Fx
#b/l avascular necrosis of femoral heads
2/2 osteoporosis and ESRD
outpatient mgmt
#Hypothyroidism
#HLD
#GERD
cont home meds
DVT ppx hep
Full code
I have spent at least 52 min reviewing chart, test results, communication with consultants and providing direct patient care
Anticipated Discharge: 24 - 48 hours
Subjective/Interval History
-
Date of Service: July 25, 2025
Still has some pain
Objective Data
-
Labs:
Laboratory Results
07/25/25
06:26
WBC 6.8
Hgb 9.0 L
Hct 27.9 L
Plt Count 342
PT 24.9 H
INR 2.25
Sodium 130 L
Potassium 4.2
Chloride 98
Carbon Dioxide 31 H
BUN 17
Creatinine 4.9 H*
Glucose 86
Calcium 8.8
Vital Signs:
Vital Signs
Temp Pulse Resp BP Pulse Ox
98.3 F 82 14 137/67 98
07/25/25 11:57 07/25/25 11:57 07/25/25 11:57 07/25/25 11:57 07/25/25 11:57
I&O
07/24/25 07/25/25 07/26/25
06:59 06:59 06:59
Intake Total 1200 / 1200 0 / 0
Balance 1200 / 1200 0 / 0
--- NOTE | 2025-07-25 14:01 | W.PN.ID1 ---
Date of Service
Date of Service: July 25, 2025
Today's Communication
Continue current course of Augmentin.
Assessment / Plan
# Acute abdominal pain
- Improved
# Leukocytosis
# Acute sigmoid diverticulitis
# Pneumoperitoneum
# Polycystic kidney disease
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
Prothrombin Deficiency
Chronic normocytic anemia
Hypothyroidism
Hyperlipidemia
Recent GI bleeds/Gastric Ulcer
Plan:
Prior peritoneal fluid cx E. faecalis
White count remains normal.
For tentative PD cath removal today.
Continue Augmentin through 07/31/25.
Little more to offer from a Infectious Disease standpoint.
Will see again at your request.
����������������������������������������������������������
Chief Complaint
-: Other (Diverticulitis with perforation, peritonitis)
Subjective / Review of Systems
Patient seen and examined. Reports no significant issues with antibiotics. Awaiting tentative Tenckhoff catheter removal
Review of Systems: No Fever and No Chills
Vital Signs / Physical Exam
Vital Signs
Vital Signs
Temp Pulse Resp BP Pulse Ox
98.4 F 82 14 135/68 99
07/25/25 13:43 07/25/25 13:43 07/25/25 13:43 07/25/25 13:43 07/25/25 13:43
Physical Exam
Constitutional: No Acute Distress and Comfortable
Eyes: Sclera Anicteric
Pulmonary: Non Labored
Gastrointestinal: Soft, Tender (minimal) and Other (PD cath in place; exit site without erythema)
Extremities: Edema and Other (PD catheter in place without exit site erythema.); Negative Cyanosis or Erythema
Skin: Warm and Dry
Neurological: Awake and Alert
Psychological: Calm
Lines: HD Cath (Right ACW)
Objective Data
Lab Data
Lab Results
07/25/25 06:26
07/25/25 06:26
PT 24.9 Sec (11.4-14.6) H 07/25/25 06:26
INR 2.25 07/25/25 06:26
APTT 101.4 Sec (23.4-35.0) H 07/22/25 06:25
Estimated Creat Clear 13 ml/min 07/25/25 06:26
Total Bilirubin 0.7 mg/dl (0.2-1.3) 07/19/25 09:09
AST 13 U/L (14-36) L 07/19/25 09:09
ALT < 10 U/L (0-35) 07/19/25 09:09
Alkaline Phosphatase 67 U/L (38-126) 07/19/25 09:09
C-Reactive Protein 32.00 mg/L (0.0-10.00) H 07/25/25 06:26
Most recent labs reviewed.
Micro Results:
07/06/25 19:39 Blood Culture - Final
Blood/Venous No Growth - Final Report
07/06/25 19:33 Blood Culture - Final
Blood/Venous No Growth - Final Report
07/09/25 17:13 Body Fluid Culture - Final
Peritoneal Fluid Enterococcus faecalis
Gram Stain - Final
Fluid Cult/not urine Final 07/09/25
Few Enterococcus faecalis
CRITICAL VALUE [place] [id number]
on 07/10/25 at 1218 by [facility]. COPY PRINTED to printer
#[id number]
Organism 1 Enterococcus faecalis
1. Enterococcus faecalis
M.I.C. RX
--------- ---
Ampicillin <=2 S
Gentamicin Synergy Screen <=500 S
Susceptible result indicates synergy is likely with a cell
wall active agent that is also susceptible
(e.g.ampicillin,penicillin,vancomycin)
Vancomycin 2 S
Imaging:
07/17/2025 CT Abd/pel (IV and Oral)- Persistent mild pneumoperitoneum, which is similar to slightly increased in volume compared to the CT abdomen/pelvis from 07/06/2025 and remains concerning for a perforated viscus. Stable complex fluid collection
of the anterior abdominal wall at the level of the umbilicus. Severe autosomal dominant polycystic kidney disease.
07/06/2025 CT Abd/pel (oral only)- MILD PNEUMOPERITONEUM in the upper abdomen which is likely secondary to bowel perforation. MILD ACUTE DIVERTICULITIS in the SIGMOID COLON which is likely the etiology of the pneumoperitoneum given the history of
lower abdominal pain (although there is no focal extraluminal air around the sigmoid colon or pericolonic abscess). Minimal peritoneal fluid adjacent to the gallbladder. SEVERE AUTOSOMAL DOMINANT POLYCYSTIC KIDNEY DISEASE with innumerable bilateral
renal cysts. 6.2 cm multiseptated fluid collection in the midline anterior subcutaneous fat of the abdominal wall. Diagnostic possibilities are (1) a complex cyst or (2) an abscess (if there are signs/symptoms of infection). Peritoneal dialysis
catheter in place. Subacute healing fractures of the left pubic bones (possibly insufficiency fractures). Mild osteoporotic insufficiency fractures in the sacrum. Bilateral avascular necrosis of the femoral heads. Moderate scarring in the lower
lungs.
07/06/2025 US Abdomen Complete/Upper- AUTOSOMAL DOMINANT POLYCYSTIC KIDNEY DISEASE with severely enlarged kidneys containing innumerable renal cysts. Mild diffuse liver disease. No sonographic evidence for cholelithiasis or biliary obstruction.
--- NOTE | 2025-07-25 14:58 | W.SUR.PREOP ---
Pre-Operative Surgical Note
-
I have examined this patient prior to the performance of the scheduled procedure.
The patient's condition is unchanged from the time of the current History and
Physical and the patient is able to undergo the scheduled procedure.
--- NOTE | 2025-07-25 16:03 | CM ---
patient for Tenckhoff catheter removal today
outpatient HD set up with [facility] [address]
HD M-W- at 6:20am - Latonya mabel
PLAN: Home, with outpatient HD at [facility] [address] when stable
[facility] fax #: [phone]
--- NOTE | 2025-07-25 16:05 | W.IMMPOSTOP ---
Addendum entered and electronically signed by aPyam Lenz MD 07/25/25 16:33:
#[id number]
Original Note:
Surgical Immed Post Op Note
-
Primary Surgeon: Payam Lenz MD
Assisting Surgeon: Jenaro Bee
Pre-op Diagnosis: Suspected colonized/infected peritoneal dialysis catheter
Post-op Diagnosis: Suspected colonized/infected peritoneal dialysis catheter
Procedure Performed: Removal Tenckhoff peritoneal dialysis catheter
Anesthesia Type: LMA +0.25% Marcaine with epi
Specimen / Cultures: None/peritoneal dialysis catheter tip
Estimated Blood Loss: 6 mL
Complications: None immediate
Operative Findings: Tenckhoff peritoneal dialysis catheter was then entirely. Peritoneal curl portion of catheter sent for culture
Hold Coumadin this evening
Check INR tomorrow a.m.
Anticipate resuming Coumadin tomorrow evening
[2025-07-25 16:25] LABS: Glucose - Point of Care 77 mg/dl (70-99)
[2025-07-25] MEDS: RENVELA 2400 MG PO (17:49)
[2025-07-25] MEDS: REQUIP 2 MG PO (17:49)
[2025-07-25] MEDS: ROXICODONE 5 MG PO (20:20)
[2025-07-25] MEDS: REMOVE LIDOCAINE PATCH 1 PATCH REMOVE (20:22)
[2025-07-25] MEDS: TYLENOL 650 MG PO (23:24)
[2025-07-25] MEDS: ROXICODONE 2.5 MG PO (23:43)
[2025-07-26] MEDS: ROXICODONE 5 MG PO ×3 (00:54→20:58)
[2025-07-26 06:24] LABS: Hematocrit 24.6 % (37.0-47.0); Hemoglobin 8.2 g/dL (12.0-16.0); Mean Corp Hgb Conc. 33.3 g/dL (33.0-37.0); Mean Corpuscular Volume 96.9 fL (81.0-99.0); Nucleated Red Blood Cells % 0 %; Platelet Count 353 10^3/uL (130-400); Red Cell Dist. Width 14.4 % (11.5-14.5)
[2025-07-26 06:36] VITALS: BMI 32.4
[2025-07-26 06:54] LABS: Blood Urea Nitrogen 26 mg/dl (7-17); Calcium 8.8 mg/dl (8.4-10.2); Carbon Dioxide 29 mmol/L (22-30); Chloride 99 mmol/L (98-107); Estimated Creatinine Clearance 10 ml/min; Glucose 96 mg/dl (70-99); Potassium 4.8 mmol/L (3.5-5.1); Sodium 132 mmol/L (135-145); eGFR 6.58
[2025-07-26 06:56] LABS: C-Reactive Protein 25.10 mg/L (0.0-10.00)
[2025-07-26 07:35] VITALS: BP 142/68
[2025-07-26] MEDS: ZYRTEC 5 MG PO (07:51)
[2025-07-26] MEDS: LIDOCAINE 4% PATCH 1 PATCH TOPICAL (07:52)
[2025-07-26] MEDS: PROTONIX 40 MG PO (07:52)
[2025-07-26] MEDS: COLACE 100 MG PO ×2 (07:52→20:51)
[2025-07-26] MEDS: RENVELA 2400 MG PO ×2 (07:52→11:58)
[2025-07-26] MEDS: MIRALAX 17 GRAMS PO ×2 (07:52→20:51)
[2025-07-26] MEDS: SYNTHROID 125 MCG PO (07:52)
[2025-07-26 09:14] LABS: APTT 35.8 Sec (23.4-35.0)
[2025-07-26] MEDS: AUGMENTIN 500 MG/125 MG 1 TABLET PO (09:32)
[2025-07-26] MEDS: HEPARIN 25000 UNITS/250 ML IV (09:32)
--- NOTE | 2025-07-26 09:40 | W.PN.GS2 ---
Today's Communication / Plan
-
Pain control
Okay for heparin drip no bolus, and Coumadin. Monitor for bleeding.
Call with questions or concerns
Assessment / Plan
-
This is a 60-year-old female with PT deficiency/history of DVT/PE in , ESRD managed with PD now with HD access who presents with acute diverticulitis currently being managed nonoperatively. General surgery consulted to remove PD catheter
possible source of pain and infection.
Postoperative day 1 from a open excision of her PD catheter. No complications.
Pain control
Continue nonoperative management of diverticulitis.
Wound care: Continue covering her drain site with dry gauze, this should close off in the next week.
General surgery will sign off for now, please call with any questions or concerns.
Okay for heparin drip no bolus, okay to start Coumadin.
Patient can follow-up with Dr. Lenz as needed for replacement of her PD catheter after her colon surgery.
Time Spent
Total Time Spent with Patient (in minutes): 20
Subjective Data
-
Date of Service: July 26, 2025
Interval Events:
No acute events overnight, patient endorsing significant amount of pain, was unable to get narcotics overnight. Denies Nausea/Vomiting, +bowel function.
Objective Data
-
Intake and Output
07/25/25 07/26/25 07/27/25
06:59 06:59 06:59
Intake Total 1200 / 1200 963 / 963
Balance 1200 / 1200 963 / 963
Intake:
Oral fluids 1200 / 1200 240 / 240
Blood Product Amount Infused ( 723 / 723
mL)
Fresh Frozen Plasma 24 Hours 377 / 377
Unit [id number]
Fresh Frozen Plasma 24 Hours 346 / 346
Unit [id number]
Other:
Number of approximated MODERATE 3 1
amounts of urine
Vital Signs
Temp Pulse Resp BP Pulse Ox
97.9 F 79 16 142/68 100
07/26/25 07:35 07/26/25 07:35 07/26/25 07:35 07/26/25 07:35 07/26/25 07:35
Lab Results
07/26/25 08:54
07/26/25 05:53
Calcium 8.8 mg/dl (8.4-10.2) 07/26/25 05:53
Total Bilirubin 0.7 mg/dl (0.2-1.3) 07/19/25 09:09
AST 13 U/L (14-36) L 07/19/25 09:09
ALT < 10 U/L (0-35) 07/19/25 09:09
Alkaline Phosphatase 67 U/L (38-126) 07/19/25 09:09
Total Protein 4.6 g/dl (6.3-8.2) L 07/19/25 09:09
Albumin 2.4 g/dl (3.5-5.0) L 07/19/25 09:09
Physical Exam
-
GENERAL/NEURO: Awake, Alert, no distress
CHEST: Unlabored breathing on RA
ABDOMEN: Soft, obese, tender to palpation over her incision, wound open, covered with a dressing.
Patient has a hawkins catheter: No
Patient has a central line: No
[2025-07-26] MEDS: DILAUDID 0.25 MG IV (10:37)
[2025-07-26 11:26] LABS: PT 19.9 Sec (11.4-14.6)
[2025-07-26 11:27] LABS: INR 1.67
--- NOTE | 2025-07-26 11:29 | W.PN.HOSP.TC ---
Today's Communication/Plan
-
Monitor vital signs see plan
HD per nephrology
Status post PD catheter removal yesterday
Discussed with surgery, okay to start IV heparin without bolus and Coumadin
Goal INR 2-3
Pain control
cw abx
Assessment / Plan
Assessment / Plan
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 CT showed umbilical hernia described as 6.2 cm multiseptated fluid collection in the midline anterior subcutaneous fat of the
abdominal wall (as discussed with ColorectalSx) and mild diverticulitis with pneumoperitoneum concerning for viscous perforation. Improved on IV Abx. Switched to HD with R tunneled catheter. Peritoneal culture grew E.faecalis. ID recommended to
complete Augmentin on 07/19/25. Tolerated food. Was started on Coumadin bridging since no concern for the surgical intervention from Colorectal Sx, then developed worsening abd pain after attempt to reinstate and collect peritoneal fluid for Cx.
General: Comfortable
HEENT: Normocephalic
Respiratory: Clear to Auscultation
GI: Tender and Distended
Neuro: Awake, Alert, Oriented and AO x 3
Psych: Calm
A/P:
#Acute mild diverticulitis with viscous perforation and peritonitis
Re-developed severe abd pain after rial of short PD mick fluid sampling on 07/16/25. Repeating CT abd/pelvis with contrast showed previously with pneumoperitoneum, however colorectal Sx contributed that to PD. ALso cystic collection in abd wall -
most likely hernia. Switched back to Unasyn as per ID on 07/18/25. Attempting to get repeated peritoneal fluid for Cx, however no return as per RN - defer to Bird Cage Assembler. Recommended to hold PD as long as possible
ColorectalSx followed: follow up in office in 2-[address] Montemayor until then control infection with Abx as per ID
advance diet when able to eat
Peritoneal fluid with Enterococcus faecalis sensitive to ampicillin. now back on Augmentin per infectious disease. Continue Augmentin through 07/31/25.
s/p open excision of her PD catheter 07/25. Discussed with surgery. Started heparin drip without bolus and Coumadin 07/26. INR 1.6. s/p ffp prior to OR on 07/25
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
#Anemia 2/2 ESRD
Epo as per Bird Cage Assembler
Now on HD as per air value tester
#Pruritus
mostly to L shoulder
no visible rash
Zyrtec
Constipation
Continue with Colace
add MiraLAX
#Hx of DVT with prothrombin deficiency
Started heparin drip without bolus and Coumadin 07/26
INR goal 2-3
#Mild osteoporotic insufficiency Fx of the sacrum
#Subacute L pubic bone Fx
#b/l avascular necrosis of femoral heads
2/2 osteoporosis and ESRD
outpatient mgmt
#Hypothyroidism
#HLD
#GERD
cont home meds
DVT ppx hep
Full code
I have spent at least 51 min reviewing chart, test results, communication with consultants and providing direct patient care
Anticipated Discharge: 24 - 48 hours
Subjective/Interval History
-
Date of Service: July 26, 2025
has pain
Objective Data
-
Labs:
Laboratory Results
07/26/25 07/26/25 07/26/25
05:53 08:54 15:30
WBC 8.3 Cancelled
Hgb 8.2 L Cancelled
Hct 24.6 L Cancelled
Plt Count 353 Cancelled
PT 19.9 H
INR 1.67
APTT 35.8 H Cancelled Pending
Sodium 132 L
Potassium 4.8
Chloride 99
Carbon Dioxide 29
BUN 26 H
Creatinine 6.7 H*
Glucose 96
Calcium 8.8
Vital Signs:
Vital Signs
Temp Pulse Resp BP Pulse Ox
97.9 F 79 16 142/68 100
07/26/25 07:35 07/26/25 07:35 07/26/25 07:35 07/26/25 07:35 07/26/25 07:35
I&O
07/25/25 07/26/25 07/27/25
06:59 06:59 06:59
Intake Total 1200 / 1200 963 / 963
Balance 1200 / 1200 963 / 963
[2025-07-26] MEDS: DILAUDID 0.5 MG IV ×3 (12:05→22:14)
--- NOTE | 2025-07-26 12:09 | CM ---
Patient seen at bedside
PD cath removed yesterday
pain control, heparin gtt
patient set up with outpatient HD dM-W-F at 6:20am with [facility] on [address]
Latonya at [facility] aware
PLAN: Home with outpatient HD
[facility] fax #: [phone]
[2025-07-26] MEDS: MYLICON 80 MG PO (12:11)
[2025-07-26 15:26] VITALS: BP 152/80
--- NOTE | 2025-07-26 15:47 | W.PN.NEPH.HD ---
Assessment
-
Patient seen on HD
[id number] at current u/f
HD via permcath
still with abdominal pain
Progress Note - Hemodialysis
-
Date of Service: July 26, 2025
Duration: 30 minutes and 3 hours
Potassium Bath: 2
Calcium Bath: 2.5
Opti-Dialyzer: 160
Ultrafiltration: Other (2.5kg)
Blood Flow: 400
Dialysate Flow: 600
Heparin: no
EPO: 10K
[2025-07-26 15:50] LABS: APTT 130.5 Sec (23.4-35.0)
[2025-07-26] MEDS: RETACRIT IV (16:35)
[2025-07-26] MEDS: RETACRIT 10000 UNITS IV (16:40)
[2025-07-26] MEDS: REQUIP 2 MG PO (18:04)
[2025-07-26] MEDS: COUMADIN 4 MG PO (18:04)
[2025-07-26] MEDS: RENVELA PO (18:06)
[2025-07-26] MEDS: REMOVE LIDOCAINE PATCH 1 PATCH REMOVE (20:51)
[2025-07-26 23:01] LABS: APTT 182.9 Sec (23.4-35.0)
[2025-07-26 23:54] VITALS: BP 122/66
[2025-07-27] MEDS: HEPARIN 25000 UNITS/250 ML IV (02:46)
[2025-07-27 06:55] LABS: Hematocrit 25.7 % (37.0-47.0); Hemoglobin 8.4 g/dL (12.0-16.0); Mean Corp Hgb Conc. 32.7 g/dL (33.0-37.0); Mean Corpuscular Volume 96.3 fL (81.0-99.0); Nucleated Red Blood Cells % 0 %; Platelet Count 388 10^3/uL (130-400); Red Cell Dist. Width 14.8 % (11.5-14.5)
[2025-07-27 07:00] VITALS: BP 122/64
[2025-07-27 07:09] LABS: INR 1.63; PT 19.6 Sec (11.4-14.6)
[2025-07-27 07:11] LABS: APTT 91.5 Sec (23.4-35.0)
[2025-07-27 07:46] LABS: Blood Urea Nitrogen 16 mg/dl (7-17); Calcium 8.7 mg/dl (8.4-10.2); Carbon Dioxide 32 mmol/L (22-30); Chloride 101 mmol/L (98-107); Estimated Creatinine Clearance 15 ml/min; Glucose 92 mg/dl (70-99); Potassium 4.4 mmol/L (3.5-5.1); Sodium 135 mmol/L (135-145); eGFR 10.90
[2025-07-27] MEDS: MIRALAX 17 GRAMS PO ×2 (08:21→20:03)
[2025-07-27] MEDS: LIDOCAINE 4% PATCH 1 PATCH TOPICAL (08:23)
[2025-07-27] MEDS: ZYRTEC 5 MG PO (08:24)
[2025-07-27] MEDS: RENVELA 2400 MG PO ×2 (08:24→17:02)
[2025-07-27] MEDS: SYNTHROID 125 MCG PO (08:25)
[2025-07-27] MEDS: COLACE 100 MG PO ×2 (08:25→20:03)
[2025-07-27] MEDS: PROTONIX 40 MG PO (08:25)
[2025-07-27] MEDS: DILAUDID 0.5 MG IV ×3 (08:38→17:08)
--- NOTE | 2025-07-27 10:58 | W.PN.NEPH.PH ---
Today's Communication / Plan
-
Pain control
Next dialysis on Tuesday
Assessment/Plan
-
Assessment:
Perforated diverticulitis in setting of PD cath for dialysis
ESRD on PD since 2021
Polycystic kidney disease leading on to end-stage renal disease
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
History of recent GI bleed/gastric ulcer
Chr anemia
Hyperlipidemia
Hypothyroidism
Secondary PTH
History hypertension
Hyperphosphatemia
mild hyponatremia
Plan:
Patient with continued abdominal pain following transition of antibiotics IV to p.o.
Patient still has abdominal pain but apparently she states it is more related to the catheter removal
Next dialysis will be scheduled for Tuesday
Vancomycin transition to Augmentin
Current heparin Coumadin bridge
-
-
Date of Service: July 27, 2025
CC / HPI / ROS
-
Chief Complaint:
ESRD
History of Present Illness:
off PD due to perf bowel/diverticulitis, on Abx
BP stable
hgb low at 8.4
Dialysis on Tuesday schedule
Review of Systems:
no CP/SOB
Abdominal pain persistent
Labs
-
Labs:
WBC 9.1 10^3/uL (4.8-10.8) 07/27/25 06:40
RBC 2.67 10^6/uL (4.20-5.40) L 07/27/25 06:40
Hgb 8.4 g/dL (12.0-16.0) L 07/27/25 06:40
Hct 25.7 % (37.0-47.0) L 07/27/25 06:40
Plt Count 388 10^3/uL (130-400) 07/27/25 06:40
Sodium 135 mmol/L (135-145) 07/27/25 06:40
Potassium 4.4 mmol/L (3.5-5.1) 07/27/25 06:40
Chloride 101 mmol/L (98-107) 07/27/25 06:40
Carbon Dioxide 32 mmol/L (22-30) H 07/27/25 06:40
BUN 16 mg/dl (7-17) 07/27/25 06:40
Creatinine 4.4 mg/dL (0.6-1.0) H* 07/27/25 06:40
eGFR 10.90 07/27/25 06:40
Glucose 92 mg/dl (70-99) 07/27/25 06:40
Calcium 8.7 mg/dl (8.4-10.2) 07/27/25 06:40
Albumin 2.4 g/dl (3.5-5.0) L 07/19/25 09:09
Physical Exam
-
Vital Signs:
Vital Signs
Temp Pulse Resp BP Pulse Ox
98.3 F 84 16 122/64 96
07/27/25 07:00 07/27/25 07:00 07/27/25 07:00 07/27/25 07:00 07/27/25 07:00
Cardiovascular:: Regular rate and rhythm
Respiratory:: Bilateral: CTA
Lung Excursion:: Normal
Abdomen:: Distended, Soft and Tender (right side mostly)
Bowel Sounds:: Normal
Extremity Edema:: None: Bilateral:
Steven Catheter: No
Other Findings::
Tunneled IJ hemodialysis catheter
--- NOTE | 2025-07-27 11:05 | W.PN.HOSP.TC ---
Today's Communication/Plan
-
Monitor vital signs see plan
HD per nephrology
Pain control
Mag citrate
cw IV hep and comadin until INR>2
Assessment / Plan
Assessment / Plan
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 CT showed umbilical hernia described as 6.2 cm multiseptated fluid collection in the midline anterior subcutaneous fat of the
abdominal wall (as discussed with ColorectalSx) and mild diverticulitis with pneumoperitoneum concerning for viscous perforation. Improved on IV Abx. Switched to HD with R tunneled catheter. Peritoneal culture grew E.faecalis. ID recommended to
complete Augmentin on 07/19/25. Tolerated food. Was started on Coumadin bridging since no concern for the surgical intervention from Colorectal Sx, then developed worsening abd pain after attempt to reinstate and collect peritoneal fluid for Cx.
General: Comfortable
HEENT: Normocephalic
Respiratory: Clear to Auscultation
GI: Tender and Distended
Neuro: Awake, Alert, Oriented and AO x 3
Psych: Calm
A/P:
#Acute mild diverticulitis with viscous perforation and peritonitis
Re-developed severe abd pain after rial of short PD mick fluid sampling on 07/16/25. Repeating CT abd/pelvis with contrast showed previously with pneumoperitoneum, however colorectal Sx contributed that to PD. ALso cystic collection in abd wall -
most likely hernia. Switched back to Unasyn as per ID on 07/18/25. Attempting to get repeated peritoneal fluid for Cx, however no return as per RN - defer to Hydrometallurgical Engineer. Recommended to hold PD as long as possible
ColorectalSx followed: follow up in office in 2-[address] Montemayor until then control infection with Abx as per ID
on regular diet
Peritoneal fluid with Enterococcus faecalis sensitive to ampicillin. now back on Augmentin per infectious disease. Continue Augmentin through 07/31/25.
s/p open excision of her PD catheter 07/25. Discussed with surgery. Started heparin drip without bolus and Coumadin 07/26. INR 1.6. s/p ffp prior to OR on 07/25
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
#Anemia 2/2 ESRD
Epo as per Hydrometallurgical Engineer
Now on HD as per rn cardiac
#Pruritus
mostly to L shoulder
no visible rash
Zyrtec
Constipation
Continue with Colace
added MiraLAX
mag citrate
#Hx of DVT with prothrombin deficiency
Started heparin drip without bolus and Coumadin 07/26
INR goal 2-3
#Mild osteoporotic insufficiency Fx of the sacrum
#Subacute L pubic bone Fx
#b/l avascular necrosis of femoral heads
2/2 osteoporosis and ESRD
outpatient mgmt
#Hypothyroidism
#HLD
#GERD
cont home meds
DVT ppx hep
Full code
Anticipated Discharge: 24 - 48 hours
Subjective/Interval History
-
Date of Service: July 27, 2025
has pain
Objective Data
-
Labs:
Laboratory Results
07/27/25 07/27/25
06:40 12:40
WBC 9.1
Hgb 8.4 L
Hct 25.7 L
Plt Count 388
PT 19.6 H
INR 1.63
APTT 91.5 H Pending
Sodium 135
Potassium 4.4
Chloride 101
Carbon Dioxide 32 H
BUN 16
Creatinine 4.4 H*
Glucose 92
Calcium 8.7
Vital Signs:
Vital Signs
Temp Pulse Resp BP Pulse Ox
98.3 F 84 16 122/64 96
07/27/25 07:00 07/27/25 07:00 07/27/25 07:00 07/27/25 07:00 07/27/25 07:00
I&O
07/26/25 07/27/25 07/28/25
06:59 06:59 06:59
Intake Total 963 / 963 720 / 720
Balance 963 / 963 720 / 720
[2025-07-27] MEDS: AUGMENTIN 500 MG/125 MG 1 TABLET PO (11:13)
[2025-07-27] MEDS: CITROMA 300 ML PO (11:14)
[2025-07-27] MEDS: RENVELA PO ×2 (11:14→11:19)
[2025-07-27 13:27] LABS: APTT 86.5 Sec (23.4-35.0)
[2025-07-27 16:11] VITALS: BP 134/69
[2025-07-27] MEDS: REQUIP 2 MG PO (17:02)
[2025-07-27] MEDS: COUMADIN 4 MG PO (17:03)
[2025-07-27] MEDS: REMOVE LIDOCAINE PATCH 1 PATCH REMOVE (20:04)
[2025-07-27] MEDS: SENOKOT 17.2 MG PO (20:04)
[2025-07-27 23:19] VITALS: BP 138/65
[2025-07-28] MEDS: DILAUDID 0.5 MG IV ×5 (00:47→23:53)
[2025-07-28] MEDS: HEPARIN 25000 UNITS/250 ML IV ×2 (00:57→23:49)
[2025-07-28 06:00] VITALS: BMI 32.1
[2025-07-28 07:00] VITALS: BP 111/63
[2025-07-28 07:19] LABS: Hematocrit 28.2 % (37.0-47.0); Hemoglobin 8.8 g/dL (12.0-16.0); Mean Corp Hgb Conc. 31.2 g/dL (33.0-37.0); Mean Corpuscular Volume 100.4 fL (81.0-99.0); Nucleated Red Blood Cells % 0.2 %; Platelet Count 412 10^3/uL (130-400); Red Cell Dist. Width 14.8 % (11.5-14.5)
[2025-07-28 07:23] LABS: INR 1.49; PT 18.2 Sec (11.4-14.6)
[2025-07-28 07:25] LABS: APTT 102.7 Sec (23.4-35.0)
[2025-07-28] MEDS: ZYRTEC 5 MG PO (09:11)
[2025-07-28] MEDS: SYNTHROID 125 MCG PO (09:12)
[2025-07-28] MEDS: COLACE 100 MG PO ×2 (09:12→19:45)
[2025-07-28] MEDS: PROTONIX 40 MG PO (09:12)
[2025-07-28] MEDS: MIRALAX 17 GRAMS PO ×2 (09:12→19:45)
[2025-07-28] MEDS: LIDOCAINE 4% PATCH 1 PATCH TOPICAL (09:12)
[2025-07-28] MEDS: ROXICODONE 5 MG PO (09:25)
[2025-07-28] MEDS: AUGMENTIN 500 MG/125 MG 1 TABLET PO (09:26)
[2025-07-28] MEDS: RENVELA 2400 MG PO ×2 (10:02→17:42)
[2025-07-28 10:37] LABS: Blood Urea Nitrogen 24 mg/dl (7-17); Calcium 9.3 mg/dl (8.4-10.2); Carbon Dioxide 31 mmol/L (22-30); Chloride 99 mmol/L (98-107); Estimated Creatinine Clearance 10 ml/min; Glucose 75 mg/dl (70-99); Potassium 5.2 mmol/L (3.5-5.1); Sodium 135 mmol/L (135-145); eGFR 6.82
--- NOTE | 2025-07-28 10:38 | W.PN.NEPH.PH ---
Today's Communication / Plan
-
Dialysis tomorrow
Heparin bridge
Assessment/Plan
-
Assessment:
Perforated diverticulitis in setting of PD cath for dialysis
ESRD on PD since 2021
Polycystic kidney disease leading on to end-stage renal disease
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
History of recent GI bleed/gastric ulcer
Chr anemia
Hyperlipidemia
Hypothyroidism
Secondary PTH
History hypertension
Hyperphosphatemia
mild hyponatremia
Plan:
Patient with continued abdominal pain following transition of antibiotics to p.o.
Patient still has abdominal pain but apparently she states it is more related to the catheter removal
Next dialysis will be scheduled for Tuesday, orders provided
Current heparin Coumadin bridge (INR 1.49)
-
-
Date of Service: July 28, 2025
CC / HPI / ROS
-
Chief Complaint:
ESRD
History of Present Illness:
off PD due to perf bowel/diverticulitis, on Abx
BP stable
hgb low at 8. 8
Dialysis on Tuesday schedule
Review of Systems:
no CP/SOB
Abdominal pain persistent
Weights down
Labs
-
Labs:
WBC 9.1 10^3/uL (4.8-10.8) 07/28/25 07:05
RBC 2.81 10^6/uL (4.20-5.40) L 07/28/25 07:05
Hgb 8.8 g/dL (12.0-16.0) L 07/28/25 07:05
Hct 28.2 % (37.0-47.0) L 07/28/25 07:05
Plt Count 412 10^3/uL (130-400) H 07/28/25 07:05
Sodium 135 mmol/L (135-145) 07/28/25 08:56
Potassium 5.2 mmol/L (3.5-5.1) H 07/28/25 08:56
Chloride 99 mmol/L (98-107) 07/28/25 08:56
Carbon Dioxide 31 mmol/L (22-30) H 07/28/25 08:56
BUN 24 mg/dl (7-17) H 07/28/25 08:56
Creatinine 6.5 mg/dL (0.6-1.0) H* 07/28/25 08:56
eGFR 6.82 07/28/25 08:56
Glucose 75 mg/dl (70-99) 07/28/25 08:56
Calcium 9.3 mg/dl (8.4-10.2) 07/28/25 08:56
Albumin 2.4 g/dl (3.5-5.0) L 07/19/25 09:09
Physical Exam
-
Vital Signs:
Vital Signs
Temp Pulse Resp BP Pulse Ox
97.9 F 81 17 111/63 97
07/28/25 07:00 07/28/25 07:00 07/28/25 07:00 07/28/25 07:00 07/28/25 07:00
Cardiovascular:: Regular rate and rhythm
Respiratory:: Bilateral: CTA
Lung Excursion:: Normal
Abdomen:: Distended, Soft and Tender (right side mostly)
Bowel Sounds:: Normal
Extremity Edema:: None: Bilateral:
Steven Catheter: No
Other Findings::
Tunneled IJ hemodialysis catheter
--- NOTE | 2025-07-28 11:19 | W.PN.HOSP.TC ---
Today's Communication/Plan
-
Monitor vital signs see plan
HD per nephrology
Continue with IV heparin bridge to Coumadin
INR daily
pain control
Assessment / Plan
Assessment / Plan
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 CT showed umbilical hernia described as 6.2 cm multiseptated fluid collection in the midline anterior subcutaneous fat of the
abdominal wall (as discussed with ColorectalSx) and mild diverticulitis with pneumoperitoneum concerning for viscous perforation. Improved on IV Abx. Switched to HD with R tunneled catheter. Peritoneal culture grew E.faecalis. ID recommended to
complete Augmentin on 07/19/25. Tolerated food. Was started on Coumadin bridging since no concern for the surgical intervention from Colorectal Sx, then developed worsening abd pain after attempt to reinstate and collect peritoneal fluid for Cx.
General: Comfortable
HEENT: Normocephalic
Respiratory: Clear to Auscultation
GI: Tender and Distended
Neuro: Awake, Alert, Oriented and AO x 3
Psych: Calm
A/P:
#Acute mild diverticulitis with viscous perforation and peritonitis
Recommended to hold PD as long as possible
ColorectalSx followed: follow up in office in 2-[address] Montemayor until then control infection with Abx as per ID
on regular diet
Peritoneal fluid with Enterococcus faecalis sensitive to ampicillin. now back on Augmentin per infectious disease. Continue Augmentin through 07/31/25.
s/p open excision of her PD catheter 07/25. Discussed with surgery. Started heparin drip without bolus and Coumadin 07/26. INR 1.4. s/p ffp prior to OR on 07/25
increase coumadin to 5mg
Elective surgery in 3 to 4 weeks per colorectal
pain control
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
#Anemia 2/2 ESRD
Epo as per Slime Plant Operator Helper
Now on HD as per transmission systems operator
#Pruritus
mostly to L shoulder
no visible rash
Zyrtec
Constipation
Continue with Colace
added MiraLAX
s/p mag citrate with positive response
#Hx of DVT with prothrombin deficiency
Started heparin drip without bolus and Coumadin 07/26
INR goal 2-3
#Mild osteoporotic insufficiency Fx of the sacrum
#Subacute L pubic bone Fx
#b/l avascular necrosis of femoral heads
2/2 osteoporosis and ESRD
outpatient mgmt
#Hypothyroidism
#HLD
#GERD
cont home meds
DVT ppx hep
Full code
Anticipated Discharge: 24 - 48 hours
Subjective/Interval History
-
Date of Service: July 28, 2025
still has some pain
Objective Data
-
Labs:
Laboratory Results
07/28/25 07/28/25
07:05 08:56
WBC 9.1
Hgb 8.8 L
Hct 28.2 L
Plt Count 412 H
PT 18.2 H
INR 1.49
APTT 102.7 H
Sodium Cancelled 135
Potassium Cancelled 5.2 H
Chloride Cancelled 99
Carbon Dioxide Cancelled 31 H
BUN Cancelled 24 H
Creatinine Cancelled 6.5 H*
Glucose Cancelled 75
Calcium Cancelled 9.3
Vital Signs:
Vital Signs
Temp Pulse Resp BP Pulse Ox
97.9 F 81 17 111/63 97
07/28/25 07:00 07/28/25 07:00 07/28/25 07:00 07/28/25 07:00 07/28/25 07:00
I&O
07/27/25 07/28/25 07/29/25
06:59 06:59 06:59
Intake Total 720 / 720
Balance 720 / 720
[2025-07-28] MEDS: RENVELA PO (13:25)
[2025-07-28 15:00] VITALS: BP 146/64
--- NOTE | 2025-07-28 15:33 | CM ---
CM following for discharge planning. Pt will go to [facility] on [address] when medically cleared. Records sent by prior CM to Latonya at [facility].
PLAN: Home with outpatient HD fax #: [phone]
[2025-07-28] MEDS: REQUIP 2 MG PO (17:41)
[2025-07-28] MEDS: COUMADIN 5 MG PO (17:41)
[2025-07-28] MEDS: REMOVE LIDOCAINE PATCH 1 PATCH REMOVE (19:46)
[2025-07-28 23:10] VITALS: BP 103/48
[2025-07-29 06:00] VITALS: BMI 32.4
[2025-07-29 06:53] LABS: Hematocrit 26.7 % (37.0-47.0); Hemoglobin 8.9 g/dL (12.0-16.0); Mean Corp Hgb Conc. 33.3 g/dL (33.0-37.0); Mean Corpuscular Volume 99.3 fL (81.0-99.0); Nucleated Red Blood Cells % 0 %; Platelet Count 382 10^3/uL (130-400); Red Cell Dist. Width 14.8 % (11.5-14.5)
[2025-07-29 06:54] LABS: INR 1.79; PT 21.0 Sec (11.4-14.6)
[2025-07-29 06:56] LABS: APTT 103.7 Sec (23.4-35.0)
[2025-07-29 07:00] VITALS: BP 116/68
[2025-07-29 07:25] LABS: Blood Urea Nitrogen 31 mg/dl (7-17); Calcium 9.2 mg/dl (8.4-10.2); Carbon Dioxide 28 mmol/L (22-30); Chloride 100 mmol/L (98-107); Estimated Creatinine Clearance 9 ml/min; Glucose 95 mg/dl (70-99); Potassium 4.9 mmol/L (3.5-5.1); Sodium 130 mmol/L (135-145); eGFR 5.57
[2025-07-29] MEDS: MIRALAX 17 GRAMS PO (08:39)
[2025-07-29] MEDS: LIDOCAINE 4% PATCH 1 PATCH TOPICAL (08:39)
[2025-07-29] MEDS: SYNTHROID 125 MCG PO (08:39)
[2025-07-29] MEDS: PROTONIX 40 MG PO (08:39)
[2025-07-29] MEDS: RENVELA 2400 MG PO ×2 (08:39→16:58)
[2025-07-29] MEDS: COLACE 100 MG PO (08:39)
[2025-07-29] MEDS: ZYRTEC 5 MG PO (08:40)
[2025-07-29] MEDS: AUGMENTIN 500 MG/125 MG 1 TABLET PO (10:18)
[2025-07-29] MEDS: DILAUDID 0.5 MG IV ×3 (11:02→20:59)
--- NOTE | 2025-07-29 11:51 | W.PN.HOSP.TC ---
Today's Communication/Plan
-
cont Coumadin bridging
Assessment / Plan
Assessment / Plan
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 CT showed umbilical hernia described as 6.2 cm multiseptated fluid collection in the midline anterior subcutaneous fat of the
abdominal wall (as discussed with ColorectalSx) and mild diverticulitis with pneumoperitoneum concerning for viscous perforation. Improved on IV Abx. Switched to HD with R tunneled catheter. Peritoneal culture grew E.faecalis. ID recommended to
complete Augmentin on 07/19/25. Tolerated food. Was started on Coumadin bridging since no concern for the surgical intervention from Colorectal Sx, then developed worsening abd pain after attempt to reinstate and collect peritoneal fluid for Cx. s/p
open excision for concern of the infected PD catheter. Ongoing bridging to warfarin
A/P:
#Acute mild diverticulitis with viscous perforation and peritonitis
Recommended to hold PD as long as possible
ColorectalSx followed: follow up in office in 2-[address] Montemayor until then control infection with Abx as per ID
on regular diet
Peritoneal fluid with Enterococcus faecalis sensitive to ampicillin. now back on Augmentin per infectious disease. Continue Augmentin through 07/31/25.
s/p open excision of her PD catheter 07/25. Started heparin drip without bolus and Coumadin 07/26. INR 1.4. s/p ffp prior to OR on 07/25
increase coumadin to 5mg
Elective surgery in 3 to 4 weeks per colorectal
pain control
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
#Anemia 2/2 ESRD
Epo as per Trawl Net Maker
Now on HD as per traveling nurse
#Pruritus
mostly to L shoulder
no visible rash
Zyrtec
Constipation
Continue with Colace
added MiraLAX
s/p mag citrate with positive response
#Hx of DVT with prothrombin deficiency
Started heparin drip without bolus and Coumadin 07/26
INR goal 2-3
#Mild osteoporotic insufficiency Fx of the sacrum
#Subacute L pubic bone Fx
#b/l avascular necrosis of femoral heads
2/2 osteoporosis and ESRD
outpatient mgmt
#Hypothyroidism
#HLD
#GERD
cont home meds
DVT ppx hep
Full code
I have spent at least 39min reviewing chart, test reuslts, communication with consultants and providing direct patient care
Anticipated Discharge: 24 - 48 hours
Subjective/Interval History
-
Date of Service: July 29, 2025
Objective Data
-
Labs:
Laboratory Results
07/29/25
06:24
WBC 7.3
Hgb 8.9 L
Hct 26.7 L
Plt Count 382
PT 21.0 H
INR 1.79
APTT 103.7 H
Sodium 130 L
Potassium 4.9
Chloride 100
Carbon Dioxide 28
BUN 31 H
Creatinine 7.7 H*
Glucose 95
Calcium 9.2
Vital Signs:
Vital Signs
Temp Pulse Resp BP Pulse Ox
97.7 F 81 18 116/68 98
07/29/25 07:00 07/29/25 07:00 07/29/25 07:00 07/29/25 07:00 07/29/25 07:00
I&O
07/28/25 07/29/25 07/30/25
06:59 06:59 06:59
Intake Total 1080 / 1080
Balance 1080 / 1080
Review of Systems
-
History Source: Patient
All other systems: Reviewed and negative
Physical Exam
-
General: No Apparent Distress
Respiratory: Clear to Auscultation
Cardiac: Regular Rhythm
Neuro: Awake, Alert, Oriented and AO x 3
Psych: Calm
[2025-07-29] MEDS: RENVELA PO (12:18)
--- NOTE | 2025-07-29 13:01 | CM ---
Patient seen at bedside
HD today
per note-cont Coumadin bridging
PETER Hanks at [facility] in [place]
Patient set up for outpatient HD M-W- at 6:20am at [facility]
PLAN: Home with outpatient HD at [facility] when stable
[facility] fax #: [phone]
[2025-07-29] MEDS: FERRLECIT 125 MG IV (13:37)
[2025-07-29] MEDS: MANNITOL 25% 12.5 GRAMS IV (13:37)
[2025-07-29] MEDS: RETACRIT 10000 UNITS IV (13:38)
--- NOTE | 2025-07-29 14:45 | W.PN.NEPH.HD ---
Assessment
-
Pt seen on HD. no complaints. VSS, access ok, iron on HD. augmentin until 07/31
Progress Note - Hemodialysis
-
Date of Service: July 29, 2025
Duration: 30 minutes and 3 hours
Potassium Bath: 2
Calcium Bath: 2.5
Opti-Dialyzer: 160
Ultrafiltration: Other (1kg)
Blood Flow: 400
Dialysate Flow: 600
Heparin: 0
EPO: 62667 units
[2025-07-29 15:00] VITALS: BP 111/64
[2025-07-29] MEDS: HEPARIN 4300 UNITS INTRACATH (15:38)
[2025-07-29] MEDS: REQUIP 2 MG PO (17:00)
[2025-07-29] MEDS: COUMADIN 5 MG PO (17:00)
[2025-07-29] MEDS: COLACE PO (20:12)
[2025-07-29] MEDS: MIRALAX PO (20:12)
[2025-07-29] MEDS: REMOVE LIDOCAINE PATCH 1 PATCH REMOVE (20:15)
[2025-07-29] MEDS: ROXICODONE 5 MG PO (22:47)
[2025-07-29] MEDS: HEPARIN 25000 UNITS/250 ML IV (22:48)
[2025-07-29] MEDS: MYLICON 80 MG PO (22:55)
[2025-07-29 23:20] VITALS: BP 109/62
[2025-07-30] MEDS: DILAUDID 0.5 MG IV ×4 (05:01→23:54)
[2025-07-30 05:23] VITALS: BMI 31.8
[2025-07-30 06:42] LABS: Hematocrit 26.2 % (37.0-47.0); Hemoglobin 8.7 g/dL (12.0-16.0); Mean Corp Hgb Conc. 33.2 g/dL (33.0-37.0); Mean Corpuscular Volume 97.8 fL (81.0-99.0); Platelet Count 395 10^3/uL (130-400); Red Cell Dist. Width 15.2 % (11.5-14.5)
[2025-07-30 06:53] LABS: INR 1.74; PT 20.6 Sec (11.4-14.6)
[2025-07-30 06:56] LABS: APTT 137.4 Sec (23.4-35.0)
[2025-07-30 07:16] VITALS: BP 96/52
[2025-07-30] MEDS: LIDOCAINE 4% PATCH 1 PATCH TOPICAL (09:00)
[2025-07-30] MEDS: RENVELA 2400 MG PO ×2 (09:00→12:23)
[2025-07-30] MEDS: ZYRTEC 5 MG PO (09:01)
[2025-07-30] MEDS: PROTONIX 40 MG PO (09:01)
[2025-07-30] MEDS: COLACE 100 MG PO ×2 (09:01→19:52)
[2025-07-30] MEDS: SYNTHROID 125 MCG PO (09:02)
[2025-07-30] MEDS: MIRALAX PO ×2 (09:02→19:52)
[2025-07-30] MEDS: AUGMENTIN 500 MG/125 MG 1 TABLET PO (10:14)
--- NOTE | 2025-07-30 11:37 | W.PN.HOSP.TC ---
Today's Communication/Plan
-
Coumadin increased'
cont heparin
Assessment / Plan
Assessment / Plan
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 CT showed umbilical hernia described as 6.2 cm multiseptated fluid collection in the midline anterior subcutaneous fat of the
abdominal wall (as discussed with ColorectalSx) and mild diverticulitis with pneumoperitoneum concerning for viscous perforation. Improved on IV Abx. Switched to HD with R tunneled catheter. Peritoneal culture grew E.faecalis. ID recommended to
complete Augmentin on 07/19/25. Tolerated food. Was started on Coumadin bridging since no concern for the surgical intervention from Colorectal Sx, then developed worsening abd pain after attempt to reinstate and collect peritoneal fluid for Cx. s/p
open excision for concern of the infected PD catheter. Ongoing bridging to warfarin
A/P:
#Acute mild diverticulitis with viscous perforation and peritonitis
Recommended to hold PD as long as possible
ColorectalSx followed: follow up in office in 2-[address] Montemayor until then control infection with Abx as per ID
on regular diet
Peritoneal fluid with Enterococcus faecalis sensitive to ampicillin. now back on Augmentin per infectious disease. Continue Augmentin through 07/31/25.
s/p open excision of her PD catheter 07/25. Started heparin drip without bolus and Coumadin 07/26. INR 1.4. s/p ffp prior to OR on 07/25
increase coumadin to 5mg
Elective surgery in 3 to 4 weeks per colorectal
pain control
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
#Anemia 2/2 ESRD
Epo as per Sap Data Analyst
Now on HD as per eligibility and occupancy interviewer
#Pruritus
mostly to L shoulder
no visible rash
Zyrtec
Constipation
Continue with Colace
added MiraLAX
s/p mag citrate with positive response
#Hx of DVT with prothrombin deficiency
Started heparin drip without bolus and Coumadin 07/26
INR goal 2-3
#Mild osteoporotic insufficiency Fx of the sacrum
#Subacute L pubic bone Fx
#b/l avascular necrosis of femoral heads
2/2 osteoporosis and ESRD
outpatient mgmt
#Hypothyroidism
#HLD
#GERD
cont home meds
DVT ppx hep
Full code
I have spent at least 36min reviewing chart, test reuslts, communication with consultants and providing direct patient care
Anticipated Discharge: 24 - 48 hours
Subjective/Interval History
-
Date of Service: July 30, 2025
Objective Data
-
Labs:
Laboratory Results
07/30/25
06:16
WBC 9.7
Hgb 8.7 L
Hct 26.2 L
Plt Count 395
PT 20.6 H
INR 1.74
APTT 137.4 H
Vital Signs:
Vital Signs
Temp Pulse Resp BP Pulse Ox
98.1 F 83 16 96/52 97
07/30/25 07:16 07/30/25 07:16 07/30/25 07:16 07/30/25 07:16 07/30/25 07:16
I&O
07/29/25 07/30/25 07/31/25
06:59 06:59 06:59
Intake Total 1080 / 1080 700 / 700
Balance 1080 / 1080 700 / 700
Review of Systems
-
History Source: Patient
All other systems: Reviewed and negative
Physical Exam
-
General: No Apparent Distress
HEENT: Normocephalic
GI: Soft, Nontender and Nondistended
Musculoskeletal: No Clubbing, No Cyanosis and No Edema
Neuro: Awake, Alert, Oriented and AO x 3
Psych: Calm
--- NOTE | 2025-07-30 11:41 | W.PN.NEPH.PH ---
Today's Communication / Plan
-
HD tomorrow
Assessment/Plan
-
Assessment:
Perforated diverticulitis in setting of PD cath for dialysis
ESRD on PD since 2021
Polycystic kidney disease leading on to end-stage renal disease
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
History of recent GI bleed/gastric ulcer
Chr anemia
Hyperlipidemia
Hypothyroidism
Secondary PTH
History hypertension
Hyperphosphatemia
mild hyponatremia
Plan:
Patient with continued abdominal pain following transition of antibiotics to p.o.
Patient still has abdominal pain mostly with movement
HD tomorrow
await therapeutic INR
-
-
Date of Service: July 30, 2025
CC / HPI / ROS
-
Chief Complaint:
ESRD
History of Present Illness:
off PD due to perf bowel/diverticulitis, on Abx, PD cath out
BP stable
hgb low at 8.7 stable
INR slowly rising
Dialysis on Tuesday schedule
tolerated HD yesterday
Review of Systems:
no CP/SOB
Abdominal pain persistent
Weights down
Labs
-
Labs:
WBC 9.7 10^3/uL (4.8-10.8) 07/30/25 06:16
RBC 2.68 10^6/uL (4.20-5.40) L 07/30/25 06:16
Hgb 8.7 g/dL (12.0-16.0) L 07/30/25 06:16
Hct 26.2 % (37.0-47.0) L 07/30/25 06:16
Plt Count 395 10^3/uL (130-400) 07/30/25 06:16
Sodium 130 mmol/L (135-145) L 07/29/25 06:24
Potassium 4.9 mmol/L (3.5-5.1) 07/29/25 06:24
Chloride 100 mmol/L (98-107) 07/29/25 06:24
Carbon Dioxide 28 mmol/L (22-30) 07/29/25 06:24
BUN 31 mg/dl (7-17) H 07/29/25 06:24
Creatinine 7.7 mg/dL (0.6-1.0) H* 07/29/25 06:24
eGFR 5.57 07/29/25 06:24
Glucose 95 mg/dl (70-99) 07/29/25 06:24
Calcium 9.2 mg/dl (8.4-10.2) 07/29/25 06:24
Albumin 2.4 g/dl (3.5-5.0) L 07/19/25 09:09
Physical Exam
-
Vital Signs:
Vital Signs
Temp Pulse Resp BP Pulse Ox
98.1 F 83 16 96/52 97
07/30/25 07:16 07/30/25 07:16 07/30/25 07:16 07/30/25 07:16 07/30/25 07:16
Cardiovascular:: Regular rate and rhythm
Respiratory:: Bilateral: Coarse
Lung Excursion:: Normal
Abdomen:: Nontender and Soft
Bowel Sounds:: Normal
Extremity Edema:: None: Bilateral:
--- NOTE | 2025-07-30 13:18 | CM ---
patient chart reviewed
HD tomorrow
Patient set up for outpatient HD -- at 6:20am at [facility]
PLAN: Home with outpatient HD at [facility] when stable
[facility] fax #: [phone]
[2025-07-30 15:04] VITALS: BP 139/67
[2025-07-30] MEDS: COUMADIN 6 MG PO (18:04)
[2025-07-30] MEDS: REQUIP 2 MG PO (18:05)
[2025-07-30] MEDS: RENVELA PO (18:09)
[2025-07-30] MEDS: REMOVE LIDOCAINE PATCH 1 PATCH REMOVE (19:52)
[2025-07-30 20:06] LABS: APTT 74.7 Sec (23.4-35.0)
[2025-07-30] MEDS: ROXICODONE 5 MG PO (21:48)
[2025-07-30 23:00] VITALS: BP 102/52
[2025-07-31 02:31] LABS: APTT 91.9 Sec (23.4-35.0)
[2025-07-31] MEDS: HEPARIN 25000 UNITS/250 ML IV (03:06)
[2025-07-31 06:00] VITALS: BMI 32.8
[2025-07-31 07:20] VITALS: BP 134/59
[2025-07-31] MEDS: ZYRTEC 5 MG PO (07:58)
[2025-07-31] MEDS: PROTONIX 40 MG PO (07:58)
[2025-07-31] MEDS: SYNTHROID 125 MCG PO (08:00)
[2025-07-31] MEDS: COLACE 100 MG PO ×2 (08:00→19:52)
[2025-07-31] MEDS: LIDOCAINE 4% PATCH 1 PATCH TOPICAL (08:01)
[2025-07-31] MEDS: RENVELA 2400 MG PO ×2 (08:04→17:09)
[2025-07-31] MEDS: MIRALAX PO ×2 (09:03→19:53)
[2025-07-31] MEDS: DILAUDID 0.5 MG IV ×2 (09:08→22:10)
--- NOTE | 2025-07-31 09:55 | W.PN.HOSP.TC ---
Today's Communication/Plan
-
cont to follow INR for bridging
Assessment / Plan
Assessment / Plan
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 CT showed umbilical hernia described as 6.2 cm multiseptated fluid collection in the midline anterior subcutaneous fat of the
abdominal wall (as discussed with ColorectalSx) and mild diverticulitis with pneumoperitoneum concerning for viscous perforation. Improved on IV Abx. Switched to HD with R tunneled catheter. Peritoneal culture grew E.faecalis. ID recommended to
complete Augmentin on 07/19/25. Tolerated food. Was started on Coumadin bridging since no concern for the surgical intervention from Colorectal Sx, then developed worsening abd pain after attempt to reinstate and collect peritoneal fluid for Cx. s/p
open excision for concern of the infected PD catheter. Ongoing bridging to warfarin
A/P:
#Acute mild diverticulitis with viscous perforation and peritonitis
Recommended to hold PD as long as possible
ColorectalSx followed: follow up in office in 2-[address] Montemayor until then control infection with Abx as per ID
on regular diet
Peritoneal fluid with Enterococcus faecalis sensitive to ampicillin. now back on Augmentin per infectious disease. Continue Augmentin through 07/31/25.
s/p open excision of her PD catheter 07/25. Started heparin drip without bolus and Coumadin 07/26. INR 1.4. s/p ffp prior to OR on 07/25
increase coumadin to 5mg
Elective surgery in 3 to 4 weeks per colorectal
pain control
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
#Anemia 2/2 ESRD
Epo as per Roof Bolter
Now on HD as per tapping machine operator
#Pruritus
mostly to L shoulder
no visible rash
Zyrtec
Constipation
Continue with Colace
added MiraLAX
s/p mag citrate with positive response
#Hx of DVT with prothrombin deficiency
Started heparin drip without bolus and Coumadin 07/26
INR goal 2-3
#Mild osteoporotic insufficiency Fx of the sacrum
#Subacute L pubic bone Fx
#b/l avascular necrosis of femoral heads
2/2 osteoporosis and ESRD
outpatient mgmt
#Hypothyroidism
#HLD
#GERD
cont home meds
DVT ppx hep
Full code
I have spent at least 36min reviewing chart, test reuslts, communication with consultants and providing direct patient care
Anticipated Discharge: 24 - 48 hours
Subjective/Interval History
-
Date of Service: July 31, 2025
Objective Data
-
Labs:
Laboratory Results
07/31/25 07/31/25 07/31/25
02:13 06:00 07:00
PT Pending
INR Pending
APTT 91.9 H
Sodium Pending
Potassium Pending
Chloride Pending
Carbon Dioxide Pending
Vital Signs:
Vital Signs
Temp Pulse Resp BP Pulse Ox
98.0 F 67 17 134/59 97
07/31/25 07:20 07/31/25 07:20 07/31/25 07:20 07/31/25 07:20 07/31/25 07:20
I&O
07/30/25 07/31/25 08/01/25
06:59 06:59 06:59
Intake Total 700 / 700 480 / 480
Balance 700 / 700 480 / 480
Review of Systems
-
History Source: Patient
All other systems: Reviewed and negative
Physical Exam
-
General: No Apparent Distress
HEENT: Normocephalic
Respiratory: Clear to Auscultation
Neuro: Awake, Alert, Oriented and AO x 3
Psych: Calm
[2025-07-31] MEDS: AUGMENTIN 500 MG/125 MG 1 TABLET PO (12:19)
[2025-07-31] MEDS: ROXICODONE 5 MG PO ×2 (12:20→18:11)
[2025-07-31 13:18] LABS: INR 1.82; PT 21.5 Sec (11.4-14.6)
[2025-07-31 13:19] LABS: Carbon Dioxide 28 mmol/L (22-30); Chloride 99 mmol/L (98-107); Potassium 4.9 mmol/L (3.5-5.1); Sodium 132 mmol/L (135-145)
[2025-07-31] MEDS: RETACRIT 10000 UNITS IV (14:04)
[2025-07-31] MEDS: FERRLECIT 125 MG IV (14:04)
[2025-07-31] MEDS: RENVELA PO (14:10)
[2025-07-31 15:21] VITALS: BP 124/59
--- NOTE | 2025-07-31 15:27 | CM ---
chart reviewed
cont to follow INR for bridging
HD today
[facility]
updated Latonya at [facility] fax #: [phone]
[2025-07-31] MEDS: HEPARIN 4000 UNITS INTRACATH (16:26)
--- NOTE | 2025-07-31 16:44 | W.PN.NEPH.HD ---
Assessment
-
pt seen during HD
vitals stable
UF as tolerated
CVC functions fine
on po abx
Progress Note - Hemodialysis
-
Date of Service: July 31, 2025
Duration: 30 minutes and 3 hours
Potassium Bath: 2
Calcium Bath: 2.5
Opti-Dialyzer: 160
Ultrafiltration: Other (1-1.5kg)
Blood Flow: 400
Dialysate Flow: 600
Heparin: no
EPO: [id number]
[2025-07-31] MEDS: REQUIP 2 MG PO (17:09)
[2025-07-31] MEDS: COUMADIN 6 MG PO (17:09)
[2025-07-31] MEDS: REMOVE LIDOCAINE PATCH 1 PATCH REMOVE (19:53)
[2025-07-31 23:00] VITALS: BP 103/59
[2025-08-01 06:00] VITALS: BMI 31.7
[2025-08-01 07:10] LABS: Hematocrit 29.7 % (37.0-47.0); Hemoglobin 9.4 g/dL (12.0-16.0); Mean Corp Hgb Conc. 31.6 g/dL (33.0-37.0); Mean Corpuscular Volume 100.3 fL (81.0-99.0); Platelet Count 360 10^3/uL (130-400); Red Cell Dist. Width 16.0 % (11.5-14.5)
[2025-08-01 07:14] VITALS: BP 141/67
[2025-08-01 07:15] LABS: INR 1.82; PT 21.6 Sec (11.4-14.6)
[2025-08-01 07:17] LABS: APTT 64.6 Sec (23.4-35.0)
[2025-08-01] MEDS: HEPARIN 3500 UNITS IV (08:01)
[2025-08-01] MEDS: PROTONIX 40 MG PO (08:05)
[2025-08-01] MEDS: MIRALAX PO ×2 (08:05→20:39)
[2025-08-01] MEDS: LIDOCAINE 4% PATCH 1 PATCH TOPICAL (08:05)
[2025-08-01] MEDS: RENVELA 2400 MG PO ×3 (08:05→17:30)
[2025-08-01] MEDS: COLACE 100 MG PO ×2 (08:06→20:39)
[2025-08-01] MEDS: ZYRTEC 5 MG PO (08:11)
[2025-08-01] MEDS: SYNTHROID 125 MCG PO (08:11)
[2025-08-01] MEDS: AUGMENTIN 500 MG/125 MG 1 TABLET PO (09:29)
[2025-08-01] MEDS: HEPARIN 25000 UNITS/250 ML IV (09:30)
--- NOTE | 2025-08-01 10:37 | W.PN.HOSP.TC ---
Today's Communication/Plan
-
On coumadin 7mg now
INR in AM
cont heparin drip
Assessment / Plan
Assessment / Plan
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 CT showed umbilical hernia described as 6.2 cm multiseptated fluid collection in the midline anterior subcutaneous fat of the
abdominal wall (as discussed with ColorectalSx) and mild diverticulitis with pneumoperitoneum concerning for viscous perforation. Improved on IV Abx. Switched to HD with R tunneled catheter. Peritoneal culture grew E.faecalis. ID recommended to
complete Augmentin on 07/19/25. Tolerated food. Was started on Coumadin bridging since no concern for the surgical intervention from Colorectal Sx, then developed worsening abd pain after attempt to reinstate and collect peritoneal fluid for Cx. s/p
open excision for concern of the infected PD catheter. Ongoing bridging to warfarin
A/P:
#Acute mild diverticulitis with viscous perforation and peritonitis
Recommended to hold PD as long as possible
ColorectalSx followed: follow up in office in 2-[address] Montemayor until then control infection with Abx as per ID
on regular diet
Peritoneal fluid with Enterococcus faecalis sensitive to ampicillin. now back on Augmentin per infectious disease. Continue Augmentin through 07/31/25.
s/p open excision of her PD catheter 07/25. Started heparin drip without bolus and Coumadin 07/26. INR 1.4. s/p ffp prior to OR on 07/25
increase coumadin to 5mg
Elective surgery in 3 to 4 weeks per colorectal
pain control
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
#Anemia 2/2 ESRD
Epo as per [employer]
Now on HD as per medical records director
#Pruritus
mostly to L shoulder
no visible rash
Zyrtec
Constipation
Continue with Colace
added MiraLAX
s/p mag citrate with positive response
#Hx of DVT with prothrombin deficiency
Started heparin drip without bolus and Coumadin 07/26
INR goal 2-3
#Mild osteoporotic insufficiency Fx of the sacrum
#Subacute L pubic bone Fx
#b/l avascular necrosis of femoral heads
2/2 osteoporosis and ESRD
outpatient mgmt
#Hypothyroidism
#HLD
#GERD
cont home meds
DVT ppx hep
Full code
I have spent at least 51min reviewing chart, test reuslts, communication with consultants and providing direct patient care
Anticipated Discharge: 24 - 48 hours
Subjective/Interval History
-
Date of Service: August 01, 2025
Objective Data
-
Labs:
Laboratory Results
08/01/25 08/01/25
06:49 14:00
WBC 10.3
Hgb 9.4 L
Hct 29.7 L
Plt Count 360
PT 21.6 H
INR 1.82
APTT 64.6 H Pending
Vital Signs:
Vital Signs
Temp Pulse Resp BP Pulse Ox
97.5 F 88 18 141/67 97
08/01/25 07:14 08/01/25 07:14 08/01/25 07:14 08/01/25 07:14 08/01/25 07:14
I&O
07/31/25 08/01/25 08/02/25
06:59 06:59 06:59
Intake Total 480 / 480 1200 / 1200
Balance 480 / 480 1200 / 1200
Review of Systems
-
History Source: Patient
All other systems: Reviewed and negative
Physical Exam
-
General: No Apparent Distress
HEENT: Normocephalic
Respiratory: Clear to Auscultation
Cardiac: Regular Rhythm
GI: Soft, Nondistended and Tender (mildly in the site of catheter excision - improving pain, no redness or exudate )
Neuro: Awake, Alert, Oriented and AO x 3
Psych: Calm
[2025-08-01] MEDS: DILAUDID 0.5 MG IV (11:29)
[2025-08-01 14:21] LABS: APTT 126.9 Sec (23.4-35.0)
--- NOTE | 2025-08-01 14:50 | W.PN.NEPH.PH ---
Today's Communication / Plan
-
HD tomorrow
Assessment/Plan
-
Assessment:
Perforated diverticulitis in setting of PD cath for dialysis
ESRD on PD since 2021
Polycystic kidney disease leading on to end-stage renal disease
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
History of recent GI bleed/gastric ulcer
Chr anemia
Hyperlipidemia
Hypothyroidism
Secondary PTH
History hypertension
Hyperphosphatemia
mild hyponatremia
Plan:
improving abd pain, PD catheter out
tolerating po abx
HD tomorrow
await therapeutic INR
-
-
Date of Service: August 01, 2025
CC / HPI / ROS
-
Chief Complaint:
ESRD
History of Present Illness:
off PD due to perf bowel/diverticulitis, on Abx, PD cath out
BP stable
hgb up at 9.4 stable
INR slowly rising no change at 1.8
Dialysis on Tuesday schedule
tolerated HD yesterday
Review of Systems:
no CP/SOB
Abdominal pain imrpving
Weights down
Labs
-
Labs:
WBC 10.3 10^3/uL (4.8-10.8) 08/01/25 06:49
RBC 2.96 10^6/uL (4.20-5.40) L 08/01/25 06:49
Hgb 9.4 g/dL (12.0-16.0) L 08/01/25 06:49
Hct 29.7 % (37.0-47.0) L 08/01/25 06:49
Plt Count 360 10^3/uL (130-400) 08/01/25 06:49
Sodium 132 mmol/L (135-145) L 07/31/25 12:54
Potassium 4.9 mmol/L (3.5-5.1) 07/31/25 12:54
Chloride 99 mmol/L (98-107) 07/31/25 12:54
Carbon Dioxide 28 mmol/L (22-30) 07/31/25 12:54
BUN 31 mg/dl (7-17) H 07/29/25 06:24
Creatinine 7.7 mg/dL (0.6-1.0) H* 07/29/25 06:24
eGFR 5.57 07/29/25 06:24
Glucose 95 mg/dl (70-99) 07/29/25 06:24
Calcium 9.2 mg/dl (8.4-10.2) 07/29/25 06:24
Albumin 2.4 g/dl (3.5-5.0) L 07/19/25 09:09
Physical Exam
-
Vital Signs:
Vital Signs
Temp Pulse Resp BP Pulse Ox
97.5 F 88 18 141/67 97
08/01/25 07:14 08/01/25 07:14 08/01/25 07:14 08/01/25 07:14 08/01/25 07:14
Cardiovascular:: Regular rate and rhythm
Respiratory:: Bilateral: CTA
Lung Excursion:: Normal
Abdomen:: Nontender and Soft
Bowel Sounds:: Normal
Extremity Edema:: None: Bilateral:
Steven Catheter: No
[2025-08-01 15:14] VITALS: BP 149/76
--- NOTE | 2025-08-01 15:36 | CM ---
Patient seen at bedside
HD tomorrow
await therapeutic INR
updated Latonya at [facility] [place]
PLAN: Home with outpatient HD at [facility] when stable
[facility] fax #: [phone]
[2025-08-01] MEDS: COUMADIN 2 MG PO (17:28)
[2025-08-01] MEDS: COUMADIN 5 MG PO (17:28)
[2025-08-01] MEDS: REQUIP 2 MG PO (17:30)
[2025-08-01] MEDS: REMOVE LIDOCAINE PATCH 1 PATCH REMOVE (20:39)
[2025-08-01 21:08] LABS: APTT 81.9 Sec (23.4-35.0)
[2025-08-01] MEDS: ROXICODONE 5 MG PO (22:42)
[2025-08-01 22:56] VITALS: BP 143/77
[2025-08-02 03:43] LABS: INR 2.18; PT 24.7 Sec (11.4-14.6)
[2025-08-02 03:44] LABS: APTT 84.0 Sec (23.4-35.0)
[2025-08-02 05:32] VITALS: BMI 31.7
[2025-08-02] MEDS: ROXICODONE 5 MG PO ×2 (06:58→11:51)
[2025-08-02 07:49] VITALS: BP 114/58
[2025-08-02] MEDS: HEPARIN 500 UNITS IV ×2 (07:55→08:55)
[2025-08-02 08:32] LABS: Hematocrit 26.0 % (37.0-47.0); Hemoglobin 8.7 g/dL (12.0-16.0); Mean Corp Hgb Conc. 33.5 g/dL (33.0-37.0); Mean Corpuscular Volume 99.6 fL (81.0-99.0); Platelet Count 347 10^3/uL (130-400); Red Cell Dist. Width 15.9 % (11.5-14.5)
[2025-08-02 08:37] LABS: Blood Urea Nitrogen 18 mg/dl (7-17); Calcium 9.0 mg/dl (8.4-10.2); Carbon Dioxide 30 mmol/L (22-30); Chloride 98 mmol/L (98-107); Estimated Creatinine Clearance 10 ml/min; Glucose 76 mg/dl (70-99); Potassium 4.0 mmol/L (3.5-5.1); Sodium 130 mmol/L (135-145); eGFR 6.82
[2025-08-02] MEDS: MANNITOL 25% 12.5 GRAMS IV ×2 (08:37→09:54)
[2025-08-02] MEDS: FLEXBUMIN 25% FOR HEMODIALYSIS 12.5 GRAMS IV ×2 (08:38→09:53)
[2025-08-02] MEDS: RETACRIT 8000 UNITS IV (08:39)
[2025-08-02] MEDS: LIDOCAINE 4% PATCH 1 PATCH TOPICAL (08:46)
--- NOTE | 2025-08-02 10:34 | W.PN.HOSP.TC ---
Today's Communication/Plan
-
DC
Assessment / Plan
Assessment / Plan
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 CT showed umbilical hernia described as 6.2 cm multiseptated fluid collection in the midline anterior subcutaneous fat of the
abdominal wall (as discussed with ColorectalSx) and mild diverticulitis with pneumoperitoneum concerning for viscous perforation. Improved on IV Abx. Switched to HD with R tunneled catheter. Peritoneal culture grew E.faecalis. ID recommended to
complete Augmentin on 07/19/25. Tolerated food. Was started on Coumadin bridging since no concern for the surgical intervention from Colorectal Sx, then developed worsening abd pain after attempt to reinstate and collect peritoneal fluid for Cx. s/p
open excision for concern of the infected PD catheter. Warfarin bridging complete, medically stable for d/c home, as per CM - outpatient HD arranged. Patient will follow in 3 days with her established doctor to check INR and refill Warfarin with
appropriate dose. Will be prescribed Warfarin 6mg daily for 5 doses.
A/P:
#Acute mild diverticulitis with viscous perforation and peritonitis
Recommended to hold PD as long as possible
ColorectalSx followed: follow up in office in 2-[address] Montemayor until then control infection with Abx as per ID
on regular diet
Peritoneal fluid with Enterococcus faecalis sensitive to ampicillin. now back on Augmentin per infectious disease. Continue Augmentin through 07/31/25.
s/p open excision of her PD catheter 07/25. Started heparin drip without bolus and Coumadin 07/26. INR 1.4. s/p ffp prior to OR on 07/25
increase Coumadin to 5mg
Elective surgery in 3 to 4 weeks per colorectal
pain control
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
#Anemia 2/2 ESRD
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
Now on HD as per rib puller
#Pruritus
mostly to L shoulder
no visible rash
Zyrtec
Constipation
Continue with Colace
added MiraLAX
s/p mag citrate with positive response
#Hx of DVT with prothrombin deficiency
Started heparin drip without bolus and Coumadin 07/26
INR goal 2-3
#Mild osteoporotic insufficiency Fx of the sacrum
#Subacute L pubic bone Fx
#b/l avascular necrosis of femoral heads
2/2 osteoporosis and ESRD
outpatient mgmt
#Hypothyroidism
#HLD
#GERD
cont home meds
DVT ppx hep
Full code
I have spent at least 51min reviewing chart, test reuslts, communication with consultants and providing direct patient care
Anticipated Discharge: Today
Subjective/Interval History
-
Date of Service: August 02, 2025
Objective Data
-
Labs:
Laboratory Results
08/02/25 08/02/25 08/02/25
03:13 03:13 03:13
WBC
Hgb
Hct
Plt Count
PT Cancelled 24.7 H
INR Cancelled 2.18
APTT 84.0 H
Sodium
Potassium
Chloride
Carbon Dioxide
BUN
Creatinine
Glucose
Calcium
08/02/25
07:30
WBC 10.7
Hgb 8.7 L
Hct 26.0 L
Plt Count 347
PT
INR
APTT
Sodium 130 L
Potassium 4.0
Chloride 98
Carbon Dioxide 30
BUN 18 H
Creatinine 6.5 H*
Glucose 76
Calcium 9.0
Vital Signs:
Vital Signs
Temp Pulse Resp BP Pulse Ox
98 F 78 16 114/58 98
08/02/25 07:49 08/02/25 07:49 08/02/25 07:49 08/02/25 07:49 08/02/25 07:49
I&O
08/01/25 08/02/25 08/03/25
06:59 06:59 06:59
Intake Total 1200 / 1200 1140 / 1140
Balance 1200 / 1200 1140 / 1140
Review of Systems
-
History Source: Patient
All other systems: Reviewed and negative
Physical Exam
-
General: No Apparent Distress
GI: Soft, Nontender and Nondistended
Skin: Warm
Neuro: Awake, Alert, Oriented and AO x 3
Psych: Calm
--- NOTE | 2025-08-02 10:56 | W.DCSUMMARY ---
Discharge Summary
Discharge Data
Date of Admission: 07/06/25
Date of Discharge: 08/02/25
-
Pending Results: No
Hospital Course
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 CT showed umbilical hernia described as 6.2 cm multiseptated fluid collection in the midline anterior subcutaneous fat of the
abdominal wall (as discussed with ColorectalSx) and mild diverticulitis with pneumoperitoneum concerning for viscous perforation. Improved on IV Abx. Switched to HD with R tunneled catheter. Peritoneal culture grew E.faecalis. ID recommended to
complete Augmentin on 07/19/25. Tolerated food. Was started on Coumadin bridging since no concern for the surgical intervention from Colorectal Sx, then developed worsening abd pain after attempt to reinstate and collect peritoneal fluid for Cx. s/p
open excision for concern of the infected PD catheter. Warfarin bridging complete, medically stable for d/c home, as per CM - outpatient HD arranged. Patient will follow in 3 days with her established doctor to check INR and refill Warfarin with
appropriate dose. Will be prescribed Warfarin 6mg daily for 5 doses.
I have spent at least 51min reviewing chart, test reuslts, communication with consultants and providing direct patient care
Patient was managed for:
#Acute mild diverticulitis with viscous perforation and peritonitis
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
#Anemia 2/2 ESRD
#Pruritus
#Hx of DVT with prothrombin deficiency
#Mild osteoporotic insufficiency Fx of the sacrum
#Subacute L pubic bone Fx
#b/l avascular necrosis of femoral heads
#Hypothyroidism
#HLD
#GERD
Discharge Plan
-
Patient Disposition: Home (Routine Discharge)
Discharge Diagnosis/Procedures: Acute diverticulitis with peritonitis
Diet: Low Fat
Bathing Restrictions: OK to Shower
Blood Work: INR on 08/05/25
Wound Care: Do not use your peritoneal dialysis catheter for any dialysis. It will need to be removed.
Referrals:
Omar Montemayor MD [Active, ColoRectal] - in two to three weeks
Adonay Jason MD [Non-Admitting Privileges]
Prescriptions:
New
warfarin 2 mg tablet
6 mg PO QPM Qty: 15 0RF
oxycodone 5 mg Tablet
5 mg PO Q8HPRN PRN (Reason: moderate pain) Qty: 6 0RF
Continued
calcitriol 0.5 mcg Capsule
0.5 mcg PO DAILY
sevelamer carbonate 800 mg Tablet
2,400 mg PO AC
ropinirole 1 mg tablet
2 mg PO HS
acetaminophen 500 mg Tablet
1,000 mg PO DAILYPRN PRN (Reason: mild pain)
levothyroxine 125 mcg tablet
125 mcg PO DAILY
B complex-vitamin C-folic acid 0.8 mg Tablet
1 tab PO DAILY
docusate sodium 100 mg Tablet
200 mg PO DAILY
Systane Ultra 0.4-0.3 % Drops
1 drp OPHTHALMIC (EYE) DAILY PRN (Reason: dry eyes)
Saline Nasal 0.65 % Aerosol,[place]
1 spray INTRANASAL HSPRN PRN (Reason: dry sinuses)
rosuvastatin 10 mg tablet
10 mg PO QPM
pantoprazole [Protonix] 40 mg tablet,delayed release (DR/EC)
40 mg PO DAILY
Discontinued
warfarin 4 mg Tablet
4 mg PO DAILY
furosemide 80 mg tablet
80 mg PO DAILY
magnesium glycinate 100 mg Tablet
100 mg PO HS
Discharge Orders:
Discharge Patient (As Directed); Ordered 08/02/25
Ordered By: Patrice Calles
Discharge Date and Time
Print Language: [id number]
[2025-08-02] MEDS: HEPARIN 3900 UNITS INTRACATH (11:16)
--- NOTE | 2025-08-02 11:24 | CM ---
Patient discharged today per hospitalist
IMM explained & signed. In chart
HD today
spoke with Latonya at [facility], flow sheets set to her by Veronica dialysis nurse
Patient set up for outpatient HD on at 6:20am
PLAN: Home with outpatient HD at [facility] fax #: [phone]
[2025-08-02] MEDS: SYNTHROID 125 MCG PO (11:52)
[2025-08-02] MEDS: COLACE 100 MG PO (11:52)
[2025-08-02] MEDS: PROTONIX 40 MG PO (11:52)
[2025-08-02] MEDS: ZYRTEC 5 MG PO (11:52)
[2025-08-02] MEDS: RENVELA PO (11:53)
[2025-08-02] MEDS: MIRALAX PO (11:53)
[2025-08-02 12:00] VITALS: BP 142/80
[2025-08-02] MEDS: AUGMENTIN 500 MG/125 MG PO (12:03)
[2025-08-02] MEDS: FLUZONE (6 mos+) 2025-2026 FORMULA 0.5 ML IM (12:04)
[2025-08-02] MEDS: RENVELA 2400 MG PO (13:22)
--- NOTE | 2025-08-02 13:59 | W.PN.NEPH.HD ---
Assessment
-
Pt seen on HD. no complaints. VSS, access ok
Progress Note - Hemodialysis
-
Date of Service: August 02, 2025
Duration: 30 minutes and 3 hours
Potassium Bath: 2
Calcium Bath: 2.5
Opti-Dialyzer: 160
Ultrafiltration: Other (1kg)
Blood Flow: 400
Dialysate Flow: 600
Heparin: 500x2
EPO: 8000 units
== END 2025-08-02 15:01 | disposition home or self-care (01) | DRG 356 ==
LOC: 3 WEST ACU 18:36
PROVIDERS: Internal Medicine; Internal Medicine Nephrology; Nurse Practitioner Family; Physician Assistant; Radiology Diagnostic Radiology; Registered Nurse; Specialist; Surgery; ADMITTING PHYSICIAN Internal Medicine; ATTENDING PHYSICIAN Internal Medicine; CONSULT PHYSICIAN Internal Medicine; CONSULT PHYSICIAN Surgery; EMERGENCY PHYSICIAN Emergency Medicine; OTHER PHYSICIAN Internal Medicine Infectious Disease
PROC: 02H633Z Insertion of Infusion Device into Right Atrium, Percutaneous Approach (ICD-10-PCS; 2025-07-08)
PROC: B5181ZA Fluoroscopy of Superior Vena Cava using Low Osmolar Contrast, Guidance (ICD-10-PCS; 2025-07-08)
PROC: 0JH60XZ Insertion of Tunneled Vascular Access Device into Chest Subcutaneous Tissue and Fascia, Open Approach (ICD-10-PCS; 2025-07-08)
PROC: 5A1D70Z Performance of Urinary Filtration, Intermittent, Less than 6 Hours Per Day (ICD-10-PCS; 2025-07-09)
PROC: 30233K1 Transfusion of Nonautologous Frozen Plasma into Peripheral Vein, Percutaneous Approach (ICD-10-PCS; 2025-07-25)
PROC: 0WPG03Z Removal of Infusion Device from Peritoneal Cavity, Open Approach (ICD-10-PCS; 2025-07-25)
PROC: 3E02340 Introduction of Influenza Vaccine into Muscle, Percutaneous Approach (ICD-10-PCS; 2025-08-02)
DX: K57.20 Diverticulitis of large intestine with perforation and abscess without bleeding (principal); K65.9 Peritonitis, unspecified; N18.6 End stage renal disease; T85.71XA Infection and inflammatory reaction due to peritoneal dialysis catheter, initial encounter; D68.51 Activated protein C resistance; Q61.2 Polycystic kidney, adult type; E87.1 Hypo-osmolality and hyponatremia; M80.0B2A Age-related osteoporosis with current pathological fracture, left pelvis, initial encounter for fracture; M87.852 Other osteonecrosis, left femur; M87.851 Other osteonecrosis, right femur; M80.0AXA Age-related osteoporosis with current pathological fracture, other site, initial encounter for fracture; D63.1 Anemia in chronic kidney disease; I15.1 Hypertension secondary to other renal disorders; E03.9 Hypothyroidism, unspecified; K21.9 Gastro-esophageal reflux disease without esophagitis; G47.33 Obstructive sleep apnea (adult) (pediatric); G25.81 Restless legs syndrome; K42.9 Umbilical hernia without obstruction or gangrene; B95.2 Enterococcus as the cause of diseases classified elsewhere; L29.9 Pruritus, unspecified; E78.00 Pure hypercholesterolemia, unspecified; K59.00 Constipation, unspecified; Y84.6 Urinary catheterization as the cause of abnormal reaction of the patient, or of later complication, without mention of misadventure at the time of the procedure; Y92.9 Unspecified place or not applicable; Z76.82 Awaiting organ transplant status; Z99.2 Dependence on renal dialysis; Z86.711 Personal history of pulmonary embolism; Z79.01 Long term (current) use of anticoagulants; Z98.51 Tubal ligation status; Z88.1 Allergy status to other antibiotic agents; Z88.2 Allergy status to sulfonamides; Z88.8 Allergy status to other drugs, medicaments and biological substances; Z87.19 Personal history of other diseases of the digestive system; Z86.718 Personal history of other venous thrombosis and embolism; Z80.0 Family history of malignant neoplasm of digestive organs; Z79.890 Hormone replacement therapy; Z23 Encounter for immunization; Z87.11 Personal history of peptic ulcer disease; Z79.899 Other long term (current) drug therapy
CPT/HCPCS: 36558; 74176; 74177; 76700; 76937; 77001; 80048; 80051; 80053; 82962; 83690; 85014; 85018; 85025; 85027; 85610; 85730; 86140; 86704; 86706; 86803; 87015; 87040; 87070; 87077; 87084; 87186; 87205; 87340; 89051; 90656; 96361; 96365; 96375; 99152; 99291; C1750; G0008; G0257; J2916; P9047; P9059; Q5106; Q9967

== ENCOUNTER 2025-08-28 05:50 | Inpatient (IN) | payer MEDICARE, BC, SELFPAY ==
[2025-08-20 11:10] LABS: Hematocrit 37.9 % (37.0-47.0); Hemoglobin 12.5 g/dL (12.0-16.0); Mean Corp Hgb Conc. 33.0 g/dL (33.0-37.0); Mean Corpuscular Volume 98.2 fL (81.0-99.0); Platelet Count 287 10^3/uL (130-400); Red Cell Dist. Width 15.1 % (11.5-14.5)
[2025-08-20 11:13] LABS: APTT 29.6 Sec (23.4-35.0); INR 1.20; PT 15.5 Sec (11.4-14.6)
[2025-08-20 11:50] LABS: ALT (SGPT) 10 U/L (0-35); AST (SGOT) 16 U/L (14-36); Albumin 3.8 g/dl (3.5-5.0); Alkaline Phosphatase 108 U/L (38-126); Blood Urea Nitrogen 22 mg/dl (7-17); Calcium 10.0 mg/dl (8.4-10.2); Carbon Dioxide 32 mmol/L (22-30); Chloride 98 mmol/L (98-107); Glucose 80 mg/dl (70-99); Potassium 5.1 mmol/L (3.5-5.1); Sodium 135 mmol/L (135-145); Total Protein 5.6 g/dl (6.3-8.2); eGFR 7.36
[2025-08-20 12:30] LABS: Glycohemoglobin (HgbA1c) 4.4 % (4.0-5.9)
[2025-08-20 13:58] VITALS: BMI 30.9
[2025-08-28] VITALS (10 sets, daily range): BP systolic 105–141; BP diastolic 53–74; BMI 30.9
[2025-08-28] MEDS: LYRICA 150 MG PO (06:37)
[2025-08-28] MEDS: TYLENOL 1000 MG PO ×2 (06:37→18:35)
[2025-08-28] MEDS: NORMOSOL-R/PLASMALYTE-A 1000 IV (06:38)
[2025-08-28] MEDS: RELISTOR 12 MG SC (06:39)
[2025-08-28] MEDS: HEPARIN 5000 UNITS SC (06:39)
--- NOTE | 2025-08-28 13:39 | W.CON.NEPH ---
Consultation
-
Date/Time Consultation Requested: 08/28/2025 1:30 PM
Date/Time Consultation Performed: 08/28/2025 1:30 PM
Requesting Provider: Dr. Montemayor
Performing Provider: Dr. Gamboa
Reason for Consultation: End-stage renal disease
Medical History
-
Chief Complaint: End-stage renal disease
History of Present Illness:
The patient is a 60-year-old female with a past medical history of end-stage renal disease secondary to PKD who had been recently transition from PD to hemodialysis following a peritonitis admission in July 2025, she is now seen in our
hemodialysis unit on TTS. She is maintained on calcitriol for secondary hyperparathyroidism and sevelamer for her hyperphosphatemia. She is maintained on levothyroxine for hypothyroidism. She presented to the hospital for elective sigmoidectomy
today and nephrology was consulted for end-stage renal disease management.
Past Medical History
Pulmonary Embolism / Factor V Leiden
ESRD secondary Polycystic Kidney Disease on Peritoneal Dialysis
Anemia of Chronic Disease
Hypothyroidism
Restless Leg Syndrome
SHPTH
Hyperphospahtemia
Past Surgical History: Other (Tubal Ligation Tonsillectomy Peritoneal Dialysis Catheter)
Social History
Tobacco: Non-Smoker
Alcohol: None
Drug: None
Employment: Other
Family History
Notable for polycystic kidney disease in both her mother and sibling.
Allergies / Home Medications
Allergy/AdvReac Type Severity Reaction Status Date / Time
adhesive Allergy Itching Verified 08/28/25 06:20
adhesive tape Allergy Itching Verified 08/28/25 06:20
bupropion (From Wellbutrin) Allergy Rash Verified 08/28/25 06:20
sulfamethoxazole (From Allergy Itching Verified 08/28/25 06:20
Bactrim)
trimethoprim (From Bactrim) Allergy Itching Verified 08/28/25 06:20
�Medication �Instructions �Recorded �Confirmed �Type
calcitriol 0.5 mcg capsule 0.5 mcg PO DAILY Kidney Disease 07/13/23 08/28/25 History
sevelamer carbonate 800 mg tablet 2,400 mg PO AC Kidney Disease 09/25/24 08/28/25 History
acetaminophen 500 mg tablet 1,000 mg PO DAILYPRN PRN mild pain 07/06/25 08/28/25 History
docusate sodium 100 mg tablet 200 mg PO DAILY STOOL SOFTENER 07/06/25 08/28/25 History
levothyroxine 125 mcg tablet 125 mcg PO DAILY Thyroid 07/06/25 08/28/25 History
pantoprazole 40 mg tablet,delayed 40 mg PO HS GERD 07/06/25 08/28/25 History
release (Protonix)
peg 400-propylene glycol 0.4 %-0.3 1 drp ophthalmic (eye) DAILY PRN 07/06/25 08/28/25 History
% eye drops (Systane Ultra) dry eyes
ropinirole 1 mg tablet 2 mg PO HS RESTLESS LEG 07/06/25 08/28/25 History
rosuvastatin 10 mg tablet 10 mg PO QPM High Cholesterol 07/06/25 08/28/25 History
sodium chloride 0.65 % nasal spray 1 spray intranasal HSPRN PRN dry 07/06/25 08/28/25 History
aerosol (Saline Nasal) sinuses
vitamin B complex-vitamin C-folic 1 tab PO DAILY Supplement 07/06/25 08/28/25 History
acid 0.8 mg tablet
oxycodone 5 mg tablet 5 mg PO Q8HPRN PRN Pain #6 tabs 08/02/25 08/28/25 Rx
cetirizine 10 mg tablet (Zyrtec) 10 mg PO DAILY 08/21/25 08/28/25 History
warfarin 2 mg tablet 4 mg PO QPM 08/21/25 08/28/25 History
Review of Systems
-
History Source: Patient
All other systems: Negative unless noted
Physical Exam
Vital Signs
Vital Signs
Temp Pulse Resp BP Pulse Ox
98.2 F 83 18 141/74 99
08/28/25 06:49 08/28/25 06:49 08/28/25 06:49 08/28/25 06:49 08/28/25 06:49
Lab Results
WBC 7.3 10^3/uL (4.8-10.8) 08/20/25 09:07
RBC 3.86 10^6/uL (4.20-5.40) L 08/20/25 09:07
Hgb 12.5 g/dL (12.0-16.0) 08/20/25 09:07
Hct 37.9 % (37.0-47.0) 08/20/25 09:07
Plt Count 287 10^3/uL (130-400) 08/20/25 09:07
Sodium 135 mmol/L (135-145) 08/20/25 09:07
Potassium 5.1 mmol/L (3.5-5.1) 08/20/25 09:07
Chloride 98 mmol/L (98-107) 08/20/25 09:07
Carbon Dioxide 32 mmol/L (22-30) H 08/20/25 09:07
BUN 22 mg/dl (7-17) H 08/20/25 09:07
Creatinine 6.1 mg/dL (0.6-1.0) H* 08/20/25 09:07
eGFR 7.36 08/20/25 09:07
Glucose 80 mg/dl (70-99) 08/20/25 09:07
Calcium 10.0 mg/dl (8.4-10.2) 08/20/25 09:07
Albumin 3.8 g/dl (3.5-5.0) 08/20/25 09:07
Physical Exam
General: Awake, Alert, Oriented, AOx3 and No Distress
HEENT: EOMI, Anicteric, Conjunctivae Clear and Facial Symmetry
Respiratory: Clear, Normal Excursion and Nonlabored Respirations
Cardiac: S1/S2 and Regular Rate/Rhythm
Breast: Deferred by me
Abdomen: Soft and Other (No active bowel sounds)
Musculoskeletal: No Cyanosis and No Edema
Skin: No Rash and Normal Turgor
Neuro: Nonfocal/Grossly Intact
Psych: Mood/afflect pleasant, Insight/judgement good and Appropriate
Vascular Access: CVC (Right tunneled IJ catheter)
Data Reviewed
-
Radiology: Image Personally Visualized and interpreted (Chest x-ray from 08/20/2025 was personally reviewed by myself which noted the presence of a right IJ catheter clear lung gaspar without evidence of congestive heart failure or pneumonic process)
Labs: Labs Reviewed by me (CBC)
Old Records: Reviewed (Reviewed nephrology consult from late July 2025 including discharge summary when patient was admitted and transition from PD to hemodialysis following diverticulitis perforation with subsequent peritonitis)
Assessment/Plan
-
Assessment:
Sigmoidectomy 08/28/2020
Hx of Perforated diverticulitis in setting of PD cath for dialysis in July 27
ESRD on PD since 2021 now on hemodialysis
Polycystic kidney disease leading on to end-stage renal disease
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
History of recent GI bleed/gastric ulcer
Anemia
Hyperlipidemia
Hypothyroidism
Secondary PTH
History hypertension
Hyperphosphatemia
Plan:
She received extra dialysis on Wednesday, August 27, 2025
Next dialysis will be scheduled for Saturday, August 30, 2025 unless clinically indicated otherwise
Okay for IV fluids postoperatively at 50 cc/h until diet advanced
Patient will be provided for dialysis needs
Appropriate dietary guidelines including reduced sodium and potassium and 50 ounce fluid restriction to be provided once patient is p.o.
No need for BRITTANY at this time as hemoglobin is above 12
We will recheck labs on dialysis to include CBC and BMP
Maintain calcitriol for secondary hyperparathyroidism once p.o. status established
Maintain sevelamer for hyperphosphatemia with meals once p.o. status established
--- NOTE | 2025-08-28 13:44 | W.IMMPOSTOP ---
Addendum entered and electronically signed by Omar Montemayor MD 08/28/25 14:00:
Updated [id number] over the phone
Original Note:
Surgical Immed Post Op Note
-
Primary Surgeon: Omar Montemayor MD
Assisting Surgeon: ANTONIO Hooks
Pre-op Diagnosis: Diverticulitis
Post-op Diagnosis: Diverticulitis
Procedure Performed: Robotic sigmoidectomy, lysis of adhesions, flexible sigmoidoscopy, mesenteric angiography with ICG, laparoscopic TAP block
Anesthesia Type: General
Specimen / Cultures: Rectosigmoid
Estimated Blood Loss: 50 mL
IVF: 1.0 L
UOP: None (dialyzed yesterday)
Complications: None
Operative Findings: Accessed via Veress needle; identified multiple adhesions from the small bowel and omentum to the anterior abdominal wall; placed 3 ports along the diagonal and lysed adhesions with laparoscopic scissors; placed an additional
study assistant port; lysed remaining adhesions from the small bowel and sigmoid to the anterior abdominal wall; begin medial to lateral dissection, but unable to confirm the correct plane; suspended the uterus with a nylon; switched to lateral to medial
and identified the ureters easily; bilateral kidneys were extremely enlarged and altered her normal anatomy, making the procedure more difficult; switch back to medial to lateral and entered the presacral space; dissected MAGALI circumferentially,
which was intimately adherent to the left colic and IMV; created a Pfannenstiel incision and stapled the MAGALI with the white load; mobilized the rectosigmoid; performed flexible sigmoidoscopy, there was minimal liquid stool that was lavaged and
suctioned; identified the rectum appeared healthy up to the rectosigmoid; divided the mesorectum and stapled at about 15 cm from the anal verge using a 60 mm blue load; attempted to seat the anvil and intracorporeally, but due to multiple
diverticula, extracorporealized the anvil; secured a diverticula to the post with a 3-0 Vicryl; then performed EEA stapled anastomosis; donuts intact x 2, negative leak test, anastomosis intact with a dog ear to the patient's right; released the
uterus; performed a laparoscopic tap block and closed in the usual fashion
--- NOTE | 2025-08-28 13:51 | OR.RPT ---
Operative Report
Operative Report
DATE OF OPERATION: 08/28/2025
SURGEON: Omar Montemayor MD
PREOPERATIVE DIAGNOSIS: Diverticulitis
POSTOPERATIVE DIAGNOSIS: Diverticulitis
OPERATION: Robotic sigmoidectomy, adhesiolysis greater than 1 hr, mesenteric angiography with ICG, flexible sigmoidoscopy, laparoscopic TAP block
ASSISTANTS:
1. ANTONIO Hooks
ANESTHESIA: General
ESTIMATED BLOOD LOSS: 50 mL
IVF: 1.0 L
URINE OUTPUT: 0 (history of ESRD, dialyzed yesterday)
FINDINGS:
1. Multiple adhesions from the omentum and small bowel to the anterior abdominal wall
2. Thickening noted in the distal sigmoid colon and mesentery consistent with the prior diverticulitis
3. Performed EEA stapled anastomosis of the mid-sigmoid to proximal rectum; donuts intact x 2, negative leak test, flexible sigmoidoscopy with intact anastomosis, but noted a dog ear of rectum towards the patient's right
SPECIMENS:
1. Rectosigmoid
DRAINS: None
COMPLICATIONS: No immediate complications.
INDICATIONS: The patient is a 60-year-old female with a PMH of polycystic kidney disease and ESRD who was recently admitted for perforated diverticulitis. She was treated successfully nonoperatively. Due to the contamination of the peritoneal
cavity, her PD catheter was removed. As she would like to return to PD, I recommended sigmoidectomy to minimize the risk of recurrent diverticulitis. The operation was discussed with the patient in detail, including the risks, benefits and
alternatives. Risks described included, but not limited to, bleeding, infection, anastomotic leak, damage to nearby structures (i.e.- ureter, bowel, solid organs), incisional hernia, need for ostomy creation, conversion to open, recurrence of
diverticulitis and anesthetic risks, including but not limited to CO, stroke, DVT/PE, respiratory failure and other organ failure. The patient understood and agreed to proceed.
PROCEDURE IN DETAIL: The patient was taken to the operating room and placed on the operating table in supine position. Sequential compression devices were placed bilaterally. General anesthesia was induced and the patient was intubated without
complication. The patient was placed in lithotomy position with both arms tucked. Urology performed a cystoscopy, placed bilateral ureteral stents, injected each ureter with 2.5mL of ICG and placed a Hawkins. The abdomen was prepped and draped in a
sterile fashion. A time-out was performed verifying the correct patient, procedure, operative site, positioning, and special equipment. Anesthesia placed an orogastric tube. IV Ancef and Flagyl were given preincision. A marking pen was used to
gavin out the midline.
An 8 mm incision at Garnett's point was made with an 11 blade scalpel. A Veress needle was used to gain abdominal access. After 3 clicks, the insufflation was connected to the Veress needle and the opening pressure was noted to be less than 8 mmHg.
The abdomen was insufflated to a pressure of 12 mmHg. An 8 mm robotic trocar was inserted. The robotic camera was advanced and intra-abdominal placement was confirmed. The abdomen was examined. No injuries were noted from port entry or from the
Veress needle. There were substantial adhesions from the omentum to the anterior abdominal wall scattered throughout, as well as adhesions from small bowel to the anterior abdominal wall. As the adhesions were filmy and less substantial along the
right abdomen, I used the camera to free up enough space to place my ports along the diagonal. Three 8mm robotic ports were placed under direct visualization in a diagonal fashion from Garnett's point to the right lower quadrant. Using laparoscopic
scissors, I freed up the remaining adhesions in the right hemiabdomen with meticulous sharp dissection. The 8mm assist port was placed in the right lateral/mid abdomen, taking care to avoid injury to the right epigastric vessels. The left upper
quadrant port was changed to the air seal port.
The patient was placed in steep Trendelenburg and [id number]. The robot was docked from the patient's left side. From the RLQ to Garnett's point, the instruments introduced were the scissors, camera, bipolar grasper and tip-up grasper,
respectively. I continued lysing adhesions along the midline, taking care to avoid injury to the small bowel. There were additional adhesions along the anterior pelvis and right lower quadrant, which were freed sharply. The mesentery of the
distal sigmoid was noted to be thickened from chronic inflammation. There were adhesions from the sigmoid to the left lower quadrant, which were taken down with sharp dissection. There were significant interloop adhesions among the small bowel.
These adhesions were freed up just enough to retract the small bowel from the pelvis. The mid to proximal sigmoid colon appeared healthy with no evidence of thickening. In the pelvis, the uterus and adnexa appeared normal. I elevated the
rectosigmoid to commence a medial to lateral dissection. The peritoneum over the sacral promontory was scored and entered. Due to the amount of adiposity within the retroperitoneum, this dissection was difficult. I was unable to confirm the
correct plane. I switched to a lateral to medial approach, taking down the adhesions from the left lower quadrant and left pelvic brim. Due to the enormous size of the kidneys, the usual retroperitoneal plane was significantly medialized, but the
plane was easily entered and developed. I easily identified the bilateral ureters with firefly and kept them safe from my dissection. I mobilized the rectosigmoid laterally from the upper pelvis up to the proximal descending colon.
I turned back to the medial to lateral approach and easily identified the correct plane. I developed the presacral plane down to the mid-rectum. I carried this plane up to the MAGALI. Due to the size of the kidneys, the mesenteric vessels were
abnormally displaced medially. I was able to develop the MAGALI pedicle close to its takeoff. The left colic and IMV were also in close proximity and were meticulously dissected away. When I attempted to divide the MAGALI pedicle, it was clear that
there were calcifications preventing the vessel sealer from completely closing. Therefore, I felt the safest next step would be to staple the MAGALI.
I undocked a few robotic arms and began my Pfannenstiel cutdown. A 5 cm Pfannenstiel incision was created 2 fingerbreadths above the pubic symphysis. This was carried down to the anterior fascia with electrocautery and hemostasis was assured. The
fascia was incised to just beyond the length of the skin incision. The fascia was grasped with Ponce's and elevated. The adhesions to the anterior fascia were taken down bluntly from the rectus abdominis muscle and the midline attachment was
taken down with electrocautery. This was performed both superiorly and inferiorly to our incision. The rectus was split along the midline, first scoring the linea alba with electrocautery, then bluntly with a Samia clamp to reveal the peritoneum,
which was grasped and elevated with Kellys. The peritoneum was incised with Metzenbaum scissors, taking care to avoid injury to intraperitoneal structures. The peritoneum was incised cranially and caudally to the greatest extent that our incision
would allow, taking care to avoid injury to the bladder. A small Raul with port cap was placed and a robotic 12 mm port was placed through the port cap.
Using a 60 mm with a white load, I stapled and divided the MAGALI pedicle. There were no issues bleeding after dividing. I turned back to my perirectal dissection. I scored the peritoneum along the lateral pelvis bilaterally, taking care to keep the
ureter safe. I divided the rectal stalks with the vessel sealer. I performed flexible sigmoidoscopy. There was a small amount of liquid stool that was lavaged and suctioned. The rectum and rectosigmoid appeared healthy. I passed the EEA sizers
and the largest EEA passed easily up to the rectosigmoid colon. Therefore, I selected a point at the proximal rectum, approximately 15 cm from the anal verge, for my transection point. I developed a window between the rectum and the mesorectum and
divided the mesorectum, including the superior rectal artery, with the vessel sealer. I divided the proximal rectum with a 60 mm robotic stapler with a green load. The staple line was hemostatic.
I selected a point on the mid to proximal sigmoid that was proximal to the chronic inflammation. I elevated the mesentery of the sigmoid by grasping the divided MAGALI pedicle. Due to the close proximity of the left colic and MAGALI, I divided these
with the vessel sealer, close to the level of the takeoff from the MAGALI. I divided the remainder of the mesentery up to my proposed transection point on the sigmoid colon. Anesthesia injected ICG and perfusion was confirmed to my proposed
transection point.
I elected to proceed with an intracorporeal end-to-end stapled anastomosis with EEA stapler. A colotomy in the devascularized segment of colon was created using the robotic scissors at a point distal to my proposed proximal transection point. The
anvil with a long Prolene suture attached at the tip was carefully passed through the colotomy and advanced proximally up the descending colon, with the long Prolene remaining outside of the colon. The colotomy was closed around the Prolene stitch
using a V-Loc running stitch. The robotic stapler with a blue load was used to staple and divide the descending colon at our proposed transection point where adequate perfusion was noted on firefly. The specimen was placed in the left upper
quadrant. The Prolene attached to the anvil was grasped and pulled through the staple line after removing a few noemy. I grasped and elevated the anvil. I attempted to clean the anvil of intervening mesentery and diverticula. However, there
were 2 or 3 diverticula that would likely be in the way of the staple line. I attempted to mobilize these, but was having difficulty. I freed up more of the attachments of the descending colon from the lateral abdominal wall and retroperitoneum.
I extracorporealized my proximal staple line with anvil in place. Using clamps and electrocautery, I freed up the diverticula. There was 1 diverticula that was clearly going to involve the staple line. I secured this to the post with a 3-0 Vicryl
in a pursestring fashion. At this point, the staple line appeared clear from diverticula or mesentery. This was returned to the abdomen and the abdomen was reinflated.
I checked the reach of the proposed anastomosis and it was plenty adequate. The operative field was surveyed and hemostasis was ensured. Sizers were passed up the rectum once more to ensure adequate circumference and length. The EEA stapler was
passed transanally to the distal staple line. The pin was extended and was connected with the anvil. After ensuring there was no twist to the mesentery and there was no tension, the EEA stapler was closed for 1.5 minutes and then fired. Both
donuts were intact. A leak test was performed by filling the pelvis with saline, occluding the proximal lumen and insufflating with the flexible sigmoidoscope. There was no evidence of leak from the anastomosis. Endoscopically, the anastomosis was
intact without evidence of bleeding. There was a dog ear of the rectum towards the right of the patient, but the mucosa was healthy and well-approximated. The colorectum was desufflated and the flexible sigmoidoscope removed.
The operative field was inspected once more and remained hemostatic. The robotic instruments were removed and the robot was undocked. Using laparoscopic visualization, a TAP block was performed using a total of 30 mL of 0.25% Marcaine with
epinephrine mixed with dexamethasone and injecting in the transverse abdominis plane bilaterally. The remaining ports were removed under direct visualization and no bleeding was noted. The Pfannenstiel incision was closed in layers. First, the
peritoneum was closed with a running 0-Vicryl stitch. Then, the anterior fascia was closed using a #1 Stratafix suture. The incisions were irrigated. The remaining 30 cc of 0.25% Marcaine with epinephrine mixed with dexamethasone were injected
around the incisions. The incisions were closed with running subcuticular 4-0 Monocryl and dressed with Dermabond.
At this point, the procedure was complete. The patient was awoken and extubated without complication. The right stent was removed, and the left stent and Hawkins were left in place. All needle, sponge and instrument counts were reported as correct.
The patient tolerated the procedure well and was transferred to the recovery room in stable condition with the hawkins in place.
DICTATED BY: Omar Montemayor MD
[2025-08-28 14:14] LABS: Hematocrit 38.6 % (37.0-47.0); Hemoglobin 12.5 g/dL (12.0-16.0); Mean Corp Hgb Conc. 32.4 g/dL (33.0-37.0); Mean Corpuscular Volume 98.0 fL (81.0-99.0); Nucleated Red Blood Cells % 0 %; Platelet Count 244 10^3/uL (130-400); Red Cell Dist. Width 14.1 % (11.5-14.5)
[2025-08-28] MEDS: DILAUDID 0.5 MG IV (14:22)
[2025-08-28 14:41] LABS: Blood Urea Nitrogen 15 mg/dl (7-17); Calcium 9.5 mg/dl (8.4-10.2); Carbon Dioxide 25 mmol/L (22-30); Chloride 95 mmol/L (98-107); Estimated Creatinine Clearance 13 ml/min; Glucose 164 mg/dl (70-99); Potassium 4.6 mmol/L (3.5-5.1); Sodium 130 mmol/L (135-145); eGFR 9.82
--- NOTE | 2025-08-28 15:17 | CON.HOSP ---
Family Physician
-
Family Physician: SUZANNE Durham
Chief Complaint
-
sigmoidectomy
History of Present Illness
60-year-old female past medical history of diverticulitis with perforated viscus/peritonitis, ESRD on peritoneal dialysis, anemia secondary to renal disease, history of DVT, prothrombin deficiency, osteoporotic insufficiency fracture of the sacrum,
subacute left pubic bone fracture, bilateral avascular necrosis of femoral heads, hypothyroidism, hyperlipidemia, GERD, who underwent robotic sigmoidectomy and lysis of adhesions for diverticulitis today.
Patient was recently admitted from 07/06 to 08/02 for abdominal pain. �Patient was found to have mild diverticulitis with pneumoperitoneum concerning for viscus perforation. �Peritoneal culture grew Enterococcus faecalis. �Patient was treated with IV
antibiotics. �Patient underwent open excision for concern for infected peritoneal dialysis catheter.
Medical History
Past Medical History
Past Medical History: Reports Other (diverticulitis with perforated viscus/peritonitis, ESRD on peritoneal dialysis, anemia secondary to renal disease, history of DVT, prothrombin deficiency, osteoporotic insufficiency fracture of the sacrum,
subacute left pubic bone fracture, bilateral avascular necrosis of femoral heads, hypothyroidi)
Past Surgical History: Reports Other (Tubal Ligation Tonsillectomy Peritoneal Dialysis Catheter))
Social History
Tobacco: Non-smoker
Alcohol: None
Drug: None
Family History
Family History: Reviewed & Not Pertinent
Allergies / Home Medications
Allergies reflects when Allergies were last updated in [facility].
Home Medications with original date entered in [facility]
Allergy/Medication List:
Allergies
Allergy/AdvReac Type Severity Reaction Status Date / Time
adhesive Allergy Itching Verified 08/28/25 06:20
adhesive tape Allergy Itching Verified 08/28/25 06:20
bupropion (From Wellbutrin) Allergy Rash Verified 08/28/25 06:20
sulfamethoxazole (From Allergy Itching Verified 08/28/25 06:20
Bactrim)
trimethoprim (From Bactrim) Allergy Itching Verified 08/28/25 06:20
Home Medications
calcitriol 0.5 mcg capsule 0.5 mcg PO DAILY Kidney Disease 07/13/23
sevelamer carbonate 800 mg tablet 2,400 mg PO AC Kidney Disease 09/25/24
acetaminophen 500 mg tablet 1,000 mg PO DAILYPRN PRN mild pain 07/06/25
docusate sodium 100 mg tablet 200 mg PO DAILY STOOL SOFTENER 07/06/25
levothyroxine 125 mcg tablet 125 mcg PO DAILY Thyroid 07/06/25
pantoprazole 40 mg tablet,delayed release (Protonix) 40 mg PO HS GERD 07/06/25
peg 400-propylene glycol 0.4 %-0.3 % eye drops (Systane Ultra) 1 drp ophthalmic (eye) DAILY PRN dry eyes 07/06/25
ropinirole 1 mg tablet 2 mg PO HS RESTLESS LEG 07/06/25
rosuvastatin 10 mg tablet 10 mg PO QPM High Cholesterol 07/06/25
sodium chloride 0.65 % nasal spray aerosol (Saline Nasal) 1 spray intranasal HSPRN PRN dry sinuses 07/06/25
vitamin B complex-vitamin C-folic acid 0.8 mg tablet 1 tab PO DAILY Supplement 07/06/25
oxycodone 5 mg tablet 5 mg PO Q8HPRN PRN Pain #6 tabs 08/02/25
cetirizine 10 mg tablet (Zyrtec) 10 mg PO DAILY 08/21/25
warfarin 2 mg tablet 4 mg PO QPM 08/21/25
Review of Systems
-
History Source: Patient
A 12 point Review of Systems was completed except as noted: Yes
Constitutional: Reports No Symptoms
EENT: Reports No Symptoms
Respiratory: Reports No Symptoms
Cardiac: Reports No Symptoms
Abdomen/GI: Reports No Symptoms
: Reports No Symptoms
Musculoskeletal: Reports No Symptoms
Skin: Reports No Symptoms
Neurological: Reports No Symptoms
Endocrine: Reports No Symptoms
Hematologic/Lymphatic: Reports No Symptoms
Psych: Reports No Symptoms
Physical Exam
Vital Signs
Vital Signs
Temp Pulse Resp BP Pulse Ox
98.1 F 63 12 112/64 95
08/28/25 13:45 08/28/25 14:45 08/28/25 14:45 08/28/25 14:45 08/28/25 14:45
Physical Exam
General: Well Developed, Well Nourished and No Apparent Distress
HEENT: Normocephalic, Moist Mucous Membranes and Atraumatic
Respiratory: Clear
Cardiac: S1/S2 and Regular Rhythm; Negative Murmur or Rub
GI: Soft, Non Tender, Non Distended and Normal Bowel Sounds
Rectal: Deferred by Provider
Musculoskeletal: No Clubbing, No Cyanosis and No Edema
Skin: Negative Rash
Neuro: Nonfocal/Grossly Intact
Laboratory Results
-
Laboratory Results
08/28/25 14:02
08/28/25 14:02
PT 15.5 Sec (11.4-14.6) H 08/20/25 09:07
INR 1.20 08/20/25 09:07
APTT 29.6 Sec (23.4-35.0) 08/20/25 09:07
Total Bilirubin 0.6 mg/dl (0.2-1.3) 08/20/25 09:07
AST 16 U/L (14-36) 08/20/25 09:07
ALT 10 U/L (0-35) 08/20/25 09:07
Alkaline Phosphatase 108 U/L (38-126) 08/20/25 09:07
Data Reviewed
-
Lab Data: Labs Reviewed
Old Records: Reviewed
Impression / Plan
-
IMPRESSION:
PLAN:
# Acute mild diverticulitis with viscus perforation and peritonitis
- Patient underwent planned delayed elective sigmoidectomy today
- Regular diet ordered as per colorectal
- Recent peritoneal fluid culture grew Enterococcus faecalis sensitive to ampicillin and patient completed Augmentin
-Status post excision of PD catheter on 07/25
- Continue gentle IV fluids postoperatively
# ESRD previously on peritoneal dialysis, now on hemodialysis
-Patient received hemodialysis session yesterday and next dialysis session scheduled for Tuesday
- Nephrology consulted
- Continue calcitriol
Anemia secondary to renal disease
- Hemoglobin stable
History of DVT/prothrombin deficiency
- Patient was reportedly cleared to come off of anticoagulation few years ago but patient did not want to
- As per colorectal, okay to start heparin bridge tomorrow for Bridge to Coumadin�
-consider hematology to decide if bridging even necessary
History of mild osteoporotic insufficiency fracture of sacrum
Subacute left pubic bone fracture
Bilateral avascular necrosis of femoral heads
Osteoporosis
- Continue pregabalin
Hypothyroidism
- Continue levothyroxine
Hyperlipidemia
- Continue statin
GERD
-Continue Protonix
Restless legs
-Continue pregabalin, ropinirole
Full code
DVT prophylaxis�SCDs
Renal diet
[2025-08-28] MEDS: NSS 1000 IV (17:23)
--- NOTE | 2025-08-28 18:29 | PTCARENOTE ---
Pt arrived to [facility] in a bed. Pt drowsy but arouses to verbal. 99% on 2L. Diminished at the bases. Tender abdomen with 6 lap sites and 1 poke site ARACELI with glue. Knee high teds/scds on pt. Right subclavian cath in place. Steven catheter with
blue/gill urine. Admission questions answered. Bed locked and in lowest position. Care ongoing.
[2025-08-28] MEDS: CRESTOR 10 MG PO (18:35)
[2025-08-28] MEDS: RENVELA 2400 MG PO (18:35)
[2025-08-28] MEDS: PROTONIX 40 MG PO (21:46)
[2025-08-28] MEDS: REQUIP 2 MG PO (21:46)
[2025-08-29] MEDS: TYLENOL PO ×2 (00:02→23:33)
[2025-08-29 03:00] VITALS: BP 102/81
[2025-08-29] MEDS: ROXICODONE 5 MG PO (03:10)
[2025-08-29] MEDS: SYNTHROID 125 MCG PO (06:18)
[2025-08-29] MEDS: TYLENOL 1000 MG PO ×3 (06:18→17:13)
[2025-08-29 07:52] LABS: Hematocrit 36.9 % (37.0-47.0); Hemoglobin 11.8 g/dL (12.0-16.0); Mean Corp Hgb Conc. 32.0 g/dL (33.0-37.0); Mean Corpuscular Volume 96.9 fL (81.0-99.0); Nucleated Red Blood Cells % 0 %; Platelet Count 242 10^3/uL (130-400); Red Cell Dist. Width 14.6 % (11.5-14.5)
[2025-08-29 07:54] LABS: Blood Urea Nitrogen 24 mg/dl (7-17); Calcium 8.8 mg/dl (8.4-10.2); Carbon Dioxide 29 mmol/L (22-30); Chloride 95 mmol/L (98-107); Estimated Creatinine Clearance 10 ml/min; Glucose 93 mg/dl (70-99); Potassium 4.5 mmol/L (3.5-5.1); Sodium 130 mmol/L (135-145); eGFR 6.95
[2025-08-29 07:55] VITALS: BP 144/65
--- NOTE | 2025-08-29 08:25 | W.PN.NEPH.PH ---
Today's Communication / Plan
-
HD tomorrow
Assessment/Plan
-
Assessment:
Sigmoidectomy 08/28/2020
Hx of Perforated diverticulitis in setting of PD cath for dialysis in July 27
ESRD on PD since 2021 now on hemodialysis
Polycystic kidney disease leading on to end-stage renal disease
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
History of recent GI bleed/gastric ulcer
Anemia
Hyperlipidemia
Hypothyroidism
Secondary PTH
History hypertension
Hyperphosphatemia
Plan:
HD tomorrow
no IVF
advanced diet
heparin gtt bridge for OAC
-
-
Date of Service: August 29, 2025
CC / HPI / ROS
-
Chief Complaint:
ESRD
History of Present Illness:
HD TTS, tolerated HD tuesday
s/p sigmoidectomey
BP stable
diet advanced
Review of Systems:
no CP/SOB
Labs
-
Labs:
WBC 8.7 10^3/uL (4.8-10.8) 08/29/25 06:38
RBC 3.81 10^6/uL (4.20-5.40) L 08/29/25 06:38
Hgb 11.8 g/dL (12.0-16.0) L 08/29/25 06:38
Hct 36.9 % (37.0-47.0) L 08/29/25 06:38
Plt Count 242 10^3/uL (130-400) 08/29/25 06:38
Sodium 130 mmol/L (135-145) L 08/29/25 06:38
Potassium 4.5 mmol/L (3.5-5.1) 08/29/25 06:38
Chloride 95 mmol/L (98-107) L 08/29/25 06:38
Carbon Dioxide 29 mmol/L (22-30) 08/29/25 06:38
BUN 24 mg/dl (7-17) H 08/29/25 06:38
Creatinine 6.4 mg/dL (0.6-1.0) H* 08/29/25 06:38
eGFR 6.95 08/29/25 06:38
Glucose 93 mg/dl (70-99) 08/29/25 06:38
Calcium 8.8 mg/dl (8.4-10.2) 08/29/25 06:38
Albumin 3.8 g/dl (3.5-5.0) 08/20/25 09:07
Physical Exam
-
Vital Signs:
Vital Signs
Temp Pulse Resp BP Pulse Ox
97.6 F 84 18 144/65 98
08/29/25 07:55 08/29/25 07:55 08/29/25 07:55 08/29/25 07:55 08/29/25 07:55
Cardiovascular:: Regular rate and rhythm
Respiratory:: Bilateral: Coarse
Lung Excursion:: Normal
Abdomen:: Nontender and Soft
Bowel Sounds:: Normal
Extremity Edema:: None: Bilateral:
--- NOTE | 2025-08-29 08:27 | W.PN.HOSP.TC ---
Today's Communication/Plan
-
dilaudid for pain
INR, PTT
HD in AM
pending Colorectal for heparin drip
Assessment / Plan
Assessment / Plan
60yo F with Hx of RLS, DVT with prothrombin deficiency on Coumadin, hypothyroidism, HLD, GERD, ureteral sling, ADPKD with ESRD previously on peritoneal dialysis, now on HD due to recent perforation and Enterococcal peritonitis due to acute
diverticulitis came for planned robotic sigmoidectomy, lysis of adhesions, flexible sigmoidoscopy, mesenteric angiography with ICG, laparoscopic TAP block, completed on 08/28/25. Hospitalized for heparin drip bridging to Coumadin target 2.0-3.0
A/P:
#HS of recurrent diverticulitis with perforation
s/p Robotic sigmoidectomy, lysis of adhesions, flexible sigmoidoscopy, mesenteric angiography with ICG, laparoscopic TAP block
Pain mgmt
Advance diet as per Colorectal Sx
#ESRD on HD
HD as per Nephro
follow electrolytes
#Hx of DVT with prothrombin deficiency
heparin drip without bolus and Coumadin (recent dose 4mg daily) when ok by ColorectalSx
INR goal 2-3
#Mild osteoporotic insufficiency Fx of the sacrum
#Subacute L pubic bone Fx
#b/l avascular necrosis of femoral heads
2/2 osteoporosis and ESRD
outpatient mgmt
#Hypothyroidism
#HLD
#GERD
#RLS
cont home meds
DVT ppx SCDs
Full code
I have spent at least 51min reviewing chart, test results, communication with consultants, primary service and providing direct paytient care
Anticipated Discharge: > 48 hours
Subjective/Interval History
-
Date of Service: August 29, 2025
Objective Data
-
Labs:
Laboratory Results
08/29/25
06:38
WBC 8.7
Hgb 11.8 L
Hct 36.9 L
Plt Count 242
Sodium 130 L
Potassium 4.5
Chloride 95 L
Carbon Dioxide 29
BUN 24 H
Creatinine 6.4 H*
Glucose 93
Calcium 8.8
Vital Signs:
Vital Signs
Temp Pulse Resp BP Pulse Ox
97.6 F 84 18 144/65 98
08/29/25 07:55 08/29/25 07:55 08/29/25 07:55 08/29/25 07:55 08/29/25 07:55
I&O
08/28/25 08/29/25 08/30/25
06:59 06:59 06:59
Intake Total 580 / 580
Output Total 95 / 95
Balance 485 / 485
Review of Systems
-
History Source: Patient
All other systems: Reviewed and negative
Abdomen/GI: Reports Abdominal Pain
Physical Exam
-
General: No Apparent Distress
HEENT: Normocephalic
Respiratory: Clear to Auscultation
Cardiac: Regular Rhythm
GI: Soft, Nondistended and Tender
Musculoskeletal: No Clubbing, No Cyanosis and No Edema
Neuro: Awake, Alert, Oriented and AO x 3
Psych: Calm
[2025-08-29] MEDS: RENVELA 2400 MG PO ×2 (08:49→12:18)
[2025-08-29] MEDS: ZYRTEC 5 MG PO (08:49)
[2025-08-29] MEDS: ROCALTROL 1 MCG PO ×2 (08:49→21:19)
[2025-08-29 09:07] LABS: APTT 27.6 Sec (23.4-35.0); INR 0.94; PT 13.1 Sec (11.4-14.6)
[2025-08-29] MEDS: DILAUDID 0.25 MG IV ×3 (09:07→23:33)
[2025-08-29] MEDS: FLUSH (NSS) 2 FLUSH IV (09:08)
--- NOTE | 2025-08-29 10:52 | CM ---
Initial assessment completed. 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
peritonitis due to acute diverticulitis came for planned robotic sigmoidectomy, lysis of adhesions, flexible sigmoidoscopy, mesenteric angiography with ICG, laparoscopic TAP block, completed on 08/28/25.
Patient resides w/ her fiance and his mother in a single story rancher, 15 steps to enter. Patient is independent in all areas. CPAP at home but doesn't use often. DHVN hx, OP PT hx, no inpatient rehab hx. Receives dialysis on MWF at [facility]
[place].
Address, point of contact and insurance verified
PCP: Nilsa Mota
Pharmacy: [facility]
Plan: Home, no needs anticipated
--- NOTE | 2025-08-29 11:23 | W.PN.CRS1 ---
Today's Communication / Plan
-
As below
Assessment/Plan
-
60-year-old female with PMH of prothrombin deficiency (complicated by DVT/PE in 2008, on Coumadin), ESRD secondary to polycystic kidney disease (he was on PD, PD catheter removed during hospitalization for perforated diverticulitis, now on HD), RLS,
hypothyroidism, HLD, HTN who presented for elective surgery
No return of bowel function yet
POD 1 robotic sigmoidectomy, laparoscopic TAP block
AFVSS, removed left ureteral stent with nurse, Magy
WBC 8.7, Hb 11.8 from 12.5, sodium 130
� Continue regular diet, DC fluids
� Continue pain control with Tylenol, oxycodone and Dilaudid as needed
� Okay to start heparin drip; hold on restarting Coumadin or oral anticoagulant; continue daily CBC
�Okay to remove Steven, discussed with nephrology
� Encourage I-S/OOB, ambulate 3 times daily
� Appreciate nephrology, plan for HD tomorrow
�Appreciate hospitalist consult
Dispo�pending clinical course, possible DC tomorrow if bowel function returns
Subjective Data
Subjective Data
Date of Service: August 29, 2025
No overnight events.
Had some pain overnight and a burning sensation extending into the left groin.
Denies nausea/vomiting. Tolerating diet.
-flatus -BMs + Steven
Objective Data
-
Vital Signs
Temp Pulse Resp BP Pulse Ox
97.6 F 84 18 144/65 98
08/29/25 07:55 08/29/25 07:55 08/29/25 07:55 08/29/25 07:55 08/29/25 08:47
Intake & Output
08/28/25 08/29/25 08/30/25
06:59 06:59 06:59
Intake Total 580 / 580
Output Total 95 / 95
Balance 485 / 485
Intake:
Oral fluids 480 / 480
IV fluids (Total) 100 / 100
Output:
Urine, Steven 20 / 20
Urine, Voided 75 / 75
Lab Results
08/29/25 06:38
08/29/25 06:38
Physical Exam
-
General: No Acute Distress and AOx3
HEENT: Grossly Normal
Abdomen: Soft, Distended (Mildly distended without tympany), Tender (Appropriately tender near incisions), No Guarding and No Rebound
Skin: Warm and Dry
Wound: Other (Incisions well-approximated without erythema or drainage; covered in Dermabond)
--- NOTE | 2025-08-29 11:27 | W.PN.UPDATE ---
Update Note
Progress Note Update
ok to start anticoagulation as per [facility]orectal[facility] advise
[2025-08-29 11:35] VITALS: BP 128/64
[2025-08-29 12:07] LABS: Hematocrit 34.2 % (37.0-47.0); Hemoglobin 11.2 g/dL (12.0-16.0); Mean Corp Hgb Conc. 32.7 g/dL (33.0-37.0); Mean Corpuscular Volume 95.8 fL (81.0-99.0); Platelet Count 218 10^3/uL (130-400); Red Cell Dist. Width 14.4 % (11.5-14.5)
[2025-08-29 12:13] LABS: APTT 29.0 Sec (23.4-35.0)
[2025-08-29] MEDS: HEPARIN 25000 UNITS/250 ML IV (12:27)
[2025-08-29 15:42] VITALS: BP 141/73
[2025-08-29] MEDS: CRESTOR 10 MG PO (17:13)
[2025-08-29] MEDS: RENVELA PO (17:14)
[2025-08-29 18:50] LABS: APTT 102.1 Sec (23.4-35.0)
[2025-08-29 19:00] VITALS: BP 125/63
[2025-08-29] MEDS: PROTONIX 40 MG PO (21:18)
[2025-08-29] MEDS: REQUIP 2 MG PO (21:18)
[2025-08-29 23:00] VITALS: BP 130/64
[2025-08-30 01:15] LABS: APTT 171.2 Sec (23.4-35.0)
[2025-08-30 03:00] VITALS: BP 127/67
[2025-08-30] MEDS: ROXICODONE 5 MG PO (04:30)
[2025-08-30] MEDS: SYNTHROID 125 MCG PO (04:30)
[2025-08-30] MEDS: HEPARIN 25000 UNITS/250 ML IV (05:45)
[2025-08-30] MEDS: TYLENOL 1000 MG PO ×4 (05:47→23:34)
[2025-08-30 06:00] VITALS: BMI 30.9
[2025-08-30 07:00] VITALS: BP 122/68
--- NOTE | 2025-08-30 08:13 | W.PN.HOSP.TC ---
Today's Communication/Plan
-
cont Heparin
get Hem consult
Assessment / Plan
Assessment / Plan
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
diverticulitis came for planned robotic sigmoidectomy, lysis of adhesions, flexible sigmoidoscopy, mesenteric angiography with ICG, laparoscopic TAP block, completed on 08/28/25. Hospitalized for heparin drip bridging to Coumadin target 2.0-3.0
A/P:
#HS of recurrent diverticulitis with perforation
s/p Robotic sigmoidectomy, lysis of adhesions, flexible sigmoidoscopy, mesenteric angiography with ICG, laparoscopic TAP block
Pain mgmt
Advance diet as per Colorectal Sx
#ESRD on HD
HD as per Nephro
follow electrolytes
#Hx of DVT with factor V leiden
heparin drip without bolus and Coumadin (recent dose 4mg daily)
Will get Hematology consult since patient never was evaluated by Cager Operator since her episode of DVT in 2008 and unclear recommendations for anticoagulation
INR goal 2-3
#Mild osteoporotic insufficiency Fx of the sacrum
#Subacute L pubic bone Fx
#b/l avascular necrosis of femoral heads
2/2 osteoporosis and ESRD
outpatient mgmt
#Hypothyroidism
#HLD
#GERD
#RLS
cont home meds
DVT ppx SCDs
Full code
I have spent at least 51min reviewing chart, test results, communication with consultants, primary service and providing direct paytient care
Anticipated Discharge: > 48 hours
Subjective/Interval History
-
Date of Service: August 30, 2025
Objective Data
-
Labs:
Laboratory Results
08/30/25 08/30/25 08/30/25
00:38 06:00 07:00
WBC Pending
Hgb Pending
Hct Pending
Plt Count Pending
PT Pending
INR Pending
APTT 171.2 H*
Sodium Pending
Potassium Pending
Chloride Pending
Carbon Dioxide Pending
BUN Pending
Creatinine Pending
Glucose Pending
Calcium Pending
08/30/25
08:15
WBC
Hgb
Hct
Plt Count
PT
INR
APTT Pending
Sodium
Potassium
Chloride
Carbon Dioxide
BUN
Creatinine
Glucose
Calcium
Vital Signs:
Vital Signs
Temp Pulse Resp BP Pulse Ox
98 F 80 18 127/67 98
08/30/25 03:00 08/30/25 03:00 08/30/25 03:00 08/30/25 03:00 08/30/25 03:00
I&O
08/29/25 08/30/25 08/31/25
06:59 06:59 06:59
Intake Total 580 / 580 720 / 720
Output Total 95 / 95
Balance 485 / 485 720 / 720
Review of Systems
-
History Source: Patient
All other systems: Reviewed and negative
Abdomen/GI: Reports Abdominal Pain
Physical Exam
-
General: No Apparent Distress
Musculoskeletal: No Clubbing, No Cyanosis and No Edema
Neuro: Awake, Alert, Oriented and AO x 3
Psych: Calm
[2025-08-30 08:36] LABS: Hematocrit 32.0 % (37.0-47.0); Hemoglobin 10.6 g/dL (12.0-16.0); Mean Corp Hgb Conc. 33.1 g/dL (33.0-37.0); Mean Corpuscular Volume 94.4 fL (81.0-99.0); Nucleated Red Blood Cells % 0 %; Platelet Count 211 10^3/uL (130-400); Red Cell Dist. Width 14.5 % (11.5-14.5)
[2025-08-30 08:45] VITALS: BP 122/68
[2025-08-30 09:10] LABS: INR 1.11; PT 14.5 Sec (11.4-14.6)
[2025-08-30 09:12] LABS: APTT 58.1 Sec (23.4-35.0)
[2025-08-30 09:13] LABS: Blood Urea Nitrogen 36 mg/dl (7-17); Calcium 8.6 mg/dl (8.4-10.2); Carbon Dioxide 26 mmol/L (22-30); Chloride 95 mmol/L (98-107); Estimated Creatinine Clearance 8 ml/min; Glucose 81 mg/dl (70-99); Potassium 4.9 mmol/L (3.5-5.1); Sodium 128 mmol/L (135-145); eGFR 5.16
[2025-08-30] MEDS: ROXICODONE 10 MG PO ×2 (09:28→19:56)
--- NOTE | 2025-08-30 09:45 | W.PN.CRS1 ---
Today's Communication / Plan
-
PT/OT
HD
continue regular diet
increase oxycodone
Assessment/Plan
-
60-year-old female with PMH of prothrombin deficiency (complicated by DVT/PE in 2008, on Coumadin), ESRD secondary to polycystic kidney disease (he was on PD, PD catheter removed during hospitalization for perforated diverticulitis, now on HD), RLS,
hypothyroidism, HLD, HTN who presented for elective surgery
POD 2 robotic sigmoidectomy, laparoscopic TAP block
AFVSS
WBC 8.0, Hb 10.6 from 11.2
� Continue regular diet, DC fluids
� Continue pain control with Tylenol, oxycodone (will increase frequency and dose) and Dilaudid as needed
� Okay to start heparin drip; okay to restart coumadin from our perpsective
�Okay to remove Steven, discussed with nephrology
� Encourage I-S/OOB, ambulate 3 times daily
� Appreciate nephrology, plan for HD tomorrow
�Appreciate hospitalist consult
-OOB with PT/OT
Dispo�pending clinical course
Subjective Data
Subjective Data
Date of Service: August 30, 2025
Patient states she is hungry. She has some lower incisional pain. She has gas and bowel movements.
Objective Data
-
Vital Signs
Temp Pulse Resp BP Pulse Ox
97.8 F 85 16 122/68 96
08/30/25 07:00 08/30/25 07:00 08/30/25 07:00 08/30/25 07:00 08/30/25 07:00
Intake & Output
08/29/25 08/30/25 08/31/25
06:59 06:59 06:59
Intake Total 580 / 580 720 / 720
Output Total 95 / 95
Balance 485 / 485 720 / 720
Intake:
Oral fluids 480 / 480 720 / 720
IV fluids (Total) 100 / 100
Output:
Urine, Steven 20 / 20
Urine, Voided 75 / 75
Other:
How many times incontinent 2
MODERATE amount urine
Number of approximated MODERATE 1
amounts of urine
Lab Results
08/30/25 08:21
08/30/25 08:21
Physical Exam
-
General: No Acute Distress and AOx3
Abdomen: Soft, Non Distended and Tender (mild around incisions)
Skin: Warm and Dry
Incision: Clear, Dry, Intact
--- NOTE | 2025-08-30 10:15 | W.PN.NEPH.HD ---
Assessment
-
Pt seen on HD. no complaints. VSS, access ok
Progress Note - Hemodialysis
-
Date of Service: August 30, 2025
Duration: 30 minutes and 3 hours
Potassium Bath: 2
Calcium Bath: 2.5
Opti-Dialyzer: 160
Ultrafiltration: Other
Blood Flow: 400
Dialysate Flow: 600
Heparin: 0
EPO: 0
--- NOTE | 2025-08-30 10:31 | CON.ONC ---
Consultation
-
Date Consultation Requested: 08/30/25
Date Consultation Performed: 08/30/25
Requesting Provider: Stevan
Performing Provider: Debbi
Reason for Consultation: Hypercoagulable state
Impression
Impression
History of unprovoked deep vein thrombosis several years ago, on anticoagulation since then, currently on warfarin
Reported factor V Leyden
History of IV catheter related superficial thrombosis of upper extremity while on anticoagulation
End-stage renal disease, previously managed by peritoneal dialysis, now on hemodialysis
Revision of colostomy on August 28
Diverticulitis July 2025
Plan
Plan
The factor V Leyden and of itself would not necessarily require a heparin bridge, but her history of 2 thromboses, 1 of which occurring on Xarelto, makes me recommend that she should indeed have a heparin umbrella while the warfarin is started. In
addition, she had surgery only 2 days ago, and is mildly hypercoagulable from that point of view. Also, the first day or 2 of warfarin can result in a transient hypercoagulable state due to rapid depletion of protein C and protein S. Would
recommend continuing warfarin under a heparin bridge until she achieves an INR of 2.
Patient History
History of Present Illness
This 60-year-old woman was admitted for revision of a colostomy, which was done 2 days ago. Several weeks ago she was hospitalized with diverticulitis and peritonitis, requiring resection and creation of a colostomy. Her peritoneal dialysis
catheter was removed.
She has a thrombotic history with a deep vein thrombosis that was spontaneous, occurring about 10 years ago, accompanied by pulmonary emboli. She was managed initially with warfarin, but then changed to Xarelto. She had a superficial thrombosis
related to an IV catheter and one of her upper extremities about 3 years ago while taking Xarelto. Her Xarelto has been changed to warfarin, as she is on a transplant list.
She is doing well postoperatively. She has been on heparin. She will be going home on warfarin. Her normal dose is 4 mg daily which has been quite steady. She has home testing available.
Past-Medical/Surgical History
As per problem list below.
Social history: She does not smoke.
Family history is noncontributory.
Patient Medication
�Medication �Instructions �Recorded �Confirmed �Last Taken �Type
calcitriol 0.5 mcg capsule 0.5 mcg PO DAILY Kidney Disease 07/13/23 08/28/25 08/26/25 History
sevelamer carbonate 800 mg tablet 2,400 mg PO AC Kidney Disease 09/25/24 08/28/25 08/26/25 History
acetaminophen 500 mg tablet 1,000 mg PO DAILYPRN PRN mild pain 07/06/25 08/28/25 Unknown History
docusate sodium 100 mg tablet 200 mg PO DAILY STOOL SOFTENER 07/06/25 08/28/25 08/26/25 History
levothyroxine 125 mcg tablet 125 mcg PO DAILY Thyroid 07/06/25 08/28/25 08/27/25 History
pantoprazole 40 mg tablet,delayed 40 mg PO HS GERD 07/06/25 08/28/25 08/26/25 History
release (Protonix)
peg 400-propylene glycol 0.4 %-0.3 1 drp ophthalmic (eye) DAILY PRN 07/06/25 08/28/25 08/27/25 History
% eye drops (Systane Ultra) dry eyes
ropinirole 1 mg tablet 2 mg PO HS RESTLESS LEG 07/06/25 08/28/25 08/26/25 History
rosuvastatin 10 mg tablet 10 mg PO QPM High Cholesterol 07/06/25 08/28/25 08/26/25 History
sodium chloride 0.65 % nasal spray 1 spray intranasal HSPRN PRN dry 07/06/25 08/28/25 Unknown History
aerosol (Saline Nasal) sinuses
vitamin B complex-vitamin C-folic 1 tab PO DAILY Supplement 07/06/25 08/28/25 08/26/25 History
acid 0.8 mg tablet
oxycodone 5 mg tablet 5 mg PO Q8HPRN PRN Pain #6 tabs 10/31/25 11/26/25 11/05/25 Rx
cetirizine 10 mg tablet (Zyrtec) 10 mg PO DAILY 08/21/25 08/28/25 08/26/25 History
warfarin 2 mg tablet 4 mg PO QPM 08/21/25 08/28/25 08/22/25 History
Active Medications
Generic Name Dose Route Start Last Admin
Trade Name Freq PRN Reason Stop Dose Admin
Acetaminophen 1,000 mg 08/28/25 18:00 08/30/25 05:47
Acetaminophen 500 Mg Tablet PO 09/25/25 17:59 1,000 mg
Q6 DAXA Administration
Albumin Human 12.5 grams 08/30/25 08:00
Albumin 12.5 Grams/50 Ml Bag *For Hemodialysis* IV 08/30/25 23:59
HD-Q1HPRN PRN
SBP < 90 mmHg
Artificial Tears 1 drops 08/28/25 16:18
Artificial Tears Pf (Refresh) 10 Drop Droperette OPHTH 09/25/25 16:17
DAILYPRN PRN
dry eyes
Calcitriol 1 mcg 08/29/25 08:00 08/29/25 21:19
Calcitriol 0.25 Microgram Capsule PO 09/26/25 07:59 1 mcg
BID DAXA Administration
Cetirizine HCl 5 mg 08/29/25 08:00 08/29/25 08:49
Cetirizine Hcl 10 Mg Tablet PO 09/26/25 07:59 5 mg
DAILY DAXA Administration
Hydromorphone HCl 0.25 mg 08/29/25 08:24 08/29/25 23:33
Hydromorphone 0.25 Mg/0.5 Ml Syringe IV 09/12/25 08:23 0.25 mg
Q4HPRN PRN Administration
severe pain
Heparin Sodium 25,000 units in 250 mls @ 0 mls/hr 08/29/25 11:30 08/30/25 05:45
Heparin 70951 Units/250 Ml IV 250 mls
PER PROTOCOL DAXA Administration
Protocol
Per Protocol
Levothyroxine Sodium 125 mcg 08/29/25 06:00 08/30/25 04:30
Levothyroxine 125 Mcg Tablet PO 09/26/25 05:59 125 mcg
DAILY @ 0600 DAXA Administration
Mannitol 12.5 grams 08/30/25 08:00
Mannitol 25% (12.5 Grams/50 Ml) Vial IV 08/30/25 23:59
HD-Q1HPRN PRN
SBP < 90 mmHg
Methylnaltrexone Dexter 6 mg 08/30/25 08:00
Methylnaltrexone Dexter 12 Mg/0.6 Ml Injection SC 09/03/25 08:01
Q48H DAXA
Ondansetron HCl 4 mg 08/28/25 13:40
Ondansetron 4 Mg/2 Ml Vial IV 09/25/25 13:39
Q6HPRN PRN
nausea/vomiting
Oxycodone HCl 5 mg 08/30/25 09:15
Oxycodone 5 Mg Regular Release Tablet PO 09/13/25 09:13
Q4HPRN PRN
moderate pain
Oxycodone HCl 10 mg 08/30/25 09:15 08/30/25 09:28
Oxycodone 10 Mg Regular Release Tablet PO 09/13/25 09:14 10 mg
Q4HPRN PRN Administration
severe pain
Pantoprazole Sodium 40 mg 08/28/25 22:00 08/29/25 21:18
Pantoprazole 40 Mg Delayed Release Tablet PO 09/25/25 21:59 40 mg
HS DAXA Administration
Ropinirole HCl 2 mg 08/28/25 22:00 08/29/25 21:18
Ropinirole 1 Mg Tablet PO 09/25/25 21:59 2 mg
HS DAXA Administration
Rosuvastatin Calcium 10 mg 08/28/25 18:00 08/29/25 17:13
Rosuvastatin (Crestor) 10 Mg Tablet PO 09/25/25 17:59 10 mg
QPM DAXA Administration
Sevelamer Carbonate 2,400 mg 08/28/25 16:30 08/29/25 17:14
Sevelamer Carbonate (Renvela) 800 Mg Tablet PO 09/25/25 16:29 Not Given
AC DAXA
Sodium Chloride 0 flush 08/28/25 06:00 08/29/25 09:08
Sodium Chloride 0.9% (Flush) Syringe IV 09/25/25 05:59 2 flush
PER PROTOCOL DAXA Administration
Sodium Chloride 0 sprays 08/28/25 13:42
Sodium Chloride 0.65% Nasal [place] 45 Ml Bottle NASAL 09/25/25 13:41
HSPRN PRN
dry sinuses
Sodium Chloride 10 ml 08/30/25 08:00
Sodium Chloride (4 Meq/Ml) 30 Ml Vial *For Hemodialysis* IV 08/30/25 23:59
HD-Q1HPRN PRN
cramps
Review of Systems
-
All Other Systems: Reviewed and Negative
Physical Exam
-
Physical examination shows the patient to be in no acute distress.
HEENT exam is unremarkable.
There are no palpable nodes.
Chest is clear.
The heart is regular with no murmur or gallop.
The abdominal exam is deferred due to recent surgery.
Extremities are unremarkable.
Neurologic is grossly intact.
Labs
Lab Results
WBC 8.0 10^3/uL (4.8-10.8) 08/30/25 08:21
RBC 3.39 10^6/uL (4.20-5.40) L 08/30/25 08:21
Hgb 10.6 g/dL (12.0-16.0) L 08/30/25 08:21
Hct 32.0 % (37.0-47.0) L 08/30/25 08:21
MCV 94.4 fL (81.0-99.0) 08/30/25 08:21
MCH 31.3 pg (27.0-31.0) H 08/30/25 08:21
MCHC 33.1 g/dL (33.0-37.0) 08/30/25 08:21
RDW 14.5 % (11.5-14.5) 08/30/25 08:21
Plt Count 211 10^3/uL (130-400) 08/30/25 08:21
MPV 10.4 fL (7.4-10.4) 08/30/25 08:21
Abs Immat Gran (auto) 0.0 10^3/uL (0-0.05) 08/30/25 08:21
Absolute Neuts (auto) 5.4 10^3/uL (1.4-6.5) 08/30/25 08:21
Absolute Lymphs (auto) 1.5 10^3/uL (1.2-3.4) 08/30/25 08:21
Absolute Monos (auto) 0.6 10^3/uL (0.1-0.6) 08/30/25 08:21
Absolute Eos (auto) 0.3 10^3/uL (0-0.7) 08/30/25 08:21
Absolute Basos (auto) 0.0 10^3/uL (0-0.2) 08/30/25 08:21
Immature Gran % 0.4 % (0-0.5) 08/30/25 08:21
Neutrophils % 68.0 % (42.2-75.2) 08/30/25 08:21
Lymphocytes % 19.1 % (20.5-51.1) L 08/30/25 08:21
Monocytes % 7.7 % (1.7-9.3) 08/30/25 08:21
Eosinophils % 4.3 % (0-6) 08/30/25 08:21
Basophils % 0.5 % (0-2) 08/30/25 08:21
Creatinine 8.2 mg/dL (0.6-1.0) H* 08/30/25 08:21
Vital Signs
Vital Signs
Temp Pulse Resp BP Pulse Ox
97.8 F 85 16 122/68 96
08/30/25 07:00 08/30/25 07:00 08/30/25 07:00 08/30/25 07:00 08/30/25 07:00
[2025-08-30] MEDS: RENVELA PO (11:10)
[2025-08-30 11:29] VITALS: BP 121/74
[2025-08-30] MEDS: HEPARIN 3900 UNITS INTRACATH (12:13)
[2025-08-30] MEDS: ZYRTEC 5 MG PO (12:23)
[2025-08-30] MEDS: RENVELA 2400 MG PO ×2 (12:23→17:30)
[2025-08-30] MEDS: ROCALTROL 1 MCG PO ×2 (12:24→19:56)
[2025-08-30] MEDS: RELISTOR 6 MG SC (12:25)
[2025-08-30 14:47] VITALS: BP 121/58
--- NOTE | 2025-08-30 15:30 | CM ---
CM reviewed medical records. Patient remains acutely ill. CM is awaiting PT/OT recommendations for further discharge planning efforts.
PLAN: Pending PT/OT evaluations
[2025-08-30 16:49] LABS: APTT 116.4 Sec (23.4-35.0)
[2025-08-30] MEDS: CRESTOR 10 MG PO (17:30)
[2025-08-30] MEDS: COUMADIN 5 MG PO (17:33)
[2025-08-30] MEDS: PROTONIX 40 MG PO (22:13)
[2025-08-30] MEDS: REQUIP 2 MG PO (22:13)
[2025-08-30 23:15] VITALS: BP 136/70
[2025-08-31 00:01] LABS: APTT 107.8 Sec (23.4-35.0)
[2025-08-31] MEDS: HEPARIN 25000 UNITS/250 ML IV ×2 (03:13→22:20)
[2025-08-31 05:50] LABS: INR 1.10; PT 14.3 Sec (11.4-14.6)
[2025-08-31 05:52] LABS: APTT 91.8 Sec (23.4-35.0)
[2025-08-31 06:00] VITALS: BMI 30.3
[2025-08-31] MEDS: TYLENOL 1000 MG PO ×4 (06:09→23:52)
[2025-08-31] MEDS: SYNTHROID 125 MCG PO (06:09)
[2025-08-31 06:25] LABS: Hematocrit 30.9 % (37.0-47.0); Hemoglobin 10.2 g/dL (12.0-16.0); Mean Corp Hgb Conc. 33.0 g/dL (33.0-37.0); Mean Corpuscular Volume 94.5 fL (81.0-99.0); Platelet Count 145 10^3/uL (130-400); Red Cell Dist. Width 14.4 % (11.5-14.5)
[2025-08-31 07:00] VITALS: BP 130/71
[2025-08-31] MEDS: OCEAN, SALINE MIST 1 SPRAYS NASAL (08:41)
[2025-08-31] MEDS: ZYRTEC 5 MG PO (08:42)
[2025-08-31] MEDS: ROCALTROL 1 MCG PO ×2 (08:42→20:12)
[2025-08-31] MEDS: RENVELA 2400 MG PO ×3 (08:42→17:59)
[2025-08-31] MEDS: REFRESH EYE DROPS (PF) 1 DROPS OPHTH (08:42)
--- NOTE | 2025-08-31 10:28 | W.PN.HOSP.TC ---
Today's Communication/Plan
-
coumadin and INR, cont heparin
Assessment / Plan
Assessment / Plan
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
diverticulitis came for planned robotic sigmoidectomy, lysis of adhesions, flexible sigmoidoscopy, mesenteric angiography with ICG, laparoscopic TAP block, completed on 08/28/25. Hospitalized for heparin drip bridging to Coumadin target 2.0-3.0
A/P:
#HS of recurrent diverticulitis with perforation
s/p Robotic sigmoidectomy, lysis of adhesions, flexible sigmoidoscopy, mesenteric angiography with ICG, laparoscopic TAP block
Pain mgmt
Advance diet as per Colorectal Sx. Aware of lower abd discomfort, described as feeling of stretching when upright. Most liekly postOP related
#ESRD on HD
HD as per Nephro
follow electrolytes
#hematuria
watch H&H and progression - improving as per patient
Probably traumatic 2/2 Steven, that is now removed
#Hx of DVT with factor V leiden with recurrent VTE
heparin drip without bolus and Coumadin (recent dose 4mg daily)
Hem: cont bridging
INR goal 2-3
#Mild osteoporotic insufficiency Fx of the sacrum
#Subacute L pubic bone Fx
#b/l avascular necrosis of femoral heads
2/2 osteoporosis and ESRD
outpatient mgmt
#Hypothyroidism
#HLD
#GERD
#RLS
cont home meds
DVT ppx SCDs
Full code
I have spent at least 51min reviewing chart, test results, communication with consultants, primary service and providing direct paytient care
Anticipated Discharge: > 48 hours
Subjective/Interval History
-
Date of Service: August 31, 2025
Objective Data
-
Labs:
Laboratory Results
08/30/25 08/31/25
23:15 05:22
WBC 7.3
Hgb 10.2 L
Hct 30.9 L
Plt Count 145 D
PT 14.3
INR 1.10
APTT 107.8 H 91.8 H
Vital Signs:
Vital Signs
Temp Pulse Resp BP Pulse Ox
98.4 F 85 16 130/71 97
08/31/25 07:00 08/31/25 07:00 08/31/25 07:00 08/31/25 07:00 08/31/25 07:00
I&O
08/30/25 08/31/25 09/01/25
06:59 06:59 06:59
Intake Total 720 / 720 680 / 680
Balance 720 / 720 680 / 680
Review of Systems
-
History Source: Patient
All other systems: Reviewed and negative
Genitourinary: Reports Bleeding
Physical Exam
-
General: No Apparent Distress
HEENT: Normocephalic
Respiratory: Clear to Auscultation
Cardiac: Regular Rhythm
GI: Tender (at the site of incision)
--- NOTE | 2025-08-31 11:11 | W.PN.GS2 ---
Addendum entered and electronically signed by Carson Lynn MD 08/31/25 12:30:
I saw and examined the patient.
The Search Engine Marketing Specialist's note was reviewed and I agree with the note.
Comment: Denies n/v, passing flatus, margaux PO, pain controlled, OOBTC, belly soft, approp ttp, incisions cdi, No changes from surgery perspective. Cont hep bridge to coumadin, remains subtherapeutic today
Original Note:
Today's Communication / Plan
-
regular diet
therapeutic AC
Assessment / Plan
-
60-year-old female with PMH of prothrombin deficiency (complicated by DVT/PE in 2008, on Coumadin), ESRD secondary to polycystic kidney disease (she was on PD, PD catheter removed during hospitalization for perforated diverticulitis, now on HD),
RLS, hypothyroidism, HLD, HTN who presented for elective surgery
POD 3 robotic sigmoidectomy, laparoscopic TAP block
AFVSS
h/h stable on heparin gtt. INR 1.10
expected mild hematuria given recent instrumentation
Plan:
c/w regular diet
HD as per nephrology
Heparin as bridge to Coumadin
analgesics scheduled and prn
OOB, pt/ot following
Medical management as per hospitalist
Await therapeutic INR prior to d/c
Subjective Data
-
Date of Service: August 31, 2025
Pt seen and examined at bedside with Dr. Lynn. Denies n/v. Tolerating diet. Passing flatus. Incisional discomfort, but manageable. Reports some hematuria but voiding well.
Objective Data
-
Intake and Output
08/30/25 08/31/25 09/01/25
06:59 06:59 06:59
Intake Total 720 / 720 680 / 680
Balance 720 / 720 680 / 680
Intake:
Oral fluids 720 / 720 680 / 680
Other:
How many times incontinent 2 2
MODERATE amount urine
Number of approximated MODERATE 1 2
amounts of urine
Vital Signs
Temp Pulse Resp BP Pulse Ox
98.4 F 85 16 130/71 97
08/31/25 07:00 08/31/25 07:00 08/31/25 07:00 08/31/25 07:00 08/31/25 07:00
Lab Results
08/31/25 05:22
08/30/25 08:21
Calcium 8.6 mg/dl (8.4-10.2) 08/30/25 08:21
Total Bilirubin 0.6 mg/dl (0.2-1.3) 08/20/25 09:07
AST 16 U/L (14-36) 08/20/25 09:07
ALT 10 U/L (0-35) 08/20/25 09:07
Alkaline Phosphatase 108 U/L (38-126) 08/20/25 09:07
Total Protein 5.6 g/dl (6.3-8.2) L 08/20/25 09:07
Albumin 3.8 g/dl (3.5-5.0) 08/20/25 09:07
Physical Exam
-
GENERAL/NEURO: Awake, Alert, no distress
CHEST: Unlabored breathing on RA
ABDOMEN: Soft, obese, tender to palpation over her incisions, incisions with intact glue, no erythema
Patient has a hawkins catheter: No
--- NOTE | 2025-08-31 11:19 | W.PN.NEPH.PH ---
Today's Communication / Plan
-
HD tomorrow
Assessment/Plan
-
Assessment:
Sigmoidectomy 08/28/2020
Hx of Perforated diverticulitis in setting of PD cath for dialysis in July 27
ESRD on PD since 2021 now on hemodialysis
Polycystic kidney disease leading on to end-stage renal disease
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
History of recent GI bleed/gastric ulcer
Anemia
Hyperlipidemia
Hypothyroidism
Secondary PTH
History hypertension
Hyperphosphatemia
Plan:
HD tomorrow
then HD tuesday again to put back on schedule
heparin gtt bridge for OAC
-
-
Date of Service: August 31, 2025
CC / HPI / ROS
-
Chief Complaint:
ESRD
History of Present Illness:
HD TTS, tolerated HD yesterday
s/p sigmoidectomey
BP stable
diet advanced
Review of Systems:
no CP/SOB
Labs
-
Labs:
WBC 7.3 10^3/uL (4.8-10.8) 08/31/25 05:22
RBC 3.27 10^6/uL (4.20-5.40) L 08/31/25 05:22
Hgb 10.2 g/dL (12.0-16.0) L 08/31/25 05:22
Hct 30.9 % (37.0-47.0) L 08/31/25 05:22
Plt Count 145 10^3/uL (130-400) D 08/31/25 05:22
Sodium 128 mmol/L (135-145) L 08/30/25 08:21
Potassium 4.9 mmol/L (3.5-5.1) 08/30/25 08:21
Chloride 95 mmol/L (98-107) L 08/30/25 08:21
Carbon Dioxide 26 mmol/L (22-30) 08/30/25 08:21
BUN 36 mg/dl (7-17) H 08/30/25 08:21
Creatinine 8.2 mg/dL (0.6-1.0) H* 08/30/25 08:21
eGFR 5.16 08/30/25 08:21
Glucose 81 mg/dl (70-99) 08/30/25 08:21
Calcium 8.6 mg/dl (8.4-10.2) 08/30/25 08:21
Albumin 3.8 g/dl (3.5-5.0) 08/20/25 09:07
Physical Exam
-
Vital Signs:
Vital Signs
Temp Pulse Resp BP Pulse Ox
98.4 F 85 16 130/71 97
08/31/25 07:00 08/31/25 07:00 08/31/25 07:00 08/31/25 07:00 08/31/25 07:00
Cardiovascular:: Regular rate and rhythm
Respiratory:: Bilateral: Coarse
Lung Excursion:: Normal
Abdomen:: Nontender and Soft
Bowel Sounds:: Normal
Extremity Edema:: None: Bilateral:
[2025-08-31] MEDS: ROXICODONE 10 MG PO ×2 (11:39→17:58)
[2025-08-31] MEDS: LIDOCAINE 4% PATCH 1 PATCH TOPICAL (11:39)
--- NOTE | 2025-08-31 12:38 | CM ---
Addendum entered by Katey Peterson 08/31/25 12:45:
Met with patient; discussed discharge plan; Home Health recommendation; patient agreeable; utilized [facility] in the past and prefers them; Referral sent via [facility]
Plan: Discharge to home w/ [facility] home health services
Original Note:
Chart reviewed. PT recommends Home Health; Anticipated Discharge: > 48 hours
[2025-08-31 15:00] VITALS: BP 123/63
[2025-08-31] MEDS: CRESTOR 10 MG PO (17:59)
[2025-08-31] MEDS: COUMADIN 5 MG PO (18:00)
[2025-08-31] MEDS: REMOVE LIDOCAINE PATCH 1 PATCH REMOVE (20:12)
[2025-08-31] MEDS: PROTONIX 40 MG PO (22:00)
[2025-08-31] MEDS: REQUIP 2 MG PO (22:00)
[2025-08-31 23:29] VITALS: BP 136/71
--- NOTE | 2025-09-01 03:53 | PTCARENOTE ---
Pt noted to have small to moderate amount of loose maroon and brown BM. Pt stated this is the first time post op she remembers having any bloody stool though. Pt stable otherwise. DELIVERY STOCK CLERK Emily Martinez made aware; new labs ordered. Will cont to monitor.
[2025-09-01] MEDS: SYNTHROID 125 MCG PO (05:43)
[2025-09-01] MEDS: TYLENOL 1000 MG PO ×4 (05:43→23:20)
[2025-09-01] MEDS: ROXICODONE 10 MG PO (05:43)
[2025-09-01 05:44] LABS: Hematocrit 31.1 % (37.0-47.0); Hemoglobin 10.2 g/dL (12.0-16.0); Mean Corp Hgb Conc. 32.8 g/dL (33.0-37.0); Mean Corpuscular Volume 95.1 fL (81.0-99.0); Platelet Count 195 10^3/uL (130-400); Red Cell Dist. Width 14.0 % (11.5-14.5)
[2025-09-01 05:52] LABS: INR 1.20; PT 15.4 Sec (11.4-14.6)
[2025-09-01 05:54] LABS: APTT 111.7 Sec (23.4-35.0)
[2025-09-01 06:00] VITALS: BMI 30.7
[2025-09-01 07:00] VITALS: BP 152/77
[2025-09-01 07:16] LABS: Blood Urea Nitrogen 36 mg/dl (7-17); Calcium 9.8 mg/dl (8.4-10.2); Carbon Dioxide 27 mmol/L (22-30); Chloride 100 mmol/L (98-107); Estimated Creatinine Clearance 9 ml/min; Glucose 103 mg/dl (70-99); Potassium 5.0 mmol/L (3.5-5.1); Sodium 133 mmol/L (135-145); eGFR 6.04
[2025-09-01] MEDS: RENVELA PO ×2 (07:45→09:03)
[2025-09-01] MEDS: LIDOCAINE 4% PATCH 1 PATCH TOPICAL (09:02)
[2025-09-01] MEDS: ZYRTEC 5 MG PO (09:03)
[2025-09-01] MEDS: ROCALTROL 1 MCG PO ×2 (09:03→20:24)
[2025-09-01] MEDS: RELISTOR 6 MG SC (09:04)
[2025-09-01] MEDS: DILAUDID 0.25 MG IV (09:13)
--- NOTE | 2025-09-01 09:25 | W.PN.GS2 ---
Addendum entered and electronically signed by Carson Lynn MD 09/01/25 13:23:
I saw and examined the patient.
The [employer]'s note was reviewed and I agree with the note.
Comment: Seen during HD; reports bloody output per rectum; c/o mild diffuse abd soreness, soft on exam and mildly ttp, incisions cdi. Hold hep gtt and back to cld
Addendum entered and electronically signed by SUZANNE Sterling 09/01/25 10:51:
Pt passed another bloody bm, will back diet down to clears
Original Note:
Today's Communication / Plan
-
hold heparin gtt
Assessment / Plan
-
60-year-old female with PMH of prothrombin deficiency (complicated by DVT/PE in 2008, on Coumadin), ESRD secondary to polycystic kidney disease (she was on PD, PD catheter removed during hospitalization for perforated diverticulitis, now on HD),
RLS, hypothyroidism, HLD, HTN who presented for elective surgery
POD 4 robotic sigmoidectomy, laparoscopic TAP block
AFVSS
HD today
h/h stable on heparin gtt, inr subtherapeutic. Notes blood mixed with stool this am. Hematuria persists.
Suspect some anastomotic bleeding
Plan:
Hold heparin gtt, follow cbc/inrs
c/w regular diet, may need to back diet down if bleeding persists
HD as per nephrology
analgesics scheduled and prn, will try po Dilaudid as she has not had much relief with oxycodone
OOB, pt/ot following
Medical management as per hospitalist
Subjective Data
-
Date of Service: September 01, 2025
Pt seen and examined at bedside. Denies n/v. Tolerating diet. Passing stool mixed with blood. LLQ pain today which is worse than previous. Notes oxycodone is not working.
Objective Data
-
Intake and Output
08/31/25 09/01/25 09/02/25
06:59 06:59 06:59
Intake Total 680 / 680
Balance 680 / 680
Intake:
Oral fluids 680 / 680
Other:
How many times incontinent 2
MODERATE amount urine
Number of approximated MODERATE 2 2
amounts of urine
Vital Signs
Temp Pulse Resp BP Pulse Ox
98.2 F 89 16 152/77 99
09/01/25 07:00 09/01/25 07:00 09/01/25 07:00 09/01/25 07:00 09/01/25 07:00
Lab Results
09/01/25 05:28
09/01/25 05:28
Calcium 9.8 mg/dl (8.4-10.2) 09/01/25 05:28
Total Bilirubin 0.6 mg/dl (0.2-1.3) 08/20/25 09:07
AST 16 U/L (14-36) 08/20/25 09:07
ALT 10 U/L (0-35) 08/20/25 09:07
Alkaline Phosphatase 108 U/L (38-126) 08/20/25 09:07
Total Protein 5.6 g/dl (6.3-8.2) L 08/20/25 09:07
Albumin 3.8 g/dl (3.5-5.0) 08/20/25 09:07
Physical Exam
-
GENERAL/NEURO: Awake, Alert, no distress
CHEST: Unlabored breathing on RA
ABDOMEN: Soft, obese, tender to LLQ, incisions with intact glue, no erythema
Patient has a hawkins catheter: No
Patient has a central line: Yes (permacath for HD)
[2025-09-01] MEDS: RETACRIT 4000 UNITS IV (09:35)
--- NOTE | 2025-09-01 10:19 | W.PN.NEPH.HD ---
Assessment
-
Pt seen on HD. no complaints. VSS, access ok
Progress Note - Hemodialysis
-
Date of Service: September 01, 2025
Duration: 3 hours
Potassium Bath: 2
Calcium Bath: 2.5
Opti-Dialyzer: 160
Ultrafiltration: Other
Blood Flow: 400
Dialysate Flow: 600
Heparin: 0
EPO: 4000
[2025-09-01] MEDS: HEPARIN 3900 UNITS INTRACATH (11:14)
--- NOTE | 2025-09-01 11:41 | W.PN.HOSP.TC ---
Today's Communication/Plan
-
HD today
follow H&H, holding Coumadin and heparin w/o reversal
If bleeding continues - will need IVC filter
Assessment / Plan
Assessment / Plan
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
diverticulitis came for planned robotic sigmoidectomy, lysis of adhesions, flexible sigmoidoscopy, mesenteric angiography with ICG, laparoscopic TAP block, completed on 08/28/25. Hospitalized for heparin drip bridging to Coumadin target 2.0-3.0,
however developed episode of BRBPR overnight on 09/01/25
A/P:
#HS of recurrent diverticulitis with perforation
s/p Robotic sigmoidectomy, lysis of adhesions, flexible sigmoidoscopy, mesenteric angiography with ICG, laparoscopic TAP block
Pain mgmt
Advance diet as per Colorectal Sx. Aware of lower abd discomfort, described as feeling of stretching when upright. Most likely postOP related
#ESRD on HD
HD as per Nephro
follow electrolytes
#Rectal bleeding
hold Heparin and Warfarin on 09/01/25
Follow clinically - discussed with Colorectal
LLQ pain might be postOP - defer imaging to Colorectal. Afebrile and without leukocytosis
follow H&H
#hematuria
resolving
watch H&H and progression - improving as per patient
Probably traumatic 2/2 Steven, that is now removed
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
heparin drip without bolus and Coumadin (recent dose 4mg daily)
Hem: cont bridging
INR goal 2-3
US LE with chronic RLE DVT
#Mild osteoporotic insufficiency Fx of the sacrum
#Subacute L pubic bone Fx
#b/l avascular necrosis of femoral heads
2/2 osteoporosis and ESRD
outpatient mgmt
#Hypothyroidism
#HLD
#GERD
#RLS
cont home meds
DVT ppx SCDs
Full code
I have spent at least 51min reviewing chart, test results, communication with consultants, primary service and providing direct paytient care
Anticipated Discharge: > 48 hours
Subjective/Interval History
-
Date of Service: September 01, 2025
Objective Data
-
Labs:
Laboratory Results
09/01/25 09/01/25 09/01/25
05:28 06:00 12:00
WBC 8.5
Hgb 10.2 L
Hct 31.1 L
Plt Count 195 D
PT 15.4 H Cancelled
INR 1.20 Cancelled
APTT 111.7 H Pending
Sodium 133 L
Potassium 5.0
Chloride 100
Carbon Dioxide 27
BUN 36 H
Creatinine 7.2 H*
Glucose 103 H
Calcium 9.8
09/01/25
16:00
WBC
Hgb Pending
Hct Pending
Plt Count
PT
INR
APTT
Sodium
Potassium
Chloride
Carbon Dioxide
BUN
Creatinine
Glucose
Calcium
Vital Signs:
Vital Signs
Temp Pulse Resp BP Pulse Ox
98.2 F 89 16 152/77 99
09/01/25 07:00 09/01/25 07:00 09/01/25 07:00 09/01/25 07:00 09/01/25 07:00
I&O
08/31/25 09/01/25 09/02/25
06:59 06:59 06:59
Intake Total 680 / 680
Balance 680 / 680
Review of Systems
-
History Source: Patient
Abdomen/GI: Reports Abdominal Pain (LLQ)
Physical Exam
-
General: No Apparent Distress
HEENT: Normocephalic
Respiratory: Clear to Auscultation
GI: Soft, Nondistended and Tender (LLQ)
Musculoskeletal: No Clubbing, No Cyanosis and No Edema
Neuro: Awake, Alert, Oriented and AO x 3
Psych: Calm
[2025-09-01 12:26] LABS: APTT 34.4 Sec (23.4-35.0)
[2025-09-01] MEDS: RENVELA 2400 MG PO ×2 (13:06→18:26)
[2025-09-01 15:00] VITALS: BP 119/59
[2025-09-01] MEDS: DILAUDID 4 MG PO ×2 (16:04→20:49)
[2025-09-01 16:32] LABS: Hematocrit 33.0 % (37.0-47.0); Hemoglobin 10.8 g/dL (12.0-16.0)
[2025-09-01] MEDS: CRESTOR 10 MG PO (18:27)
[2025-09-01 19:00] VITALS: BP 129/62
[2025-09-01] MEDS: REMOVE LIDOCAINE PATCH REMOVE (20:36)
[2025-09-01] MEDS: PROTONIX 40 MG PO (22:09)
[2025-09-01] MEDS: REQUIP 2 MG PO (22:09)
[2025-09-02 00:17] LABS: Hematocrit 32.2 % (37.0-47.0); Hemoglobin 10.4 g/dL (12.0-16.0)
[2025-09-02] MEDS: SYNTHROID 125 MCG PO (05:00)
[2025-09-02] MEDS: TYLENOL 1000 MG PO ×3 (05:01→23:07)
[2025-09-02 06:00] VITALS: BMI 30.5
[2025-09-02 07:45] VITALS: BP 123/62
[2025-09-02 07:56] LABS: Hematocrit 31.6 % (37.0-47.0); Hemoglobin 10.3 g/dL (12.0-16.0); Mean Corp Hgb Conc. 32.6 g/dL (33.0-37.0); Mean Corpuscular Volume 94.6 fL (81.0-99.0); Platelet Count 164 10^3/uL (130-400); Red Cell Dist. Width 14.5 % (11.5-14.5)
[2025-09-02 08:05] LABS: INR 1.40; PT 17.3 Sec (11.4-14.6)
--- NOTE | 2025-09-02 08:33 | W.PN.HOSP.TC ---
Today's Communication/Plan
-
no BM overnight, restart bridging anticoagulation when Ok by Colorectal surgery
Abd pain improving
Lidocaine patch to back - informed RN
Echo pending
Assessment / Plan
Assessment / Plan
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
diverticulitis came for planned robotic sigmoidectomy, lysis of adhesions, flexible sigmoidoscopy, mesenteric angiography with ICG, laparoscopic TAP block, completed on 08/28/25. Hospitalized for heparin drip bridging to Coumadin target 2.0-3.0,
however developed episode of BRBPR overnight on 09/01/25
A/P:
#HS of recurrent diverticulitis with perforation
s/p Robotic sigmoidectomy, lysis of adhesions, flexible sigmoidoscopy, mesenteric angiography with ICG, laparoscopic TAP block
Pain mgmt
Advance diet as per Colorectal Sx. Aware of lower abd discomfort, described as feeling of stretching when upright. Most likely postOP related
#ESRD on HD
HD as per Nephro
follow electrolytes
#Rectal bleeding
hold Heparin and Warfarin on 09/01/25
Follow clinically - discussed with Colorectal
LLQ pain might be postOP - defer imaging to Colorectal. Afebrile and without leukocytosis
follow H&H
#Systolic murmur
as per patient - she was not aware about that
Echo is reasonable
#hematuria
resolving
watch H&H and progression - improving as per patient
Probably traumatic 2/2 Steven, that is now removed
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
heparin drip without bolus and Coumadin (recent dose 4mg daily)
Hem: cont bridging
INR goal 2-3
US LE with chronic RLE DVT
#Mild osteoporotic insufficiency Fx of the sacrum
#Subacute L pubic bone Fx
#b/l avascular necrosis of femoral heads
2/2 osteoporosis and ESRD
outpatient mgmt
#Hypothyroidism
#HLD
#GERD
#RLS
cont home meds
DVT ppx SCDs
Full code
I have spent at least 51min reviewing chart, test results, communication with consultants, primary service and providing direct paytient care
Anticipated Discharge: > 48 hours
Subjective/Interval History
-
Date of Service: September 02, 2025
Objective Data
-
Labs:
Laboratory Results
09/02/25 09/02/25 09/02/25
00:08 07:42 08:00
WBC 8.4
Hgb 10.4 L 10.3 L Cancelled
Hct 32.2 L 31.6 L Cancelled
Plt Count 164
PT 17.3 H
INR 1.40
09/02/25
16:00
WBC
Hgb Pending
Hct Pending
Plt Count
PT
INR
Vital Signs:
Vital Signs
Temp Pulse Resp BP Pulse Ox
98 F 91 16 129/62 96
09/01/25 22:23 09/01/25 22:23 09/01/25 22:23 09/01/25 19:00 09/01/25 22:23
I&O
09/01/25 09/02/25 09/03/25
06:59 06:59 06:59
Intake Total 480 / 480
Balance 480 / 480
Review of Systems
-
History Source: Patient
All other systems: Reviewed and negative
Physical Exam
-
General: No Apparent Distress
HEENT: Normocephalic
Cardiac: Murmur
GI: Soft, Nondistended and Tender (mildly diffuse)
Neuro: Awake, Alert, Oriented and AO x 3
Psych: Calm
[2025-09-02] MEDS: ROCALTROL 1 MCG PO ×2 (09:40→20:38)
[2025-09-02] MEDS: ZYRTEC 5 MG PO (09:40)
[2025-09-02] MEDS: RENVELA PO ×2 (09:41→11:26)
[2025-09-02] MEDS: LIDOCAINE 4% PATCH 1 PATCH TOPICAL (09:41)
--- NOTE | 2025-09-02 09:46 | W.PN.CRS1 ---
Today's Communication / Plan
-
regular
heparin sq today, holding heparin gtt
Assessment/Plan
-
60-year-old female with PMH of prothrombin deficiency (complicated by DVT/PE in 2008, on Coumadin), ESRD secondary to polycystic kidney disease (she was on PD, PD catheter removed during hospitalization for perforated diverticulitis, now on HD),
RLS, hypothyroidism, HLD, HTN who presented for elective surgery
POD 5 robotic sigmoidectomy, laparoscopic TAP block
AFVSS
HD today
WBC: 8.4, Hgb 10.3 (10.4, 10.8)
Plan:
-Hold heparin gtt, follow cbc/inrs. Will start heparin sq tonight for dvt prophylaxis.
-Advance to regular
-HD as per nephrology
-Analgesics scheduled and prn, on Dilaudid po
-OOB, pt/ot following
-2d echo pending
-Medical management as per hospitalist
Subjective Data
Subjective Data
Date of Service: September 02, 2025
Patient states she feels 'fine'. She has some soreness around her incisions. Her last bloody bowel movement was yesterday morning. No further BMS since. Passing flatus. No nausea or vomiting. She is very hungry. She urinated this AM with no blood.
Objective Data
-
Vital Signs
Temp Pulse Resp BP Pulse Ox
98.0 F 93 16 123/62 98
09/02/25 07:45 09/02/25 07:45 09/02/25 07:45 09/02/25 07:45 09/02/25 07:45
Intake & Output
09/01/25 09/02/25 09/03/25
06:59 06:59 06:59
Intake Total 480 / 480
Balance 480 / 480
Intake:
Oral fluids 480 / 480
Other:
Number of approximated MODERATE 2
amounts of urine
Lab Results
09/02/25 16:00
09/01/25 05:28
Physical Exam
-
General: No Acute Distress and AOx3
Abdomen: Soft, Non Distended and Tender (mild around incisions)
Skin: Warm and Dry
Incision: Other (ecchymosis around incisions)
[2025-09-02] MEDS: DILAUDID 4 MG PO ×3 (11:31→23:07)
--- NOTE | 2025-09-02 12:46 | VNURNOTE ---
Home Health Liaison met with patient at bedside to discuss [facility] nurse/therapy, visits, schedule and homebound status. Patient is agreeable and understands that visits at home will be 2-3 x per week to assess and teach medical management. Noted
chronic Coumadin- patient confirms that she has an INR waive machine at home.
Patient is aware that [facility] will contact them for start of care within a week after discharge from . Provided contact number for [facility].
[facility] referral accepted [facility].
--- NOTE | 2025-09-02 12:55 | W.PN.NEPH.HD ---
Assessment
-
pt seen during HD
vitals stable
UF as able
CVC functions fine
heparin gtt on hold
Progress Note - Hemodialysis
-
Date of Service: September 02, 2025
Duration: 3 hours
Potassium Bath: 2
Calcium Bath: 2.5
Opti-Dialyzer: 160
Ultrafiltration: Other (1.5)
Blood Flow: 400
Dialysate Flow: 600
Heparin: no
EPO: 4000
[2025-09-02] MEDS: TYLENOL PO (13:52)
[2025-09-02 14:06] LABS: Carbon Dioxide 25 mmol/L (22-30); Chloride 99 mmol/L (98-107); Potassium 4.8 mmol/L (3.5-5.1); Sodium 132 mmol/L (135-145)
[2025-09-02] MEDS: HEPARIN 4000 UNITS INTRACATH (14:44)
[2025-09-02 15:15] VITALS: BP 118/65
--- NOTE | 2025-09-02 16:20 | CM ---
CM reviewed chart- ADC>48 hours
POD#5 sigmoidectomy, VN recs
Plan for home with [facility], confirmed accepted for [facility]
Pt will resume outpt [facility] on dc
Discharge Disposition- home with [facility] and outpt HD [facility]
[2025-09-02] MEDS: RENVELA 2400 MG PO (16:33)
[2025-09-02] MEDS: HEPARIN 5000 UNITS SC ×2 (16:34→23:08)
[2025-09-02] MEDS: CRESTOR 10 MG PO (17:42)
[2025-09-02] MEDS: REMOVE LIDOCAINE PATCH 1 PATCH REMOVE (20:38)
[2025-09-02] MEDS: HYDROCORTISONE 2.5% CREAM 1 APPLIC TOPICAL (20:43)
--- NOTE | 2025-09-02 21:21 | W.PN.ONC2 ---
Today's Communication / Plan
-
Heparin and warfarin held today for bleeding.
Could bridge with Lovenox 40 SQ daily when she resumes warfarin and continue until INR 2.
Would continue same warfarin dose.
Impression
Impression
History of unprovoked deep vein thrombosis several years ago, on warfarin since then
Reported factor V Leyden
History of IV catheter related superficial thrombosis of upper extremity while on anticoagulation
End-stage renal disease, previously managed by peritoneal dialysis, now on hemodialysis
Revision of colostomy on August 28
Diverticulitis July 2025
Plan
Plan
INR had been increasing appropriately on warfarin 5 mg PO HS, 1.4 this morning.
Prefer that she continue bridge once she resumes warfarin but Lovenox 40 mg SQ could be used rather than therapeutic heparin drip.
Await AM CBC
Subjective/Objective
Chief Complaint
Heme/Onc followup of hx DVT and factor V Leiden on chronic anticoagulation, perioperative anticoagulation management following colostomy revision 08/28
Subjective
Pt had resumed warfarin with heparin gtt bridge but had rectal bleeding last night and this morning with both anticoagulants now on hold
Vital Signs:
Vital Signs
Temp Pulse Resp BP Pulse Ox
98.4 F 111 16 118/65 98
09/02/25 15:15 09/02/25 15:15 09/02/25 15:15 09/02/25 15:15 09/02/25 15:15
Lab Results:
Laboratory Data
WBC 8.4 10^3/uL (4.8-10.8) 09/02/25 07:42
Hgb Cancelled 09/02/25 16:00
Plt Count 164 10^3/uL (130-400) 09/02/25 07:42
PT 17.3 Sec (11.4-14.6) H 09/02/25 07:42
INR 1.40 09/02/25 07:42
APTT 34.4 Sec (23.4-35.0) 09/01/25 11:40
eGFR 6.04 09/01/25 05:28
Physical Exam
Awake, alert, non-toxic
[2025-09-02] MEDS: PROTONIX 40 MG PO (22:23)
[2025-09-02] MEDS: REQUIP 2 MG PO (22:23)
[2025-09-02 23:30] VITALS: BP 115/64
[2025-09-03] MEDS: DILAUDID 4 MG PO ×3 (03:38→19:52)
[2025-09-03] MEDS: SYNTHROID 125 MCG PO (05:27)
[2025-09-03] MEDS: TYLENOL 1000 MG PO ×3 (05:27→17:50)
[2025-09-03 06:00] VITALS: BMI 29.9
[2025-09-03 06:13] LABS: INR 1.45; PT 17.8 Sec (11.4-14.6)
[2025-09-03 07:47] VITALS: BP 102/57
[2025-09-03] MEDS: ZYRTEC 5 MG PO (09:28)
[2025-09-03] MEDS: RENVELA 2400 MG PO ×2 (09:28→17:50)
[2025-09-03] MEDS: ROCALTROL 1 MCG PO ×2 (09:28→19:52)
[2025-09-03] MEDS: HEPARIN 5000 UNITS SC (09:29)
[2025-09-03] MEDS: RELISTOR 6 MG SC (09:30)
[2025-09-03] MEDS: LIDOCAINE 4% PATCH 1 PATCH TOPICAL (09:31)
[2025-09-03] MEDS: HYDROCORTISONE 2.5% CREAM 1 APPLIC TOPICAL (09:36)
--- NOTE | 2025-09-03 11:24 | W.PN.HOSP.TC ---
Today's Communication/Plan
-
restart heparin drip and Coumadin as per conversation with ColorectalSx
follow INR
Assessment / Plan
Assessment / Plan
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
diverticulitis came for planned robotic sigmoidectomy, lysis of adhesions, flexible sigmoidoscopy, mesenteric angiography with ICG, laparoscopic TAP block, completed on 08/28/25. Hospitalized for heparin drip bridging to Coumadin target 2.0-3.0,
however developed episode of BRBPR overnight on 09/01/25
A/P:
#HS of recurrent diverticulitis with perforation
s/p Robotic sigmoidectomy, lysis of adhesions, flexible sigmoidoscopy, mesenteric angiography with ICG, laparoscopic TAP block
Pain mgmt
Advance diet as per Colorectal Sx. Aware of lower abd discomfort, described as feeling of stretching when upright. Most likely postOP related
#ESRD on HD
HD as per Nephro
follow electrolytes
#Rectal bleeding
held then restart Heparin and Warfarin on 09/03/25 as per agreement with colorectal
follow H&H
#Systolic murmur
as per patient - she was not aware about that
Echo is reasonable - reading pending
#hematuria
resolving
watch H&H and progression - improving as per patient
Probably traumatic 2/ Steven, that is now removed
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
heparin drip and Coumadin (recent dose 4mg daily), now on 5mg
Hem: cont bridging
INR goal 2-3
US LE with chronic RLE DVT
#Mild osteoporotic insufficiency Fx of the sacrum
#Subacute L pubic bone Fx
#b/l avascular necrosis of femoral heads
2/2 osteoporosis and ESRD
outpatient mgmt
#Hypothyroidism
#HLD
#GERD
#RLS
cont home meds
DVT ppx SCDs
Full code
I have spent at least 51min reviewing chart, test results, communication with consultants, primary service and providing direct paytient care
Anticipated Discharge: > 48 hours
Subjective/Interval History
-
Date of Service: September 03, 2025
Objective Data
-
Labs:
Laboratory Results
09/03/25 09/03/25
05:39 11:11
WBC Pending
Hgb Pending
Hct Pending
Plt Count Pending
PT 17.8 H
INR 1.45
Vital Signs:
Vital Signs
Temp Pulse Resp BP Pulse Ox
98.6 F 72 16 102/57 97
09/03/25 07:47 09/03/25 07:47 09/03/25 07:47 09/03/25 07:47 09/03/25 07:47
I&O
09/02/25 09/03/25 09/04/25
06:59 06:59 06:59
Intake Total 480 / 480 958 / 958
Balance 480 / 480 958 / 958
Review of Systems
-
History Source: Patient
All other systems: Reviewed and negative
Physical Exam
-
General: No Apparent Distress
HEENT: Normocephalic
Respiratory: Clear to Auscultation
Cardiac: Regular Rhythm and Murmur (systolic)
Skin: Warm
Neuro: Awake, Alert, Oriented and AO x 3
Psych: Calm
[2025-09-03 11:44] LABS: Hematocrit 31.3 % (37.0-47.0); Hemoglobin 10.3 g/dL (12.0-16.0); Mean Corp Hgb Conc. 32.9 g/dL (33.0-37.0); Mean Corpuscular Volume 95.4 fL (81.0-99.0); Platelet Count 176 10^3/uL (130-400); Red Cell Dist. Width 14.5 % (11.5-14.5)
--- NOTE | 2025-09-03 12:21 | W.PN.NEPH.PH ---
Today's Communication / Plan
-
HD tomorrow
Assessment/Plan
-
Assessment:
Sigmoidectomy 08/28/2020
Hx of Perforated diverticulitis in setting of PD cath for dialysis in July 27
ESRD on PD since 2021 now on hemodialysis
Polycystic kidney disease leading on to end-stage renal disease
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
History of recent GI bleed/gastric ulcer
Anemia
Hyperlipidemia
Hypothyroidism
Secondary PTH
History hypertension
Hyperphosphatemia
Plan:
HD tomorrow
heparin gtt bridge for OAC, monitor bleeding
bp stable
cont phos binders and calitriol
-
-
Date of Service: September 03, 2025
CC / HPI / ROS
-
Chief Complaint:
ESRD
History of Present Illness:
HD TTS, tolerated HD yesterday
BP stable
diet advanced
Review of Systems:
no CP/SOB
pain fair control
no BM but passing flatus
Labs
-
Labs:
WBC Cancelled 09/03/25 11:52
RBC Cancelled 09/03/25 11:52
Hgb Cancelled 09/03/25 11:52
Hct Cancelled 09/03/25 11:52
Plt Count Cancelled 09/03/25 11:52
Sodium 132 mmol/L (135-145) L 09/02/25 12:40
Potassium 4.8 mmol/L (3.5-5.1) 09/02/25 12:40
Chloride 99 mmol/L (98-107) 09/02/25 12:40
Carbon Dioxide 25 mmol/L (22-30) 09/02/25 12:40
BUN 36 mg/dl (7-17) H 09/01/25 05:28
Creatinine 7.2 mg/dL (0.6-1.0) H* 09/01/25 05:28
eGFR 6.04 09/01/25 05:28
Glucose 103 mg/dl (70-99) H 09/01/25 05:28
Calcium 9.8 mg/dl (8.4-10.2) 09/01/25 05:28
Albumin 3.8 g/dl (3.5-5.0) 08/20/25 09:07
Physical Exam
-
Vital Signs:
Vital Signs
Temp Pulse Resp BP Pulse Ox
98.6 F 72 16 102/57 97
09/03/25 07:47 09/03/25 07:47 09/03/25 07:47 09/03/25 07:47 09/03/25 07:47
Cardiovascular:: Regular rate and rhythm
Respiratory:: Bilateral: CTA
Lung Excursion:: Normal
Abdomen:: Distended, Nontender and Soft
Bowel Sounds:: Normal
Extremity Edema:: None: Bilateral:
Steven Catheter: No
[2025-09-03 12:51] LABS: APTT 26.9 Sec (23.4-35.0)
[2025-09-03] MEDS: HEPARIN 25000 UNITS/250 ML IV (13:37)
[2025-09-03] MEDS: RENVELA PO (13:49)
--- NOTE | 2025-09-03 14:11 | W.PN.CRS1 ---
Today's Communication / Plan
-
continue regular diet
heparin drip, no bolus
Assessment/Plan
-
60-year-old female with PMH of prothrombin deficiency (complicated by DVT/PE in 2008, on Coumadin), ESRD secondary to polycystic kidney disease (she was on PD, PD catheter removed during hospitalization for perforated diverticulitis, now on HD),
RLS, hypothyroidism, HLD, HTN who presented for elective surgery
POD 6 robotic sigmoidectomy, laparoscopic TAP block
AFVSS
WBC: 6.7, Hgb 10.3 (10.3, 10.4)
Plan:
-No evidence of active bleeding. Ok to start heparin gtt without bolus.
-Continue regular diet.
-HD as per nephrology
-Analgesics scheduled and prn, on Dilaudid po
-OOB, pt/ot following
-Medical management as per hospitalist
Subjective Data
Subjective Data
Date of Service: September 03, 2025
Her abdominal pain is controlled with oral Dilaudid. No bowel movement since yesterday but she is passing flatus.
Objective Data
-
Vital Signs
Temp Pulse Resp BP Pulse Ox
98.6 F 72 16 102/57 97
09/03/25 07:47 09/03/25 07:47 09/03/25 07:47 09/03/25 07:47 09/03/25 07:47
Intake & Output
09/02/25 09/03/25 09/04/25
06:59 06:59 06:59
Intake Total 480 / 480 958 / 958
Balance 480 / 480 958 / 958
Intake:
Oral fluids 480 / 480 958 / 958
Other:
Number of approximated SMALL 1
amounts of urine
Number of approximated MODERATE 2
amounts of urine
Lab Results
09/03/25 11:52
09/02/25 12:40
Physical Exam
-
General: No Acute Distress
Abdomen: Soft, Non Distended and Non Tender
Extremities: No Calf Tenderness
Incision: Clear, Dry, Intact
[2025-09-03 15:35] VITALS: BP 108/46
[2025-09-03] MEDS: COUMADIN 5 MG PO (17:50)
[2025-09-03] MEDS: CRESTOR 10 MG PO (17:50)
[2025-09-03] MEDS: REMOVE LIDOCAINE PATCH 1 PATCH REMOVE (19:53)
[2025-09-03 21:34] LABS: APTT > 200 Sec (23.4-35.0)
[2025-09-03] MEDS: REQUIP 2 MG PO (22:34)
[2025-09-03] MEDS: PROTONIX 40 MG PO (22:34)
[2025-09-03 23:48] VITALS: BP 122/65
[2025-09-04] MEDS: TYLENOL 1000 MG PO ×4 (00:54→17:25)
[2025-09-04] MEDS: SYNTHROID 125 MCG PO (05:24)
[2025-09-04 05:38] LABS: Hematocrit 30.3 % (37.0-47.0); Hemoglobin 10.2 g/dL (12.0-16.0); Mean Corp Hgb Conc. 33.7 g/dL (33.0-37.0); Mean Corpuscular Volume 95.9 fL (81.0-99.0); Nucleated Red Blood Cells % 0 %; Platelet Count 197 10^3/uL (130-400); Red Cell Dist. Width 14.1 % (11.5-14.5)
[2025-09-04 05:50] LABS: PT 17.7 Sec (11.4-14.6)
[2025-09-04 06:00] VITALS: BMI 29.8
[2025-09-04 06:19] LABS: APTT 189.5 Sec (23.4-35.0)
[2025-09-04 06:20] LABS: INR 1.45
[2025-09-04 07:25] VITALS: BP 105/58
--- NOTE | 2025-09-04 08:09 | W.PN.CRS1 ---
Today's Communication / Plan
-
continue heparin gtt
okay for coumadin
Assessment/Plan
-
60-year-old female with PMH of prothrombin deficiency (complicated by DVT/PE in 2008, on Coumadin), ESRD secondary to polycystic kidney disease (she was on PD, PD catheter removed during hospitalization for perforated diverticulitis, now on HD),
RLS, hypothyroidism, HLD, HTN who presented for elective surgery
POD 7 robotic sigmoidectomy, laparoscopic TAP block
AFVSS
WBC: 7.8 (6.7), Hgb 10.2 (10.3, 10.3, 10.4)
Plan:
-Continue heparin gtt. No rectal bleeding thus far. Okay for Coumadin from our perspective.
-Continue regular diet.
-HD as per nephrology
-Analgesics scheduled and prn, on Dilaudid po
-OOB, pt/ot following
-Medical management as per hospitalist
-Okay for dispo from our perspective - will discuss with hospitalist regarding anticoagulation
Subjective Data
Subjective Data
Date of Service: September 04, 2025
Patient states she hasn't had a bowel movement in a few days. Her pain is more controlled. Denies nausea or vomiting.
Objective Data
-
Vital Signs
Temp Pulse Resp BP Pulse Ox
98.3 F 89 18 105/58 97
09/04/25 07:25 09/04/25 07:25 09/04/25 07:25 09/04/25 07:25 09/04/25 07:25
Intake & Output
09/03/25 09/04/25 09/05/25
06:59 06:59 06:59
Intake Total 958 / 958 690 / 690
Balance 958 / 958 690 / 690
Intake:
Oral fluids 958 / 958 600 / 600
IV piggybacks 90 / 90
Other:
Number of approximated SMALL 1
amounts of urine
Number of approximated MODERATE 2 3
amounts of urine
Lab Results
09/04/25 05:29
09/02/25 12:40
Physical Exam
-
General: No Acute Distress and AOx3
Abdomen: Soft, Non Distended and Tender (mild around incisions)
Skin: Warm and Dry
Incision: Clear, Dry, Intact
[2025-09-04] MEDS: RENVELA 2400 MG PO ×2 (08:59→17:25)
[2025-09-04] MEDS: ROCALTROL 1 MCG PO ×2 (08:59→20:24)
[2025-09-04] MEDS: ZYRTEC 5 MG PO (09:00)
[2025-09-04] MEDS: LIDOCAINE 4% PATCH 1 PATCH TOPICAL (09:00)
[2025-09-04] MEDS: HYDROCORTISONE 2.5% CREAM 1 APPLIC TOPICAL ×2 (09:06→17:31)
[2025-09-04] MEDS: DILAUDID 4 MG PO ×3 (09:09→21:56)
--- NOTE | 2025-09-04 10:32 | W.PN.ONC2 ---
Today's Communication / Plan
-
Continue IV heparin no bolus + warfarin 5 mg daily until INR therapeutic range, 2�3.
Impression
Impression
History of unprovoked deep vein thrombosis several years ago, on warfarin since then
Reported factor V Leiden
History of IV catheter related superficial thrombosis of upper extremity while on anticoagulation
End-stage renal disease, previously managed by peritoneal dialysis, now on hemodialysis
Revision of colostomy on August 28
Diverticulitis July 2025
Plan
Plan
Continue IV heparin no bolus and warfarin 5 mg daily.
Subjective/Objective
Chief Complaint
ACS Heme Onc
Subjective
Patient denies bleeding. On IV heparin + Warfarin 5 mg QD
Vital Signs:
Vital Signs
Temp Pulse Resp BP Pulse Ox
98.3 F 89 18 105/58 97
09/04/25 07:25 09/04/25 07:25 09/04/25 07:25 09/04/25 07:25 09/04/25 07:25
Lab Results:
Laboratory Data
WBC 7.8 10^3/uL (4.8-10.8) 09/04/25 05:29
Hgb 10.2 g/dL (12.0-16.0) L 09/04/25 05:29
Plt Count 197 10^3/uL (130-400) 09/04/25 05:29
PT 17.7 Sec (11.4-14.6) H 09/04/25 05:29
INR 1.45 09/04/25 05:29
APTT 189.5 Sec (23.4-35.0) H* 09/04/25 05:29
eGFR 6.04 09/01/25 05:28
Physical Exam
Cardiology: S1 and S2
Pulmonary: Clear
GI: Soft
--- NOTE | 2025-09-04 11:43 | W.PN.HOSP.TC ---
Today's Communication/Plan
-
Heparin drip/Coumadin
Assessment / Plan
Assessment / Plan
Impression:
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
diverticulitis came for planned robotic sigmoidectomy, lysis of adhesions, flexible sigmoidoscopy, mesenteric angiography with ICG, laparoscopic TAP block, completed on 08/28/25. Hospitalized for heparin drip bridging to Coumadin target 2.0-3.0,
however developed episode of BRBPR overnight on 09/01/25
Assessment/plan
HS of recurrent diverticulitis with perforation
s/p Robotic sigmoidectomy, lysis of adhesions, flexible sigmoidoscopy, mesenteric angiography with ICG, laparoscopic TAP block
Pain mgmt
Advance diet as per Colorectal Sx. Aware of lower abd discomfort, described as feeling of stretching when upright. Most likely postOP related
ESRD on HD
HD as per Nephro
follow electrolytes
Rectal bleeding
held then restart Heparin and Warfarin on 09/03/25 as per agreement with colorectal
follow H&H
Systolic murmur (mild to moderate MR)
Echo :
1. Normal left ventricular size, wall thickness and systolic function. No regional wall motion abnormalities are seen.
2. Mild aortic valve stenosis. Moderate aortic regurgitation.
3. Mild concentric left ventricular hypertrophy.
4. Moderate mitral valve stenosis. mild to moderate mitral valve regurgitation.
5. No prior echocardiogram available for review.
6. Peak/mean gradients across the valve are 15/7 mmHg. Extremely dense posterior mitral annular calcification.
Hematuria
resolving
watch H&H and progression - improving as per patient
Probably traumatic 2/ Steven, that is now removed
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
heparin drip and Coumadin (recent dose 4mg daily), now on 5mg
Hem: cont bridging
INR goal 2-3
US LE with chronic RLE DVT
#Mild osteoporotic insufficiency Fx of the sacrum
#Subacute L pubic bone Fx
#b/l avascular necrosis of femoral heads
2/2 osteoporosis and ESRD
outpatient mgmt
#Hypothyroidism
#HLD
#GERD
#RLS
cont home meds
CODE STATUS: Full code
DVT prophylaxis: Heparin/Coumadin
Diet: Regular diet
Total time spent on today's encounter was 55 minutes which included time spent in counseling the patient/family regarding diagnosis and treatment plan as listed above, goals of care, and symptom management. Case was discussed with nursing staff,
specialists, and care coordinators/case management. All labs and imaging personally reviewed by me. Remainder the time spent in detailed review of previous records, lab data, imaging, and other medical provider documentation.
Anticipated Discharge: 24 - 48 hours
Subjective/Interval History
-
Date of Service: September 04, 2025
Patient seen and examined at bedside, denies any chest pain or shortness of breath, no abdominal pain, no nausea, no vomiting, no diarrhea or constipation.
Objective Data
-
Labs:
Laboratory Results
09/04/25 09/04/25
05:29 13:30
WBC 7.8
Hgb 10.2 L
Hct 30.3 L
Plt Count 197
PT 17.7 H
INR 1.45
APTT 189.5 H* Pending
Vital Signs:
Vital Signs
Temp Pulse Resp BP Pulse Ox
98.3 F 89 18 105/58 97
09/04/25 07:25 09/04/25 07:25 09/04/25 07:25 09/04/25 07:25 09/04/25 07:25
I&O
09/03/25 09/04/25 09/05/25
06:59 06:59 06:59
Intake Total 958 / 348 690 / 690
Balance 958 / 958 690 / 690
Physical Exam
-
General: Well Developed, Well Nourished, No Apparent Distress and Comfortable
HEENT: Normocephalic, Atraumatic, Moist Mucous Membranes, No Ptosis, PERRLA and Nose Appears Normal
Respiratory: Clear to Auscultation and Non Labored Respirations
Cardiac: Regular Rhythm, S1/S2 and Murmur
Breast: Deferred by me
GI: Soft, Nondistended, Normal Bowel Sounds, Tender (Tender at incision site) and Other (Incision site clean)
Genito-urinary: No Costovertebral Tender
Musculoskeletal: No Clubbing, No Cyanosis and No Edema
Skin: Warm
Neuro: Awake, Alert, Oriented, AO x 3 and No Motor Deficits
Psych: Calm
Data Reviewed
-
Diagnostic Radiology: Image personally visualized and interpreted and Report Reviewed by me
CT Scan: Image personally visualized and interpreted and Report Reviewed by me
Ultrasound: Image personally visualized and interpreted and Report Reviewed by me
MRI: Image personally visualized and interpreted and Report Reviewed by me
Medical Tests (Nuc Med, Echo etc): Image personally visualized and interpreted and Report Reviewed by me
Labs: Labs Reviewed by me
Old Records: Reviewed
[2025-09-04] MEDS: RENVELA PO (12:15)
[2025-09-04] MEDS: HEPARIN 25000 UNITS/250 ML IV (12:18)
--- NOTE | 2025-09-04 13:52 | W.PN.NEPH.HD ---
Assessment
-
Pt seen on HD. no complaints. VSS, access ok
Progress Note - Hemodialysis
-
Date of Service: September 04, 2025
Duration: 30 minutes and 3 hours
Potassium Bath: 2
Calcium Bath: 2.5
Opti-Dialyzer: 160
Ultrafiltration: Other (1kg)
Blood Flow: 400
Dialysate Flow: 600
Heparin: 0
EPO: 3000 units
[2025-09-04] MEDS: RETACRIT 3000 UNITS IV (14:02)
[2025-09-04 15:00] VITALS: BP 115/65
--- NOTE | 2025-09-04 17:09 | CM ---
Plan for home with [facility], confirmed accepted for SOC
Pt will resume outpt [facility] on dc. Receives dialysis on MWF at [facility].
[2025-09-04] MEDS: COUMADIN 5 MG PO (17:22)
[2025-09-04] MEDS: CRESTOR 10 MG PO (17:25)
[2025-09-04 18:31] LABS: APTT 111.3 Sec (23.4-35.0)
[2025-09-04] MEDS: REMOVE LIDOCAINE PATCH 1 PATCH REMOVE (20:24)
[2025-09-04] MEDS: REQUIP 2 MG PO (21:56)
[2025-09-04] MEDS: PROTONIX 40 MG PO (21:56)
[2025-09-04 23:10] VITALS: BP 115/61
[2025-09-05] MEDS: TYLENOL 1000 MG PO ×4 (00:57→18:23)
[2025-09-05 01:12] LABS: APTT 97.0 Sec (23.4-35.0)
[2025-09-05] MEDS: SYNTHROID 125 MCG PO (05:09)
[2025-09-05 06:00] VITALS: BMI 29.7
[2025-09-05 07:21] LABS: Hematocrit 28.7 % (37.0-47.0); Hemoglobin 9.6 g/dL (12.0-16.0); Mean Corp Hgb Conc. 33.4 g/dL (33.0-37.0); Mean Corpuscular Volume 93.2 fL (81.0-99.0); Platelet Count 132 10^3/uL (130-400); Red Cell Dist. Width 14.5 % (11.5-14.5)
[2025-09-05 08:04] LABS: INR 1.79; PT 20.5 Sec (11.4-14.6)
[2025-09-05 08:07] LABS: APTT 104.4 Sec (23.4-35.0)
[2025-09-05] MEDS: RENVELA 2400 MG PO ×2 (08:48→12:27)
[2025-09-05] MEDS: ROCALTROL 1 MCG PO ×2 (08:48→19:49)
[2025-09-05] MEDS: ZYRTEC 5 MG PO (08:49)
[2025-09-05] MEDS: LIDOCAINE 4% PATCH 1 PATCH TOPICAL (08:49)
--- NOTE | 2025-09-05 10:27 | W.PN.HOSP.TC ---
Today's Communication/Plan
-
Heparin drip/Coumadin
Assessment / Plan
Assessment / Plan
Impression:
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
diverticulitis came for planned robotic sigmoidectomy, lysis of adhesions, flexible sigmoidoscopy, mesenteric angiography with ICG, laparoscopic TAP block, completed on 08/28/25. Hospitalized for heparin drip bridging to Coumadin target 2.0-3.0,
however developed episode of BRBPR overnight on 09/01/25
Which resolved and, s/p. Resume
Assessment/plan
HS of recurrent diverticulitis with perforation
s/p Robotic sigmoidectomy, lysis of adhesions, flexible sigmoidoscopy, mesenteric angiography with ICG, laparoscopic TAP block
Pain mgmt
Advance diet as per Colorectal Sx. Aware of lower abd discomfort, described as feeling of stretching when upright. Most likely postOP related
ESRD on HD
HD as per Nephro
follow electrolytes
Rectal bleeding
held then restart Heparin and Warfarin on 09/03/25 as per agreement with colorectal
follow H&H
Systolic murmur (mild to moderate MR)
Echo :
1. Normal left ventricular size, wall thickness and systolic function. No regional wall motion abnormalities are seen.
2. Mild aortic valve stenosis. Moderate aortic regurgitation.
3. Mild concentric left ventricular hypertrophy.
4. Moderate mitral valve stenosis. mild to moderate mitral valve regurgitation.
5. No prior echocardiogram available for review.
6. Peak/mean gradients across the valve are 15/7 mmHg. Extremely dense posterior mitral annular calcification.
Hematuria
resolving
watch H&H and progression - improving as per patient
Probably traumatic 2/2 Steven, that is now removed
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
heparin drip and Coumadin (recent dose 4mg daily), now on 5mg
Hem: cont bridging
INR goal 2-3
US LE with chronic RLE DVT
#Mild osteoporotic insufficiency Fx of the sacrum
#Subacute L pubic bone Fx
#b/l avascular necrosis of femoral heads
2/2 osteoporosis and ESRD
outpatient mgmt
#Hypothyroidism
#HLD
#GERD
#RLS
cont home meds
CODE STATUS: Full code
DVT prophylaxis: Heparin/Coumadin
Diet: Regular diet
Total time spent on today's encounter was 55 minutes which included time spent in counseling the patient/family regarding diagnosis and treatment plan as listed above, goals of care, and symptom management. Case was discussed with nursing staff,
specialists, and care coordinators/case management. All labs and imaging personally reviewed by me. Remainder the time spent in detailed review of previous records, lab data, imaging, and other medical provider documentation.
Anticipated Discharge: Within 24 hours
Subjective/Interval History
-
Date of Service: September 05, 2025
Patient seen and examined at bedside, denies any chest pain or shortness of breath, no abdominal pain, no nausea, no vomiting, no diarrhea or constipation.
Objective Data
-
Labs:
Laboratory Results
09/05/25 09/05/25
00:53 07:02
WBC 7.0
Hgb 9.6 L
Hct 28.7 L
Plt Count 132 D
PT 20.5 H
INR 1.79
APTT 97.0 H 104.4 H
Vital Signs:
Vital Signs
Temp Pulse Resp BP Pulse Ox
98.5 F 87 17 115/61 98
09/04/25 23:10 09/04/25 23:10 09/04/25 23:10 09/04/25 23:10 09/04/25 23:10
I&O
09/04/25 09/05/25 09/06/25
06:59 06:59 06:59
Intake Total 690 / 690 1277 / 1277
Balance 690 / 690 1277 / 1277
Physical Exam
-
General: Well Developed, Well Nourished, No Apparent Distress and Comfortable
HEENT: Normocephalic, Atraumatic, Moist Mucous Membranes, No Ptosis, PERRLA and Nose Appears Normal
Respiratory: Clear to Auscultation and Non Labored Respirations
Cardiac: Regular Rhythm, S1/S2 and Murmur
Breast: Deferred by me
GI: Soft, Nondistended, Normal Bowel Sounds, Tender (Tender at incision site) and Other (Incision site clean)
Genito-urinary: No Costovertebral Tender
Musculoskeletal: No Clubbing, No Cyanosis and No Edema
Skin: Warm
Neuro: Awake, Alert, Oriented, AO x 3 and No Motor Deficits
Psych: Calm
--- NOTE | 2025-09-05 11:29 | W.PN.CRS1 ---
Today's Communication / Plan
-
hep gtt to cmd bridge
Assessment/Plan
-
60-year-old female with PMH of prothrombin deficiency (complicated by DVT/PE in 2008, on Coumadin), ESRD secondary to polycystic kidney disease (she was on PD, PD catheter removed during hospitalization for perforated diverticulitis, now on HD),
RLS, hypothyroidism, HLD, HTN who presented for elective surgery
POD 8 robotic sigmoidectomy, laparoscopic TAP block
AFVSS
WBC: 7.0 (7.8, 6.7), Hgb 9.6 (10.2, 10.3, 10.3, 10.4)
INR: 1.79
Plan:
-Continue heparin gtt. No rectal bleeding thus far. Continue coumadin daily.
-Continue regular diet.
-HD as per nephrology
-Analgesics scheduled and prn, on Dilaudid po
-OOB, pt/ot following
-Medical management as per hospitalist
-Okay for dispo from our perspective - awaiting INR to be theurapeutic prior to dc
Subjective Data
Subjective Data
Date of Service: September 05, 2025
Patient states she has no complaints. She had a bowel movement yesterday with no blood. Denies nausea or vomiting. Pain is controlled.
Objective Data
-
Vital Signs
Temp Pulse Resp BP Pulse Ox
98.5 F 87 17 115/61 97
09/04/25 23:10 09/04/25 23:10 09/04/25 23:10 09/04/25 23:10 09/05/25 08:47
Intake & Output
09/04/25 09/05/25 09/06/25
06:59 06:59 06:59
Intake Total 690 / 690 1277 / 1277
Balance 690 / 690 1277 / 1277
Intake:
Oral fluids 600 / 600 560 / 560
IV fluids (Total) 717 / 717
IV piggybacks
Other:
Number of approximated MODERATE 3 2
amounts of urine
Number of approximated LARGE 1
amounts of urine
Lab Results
09/05/25 07:02
09/02/25 12:40
Physical Exam
-
General: No Acute Distress and AOx3
Abdomen: Soft, Non Distended and Non Tender
Skin: Warm and Dry
Incision: Clear, Dry, Intact
--- NOTE | 2025-09-05 11:47 | W.PN.NEPH.PH ---
Today's Communication / Plan
-
HD tomorrow
Assessment/Plan
-
Assessment:
Sigmoidectomy 08/28/2020
Hx of Perforated diverticulitis in setting of PD cath for dialysis in July 27
ESRD on PD since 2021 now on hemodialysis
Polycystic kidney disease leading on to end-stage renal disease
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
History of recent GI bleed/gastric ulcer
Anemia
Hyperlipidemia
Hypothyroidism
Secondary PTH
History hypertension
Hyperphosphatemia
Plan:
HD tomorrow
heparin gtt bridge for OAC, monitor bleeding
bp stable
cont phos binders and calcitriol
-
-
Date of Service: September 05, 2025
CC / HPI / ROS
-
Chief Complaint:
ESRD
History of Present Illness:
HD TTS, tolerated HD yesterday
BP stable
INR rising
Review of Systems:
no CP/SOB
pain fair control
Labs
-
Labs:
WBC 7.0 10^3/uL (4.8-10.8) 09/05/25 07:02
RBC 3.08 10^6/uL (4.20-5.40) L 09/05/25 07:02
Hgb 9.6 g/dL (12.0-16.0) L 09/05/25 07:02
Hct 28.7 % (37.0-47.0) L 09/05/25 07:02
Plt Count 132 10^3/uL (130-400) D 09/05/25 07:02
Sodium 132 mmol/L (135-145) L 09/02/25 12:40
Potassium 4.8 mmol/L (3.5-5.1) 09/02/25 12:40
Chloride 99 mmol/L (98-107) 09/02/25 12:40
Carbon Dioxide 25 mmol/L (22-30) 09/02/25 12:40
BUN 36 mg/dl (7-17) H 09/01/25 05:28
Creatinine 7.2 mg/dL (0.6-1.0) H* 09/01/25 05:28
eGFR 6.04 09/01/25 05:28
Glucose 103 mg/dl (70-99) H 09/01/25 05:28
Calcium 9.8 mg/dl (8.4-10.2) 09/01/25 05:28
Albumin 3.8 g/dl (3.5-5.0) 08/20/25 09:07
Physical Exam
-
Vital Signs:
Vital Signs
Temp Pulse Resp BP Pulse Ox
98.5 F 87 17 115/61 97
09/04/25 23:10 09/04/25 23:10 09/04/25 23:10 09/04/25 23:10 09/05/25 08:47
Cardiovascular:: Regular rate and rhythm
Respiratory:: Bilateral: Coarse
Lung Excursion:: Normal
Abdomen:: Nontender and Soft
Bowel Sounds:: Normal
Extremity Edema:: None: Bilateral:
[2025-09-05] MEDS: DILAUDID 4 MG PO (12:26)
--- NOTE | 2025-09-05 12:36 | W.PN.ONC2 ---
Today's Communication / Plan
-
.
Impression
Impression
History of unprovoked deep vein thrombosis several years ago, on warfarin since then
Reported factor V Leiden
History of IV catheter related superficial thrombosis of upper extremity while on anticoagulation
End-stage renal disease, previously managed by peritoneal dialysis, now on hemodialysis
anemia on BRITTANY with HD, check iron studies
Revision of colostomy on August 28
Diverticulitis July 2025
Plan
Plan
Continue IV heparin no bolus
warfarin resumed 09/03, INR 1.79 today -continue 5mg daily
monitor for bleeding
f/u iron studies
Subjective/Objective
Subjective
denies bleeding or new swelling
some pain with ambulation
BM yesterday without melena or BRB
ate 100% of breakfast
Vital Signs:
Vital Signs
Temp Pulse Resp BP Pulse Ox
98.5 F 87 17 115/61 97
09/04/25 23:10 09/04/25 23:10 09/04/25 23:10 09/04/25 23:10 09/05/25 08:47
Lab Results:
Laboratory Data
WBC 7.0 10^3/uL (4.8-10.8) 09/05/25 07:02
Hgb 9.6 g/dL (12.0-16.0) L 09/05/25 07:02
Plt Count 132 10^3/uL (130-400) D 09/05/25 07:02
PT 20.5 Sec (11.4-14.6) H 09/05/25 07:02
INR 1.79 09/05/25 07:02
APTT 104.4 Sec (23.4-35.0) H 09/05/25 07:02
eGFR 6.04 09/01/25 05:28
Physical Exam
HEENT: No Jaundice
Pulmonary: Other (unlabored)
GI: Soft
Extremities: Pulses Present
[2025-09-05 14:29] LABS: Ferritin 1350.0 ng/ml (11.1-264.0)
[2025-09-05 15:00] VITALS: BP 123/65
[2025-09-05] MEDS: RENVELA PO (18:20)
[2025-09-05] MEDS: CRESTOR 10 MG PO (18:23)
[2025-09-05 19:17] LABS: Hepatitis B Surface Antigen Negative (Negative)
[2025-09-05] MEDS: REMOVE LIDOCAINE PATCH 1 PATCH REMOVE (19:48)
[2025-09-05] MEDS: COLACE 100 MG PO (19:49)
[2025-09-05] MEDS: COUMADIN 5 MG PO (19:49)
[2025-09-05] MEDS: HEPARIN 25000 UNITS/250 ML IV (20:27)
[2025-09-05] MEDS: PROTONIX 40 MG PO (21:36)
[2025-09-05] MEDS: REQUIP 2 MG PO (21:36)
[2025-09-05 22:38] VITALS: BP 111/61
[2025-09-06] MEDS: DILAUDID 4 MG PO ×2 (00:53→11:52)
[2025-09-06] MEDS: TYLENOL 1000 MG PO ×3 (00:53→11:52)
[2025-09-06] MEDS: SYNTHROID 125 MCG PO (05:17)
[2025-09-06 06:00] VITALS: BMI 29.8
[2025-09-06 06:55] LABS: INR 2.10; PT 23.2 Sec (11.4-14.6)
[2025-09-06 06:57] LABS: APTT 55.4 Sec (23.4-35.0)
[2025-09-06] MEDS: HEPARIN 6500 UNITS IV (07:14)
[2025-09-06 07:42] LABS: Hematocrit 32.5 % (37.0-47.0); Hemoglobin 10.6 g/dL (12.0-16.0); Mean Corp Hgb Conc. 32.6 g/dL (33.0-37.0); Mean Corpuscular Volume 95.9 fL (81.0-99.0); Platelet Count 186 10^3/uL (130-400); Red Cell Dist. Width 14.6 % (11.5-14.5)
[2025-09-06 08:00] VITALS: BP 112/56
--- NOTE | 2025-09-06 08:48 | W.PN.ONC2 ---
Today's Communication / Plan
-
discharge planning
Impression
Impression
History of unprovoked deep vein thrombosis several years ago, on warfarin since then
Reported factor V Leiden
History of IV catheter related superficial thrombosis of upper extremity while on anticoagulation
End-stage renal disease, previously managed by peritoneal dialysis, now on hemodialysis
anemia on BRITTANY with HD
Revision of colostomy on August 28
Diverticulitis July 2025
Plan
Plan
warfarin resumed 09/03, INR 2.1 today -stop heparin gtt, warfarin 2.5mg daily ordered
monitor for bleeding
Pt has a home INR machine and will coordinate with her coumadin clinic for further outpatient warfarin dosing
Subjective/Objective
Subjective
denies bleeding or new swelling
some pain with ambulation
Vital Signs:
Vital Signs
Temp Pulse Resp BP Pulse Ox
98.3 F 86 18 112/56 100
09/06/25 08:00 09/06/25 08:00 09/06/25 08:00 09/06/25 08:00 09/06/25 08:00
Lab Results:
Laboratory Data
WBC 7.8 10^3/uL (4.8-10.8) 09/06/25 06:29
Hgb 10.6 g/dL (12.0-16.0) L 09/06/25 06:29
Plt Count 186 10^3/uL (130-400) D 09/06/25 06:29
PT 23.2 Sec (11.4-14.6) H 09/06/25 06:29
INR 2.10 09/06/25 06:29
APTT 55.4 Sec (23.4-35.0) H 09/06/25 06:29
eGFR 6.04 09/01/25 05:28
Physical Exam
HEENT: No Jaundice
Pulmonary: Other (unlabored)
GI: Soft
Extremities: Pulses Present
Orders
Orders
Orders From Last 24 Hours
09/05/25 12:39
Add On- LAB Routine
09/06/25 08:47
Warfarin [Coumadin] 2.5 mg PO QPM
--- NOTE | 2025-09-06 08:52 | W.PN.CRS1 ---
Today's Communication / Plan
-
INR therapeutic
hopefully d/c later today
Assessment/Plan
-
60-year-old female with PMH of prothrombin deficiency (complicated by DVT/PE in 2008, on Coumadin), ESRD secondary to polycystic kidney disease (she was on PD, PD catheter removed during hospitalization for perforated diverticulitis, now on HD),
RLS, hypothyroidism, HLD, HTN who presented for elective surgery
POD 9 robotic sigmoidectomy, laparoscopic TAP block
AFVSS
WBC: 7.8 (7.0, 7.8, 6.7), Hgb 10.6 (9.6, 10.2, 10.3, 10.3, 10.4)
INR: 2.10
Plan:
-Heparin to coumadin bridge
-Continue regular diet.
-HD as per nephrology
-Analgesics scheduled and prn, on Dilaudid po
-OOB, pt/ot following
-Medical management as per hospitalist
-Okay for dispo from our perspective - INR is now therapeutic. Will reach out to other services regarding input for d/c.
Subjective Data
Subjective Data
Date of Service: September 06, 2025
Patient states she feels well. She has no complaints. Denies nausea or vomiting. Tolerating a diet. No nausea or vomiting. Had a non-bloody bowel movement yesterday.
Objective Data
-
Vital Signs
Temp Pulse Resp BP Pulse Ox
98.3 F 86 18 112/56 100
09/06/25 08:00 09/06/25 08:00 09/06/25 08:00 09/06/25 08:00 09/06/25 08:00
Intake & Output
09/05/25 09/06/25 09/07/25
06:59 06:59 06:59
Intake Total 1277 / 1277 480 / 480
Balance 1277 / 1277 480 / 480
Intake:
Oral fluids 560 / 560 480 / 480
IV fluids (Total) 717 / 717
Other:
Number of approximated MODERATE 2 1
amounts of urine
Number of approximated LARGE 1
amounts of urine
Lab Results
09/06/25 06:29
09/02/25 12:40
Physical Exam
-
General: No Acute Distress and AOx3
Abdomen: Soft, Non Distended and Non Tender
Skin: Warm and Dry
Incision: Clear, Dry, Intact
[2025-09-06] MEDS: COLACE 100 MG PO (09:26)
[2025-09-06] MEDS: RENVELA 2400 MG PO (09:26)
[2025-09-06] MEDS: LIDOCAINE 4% PATCH 1 PATCH TOPICAL (09:26)
[2025-09-06] MEDS: ZYRTEC 5 MG PO (09:27)
[2025-09-06] MEDS: ROCALTROL 1 MCG PO (09:27)
--- NOTE | 2025-09-06 11:21 | W.PN.HOSP.TC ---
Today's Communication/Plan
-
Assessment / Plan
Assessment / Plan
General: No Apparent Distress, Comfortable and Conversant
HEENT: NormoCephalic, Moist mucous membranes, Atraumatic
Respiratory: Equal chest rise, Non Labored Respirations
Cardiac: Regular rhythm, heart rate 80
GI: Soft, surgical incision CDI
Musculoskeletal: No Edema, no deformity
: NO Steven
Neuro: Awake, Alert, Nonfocal/grossly intact
Psych: Calm and cooperative
Impression:
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
diverticulitis came for planned robotic sigmoidectomy, lysis of adhesions, flexible sigmoidoscopy, mesenteric angiography with ICG, laparoscopic TAP block, completed on 08/28/25. Hospitalized for heparin drip bridging to Coumadin target 2.0-3.0,
however developed episode of BRBPR overnight on 09/01/25
Which resolved and, s/p. Resume
Assessment/plan
HS of recurrent diverticulitis with perforation
s/p Robotic sigmoidectomy, lysis of adhesions, flexible sigmoidoscopy, mesenteric angiography with ICG, laparoscopic TAP block
Pain mgmt
Advance diet as per Colorectal Sx.
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
INR now within therapeutic range at 2.1, discontinuing heparin drip
Continue daily warfarin 5 mg
INR goal 2-3
Hematology following
US LE with chronic RLE DVT
Medically stable for discharge
ESRD on HD
HD as per Nephro
follow electrolytes
Rectal bleeding
held then restart Heparin and Warfarin on 09/03/25 as per agreement with colorectal
follow H&H
Systolic murmur (mild to moderate MR)
Echo :
1. Normal left ventricular size, wall thickness and systolic function. No regional wall motion abnormalities are seen.
2. Mild aortic valve stenosis. Moderate aortic regurgitation.
3. Mild concentric left ventricular hypertrophy.
4. Moderate mitral valve stenosis. mild to moderate mitral valve regurgitation.
5. No prior echocardiogram available for review.
6. Peak/mean gradients across the valve are 15/7 mmHg. Extremely dense posterior mitral annular calcification.
Hematuria
resolving
watch H&H and progression - improving as per patient
Probably traumatic 2/2 Steven, that is now removed
#Mild osteoporotic insufficiency Fx of the sacrum
#Subacute L pubic bone Fx
#b/l avascular necrosis of femoral heads
2/2 osteoporosis and ESRD
outpatient mgmt
#Hypothyroidism
#HLD
#GERD
#RLS
cont home meds
CODE STATUS: Full code
DVT prophylaxis: Warfarin
Diet: Regular diet
Anticipated Discharge: Within 24 hours
Subjective/Interval History
-
Date of Service: September 06, 2025
Patient was seen and examined at bedside this morning. No acute events overnight. INR in therapeutic range this morning. Eagerly awaiting discharge home.
Objective Data
-
Labs:
Laboratory Results
09/06/25 09/06/25
06:29 13:20
WBC 7.8
Hgb 10.6 L
Hct 32.5 L
Plt Count 186 D
PT 23.2 H
INR 2.10
APTT 55.4 H Cancelled
Vital Signs:
Vital Signs
Temp Pulse Resp BP Pulse Ox
98.3 F 86 18 112/56 100
09/06/25 08:00 09/06/25 08:00 09/06/25 08:00 09/06/25 08:00 09/06/25 08:00
I&O
09/05/25 09/06/25 09/07/25
06:59 06:59 06:59
Intake Total 5717 / 8317 480 / 480
Balance 1277 / 1277 480 / 480
Review of Systems
-
History Source: Patient
All other systems: Reviewed and negative
Physical Exam
-
General: No Apparent Distress
--- NOTE | 2025-09-06 12:20 | CM ---
Chart reviewed. Care ongoing
[facility] accepted
HD today
Plan: Home w/ [facility], cont w/ OP HD
--- NOTE | 2025-09-06 13:39 | W.PN.NEPH.HD ---
Assessment
-
pt seen during HD
vitals stable
CVC functions fine
INR therapeutic
noted plan d/c
return to [facility] on Tuesday
Progress Note - Hemodialysis
-
Date of Service: September 06, 2025
Duration: 30 minutes and 3 hours
Potassium Bath: 3
Calcium Bath: 2.5
Opti-Dialyzer: 160
Ultrafiltration: Other (1-1.5kg)
Blood Flow: 400
Dialysate Flow: 600
Heparin: no
EPO: 3000
[2025-09-06] MEDS: RETACRIT 3000 UNITS IV (13:45)
[2025-09-06] MEDS: HEPARIN 4000 UNITS INTRACATH (15:23)
[2025-09-06 15:46] LABS: Hepatitis B Surface Antigen Negative (Negative)
[2025-09-06 16:00] VITALS: BP 122/66
[2025-09-06] MEDS: RENVELA PO ×2 (16:25)
== END 2025-09-06 17:05 | disposition home health service (06) | DRG 329 ==
LOC: 2 SOUTH 05:50
PROVIDERS: General Practice; Internal Medicine; Physician Assistant; Specialist; ADMITTING PHYSICIAN Surgery; CONSULT PHYSICIAN Internal Medicine Hematology & Oncology; CONSULT PHYSICIAN Specialist; FAMILY PHYSICIAN Nurse Practitioner Family; OTHER PHYSICIAN Hospitalist
PROC: 0DJD8ZZ Inspection of Lower Intestinal Tract, Via Natural or Artificial Opening Endoscopic (ICD-10-PCS; 2025-08-28)
PROC: 0DNN4ZZ Release Sigmoid Colon, Percutaneous Endoscopic Approach (ICD-10-PCS; 2025-08-28)
PROC: 8E0W4CZ Robotic Assisted Procedure of Trunk Region, Percutaneous Endoscopic Approach (ICD-10-PCS; 2025-08-28)
PROC: 0DN84ZZ Release Small Intestine, Percutaneous Endoscopic Approach (ICD-10-PCS; 2025-08-28)
PROC: 0DTN4ZZ Resection of Sigmoid Colon, Percutaneous Endoscopic Approach (ICD-10-PCS; 2025-08-28)
PROC: 5A1D70Z Performance of Urinary Filtration, Intermittent, Less than 6 Hours Per Day (ICD-10-PCS; 2025-08-30)
PROC: 0DBP4ZZ Excision of Rectum, Percutaneous Endoscopic Approach (ICD-10-PCS; 2025-09-06)
DX: K57.20 Diverticulitis of large intestine with perforation and abscess without bleeding (principal); N18.6 End stage renal disease; I12.0 Hypertensive chronic kidney disease with stage 5 chronic kidney disease or end stage renal disease; N25.81 Secondary hyperparathyroidism of renal origin; D68.51 Activated protein C resistance; Q61.3 Polycystic kidney, unspecified; K62.5 Hemorrhage of anus and rectum; E03.9 Hypothyroidism, unspecified; G25.81 Restless legs syndrome; Z99.2 Dependence on renal dialysis; D63.1 Anemia in chronic kidney disease; E78.00 Pure hypercholesterolemia, unspecified; K21.9 Gastro-esophageal reflux disease without esophagitis; K66.0 Peritoneal adhesions (postprocedural) (postinfection); I34.0 Nonrheumatic mitral (valve) insufficiency; R31.9 Hematuria, unspecified; M80.0 Age-related osteoporosis with current pathological fracture; M80.0AXD Age-related osteoporosis with current pathological fracture, other site, subsequent encounter for fracture with routine healing; Z86.711 Personal history of pulmonary embolism; Z86.718 Personal history of other venous thrombosis and embolism; Z79.01 Long term (current) use of anticoagulants
CPT/HCPCS: 71046; 80048; 80051; 80053; 82728; 83036; 85014; 85018; 85025; 85027; 85610; 85730; 86850; 86900; 86901; 87340; 88307; 93005; 93306; 93970; 97116; 97162; 97166; 97530; G0257; P9047; Q5106

== ENCOUNTER 2025-09-11 12:59 | Emergency (ER) | payer MEDICARE, BC, SELFPAY ==
[2025-09-11 13:04] VITALS: BP 131/66
[2025-09-11 13:34] LABS: Hematocrit 33.5 % (37.0-47.0); Hemoglobin 11.2 g/dL (12.0-16.0); Mean Corp Hgb Conc. 33.4 g/dL (33.0-37.0); Mean Corpuscular Volume 93.3 fL (81.0-99.0); Nucleated Red Blood Cells % 0 %; Platelet Count 323 10^3/uL (130-400); Red Cell Dist. Width 14.8 % (11.5-14.5)
[2025-09-11 14:16] LABS: ALT (SGPT) < 10 U/L (0-35); AST (SGOT) 20 U/L (14-36); Albumin 3.6 g/dl (3.5-5.0); Alkaline Phosphatase 123 U/L (38-126); Blood Urea Nitrogen 6 mg/dl (7-17); Calcium 9.7 mg/dl (8.4-10.2); Carbon Dioxide 32 mmol/L (22-30); Chloride 94 mmol/L (98-107); Glucose 128 mg/dl (70-99); Lipase 136 U/L (23-300); Potassium 3.6 mmol/L (3.5-5.1); Sodium 132 mmol/L (135-145); Total Protein 6.1 g/dl (6.3-8.2); eGFR 18.75
--- NOTE | 2025-09-11 16:33 | ED.GENMED ---
History of Present Illness
General
Chief Complaint: Abdominal Pain
Source: patient, records, physician and previous hospital records
Exam Limitations: none
Time Seen by Provider: 09/11/25 16:16
Nursing documentation reviewed up to this point in time: agreed with
History of Present Illness
History of Present Illness:
60-year-old female ESRD Tuesday status post bowel resection for diverticulitis by Dr. Montemayor before Thanksgiving, scheduled surgery no ostomy discharge a few days ago having some nausea feeling like she has to have a bowel movement
did have 1 large bowel movement, followed up with Dr. Montemayor today referred to the ER for a CAT scan, she did get dialysis today, has had no fevers,
Past History
Past History
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
ED Past Surgical History: Gynecological (Tubal, ), Tonsilectomy and Other (PD catheter)
Social History
Tobacco: Non-smoker
Alcohol: Occasional
Personal: Single (engaged)
Living: with family
Phy Exam
Physical Exam
Physical Exam:
Physical Exam
General: no apparent distress, not acutely ill
Neck: No jaundice
Heart: s1/s2 regular rate and rhythm, no murmur. equal radial pulses.
Lungs: no acute respiratory distress. clear bilaterally
Abdomen: Distended mild diffuse tenderness
Neuro: alert and oriented. no focal neurological deficits
Skin: no rash
Psychiatric: well kept. interactive and cooperative
Extremities: no edema.
Course
Orders/Labs/Results
Orders:
Orders
09/11/25 13:14
Complete Blood Count/With Diff Urgent
Comprehensive Metabolic Panel Urgent
Lipase Urgent
09/11/25 16:26
CT Abd/Pel (IV only)-DH only Urgent
Comment:
Reason For Exam: pain esrd ok to give iv
HYDROmorphone [Dilaudid] 0.5 mg IV NOW STA
Ondansetron Injectable [Zofran] 4 mg IV NOW STA
Abnormal Lab Results
09/11/25
13:14
RBC 3.59 L 10^6/uL
(4.20-5.40)
Hgb 11.2 L g/dL
(12.0-16.0)
Hct 33.5 L %
(37.0-47.0)
MCH 31.2 H pg
(27.0-31.0)
RDW 14.8 H %
(11.5-14.5)
Absolute Neuts (auto) 8.4 H 10^3/uL
(1.4-6.5)
Neutrophils % 79.5 H %
(42.2-75.2)
Lymphocytes % 13.7 L %
(20.5-51.1)
Sodium 132 L mmol/L
(135-145)
Chloride 94 L mmol/L
(98-107)
Carbon Dioxide 32 H mmol/L
(22-30)
BUN 6 L mg/dl
(7-17)
Creatinine 2.8 H mg/dL
(0.6-1.0)
Glucose 128 H mg/dl
(70-99)
Total Protein 6.1 L g/dl
(6.3-8.2)
09/11/25 13:14
09/11/25 13:14
Vital Signs
Initial and Last Documented VS:
Initial Vital Signs
Temp Pulse Resp BP Pulse Ox
97.5 F 91 16 131/66 99
09/11/25 13:04 09/11/25 13:04 09/11/25 13:04 09/11/25 13:04 09/11/25 13:04
Last Documented Vital Signs
Temp Pulse Resp BP Pulse Ox
97.5 F 91 16 131/66 99
09/11/25 13:04 09/11/25 13:04 09/11/25 13:04 09/11/25 13:04 09/11/25 16:34
MDM/Problems Addressed
Differential Diagnosis Includes:
Ileus obstruction constipation other
MDM/Problems Addressed:
Abdominal pain
Chronic conditions affecting care: Previous abdomnial surgery and Kidney disease
Acute Exacerbation and/or Progression of Chronic Illness: Previous abdomnial surgery and Kidney disease
*Radiology
Radiology exam reviewed: radiology read reviewed
*Pulse Oximetry
SaO2: 99
Oxygen Mode of Delivery: Room air
Patient hypoxic: no
*Critical Care Note
Total Time (30-74mins, 75-104mins- exclusive of procedures): Not Applicable
ED Attending Note
-
Portions of this chart may have been created with voice recognition software.� Occasional wrong word or��sound alike� substitutions may have occurred due to the inherent limitations of voice recognition software.
Discharge Plan
Departure
Prescriptions:
No Action
calcitriol 0.5 mcg Capsule
0.5 mcg PO DAILY
sevelamer carbonate 800 mg Tablet
2,400 mg PO AC
ropinirole 1 mg tablet
2 mg PO HS
acetaminophen 500 mg Tablet
1,000 mg PO DAILYPRN PRN (Reason: mild pain)
levothyroxine 125 mcg tablet
125 mcg PO DAILY
B complex-vitamin C-folic acid 0.8 mg Tablet
1 tab PO DAILY
docusate sodium 100 mg Tablet
200 mg PO DAILY
Systane Ultra 0.4-0.3 % Drops
1 drp OPHTHALMIC (EYE) DAILY PRN (Reason: dry eyes)
Saline Nasal 0.65 % Aerosol,[place]
1 spray INTRANASAL HSPRN PRN (Reason: dry sinuses)
rosuvastatin 10 mg tablet
10 mg PO QPM
pantoprazole [Protonix] 40 mg tablet,delayed release (DR/EC)
40 mg PO HS
cetirizine [Zyrtec] 10 mg Tablet
10 mg PO DAILY
warfarin 2 mg tablet
4 mg PO QPM
hydromorphone [Dilaudid] 4 mg tablet
4 mg PO Q6H PRN (Reason: Pain) Qty: 20 0RF
Interventions
Interventions:
*Risk Screen - Suicide Last Done: 09/11/25 13:04
*General Assessment Last Done: 09/11/25 13:04
*ED COVID-19 Vaccine History Last Done: 09/11/25 13:04
*ED Influenza Vaccine History Last Done: 09/11/25 13:04
Discharge Date and Time
Print Language: [place]
[2025-09-11 16:42] VITALS: BMI 30.8
[2025-09-11] MEDS: ZOFRAN 4 MG IV (16:46)
[2025-09-11] MEDS: DILAUDID 0.5 MG IV (16:47)
[2025-09-11 18:11] VITALS: BP 100/51
[2025-09-11 20:06] LABS: C-Reactive Protein 26.30 mg/L (0.0-10.00)
== END 2025-09-11 20:25 | disposition home or self-care (01) ==
LOC: EMR 12:59
PROVIDERS: Emergency Medicine; EMERGENCY PHYSICIAN Emergency Medicine
DX: R11.0 Nausea (principal); I12.0 Hypertensive chronic kidney disease with stage 5 chronic kidney disease or end stage renal disease; N18.6 End stage renal disease; Q61.3 Polycystic kidney, unspecified; D68.2 Hereditary deficiency of other clotting factors; Z90.49 Acquired absence of other specified parts of digestive tract; Z86.711 Personal history of pulmonary embolism
CPT/HCPCS: 99284; 96374; 96375; 74177; 80053; 83690; 85025; 86140; Q9967